=== PATIENT | female | born 1940 | race Caucasian/White ===

== ENCOUNTER 2023-02-07 12:18 | Outpatient (OUT) | payer MEDICARE, SELFPAY ==
[2023-02-07 12:49] LABS: Basophils Absolute Auto 0.1 10^3/uL (0.0-0.1); Basophils Percent Auto 0.9 % (0.2-2.0); Eosinophils Absolute Auto 0.2 10^3/uL (0.0-0.7); Eosinophils Percent Auto 2.3 % (0.9-7.0); Hematocrit 42.5 % (36.0-48.0); Hemoglobin 14.1 g/dL (12.0-16.0); Immature Granulocytes Abs Auto 0.06 10^3/uL (0.00-0.03); Immature Granulocytes Pct Auto 0.7 % (0.0-0.5); Lymphocytes Absolute Auto 3.1 10^3/uL (1.2-3.8); Lymphocytes Percent Auto 37.2 % (20.5-60.0); Mean Corpuscular HGB Conc 33.2 g/dL (29.9-35.2); Mean Corpuscular Hemoglobin 29.4 pg (26.7-34.0); Mean Corpuscular Volume 88.7 fL (81.0-99.0); Mean Platelet Volume 10.4 fL (9.5-13.5); Monocytes Absolute Auto 0.7 10^3/uL (0.3-0.8); Monocytes Percent Auto 8.6 % (1.7-12.0); Neutrophils Absolute Auto 4.1 10^3/uL (1.4-6.5); Neutrophils Percent Auto 50.3 % (43.0-75.0); Platelet Count 319 10^3/uL (150-450); Red Blood Count 4.79 10^6/uL (4.20-5.40); Red Cell Distribution Width 14.4 % (11.0-15.0); White Blood Count 8.2 10^3/uL (4.0-11.0)
[2023-02-07 13:52] LABS: Alanine Aminotransferase 33 U/L (14-59); Albumin Globulin Ratio 0.9; Albumin Level 3.6 g/dL (3.4-5.0); Alkaline Phosphatase 73 U/L (46-116); Anion Gap 12.6; Aspartate Amino Transferase 21 U/L (15-37); BUN Creatinine Ratio 16.3; Bilirubin Total 0.5 mg/dL (0.2-1.0); Calcium 9.5 mg/dL (8.5-10.1); Carbon Dioxide 28.5 mmol/L (21.0-32.0); Chloride 101 mmol/L (98-107); Estimated GFR (African America 48 (>=60); Estimated GFR (Non-African Ame 40 (>=60); Free Thyroxine Index 3.67 (1.30-4.50); Globulin 3.9 g/dL; Glucose 100 mg/dL (74-106); Potassium 4.1 mmol/L (3.5-5.1); Sodium 138 mmol/L (136-145); Total Protein 7.5 g/dL (6.4-8.2)
== END 2023-02-07 12:19 ==
LOC: LAB 12:23
PROVIDERS: Family Provider Family Medicine; PCP Family Medicine; Visit Provider Family Medicine
DX: R06.02 Shortness of breath (principal); I11.0 Hypertensive heart disease with heart failure; I50.30 Unspecified diastolic (congestive) heart failure
CPT/HCPCS: 36415; 80053; 83880; 84436; 84443; 84479; 85025

== ENCOUNTER 2023-04-24 12:32 | Outpatient (OUT) | payer MEDICARE, SELFPAY ==
--- NOTE | 2023-04-24 12:43 | XR_ITS ---
The [address] [address] Patient Name: ROBYN SRINIVASAN MRN: [id number] date: 1940 Sex: F Assigned Patient Location: [facility] Current Patient Location: CT Accession/Order Number: [id number] Exam Date: 04/24/2023 12:50 Report Date: 04/24/2023 13:30 At the request of: RAYMOND SILVERMAN Procedure: XR abdomen 1V EXAM: XR abdomen 1V HISTORY: Kidney stone N20.0, Ureteral stone w/hydronephrosis N13.2 COMPARISON: None. TECHNIQUE: AP view of the abdomen. FINDINGS: Nonobstructive bowel gas pattern is noted. There is a subtle calculi projecting over the right sacrum. The osseous structures are intact. XR/XR abdomen 1V IMPRESSION: Nonobstructive bowel gas pattern. Possible distal right urolithiasis. Electronically authenticated by: SACHI TORRES Date: 04/24/2023 13:30
== END 2023-04-24 12:33 | disposition home or self-care (01) ==
LOC: RAD 12:36
PROVIDERS: Family Provider Family Medicine; PCP Family Medicine; Visit Provider Urology
DX: N13.2 Hydronephrosis with renal and ureteral calculous obstruction (principal)
CPT/HCPCS: 74018

== ENCOUNTER 2023-04-28 09:48 | Outpatient (OUT) | payer MEDICARE, SELFPAY ==
--- NOTE | 2023-04-28 09:51 | CT_ITS ---
[address] [address] Patient Name: ROBYN SRINIVASAN MRN: [id number] date: 1940 Sex: F Assigned Patient Location: CT Current Patient Location: CT Accession/Order Number: [id number] Exam Date: 04/28/2023 10:15 Report Date: 04/28/2023 10:48 At the request of: MARKIE ACKERMAN Procedure: CT chest wo con EXAM: CT chest wo con HISTORY: Chest Mass E28.39, Lung Nodule COMPARISON: CT chest 01/21/2023. TECHNIQUE: Axial soft tissue and lung windows of the chest with coronal and sagittal reformats. CT dose reduction technique was used including Automated Exposure Control. Findings: Evaluation is limited given the absence of intravenous contrast. The heart is nonenlarged. Mild coronary artery and aortic annular calcifications. No pericardial effusion. The thoracic aorta is normal caliber with mild atherosclerotic disease. The pulmonary arteries are nondilated. The central airways are patent. No pneumothorax. No pleural effusion. No focal consolidation. Stable bilateral pulmonary nodules. No new pulmonary nodule. No enlarged mediastinal, hilar, axillary or supraclavicular lymph nodes. Large hiatal hernia. Fatty liver. No aggressive sclerotic or lytic osseous lesions. Mild multilevel degenerative spondylosis of the thoracic spine. CT/CT chest wo con IMPRESSION: 1. Stable pulmonary nodules. 2. Large hiatal hernia. 3. Fatty liver. Electronically authenticated by: RANDY YANEZ Date: 04/28/2023 10:48
== END 2023-04-28 09:49 | disposition home or self-care (01) ==
LOC: CT 09:48
PROVIDERS: Family Provider Family Medicine; PCP Family Medicine; Visit Provider Family Medicine
DX: R22.2 Localized swelling, mass and lump, trunk (principal); R91.8 Other nonspecific abnormal finding of lung field; K44.9 Diaphragmatic hernia without obstruction or gangrene; K76.0 Fatty (change of) liver, not elsewhere classified
CPT/HCPCS: 71250

== ENCOUNTER 2024-01-07 10:25 | Outpatient (OUT) | payer MEDICARE, SELFPAY ==
[2024-01-07 11:28] LABS: Basophils Absolute Auto 0.1 10^3/uL (0.0-0.1); Basophils Percent Auto 0.4 % (0.2-2.0); Eosinophils Absolute Auto 0.4 10^3/uL (0.0-0.7); Eosinophils Percent Auto 2.7 % (0.9-7.0); Hematocrit 40.5 % (36.0-48.0); Hemoglobin 13.1 g/dL (12.0-16.0); Immature Granulocytes Abs Auto 0.07 10^3/uL (0.00-0.03); Immature Granulocytes Pct Auto 0.5 % (0.0-0.5); Lymphocytes Percent Auto 13.5 % (20.5-60.0); Mean Corpuscular HGB Conc 32.3 g/dL (29.9-35.2); Mean Corpuscular Hemoglobin 29.2 pg (26.7-34.0); Mean Corpuscular Volume 90.4 fL (81.0-99.0); Monocytes Absolute Auto 0.9 10^3/uL (0.3-0.8); Neutrophils Absolute Auto 11.2 10^3/uL (1.4-6.5); Neutrophils Percent Auto 76.9 % (43.0-75.0); Platelet Count 244 10^3/uL (150-450); Red Blood Count 4.48 10^6/uL (4.20-5.40); Red Cell Distribution Width 13.2 % (11.0-15.0); White Blood Count 14.6 10^3/uL (4.0-11.0)
[2024-01-07 11:39] LABS: Estimated Average Glucose 114 mg/dL; Glycohemoglobin A1C 5.6 % (4.5-6.2)
[2024-01-07 11:40] LABS: Alanine Aminotransferase 25 U/L (14-59); Albumin Globulin Ratio 0.9; Albumin Level 3.7 g/dL (3.4-5.0); Alkaline Phosphatase 77 U/L (46-116); Anion Gap 13.2; Aspartate Amino Transferase 18 U/L (15-37); BUN Creatinine Ratio 23.8; Bilirubin Total 0.3 mg/dL (0.2-1.0); Calcium 9.6 mg/dL (8.5-10.1); Carbon Dioxide 26.7 mmol/L (21.0-32.0); Chloride 103 mmol/L (98-107); Chol HDL Ratio 2.9; Cholesterol 233 mg/dL (<=200); Estimated GFR (African America >60 (>=60); Estimated GFR (Non-African Ame >60 (>=60); Free T3 2.64 pg/mL (2.18-3.98); Globulin 3.9 g/dL; Glucose 105 mg/dL (74-106); HDL Cholesterol 79 mg/dL (40-60); Potassium 3.9 mmol/L (3.5-5.1); Sodium 139 mmol/L (136-145); Thyroid Stimulating Hormone 2.689 uIU/mL (0.358-3.740); Total Protein 7.6 g/dL (6.4-8.2); Triglycerides 104 mg/dL (<=150); Troponin I High Sensitivity 4.9 pg/mL (4.0-51.3); VLDL CHOLESTEROL 20.8 mg/dL
[2024-01-08 12:10] LABS: Insulin 16.4 uIU/mL (2.6-24.9)
== END 2024-01-07 10:26 | disposition home or self-care (01) ==
LOC: LAB 10:27
PROVIDERS: Family Provider Family Medicine; PCP Family Medicine; Visit Provider Family Medicine
DX: R06.02 Shortness of breath (principal); G47.00 Insomnia, unspecified; K21.9 Gastro-esophageal reflux disease without esophagitis; E78.5 Hyperlipidemia, unspecified; R73.09 Other abnormal glucose; Z12.12 Encounter for screening for malignant neoplasm of rectum; D64.9 Anemia, unspecified; E55.9 Vitamin D deficiency, unspecified; I50.30 Unspecified diastolic (congestive) heart failure; I11.0 Hypertensive heart disease with heart failure
CPT/HCPCS: 36415; 80053; 80061; 82306; 83036; 83525; 83540; 83880; 84436; 84443; 84481; 84484; 85025

== ENCOUNTER 2024-01-19 11:51 | Outpatient (REF) | payer MEDICARE, SELFPAY ==
[2024-01-20 15:28] LABS: Internal Control Within Normal Limits; Occult Blood Negative
== END 2024-01-19 11:52 | disposition home or self-care (01) ==
LOC: LAB 11:51
PROVIDERS: Family Provider Family Medicine; PCP Family Medicine; Visit Provider Family Medicine
DX: R06.02 Shortness of breath (principal); G47.00 Insomnia, unspecified; K21.9 Gastro-esophageal reflux disease without esophagitis; E78.5 Hyperlipidemia, unspecified; R73.09 Other abnormal glucose; Z12.12 Encounter for screening for malignant neoplasm of rectum; D64.9 Anemia, unspecified; E55.9 Vitamin D deficiency, unspecified; I50.30 Unspecified diastolic (congestive) heart failure; I11.0 Hypertensive heart disease with heart failure
CPT/HCPCS: G0328

== ENCOUNTER 2024-01-20 06:28 | Outpatient (OUT) | payer MEDICARE, SELFPAY ==
--- NOTE | 2024-01-20 06:15 | NM_ITS ---
Patient Name: ROBYN SRINIVASAN MR#: [id number] : 1940 Exam Date: 01/20/2024 Ordering Doctor: DR MARKIE ACKERMAN . RADIOLOGY REPORT PROCEDURE: NM NERI PERF SPECT REST STR COMPARISON: None. INDICATIONS: SHORTNESS OF BREATH TECHNIQUE: Exam Description: Stress/Rest one day protocol gated SPECT Rest Imagin.0 mCi Tc-99m Cardiolite IV on 01/20/2024 Stress Imaging 29.9 mCi Tc-99m Cardiolite IV on 01/20/2024 Exercise Protocol: 0.4 mg Lexiscan given IV Heart Rate (bpm): Rest: 67 Max: 96 PMHR: 69 Blood Pressure: Rest: 164/88 Max: 174/90 Symptoms: Rest and peak stress ECG findings were normal and the exercise portion of the study was normal per attending physician Dr. Yu . For more details please see separate cardiac stress test report. FINDINGS: QUALITY OF STUDY: Good. PERFUSION DEFECT: LOCATION: N/A SIZE: N/A. SEVERITY: N/A. TYPE: N/A. WALL MOTION: Normal. LV SIZE: Normal. 48 mL. TID / TCD: None; 0.6 LVEF: Normal. Calculated EF 75%. SUMMARY: Myocardial perfusion imaging study is NORMAL. CONCLUSION: Normal myocardial profusion scan Normal exercise test Dictated by: Alex Bell MD on 01/21/2024 at 11:29 Approved by: Alex Bell MD on 01/21/2024 at 11:31
--- OUTSIDE RECORDS SUMMARY | 2024-01-20 06:31 | XMS_ITS | CCD ---
Author Organization [facility] CliniSynv Care Team Providers Care Drupal Programmer Name Role Phone ANDRA, DR CARLOS Mae Admitting Unavailable COOK, DR CARLOS Mae Attending Unavailable LUIS, DR ADEN Primary Care Unavailable COOK, DR CARLOS Mae Consulting Unavailable COOK, DR CARLOS Mae Admitting Unavailable COOK, DR CARLOS Mae Attending Unavailable LUIS, DR ADEN Primary Care Unavailable COOK, DR CARLOS Mae Consulting Unavailable LUIS, DR ADEN Admitting Unavailable LUIS, DR ADEN Attending Unavailable LUIS, DR ADEN Primary Care Unavailable LUIS, DR ADEN Consulting Unavailable ZIEBER, DR JEREMIAH Norton Consulting Unavailable HOY, DR ADEN Primary Care Unavailable LUIS, DR ADEN Admitting Unavailable HOAce, DR ADEN Attending Unavailable HOAce, DR ADEN Consulting Unavailable COOK, DR CARLOS Mae Consulting Unavailable WEST, DR EDGAR Flores Consulting Unavailable PAY, DR RODRIGUEZ Consulting Unavailable GRECHNY, WOOD POOL Consulting Unavailable HAY, DR RAMIREZ Consulting Unavailable AGUBOSIM, RAMÍREZ Consulting Unavailable Otf, Aba Consulting Unavailable COOK, DR CARLOS Mae Admitting Unavailable COOK, DR CARLOS Mae Attending Unavailable LUIS, DR ADEN Primary Care Unavailable COOK, DR CARLOS Mae Consulting Unavailable ZIEBTIFFANI, DR JEREMIAH Norton Consulting Unavailable LUIS, DR ADEN Admitting Unavailable LUIS, DR ADEN Attending Unavailable HOAce, DR ADEN Primary Care Unavailable LUIS, DR ADEN Consulting Unavailable Markie Smith Primary Care Physician Markie Smith Primary Care Unavailable Carlos Silverman Attending Unavailable Carlos Silverman Admitting Unavailable Markie Smith Primary Care Unavailable Carlos Silverman Attending Unavailable Carlos Silverman Admitting Unavailable Carlos SILVERMAN Attending Unavailable Cralos SILVERMAN Attending Unavailable LOUISA SPARROW Attending Unavailable Allergies Allergy Classification Reported Allergen(s) Allergy Type Date of Onset Reaction(s) Facility (2 sources) Ciprofloxacin; Translations: [ciprofloxacin] Drug Allergy 7 [facility] Repository (2 sources) Codeine; Translations: [codeine] Drug Allergy 1 [facility] Repository (2 sources) Ibuprofen; Translations: [ibuprofen] Drug Allergy 7 [facility] Repository (4 sources) Penicillin; Translations: [penicillin] Drug Allergy 3 Eruption of skin (disorder) [facility] Repository (1 source) [place] nut Drug allergy (disorder) 2 [facility] Repository (2 sources) Ciprofloxacin; Translations: [ciprofloxacin] Drug Allergy 7 Unknown [facility] (2 sources) Codeine; Translations: [codeine] Drug Allergy 1 Unknown [facility] (2 sources) Ibuprofen; Translations: [ibuprofen] Drug Allergy 7 Unknown [facility] (3 sources) Sulfamethoxazole / Trimethoprim; Translations: [sulfamethoxazole-tr imethoprim] Drug Allergy Tremor (finding) [facility] Medications Current Medications Medication Drug Class(es) Dates Sig (Normalized) Sig (Original) ALPRAZolam 0.25 mg oral tablet (2 sources) Benzodiazepine Start: 10-09-2021 take 4 tablets by mouth three times daily Xanax 0.25 mg Tab mg tab(s), Oral, TID, Refills(s) 0 Start Date: 10/09/21 Status: Ordered calcium carbonate 500 mg chewable tablet (2 sources) Start: 05-28-2019 Tums 500 mg Tab-Chew 1,000 mg = 2 tab(s), Chewed, q4hr, PRN Dyspepsia, Refills(s) 0 Start Date: 05/28/19 Status: Ordered Celebrate Multivitamin (2 sources) Start: 03-18-2019 Celebrate Multivitamin Daily, Refill(s) 0 Start Date: 03/18/19 Status: Ordered Zyrtec (2 sources) Histamine-1 Receptor Antagonist Start: 10-09-2021 Zyrtec Daily, Refills(s) 0 Start Date: 10/09/21 Status: Ordered docusate sodium 100 mg oral capsule (2 sources) Start: 03-18-2019 take 1 capsule by mouth twice daily as needed for constipation Colace 100 mg Cap 100 mg = 1 cap(s), Oral, BID, PRN for constipation, crush and put in applesauce, # 20 cap(s), Refills(s) 0 Start Date: 03/18/19 Status: Ordered Excedrin Migraine (2 sources) Start: 10-09-2021 Excedrin Migraine Oral, q6hr, Refill(s) 0 Start Date: 10/09/21 Status: Ordered Iron Chews (2 sources) Start: 10-09-2021 take 1 mg by mouth once daily Iron Chews mg, Oral, Daily, Refills(s) 0 Start Date: 10/09/21 Status: Ordered lactobacillus acidophilus [id number] unt oral capsule (2 sources) Start: 03-18-2019 take 1 capsule by mouth once daily lactobacillus acidophilus oral capsule 1 cap(s), Oral, Daily, Refill(s) 0 Start Date: 03/18/19 Status: Ordered meclizine hydrochloride 25 mg chewable tablet (2 sources) Antiemetic Start: 10-09-2021 take 1 mg by mouth three times daily meclizine 25 mg oral tablet, chewable mg tab(s), Chewed, TID, Refills(s) 0 Start Date: 10/09/21 Status: Ordered pantoprazole 40 mg delayed release oral tablet (1 source) Proton Pump Inhibitor Start: 05-01-2023 take 1 mg by mouth once daily Pantoprazole [address] Tab mg tab(s), Oral, Daily Start Date: 05/01/23 Status: Ordered 24 hr divalproex sodium 500 mg extended release oral tablet (2 sources) Mood Stabilizer, Anti-epileptic Agent Start: 05-28-2019 take 2 tablets by mouth once daily divalproex sodium 500 mg ER Tab 1,000 mg = 2 tab(s), Oral, Daily, Refills(s) 0 Start Date: 05/28/19 Status: Ordered Problems Active Problems Problem Classification Problem Date Documented Da te Episodic/Chronic Calculus of urinary tract (10 sources) Calculus of kidney; Translations: [Personal history of urinary calculi] Onset: 09-27-2021 Episodic Chronic kidney disease (2 sources) Chronic kidney disease stage 3 06-06-2019 Chronic Congestive heart failure; nonhypertensive (1 source) Unspecified diastolic (congestive) heart failure; Translations: [UNSPECIFIED DIASTOLIC HEART FAILURE] Onset: 02-01-2022 Chronic Deficiency and other anemia (4 sources) Iron deficiency anemia, unspecified; Translations: [IRON DEFICIENCY ANEMIA UNSPECIFIED] Onset: 01-31-2022 Episodic Deficiency and other anemia (1 source) Anemia, unspecified; Translations: [ANEMIA UNSPECIFIED] Onset: 02-01-2022 Episodic Delirium, dementia, and amnestic and other cognitive disorders (2 sources) Dementia associated with another disease 06-06-2019 Chronic Diabetes mellitus without complication (2 sources) Type 2 diabetes mellitus 06-06-2019 Chronic Diabetes mellitus without complication (1 source) Other abnormal glucose; Translations: [OTHER ABNORMAL GLUCOSE] Onset: 02-01-2022 Episodic Disorders of lipid metabolism (2 sources) Pure hypercholesterolemia , unspecified; Translations: [Hyperlipidemia, unspecified] Onset: 02-01-2022 Chronic Esophageal disorders (3 sources) Gastro-esophageal reflux disease without esophagitis; Translations: [Gastroesophageal reflux disease] Onset: 02-01-2022 04-14-2019 Chronic Hypertension with complications and secondary hypertension (1 source) Hypertensive heart disease with heart failure; Translations: [HTN HEART DISEASE W/HEART FAIL] Onset: 02-01-2022 Chronic Mood disorders (2 sources) Mixed bipolar affective disorder, mild 06-06-2019 Chronic Other diseases of kidney and ureters (1 source) Urinary tract obstruction; Translations: [Hydronephrosis with renal and ureteral calculous obstruction] Onset: 06-04-2022 Episodic Other diseases of kidney and ureters (2 sources) Hydronephrosis 10-09-2021 Episodic Other hereditary and degenerative nervous system conditions (2 sources) Essential tremor 03-18-2019 Chronic Other screening for suspected conditions (not mental disorders or infectious disease) (4 sources) Encounter for screening mammogram for malignant neoplasm of breast; Translations: [ENC SCR MAMMO MALIG NEOPLASM BREAST] Onset: 02-21-2022 Episodic Prolapse of female genital organs (1 source) Rectocele; Translations: [RECTOCELE] Onset: 09-27-2021 Chronic Residual codes; unclassified (1 source) Family history of malignant neoplasm of breast; Translations: [FAMILY HX MALIG NEOPLASM OF BREAST] Onset: 02-26-2022 Episodic Residual codes; unclassified (1 source) Family history of malignant neoplasm of prostate; Translations: [FAMILY HX MALIG NEOPLASM PROSTATE] Onset: 02-26-2022 Episodic Residual codes; unclassified (1 source) Insomnia, unspecified; Translations: [INSOMNIA UNSPECIFIED] Onset: 02-01-2022 Episodic Residual codes; unclassified (2 sources) History of craniotomy 03-18-2019 Episodic Viral infection (1 source) COVID-19; Translations: [COVID-19] Onset: 09-27-2021 Past or Other Problems Problem Classification Problem Date Documented Date Episodic/Chronic Abdominal pain (4 sources) Unspecified abdominal pain; Translations: [UNSPECIFIED ABDOMINAL PAIN] Onset: 09-21-2021 Episodic Other aftercare (1 source) Other mcc (current) drug therapy; Translations: [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 CURRENT DRUG THERAPY] Onset: 09-27-2021 Episodic Other diseases of bladder and urethra (1 source) Unspecified urethral stricture, female; Translations: [UNSP URETHRAL STRICTURE FEMALE] Onset: 09-27-2021 Episodic Other diseases of kidney and ureters (1 source) Hydronephrosis with renal and ureteral calculous obstruction; Translations: [HYDRONPHROS RENL AND URETRL CALCUL OBST] Onset: 09-27-2021 Episodic Residual codes; unclassified (1 source) Acquired absence of both cervix and uterus; Translations: [ACQUIRED ABSENCE BOTH CERVIX AND UTERUS] Onset: 09-27-2021 Episodic Screening and history of mental health and substance abuse codes (1 source) Personal history of nicotine dependence; Translations: [PERSONAL HISTORY OF NICOTINE DEPEND] Onset: 09-27-2021 Episodic Results Test Name Value Interpretation Reference Range Facility Ambulatory Visit Summaryon 0 05-01-2023 Ambulatory Visit Summary CRAIG ROBYN Judi :1940 Visit Date:05/01/2023 Ambulatory Visit Instructions Your Diagnosis Kidney stone Tests Performed Urnls Dip Stick Auto w/o Microscopy POC [id number] XR Abdomen 1 View -- Results Pending -- Please visit your patient portal for your results or contact your primary care physician. Your Care Team Attending Physician - ANDREWS FLEMING, LOUISA Welch Primary Care Physician - Luis RIVERA, Markie This Is Your Medications List Contact prescribing physician if questions or concerns APAP/ASA/caffeine (Excedrin Migraine) alprazolam (Xanax 0.25 mg Tab) calcium carbonate (Tums 500 mg Tab-Chew) carbonyl iron (Iron Chews) cetirizine (Zyrtec) divalproex sodium (divalproex sodium 500 mg ER Tab) docusate (Colace 100 mg Cap) lactobacillus acidophilus (lactobacillus acidophilus oral capsule) meclizine (meclizine 25 mg oral tablet, chewable) multivitamin with minerals (Celebrate Multivitamin) pantoprazole (Pantoprazole [address] Tab) Procedures Performed Cystoscopy (09/22/2021), Appendectomy, CE - Cataract extraction, H/O: hysterectomy. Discharge Vitals Temperature (Temporal Artery) 36.3 ?C Heart Rate (Peripheral) 78 Blood Pressure 158/81 Height 163 cm Height 64 in Weight 80 kg Weight 176 lb BMI 30.11 What to do next Scheduled Follow-Up Appointments Friday 1:00 PM EDT With: Carlos SILVERMAN MD Where: [facility] Patient Educationon 05-01-20 23 Patient Education Nephrology Dietary Guidelines to Help Prevent Kidney Stones Kidney stones are deposits of minerals and salts that form inside your kidneys. Your risk of developing kidney stones may be greater depending on your diet, your lifestyle, the medicines you take, and whether you have certain medical conditions. Most people can lower their chances of developing kidney stones by following the instructions below. Your dietitian may give you more specific instructions depending on your overall health and the type of kidney stones you tend to develop. What are tips for following this plan? Reading food labels ? Choose foods with no salt added or low-salt labels. Limit your salt (sodium) intake to less than 1,500 mg a day. ? Choose foods with calcium for each meal and snack. Try to eat about 300 mg of calcium at each meal. Foods that contain 200?500 mg of calcium a serving include: ? 8 oz (237 mL) of milk, calcium-fortifiednon- dairy milk, and calcium-fortifiedfrui t juice. Calcium-fortified means that calcium has been added to these drinks. ? 8 oz (237 mL) of kefir, yogurt, and soy yogurt. ? 4 oz (114 g) of tofu. ? 1 oz (28 g) of cheese. ? 1 cup (150 g) of dried figs. ? 1 cup (91 g) of cooked broccoli. ? One 3 oz (85 g) can of sardines or mackerel. Most people need 1,000?1,500 mg of calcium a day. Talk to your dietitian about how much calcium is recommended for you. Shopping ? Buy plenty of fresh fruits and vegetables. Most people do not need to avoid fruits and vegetables, even if these foods contain nutrients that may contribute to kidney stones. ? When shopping for convenience foods, choose: ? Whole pieces of fruit. ? Pre-made salads with dressing on the side. ? Low-fat fruit and yogurt smoothies. ? Avoid buying frozen meals or prepared deli foods. These can be high in sodium. ? Look for foods with live cultures, such as yogurt and kefir. ? Choose high-fiber grains, such as whole-wheat breads, oat bran, and wheat cereals. Cooking ? Do not add salt to food when cooking. Place a salt shaker on the table and allow each person to add his or her own salt to taste. ? Use vegetable protein, such as beans, textured vegetable protein (TVP), or tofu, instead of meat in pasta, casseroles, and soups. Meal planning ? Eat less salt, if told by your dietitian. To do this: ? Avoid eating processed or pre-made food. ? Avoid eating fast food. ? Eat less animal protein, including cheese, meat, poultry, or fish, if told by your dietitian. To do this: ? Limit the number of times you have meat, poultry, fish, or cheese each week. Eat a diet free of meat at least 2 days a week. ? Eat only one serving each day of meat, poultry, fish, or seafood. ? When you prepare animal protein, cut pieces into small portion sizes. For most meat and fish, one serving is about the size of the palm of your hand. ? Eat at least five servings of fresh fruits and vegetables each day. To do this: ? Keep fruits and vegetables on hand for snacks. ? Eat one piece of fruit or a handful of berries with breakfast. ? Have a salad and fruit at lunch. ? Have two kinds of vegetables at dinner. ? Limit foods that are high in a substance called oxalate. These include: ? Spinach (cooked), rhubarb, beets, sweet potatoes, and Ukrainian chard. ? Peanuts. ? Potato chips, serbian fries, and baked potatoes with skin on. ? Nuts and nut products. ? Chocolate. ? If you regularly take a diuretic medicine, make sure to eat at least 1 or 2 servings of fruits or vegetables that are high in potassium each day. These include: ? Avocado. ? Banana. ? [place], prune, carrot, or tomato juice. ? Baked potato. ? Cabbage. ? Beans and split peas. Lifestyle ? Drink enough fluid to keep your urine pale yellow. This is the most important thing you can do. Spread your fluid intake throughout the day. ? If you drink alcohol: ? Limit how much you use to: ? 0?1 drink a day for women who are not . ? 0?2 drinks a day for men. ? Be aware of how much alcohol is in your drink. In the [place] one drink equals one 12 oz bottle of beer (355 mL), one 5 oz glass of wine (148 mL), or one 1? oz glass of hard liquor (44 mL). ? Lose weight if told by your health care provider. Work with your dietitian to find an eating plan and weight loss strategies that work best for you. General information ? Talk to your health care provider and dietitian about taking daily supplements. You may be told the following depending on your health and the cause of your kidney stones: ? Not to take supplements with vitamin C. ? To take a calcium supplement. ? To take a daily probiotic supplement. ? To take other supplements such as magnesium, fish oil, or vitamin B6. ? Take grsq-efn-huapxdf and prescription medicines only as told by your health care provider. These include supplements. What foods should I limit? Limit your in (more content not included)... Normal [facility] Urology Office/Clinic Noteon 05-01-2023 Urology Office/Clinic Note Chief Complaint 10 month follow up w/ KUB HPI Staff Pt is here today for 10 month follow up w/ KUB. Previous DX: chronic kidney disease stage 3, kidney stone, ureteral stone w/ hydronephrosis. S/P Cysto done 09/22/21. KUB done 04/24/23 at [facility]. Dysuria: denies pain and burning Incomplete bladder emptying: denies Hematuria: denies visible blood Frequency: 4-5x a day Urgency: denies Nocturia: denies Stream: denies hesitancy, medium stream Leaking: denies Post void dripping: denies Wearing pads/ Depends: wears pad daily, changes 2x a day Urge incontinence: sometimes Stress incontinence: denies Incontinence without Sensory Awareness: denies Abdominal pain: denies Flank pain: denies History of Present Illness staff HPI reviewed and agree. Tests Reviewed: Reviewed UA, KUB. Review of Systems PHQ Score Initial Depression Screen Score: 0 no fever, chills, malaise, myalgia. no rash/lesions. no chest pain, palpitations, or SOB. no abdominal pain, nausea, vomiting. no unilateral calf swelling, redness, pain Physical Exam Vitals & Measurements T: 36.3 ?C(Temporal Artery) HR: 78(Peripheral) BP: 158/81 HT: 64 in HT: 163 cm WT: 80 kg WT: 176 lb BMI: 30.11 General: nontoxic, NAD Mouth: moist mucosa Lungs: normal respiratory effort Cardio: regular rate, good distal perfusion Abdomen: nondistended, no suprapubic distention or tenderness, no CVA tenderness Neurologic: Grossly normal Skin: No rashes or suspicious lesions Assessment/Plan 1. Kidney stone (N20.0: Calculus of kidney) Stone analysis 10/25/21 - 70% Ca Ox mono and 30% Ca Ox di. Metabolic workup 02/02/22 - Low volume. High Na. Moderately low citrate. KUB 04/24/23 - Possible distal R urolithiasis. UA today shows small leuks. No UTI signs or sx. No gross hematuria. Reviewed KUB with pt, possible tiny stone. Since pt is completely asx and UA shows no microscopic hematuria we agrees with cont to monitor as opposed to additional imaging at this time. Had recent chest CT for shingles but kidneys were not visualized. Follow up 1 yr KUB or sooner if needed. Pt understands and agrees with plan. Pt knows to monitor for signs/sx of renal stones and notify the office if she were to experience any. Follow-up With When Contact Information ANDREWS FLEMING, LOUISA Welch, URL [address] [place] [address] Additional Instructions: 1 yr KUB Patient Education Dietary Guidelines to Help Prevent Kidney Stones Documentation recorded by the scribsulema Moreno accurately reflects the services(s) I performed and decisions made by me. Authenticated by Louisa Sparrow PA-C on 05/01/2023 13:49:48. IBria, personally scribed for WOOD Rodriguez on 05/01/2023 13:33:17. . 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 Medications Celebrate Multivitamin, Daily Colace 100 mg Cap, 100 mg= 1 cap(s), Oral, BID, PRN divalproex sodium 500 mg ER Tab, 1000 mg= 2 tab(s), Oral, Daily Excedrin Migraine, Oral, q6hr Iron Chews, Oral, Daily lactobacillus acidophilus oral capsule, 1 cap(s), Oral, Daily meclizine 25 mg oral tablet, chewable, Chewed, TID Pantoprazole [address] Tab, Oral, Daily Tums 500 mg Tab-Chew, 1000 mg= 2 tab(s), Chewed, q4hr, PRN Xanax 0.25 mg Tab, Oral, TID Zyrtec, Daily Allergies Bactrim (Shaking) ciprofloxacin (Unknown) codeine (Unknown) ibuprofen (Unknown) penicillin (Rash) Social History Tobacco Former smoker, quit more than 30 days ago Tobacco Use:. Never Smokeless Tobacco Use:. Cigarettes, 05/01/2023 Immunizations Vaccine Date Status SARS-CoV-2 (COVID-19) mRNA-1273 vaccine 01/19/2021 Recorded SARS-CoV-2 (COVID-19) mRNA-1273 vaccine 12/22/2020 Recorded Lab Results Ambulatory Point of Care Results Bilirubin Urine Dipstick: Negative (05/01/23 13:03:00) Blood Urine Dipstick: Negative (05/01/23 13:03:00) Glucose Urine Dipstick: Negative (05/01/23 13:03:00) Ketones Urine Dipstick: Negative (05/01/23 13:03:00) Leukocytes Urine Dipstick: 1+ Small (05/01/23 13:03:00) Nitrite Urine Dipstick: Negative (05/01/23 13:03:00) Protein Urine Dipstick: 1+ (30 mg/dl) (05/01/23 13:03:00) Specific [place] Urine Dipstick: >=1.030 (05/01/23 13:03:00) Urine Appearance Urine Dipstick: Clear (05/01/23 13:03:00) Urine Color Urine Dipstick: Yellow (05/01/23 13:03:00) Urobilinogen Urine Dipstick: Normal 0.2-1 EU/dl (05/01/23 13:03:00) pH Urine Dipstick: 5.5 (05/01/23 13:03:00) Normal [facility] Comment on above: Result Comment: Elec tronically Signed By: LOUISA SPARROW PA-C\.br\Date and Time Signed: 05/01/23 13:50 EDT\.br\Electronically Co-Signed By: Bria Moreno\.br\Date and Time Co-Signed: 05/01/23 13:33 EDT RAD - MISCon 04-28-2023 RAD - MISC [id number] Normal [facility] Ambulatory Visit Summaryon 1 Ambulatory Visit Summary ROBYN SRINIVASAN :1940 Visit Date:06/04/2022 Ambulatory Visit Instructions Your Diagnosis Kidney stone Ureteral stone with hydronephrosis Tests Performed Urnls Dip Stick Auto w/o Microscopy POC [id number] XR Abdomen 1 View -- Results Pending -- Please visit your patient portal for your results or contact your primary care physician. Your Care Team Attending Physician - Carlos SILVERMAN MD Primary Care Physician - Markie Smith MD This Is Your Medications List Contact prescribing physician if questions or concerns APAP/ASA/caffeine (Excedrin Migraine) alprazolam (Xanax 0.25 mg Tab) calcium carbonate (Tums 500 mg Tab-Chew) carbonyl iron (Iron Chews) cetirizine (Zyrtec) divalproex sodium (divalproex sodium 500 mg ER Tab) docusate (Colace 100 mg Cap) lactobacillus acidophilus (lactobacillus acidophilus oral capsule) meclizine (meclizine 25 mg oral tablet, chewable) multivitamin with minerals (Celebrate Multivitamin) Procedures Performed Cystoscopy (09/22/2021), Appendectomy, CE - Cataract extraction, H/O: hysterectomy. Discharge Vitals Heart Rate (Peripheral) 85 Blood Pressure 132/86 Height 163 cm Height 64 in Weight 80 kg Weight 176 lb BMI 30.11 What to do next Scheduled Follow-Up Appointments Friday 10:30 AM EDT With: Carlos SILVERMAN MD Where: [facility] Patient Educationon 06-04-20 Patient Education Urology Kidney Stones Kidney stones are rock-like masses that form inside of the kidneys. Kidneys are organs that make pee (urine). A kidney stone may move into other parts of the urinary tract, including: ? The tubes that connect the kidneys to the bladder (ureters). ? The bladder. ? The tube that carries urine out of the body (urethra). Kidney stones can cause very bad pain and can block the flow of pee. The stone usually leaves your body (passes) through your pee. You may need to have a doctor take out the stone. What are the causes? Kidney stones may be caused by: ? A condition in which certain glands make too much parathyroid hormone (primary hyperparathyroidism). ? A buildup of a type of crystals in the bladder made of a chemical called uric acid. The body makes uric acid when you eat certain foods. ? Narrowing (stricture) of one or both of the ureters. ? A kidney blockage that you were born with. ? Past surgery on the kidney or the ureters, such as gastric bypass surgery. What increases the risk? You are more likely to develop this condition if: ? You have had a kidney stone in the past. ? You have a family history of kidney stones. ? You do not drink enough water. ? You eat a diet that is high in protein, salt (sodium), or sugar. ? You are overweight or very overweight (obese). What are the signs or symptoms? Symptoms of a kidney stone may include: ? Pain in the side of the belly, right below the ribs (flank pain). Pain usually spreads (radiates) to the groin. ? Needing to pee often or right away (urgently). ? Pain when going pee (urinating). ? Blood in your pee (hematuria). ? Feeling like you may vomit (nauseous). ? Vomiting. ? Fever and chills. How is this treated? Treatment depends on the size, location, and makeup of the kidney stones. The stones will often pass out of the body through peeing. You may need to: ? Drink more fluid to help pass the stone. In some cases, you may be given fluids through an IV tube put into one of your veins at the hospital. ? Take medicine for pain. ? Make changes in your diet to help keep kidney stones from coming back. Sometimes, medical procedures are needed to remove a kidney stone. This may involve: ? A procedure to break up kidney stones using a beam of light (laser) or shock waves. ? Surgery to remove the kidney stones. Follow these instructions at home: Medicines ? Take tzmj-vbj-uvxoxmd and prescription medicines only as told by your doctor. ? Ask your doctor if the medicine prescribed to you requires you to avoid driving or using heavy machinery. Eating and drinking ? Drink enough fluid to keep your pee pale yellow. You may be told to drink at least 8?10 glasses of water each day. This will help you pass the stone. ? If told by your doctor, change your diet. This may include: ? Limiting how much salt you eat. ? Eating more fruits and vegetables. ? Limiting how much meat, poultry, fish, and eggs you eat. ? Follow instructions from your doctor about eating or drinking restrictions. General instructions ? Collect pee samples as told by your doctor. You may need to collect a pee sample: ? 24 hours after a stone comes out. ? 8?12 weeks after a stone comes out, and every 6?12 months after that. ? Strain your pee every time you pee (urinate), for as long as told. Use the strainer that your doctor recommends. ? Do not throw out the stone. Keep it so that it can be tested by your doctor. ? Keep all follow-up visits as told by your doctor. This is important. You may need follow-up tests. How is this prevented? To prevent another kidney stone: ? Drink enough fluid to keep your pee pale yellow. This is the best way to prevent kidney stones. ? Eat healthy foods. ? Avoid certain foods as told by your doctor. You may be told to eat less protein. ? Stay at a healthy weight. Where to find more information ? National Kidney Foundation (NKF): www.kidney.org ? [employer] (UCF): www.urologyhealth.org Contact a doctor if: ? You have pain that gets worse or does not get better with medicine. Get help right away if: ? You have a fever or chills. ? You get very bad pain. ? You get new pain in your belly (abdomen). ? You pass out (faint). ? You cannot pee. Summary ? Kidney stones are rock-like masses that form inside of the kidneys. ? Kidney stones can cause very bad pain and can block the flow of pee. ? The stones will often pass out of the body through peeing. ? Drink enough fluid to keep your pee pale yellow. This information is not intended to replace advice given to you by your health care provider. Make sure you discuss any questions you have with your health care provider. Document Released: 02/03/2009 Document Revised: 01/04/2020 Document Reviewed: 01/04/2020 [employer] Patient Education ? 2019 [email or web address] [facility] Urology Office/Clinic Noteon 06-04-2022 Urology Office/Clinic Note Chief Complaint Pt is here for 8 month w/ 24hr urine HPI Staff Robyn is a 81 y.o. female here for 8 month follow up. Previous Dx: CKD, kidney stone, ureteral stone w/ hydronephrosis. S/P cysto/holmium laser/ureteral stent/basket done on 10/25/21, cysto/stent removal done on 11/08/21. Stone analysis done on 10/25/21 showed 70 calcium oxalate monohydrate & 30 calcium oxalate dihydrate. 24hr urine done on 01/31/22. No stone episodes since last visit. Dysuria: denies Incomplete bladder emptying: denies Hematuria: denies Frequency: yes Urgency: yes Nocturia: 1x on occasion Stream: steady stream Leaking: yes Post void dripping: denies Wearing pads/ Depends: yes wears pads Urge incontinence: yes Stress incontinence: yes cough, sneeze Incontinence without Sensory Awareness: denies Abdominal pain: denies Flank pain: yes bilateral flank pain, bad disc Sexual complaints: _ History of Present Illness I have reviewed and verified the staff HPI to be accurate for this encounter. Review of Systems PHQ Score Initial Depression Screen Score: 0 ROS - Provider Constitutional: denies weight loss, denies hot flashes. Eyes: denies eye problems. Gastrointestinal: denies nausea, denies vomiting. Cardiovascular: denies chest pain or angina. Integumentary: no dryness Musculoskeletal: denies musculoskeletal symptoms. ENMT: denies otolaryngeal symptoms. Respiratory: no shortness of breath. Heme/Lymph: denies easy bleeding tendency, denies easy bruising tendency. Psychiatric: no confusion, no anxiety. Genitourinary: denies vaginal discharge, denies incontinence, denies dysuria, denies hematuria, denies urinary frequency, denies amenorrhea, denies menorrhagia, denies abnormal bleeding, denies pelvic pain, denies genital sores, and denies decreased libido. Physical Exam Vitals & Measurements HR: 85(Peripheral) BP: 132/86 HT: 64 in HT: 163 cm WT: 80 kg WT: 176 lb BMI: 30.11 General Appearance: alert , no acute distress, well nourished, well developed female. Genitourinary: bladder nonpalpable, no flank pain. Assessment/Plan 1. Kidney stone (N20.0: Calculus of kidney) No stone episodes since last visit. Pt did not have a recent KUB. 24hr urine done on 01/31/22. Metabolic work-up showed low volume and high sodium. Moderately Low citrate level. Educated pt on Metabolic work-up. Educated pt on proper fluid intake for stone prevention. Discussed with pt on lowering her sodium intake. If pt has any concerns she can contact our office. Pt understands and acknowledges. 2. Ureteral stone with hydronephrosis (N13.2: Hydronephrosis with renal and ureteral calculous obstruction) S/P cysto/holmium laser/ureteral stent/basket done on 10/25/21, cysto/stent removal done on 11/08/21. Stone analysis done on 10/25/21 showed 70 calcium oxalate monohydrate & 30 calcium oxalate dihydrate. Lemonade is good source of citrate. Would not use prescription meds at this time. (potassium citrate). Call for problems before next visit. Follow-up With When Contact Information ANDRA RIVERA, Carlos Mae, URL In 6 months 12/03/[address] [place] [id number] Additional Instructions: KUB Patient Education Kidney Stones, Kadl-sy-Oung I, Deidre Jones , personally scribed for Dr. Silverman on 06/04/2022 12:01:29. . Documentation recorded by the scribe, Deidre Jones MA, accurately reflects the services(s) I performed and decisions made by me. Authenticated by Dr. Silverman on 06/04/2022 12:03:12. 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 Medications Celebrate Multivitamin, Daily Colace 100 mg Cap, 100 mg= 1 cap(s), Oral, BID, PRN divalproex sodium 500 mg ER Tab, 1000 mg= 2 tab(s), Oral, Daily Excedrin Migraine, Oral, q6hr Iron Chews, Oral, Daily lactobacillus acidophilus oral capsule, 1 cap(s), Oral, Daily meclizine 25 mg oral tablet, chewable, Chewed, TID Tums 500 mg Tab-Chew, 1000 mg= 2 tab(s), Chewed, q4hr, PRN Xanax 0.25 mg Tab, Oral, TID Zyrtec, Daily Allergies Bactrim (Shaking) ciprofloxacin (Unknown) codeine (Unknown) ibuprofen (Unknown) penicillin (Rash) Social History Tobacco Former smoker, quit more than 30 days ago Tobacco Use:., 10/09/2021 Immunizations Vaccine Date Status SARS-CoV-2 (COVID-19) mRNA-1273 vaccine 01/19/2021 Recorded SARS-CoV-2 (COVID-19) mRNA-1273 vaccine 12/22/2020 Recorded Lab Results Ambulatory Point of Care Results Bilirubin Urine Dipstick: Negative (06/04/22 11:45:00) Blood Urine Dipstick: Trace-intact ( (more content not included)... Normal [facility] Comment on above: Result Comment: Elec tronically Signed By: Carlos SILVERMAN MD\.br\Date and Time Signed: 06/04/22 12:04 EDT\.br\Electronically Co-Signed By: Deidre Jones MA\.br\Date and Time Co-Signed: 06/04/22 12:01 EDT MG MAMM SCREEN 3D ZAN CADon 02-21-2022 MG MAMM SCREEN 3D ZAN CAD Patient: ROBYN SRINIVASAN Exam Date: 02/21/2022 : 1940 Gender:F Ordering : DR MARKIE SMITH . Admission #: [id number] Family : Order #: [id number] CLICK HERE TO VIEW EXAM RADIOLOGY REPORT PROCEDURE: MAMMOGRAM SCREENING 3D BILATERAL CAD COMPARISON: MG MAMM SCREEN ZAN W CAD, 05/19/2018. MG MAMM ZAN SCRN W CAD DIG, 03/14/2015. DIGITIZED_MAMMO, 07/13/2009. MG MAMM SCREEN ZAN W CAD, 11/08/2019. INDICATIONS: Screening mammography Calculator Name NCI Breast Cancer Risk Assessment Tool 5 Year Breast Cancer Risk 2.90% Lifetime Breast Cancer Risk 4.80% Personal Breast Cancer No Personal Ovarian Cancer No Treatments None Family Cancers Brother with prostate cancer at age 50; Brother with prostate cancer at age 50; Daughter with breast cancer at age 47. LOCATION: [facility] BREAST COMPOSITION: Scattered areas fibroglandular density. FINDINGS: DIAGNOSTIC CATEGORY 1--NEGATIVE. RIGHT BREAST: No significant suspicious finding. No significant change has occurred. LEFT BREAST: No significant suspicious finding. No significant change has occurred. RECOMMENDATIONS: ROUTINE MAMMOGRAM AND CLINICAL EVALUATION IN 12 MONTHS. PLEASE NOTE: A NORMAL MAMMOGRAM DOES NOT EXCLUDE THE POSSIBILITY OF BREAST CANCER. A CLINICALLY SUSPICIOUS PALPABLE LUMP SHOULD BE BIOPSIED. Dictated by: Jeremiah Hobbs M.D. on 02/22/2022 at 13:30 Approved by: Jeremiah Hobbs M.D. on 02/22/2022 at 13:35 Normal [facility] T4 LABCORPon 02-07-2022 T4 [Mass/Vol] 6.2 ug/dL Normal 4.5-12.0 [facility] Comment on above: Performed By: #### T 4LC #### [facility] [address] [place] [address] Dr. Reg Kerns CITRATE URINE 24HRon 022 Citric Acid, U, 24hr 191 mg/24 hr Critically low 320-1240 [facility] Comment on above: Result Comment: This test was developed and its performance characteristics determined by [facility]. It has not been cleared or approved by the Food and Drug Administration. Performed By: #### C ITRATU #### [facility] [address] [place] [address] Dr. Reg Kerns Citric Acid, Urine 283 mg/L Normal Undefined [facility] Comment on above: Performed By: #### C ITRATU #### [facility] [address] [place] [address] Dr. Reg Kerns OXALATE 24HR URINEon 022 Oxalates, Urine 24hr 5 mg/24 hr Normal 4-31 [facility] Comment on above: Performed By: #### O X24HR #### [facility] [address] [place] [address] Dr. Reg Kerns Oxalates, Urine 8 mg/L Normal Undefined [facility] Comment on above: Performed By: #### O X24HR #### [facility] [address] [place] [address] Dr. Reg Kerns MAGNESIUM 24HR URINEon 02-03 Magnesium 24hr Urine 43.2 mg/24 hr Normal 12.0-293.0 [facility] Comment on above: Performed By: #### P THINT #### [facility] [address] [address] [address] Reg Kerns Magnesium UR 6.4 mg/dL Normal Not Estab. [facility] Comment on above: Performed By: #### P THINT #### [facility] [address] [place] [address] Dr. Reg Kerns PHOSPHORUS 24HR URINEon Phosphorus, Urine 47.7 mg/dL Normal Not Estab. [facility] Comment on above: Performed By: #### P THINT #### [facility] [address] [place] [address] Dr. Reg Kerns Phosphorus, Urine 24hr 322 mg/24 hr Normal 261-1078 [facility] Comment on above: Performed By: #### P THINT #### [facility] [address] [place] [address] Dr. Reg Kerns URIC ACID 24 HR URINEon Uric Acid, Urine 28.4 mg/dL Normal Not Estab. The [facility] Comment on above: Performed By: #### U NICHELLE 24 #### [facility] [address] [place] [address] Dr. Reg Kerns Uric Acid, Urine 24hr 191.7 mg/24 hr Normal 88.9-568.5 [facility] Comment on above: Performed By: #### U NICHELLE 24 #### [facility] [address] [place] [address] Dr. Reg Kerns CALCIUM 24 HR URINEon 2021 CALC, 24 HR UR 58.7 mg/24 hr Critically low 100.0-300.0 Th [facility] Comment on above: Performed By: #### P THINT #### [facility] [address] [place] [address] Dr. Reg Kerns UR CALCIUM 8.7 mg/dL Normal 5.1-21.0 [facility] Comment on above: Performed By: #### P THINT #### [facility] [address] [place] [address] Dr. Reg Kerns CREA 24 HR URINEon 2 CREA, 24 HR UR 455.96 mg/24 hr Critically low 800.00-1 ,800. 00 [facility] Comment on above: Performed By: #### C ITRATU #### [facility] [address] [place] [address] Dr. Reg Kerns URINE CREAT 67.55 mg/dL Normal 20.00-300.00 [facility] Comment on above: Performed By: #### C ITRATU #### [facility] [address] [place] [address] Dr. Reg Kerns SODIUM 24 HR URINEon 022 NA, 24 HR UR 76 mmol/24 hr Normal 40-220 [facility] Comment on above: Performed By: #### C ITRATU #### [facility] [address] [place] [address] Dr. Reg Kerns Sodium (U) [Moles/Vol] 112 mmol/L Critically high 30-90 [facility] Comment on above: Performed By: #### C ITRATU #### [facility] [address] [place] [address] Dr. Reg Kerns UR TOT VOL 675 ml/24 HR Normal [facility] Comment on above: Performed By: #### C ITRATU #### [facility] [address] [place] [address] Dr. Reg Kerns Performed By: #### P THINT #### [facility] [address] [place] [address] Dr. Reg Kerns INSULINon 02-01-2022 Insulin 27.7 uIU/mL Critically high 2.6-24.9 The [facility] Comment on above: Performed By: #### U NICHELLE 24 #### [facility] [address] [place] [address] Dr. Reg Kerns PTH INTACTon 02-01-2022 PTH, Intact 46 pg/mL Normal 15-65 [facility] Comment on above: Performed By: #### P THINT #### [facility] [address] [place] [address] Dr. Reg Kerns BNPon 01-31-2022 Natriuretic peptide B (Bld) [Mass/Vol] 154.0 pg/mL Normal <=1,800.0 [facility] Comment on above: Performed By: #### P THINT #### [facility] [address] [place] [address] Dr. Reg Kerns CBC AUTO DIFFon 01-31-2022 BASO # 0.1 103/ul Normal 0.0-0.1 [facility] Comment on above: Performed By: #### U NICHELLE 24 #### [facility] [address] [place] [address] Dr. Reg Kerns Basophils/100 WBC (Bld) 0.8 % Normal 0.2-2.0 [facility] Comment on above: Performed By: #### U NICHELLE 24 #### [facility] [address] [place] [address] Dr. Reg Kerns EO # 0.3 103/ul Normal 0.0-0.7 [facility] Comment on above: Performed By: #### U NICHELLE 24 #### [facility] [address] [place] [address] Dr. Reg Kerns Eosinophils/100 WBC (Bld) 4.4 % Normal 0.9-7.0 [facility] Comment on above: Performed By: #### U NICHELLE 24 #### [facility] [address] [place] [address] Dr. Reg Kerns Erythrocyte distribution width (RBC) [Ratio] 15.7 % Critically high 11.0-15.0 [facility] Comment on above: Performed By: #### U NICHELLE 24 #### [facility] [address] [place] [address] Dr. Reg Kerns Hematocrit (Bld) [Volume fraction] 37.4 % Normal 36.0-48.0 [facility] Comment on above: Performed By: #### U NICHELLE 24 #### [facility] [address] [place] [address] Dr. Reg Kerns Hemoglobin (Bld) [Mass/Vol] 11.6 g/dL Critically low 12.0-16.0 [facility] Comment on above: Performed By: #### U NICHELLE 24 #### [facility] [address] [place] [address] Dr. Reg Kerns IG # 0.03 10e3/ul Normal 0.00-0.03 [facility] Comment on above: Performed By: #### U NICHELLE 24 #### [facility] [address] [place] [address] Dr. Reg Kerns IG % 0.5 % Normal 0.0-0.5 [facility] Comment on above: Performed By: #### U NICHELLE 24 #### [facility] [address] [place] [address] Dr. Reg Kerns LYMPH # 1.9 103/ul Normal 1.2-3.8 [facility] Comment on above: Performed By: #### U NICHELLE 24 #### [facility] [address] [place] [address] Dr. Reg Kerns Lymphocytes/100 WBC (Bld) 30.3 % Normal 20.5-60.0 [facility] Comment on above: Performed By: #### U NICHELLE 24 #### [facility] [address] [place] [address] Dr. Reg Kerns MANUAL DIFF REQ NO Normal [facility] Comment on above: Performed By: #### U NICHELLE 24 #### [facility] [address] [place] [address] Dr. Reg Kerns MCH (RBC) [Entitic mass] 26.9 pg Normal 26.7-34.0 [facility] Comment on above: Performed By: #### U NICHELLE 24 #### [facility] [address] [place] [address] Dr. Reg Kerns MCHC (RBC) [Mass/Vol] 31.0 g/dL Normal 29.9-35.2 [facility] Comment on above: Performed By: #### U NICHELLE 24 #### [facility] [address] [place] [address] Dr. Reg Kerns MCV (RBC) [Entitic vol] 86.6 fL Normal 81.0-99.0 [facility] Comment on above: Performed By: #### U NICHELLE 24 #### [facility] [address] [place] [address] Dr. Reg Kerns MONO # 0.6 103/ul Normal 0.3-0.8 [facility] Comment on above: Performed By: #### U NICHELLE 24 #### [facility] [address] [place] [address] Dr. Reg Kerns Monocytes/100 WBC (Bld) 8.9 % Normal 1.7-12.0 [facility] Comment on above: Performed By: #### U NICHELLE 24 #### [facility] [address] [place] [address] Dr. Reg Kerns NEUT # 3.5 103/ul Normal 1.4-6.5 [facility] Comment on above: Performed By: #### U NICHELLE 24 #### [facility] [address] [place] [address] Dr. Reg Kerns Neutrophils/100 WBC (Bld) 55.1 % Normal 43.0-75.0 [facility] Comment on above: Performed By: #### U NICHELLE 24 #### [facility] [address] [place] [address] Dr. Reg Kerns Platelet mean volume (Bld) [Entitic vol] 10.6 fL Normal 9.5-13.5 [facility] Comment on above: Performed By: #### U NICHELLE 24 #### [facility] [address] [place] [address] Dr. Reg Kerns PLT 250 103/ul Normal 150-450 [facility] Comment on above: Performed By: #### U NICHELLE 24 #### [facility] [address] [place] [address] Dr. Reg Kerns RBC 4.32 106/ul Normal 4.20-5.40 [facility] Comment on above: Performed By: #### U NICHELLE 24 #### [facility] [address] [place] [address] Dr. Reg Kerns WBC 6.4 103/ul Normal 4.0-11.0 [facility] Comment on above: Performed By: #### U NICHELLE 24 #### [facility] [address] [address] [address] Reg Kersn FREE THYROXINE INDEX T7on FTI 2.17 Normal 1.30-4.50 [facility] Comment on above: Performed By: #### P THINT #### [facility] [address] [address] [address] Reg Kerns T3U 35.0 % Normal 30.0-39.0 [facility] Comment on above: Performed By: #### P THINT #### [facility] [address] [address] [address] Reg Kerns T4 [Mass/Vol] 6.20 ug/dL Normal 4.80-13.90 [facility] Comment on above: Result Comment: T4 t esting performed by [facility] Performed By: #### P THINT #### [facility] [address] [place] [address] Dr. Reg Kerns GLYCOHEMOGLOBIN A1Con 2021 ADA RECOMMENDATION SEE BELOW Normal [facility] Comment on above: Result Comment: ADA RECOMMENDED LIMIT 4.0 - 6.0 ADA THERAPEUTIC TARGET < 7.0 ACTION SUGGESTED > 7.0 Performed By: #### P THINT #### [facility] [address] [place] [address] Dr. Reg Kerns Glucose [Mass/Vol] 117 mg/dL Normal [facility] Comment on above: Performed By: #### P THINT #### [facility] [address] [place] [address] Dr. Reg Kerns HbA1c (Bld) [Mass fraction] 5.7 % Normal 4.5-6.2 [facility] Comment on above: Performed By: #### P THINT #### [facility] [address] [place] [address] Dr. Reg Kerns IRONon 01-31-2022 Iron [Mass/Vol] 143.0 ug/dL Normal 50.0-170.0 [facility] Comment on above: Performed By: #### I JORGE #### [facility] [address] [address] [address] Reg Kerns LIPID PROFILEon 01-31-2022 CHOL-HDL RATIO NORM SEE BELOW Normal [facility] Comment on above: Result Comment: 3.3 - 4.4 LOW RISK 4.4 - 7.1 AVERAGE RISK 7.1 - 11.0 MODERATE RISK >11.0 HIGH RISK Performed By: #### P THINT #### [facility] [address] [address] [address] Reg Kerns Cholesterol [Mass/Vol] 210 mg/dL Critically high <=200 [facility] Comment on above: Performed By: #### P THINT #### [facility] [address] [address] [address] Reg Kerns Cholesterol in HDL [Mass/Vol] 56 mg/dL Normal 40-60 [facility] Comment on above: Performed By: #### P THINT #### [facility] [address] [address] [address] Reg Kerns Cholesterol in LDL [Mass/Vol] 110.6 mg/dL Normal [facility] Comment on above: Performed By: #### P THINT #### [facility] [address] [address] [address] Reg Kerns Cholesterol.total/Ch olesterol in HDL [Mass ratio] 3.8 {ratio} Normal [facility] Comment on above: Performed By: #### P THINT #### [facility] [address] [address] [address] Reg Kerns HDL NORMAL > or = 60 mg/dl - LO W CARDIOVASCULAR RISK <40 mg/dl - HIGH CARDIOVASCULAR RISK Normal [facility] Comment on above: Performed By: #### P THINT #### [facility] [address] [address] [address] Reg Kerns LDL CALC NORMAL SEE BELOW Normal [facility] Comment on above: Result Comment: <100 mg/dl OPTIMAL 100 - 129 mg/dl NEAR OR ABOVE OPTIMAL 130 - 159 mg/dl BORDERLINE HIGH 160 - 189 mg/dl HIGH >190 mg/dl VERY HIGH Performed By: #### P THINT #### [facility] [address] [place] [address] Dr. Reg Kerns Triglyceride [Mass/Vol] 217 mg/dL Critically high <=150 [facility] Comment on above: Performed By: #### P THINT #### [facility] [address] [place] [address] Dr. Reg Kerns VLDL CALC 43.4 mg/dL Normal [facility] Comment on above: Performed By: #### P THINT #### [facility] [address] [address] [address] Reg Kerns PROF 14(COMP METB)on 022 Albumin [Mass/Vol] 3.6 g/dL Normal 3.4-5.0 [facility] Comment on above: Performed By: #### P THINT #### [facility] [address] [place] [address] Dr. Reg Kerns Albumin/Globulin [Mass ratio] 1.0 {ratio} Normal [facility] Comment on above: Performed By: #### P THINT #### [facility] Laboratory [address] [place] [address] Dr. Reg Kerns ALP [Catalytic activity/Vol] 74 U/L Normal 46-116 [facility] Comment on above: Performed By: #### P THINT #### [facility] [address] [place] [address] Dr. Reg Kerns ALT [Catalytic activity/Vol] 26 U/L Normal 14-59 [facility] Comment on above: Performed By: #### P THINT #### [facility] [address] [place] [address] Dr. Reg Kerns Anion gap [Moles/Vol] 13.3 mmol/L Normal [facility] Comment on above: Performed By: #### P THINT #### [facility] [address] [place] [address] Dr. Reg Kerns AST [Catalytic activity/Vol] 18 U/L Normal 15-37 [facility] Comment on above: Performed By: #### P THINT #### [facility] [address] [address] [address] Reg Kerns Bilirubin [Mass/Vol] 0.3 mg/dL Normal 0.2-1.0 [facility] Comment on above: Performed By: #### P THINT #### [facility] [address] [address] [address] Reg Kerns Calcium [Mass/Vol] 9.1 mg/dL Normal 8.5-10.1 [facility] Comment on above: Performed By: #### P THINT #### [facility] [address] [address] [address] Reg Kerns Chloride [Moles/Vol] 103 mmol/L Normal 98-107 [facility] Comment on above: Performed By: #### P THINT #### [facility] [address] [place] [address] Dr. Reg Kerns CO2 [Moles/Vol] 26.4 mmol/L Normal 21.0-32.0 [facility] Comment on above: Performed By: #### P THINT #### [facility] [address] [place] [address] Dr. Reg Kerns Creatinine [Mass/Vol] 0.88 mg/dL Normal 0.55-1.02 [facility] Comment on above: Performed By: #### P THINT #### [facility] [address] [place] [address] Dr. Reg Kerns EGFR-AF OMANI >60 Normal >=60 The [facility] Comment on above: Performed By: #### P THINT #### [facility] [address] [place] [address] Dr. Reg Kerns EGFR-NON AF OMANI >60 Normal >=60 [facility] Comment on above: Performed By: #### P THINT #### [facility] [address] [place] [address] Dr. Reg Kerns Globulin (S) [Mass/Vol] 3.6 g/dL Normal [facility] Comment on above: Performed By: #### P THINT #### [facility] [address] [address] [address] Reg Kerns Glucose [Mass/Vol] 91 mg/dL Normal 74-106 [facility] Comment on above: Performed By: #### P THINT #### [facility] [address] [address] [address] Reg Kerns Potassium [Moles/Vol] 4.7 mmol/L Normal 3.5-5.1 [facility] Comment on above: Performed By: #### P THINT #### [facility] [address] [address] [address] Reg Kerns Protein [Mass/Vol] 7.2 g/dL Normal 6.4-8.2 [facility] Comment on above: Performed By: #### P THINT #### [facility] [address] [address] [address] Reg Kerns Sodium [Moles/Vol] 138 mmol/L Normal 136-145 [facility] Comment on above: Performed By: #### P THINT #### [facility] [address] [address] [address] Reg Kerns Urea nitrogen [Mass/Vol] 15.0 mg/dL Normal 7.0-18.0 [facility] Comment on above: Performed By: #### P THINT #### [facility] [address] [place] [address] Dr. Reg Kerns Urea nitrogen/Creatinine [Mass ratio] 17.0 mg/mg Normal [facility] Comment on above: Performed By: #### P THINT #### [facility] [address] [address] [address] Rge Kerns TSHon 01-31-2022 TSH 2.021 uIU/mL Normal 0.358-3.740 [facility] Comment on above: Performed By: #### P THINT #### [facility] [address] [place] [address] Dr. Reg Kerns TSH RANGE SEE BELOW Normal [facility] Comment on above: Result Comment: <0.3 4 UIU/ml HYPERTHYROID 0.34-5.60 UIU/ml EUTHYROID >5.60 UIU/ml HYPOTHYROID Performed By: #### P THINT #### [facility] [address] [place], [place] [address] Dr. Reg Kerns URIC ACID SERUMon 01-31-2022 Urate [Mass/Vol] 6.1 mg/dL Critically high 2.6-6.0 [facility] Comment on above: Performed By: #### U NICHELLE #### [facility] [address] [place], [place] [address] Dr. Reg Kerns Calculi, Urinaryon 2 Ca Oxalate Dihydrate 30 % Normal . [facility] Comment on above: Performed By: #### C ALCULI #### [facility] , Ca Oxalate Monohydrate 70 % Normal . [facility] Comment on above: Performed By: #### C ALCULI #### [facility] , Color (U) Brown Normal . [facility] Comment on above: Performed By: #### C ALCULI #### [facility] , Comment2 Normal . [facility] Comment on above: Result Comment: Calc ulus received in liquid. Wet calculi must be dried before analysis, which delays reporting of results. Leaving calculi in liquid (such as water, saline, blood, urine) may lead to changes in composition. Performed By: #### C ALCULI #### [facility] , Comment: Normal . [facility] Comment on above: Result Comment: Phys ician questions regarding Calculi Analysis contact [facility] at: [phone]. Performed By: #### C ALCULI #### [facility] , Composition Normal . [facility] Comment on above: Result Comment: Perc entage (Represents the % composition) Performed By: #### C ALCULI #### [facility] , Disclaimer: Normal . [facility] Comment on above: Result Comment: This test was developed and its performance characteristics determined by [facility]. It has not been cleared or approved by the Food and Drug Administration. Performed at: [facility] [address] [place], [place], [place] [id number] Child Care Sitter: Beck Wynne MD, Phone: [phone] Performed By: #### C ALCULI #### [facility] , Note Normal . [facility] Comment on above: Result Comment: Calc perlita report will follow via computer, mail or corporate planning manager delivery. PERFORMED BY: [facility] [place] [address] PATHOLOGIST [employer] KENAN BAIRD M.D. Performed By: #### C ALCULI #### [facility] , Photo Normal . [facility] Comment on above: Result Comment: Phot ogshannan will follow under a separate cover Performed By: #### C ALCULI #### [facility] , Size 3x3 Normal . [facility] Comment on above: Result Comment: Mult iple pieces received. Dimensions of the largest piece reported. Performed By: #### C ALCULI #### [facility] , Source Kidney Normal . [facility] Comment on above: Performed By: #### C ALCULI #### [facility] , Weight 126 Normal . [facility] Comment on above: Performed By: #### C ALCULI #### [facility] , [place] 10-25-2021 L - -------- Specimen: [id number] Received: 10/26/21 Status: CATHERINE Presley Num: [id number] Spec Type: Surgical Subm Dr: Carlos Silverman MD Tissues: A Urinary Calculus (BILATERAL RENAL CALCULI) Procedures: Level 1 Gross -------- Patient Age/Sex Location Account Attending Physician -------- Robyn Srinivasan 80/F [place] [id number] Carlos Silverman MD -------- SPEC NUM: [id number] RECD: 10/26/21 STATUS: CATHERINE PRESLEY NUM: [id number] SIL: 10/25/21- [facility] DR: Carlos Silverman MD ENTERED: 10/26/21 [facility] DR: OTTO TYPE: Surgical DEPT: S ORDERED: Level 1 Gross ORDERED: Level 1 Gross Pathological Diagnosis Bilateral renal calculi, extraction: - Consistent with calculi (see Gross Description) Clinical Information Bilateral kidney stones Gross Description Fresh labeled with the patient's name and bilateral renal calculi are multiple dark brown stone fragments ranging from 0.2 cm to 0.5 cm. The specimen will be submitted for chemical analysis. No sections are submitted for microscopic evaluation. Gross exam only. (GONZALES/NIKKI) Microscopic Description Gross examination only. [id number] -------- -------- Specimen: [id number] Received: 10/26/21 Status: CATHERINE Sakina Num: [id number] Spec Type: Surgical Subm Dr: Carlos Silverman MD Tissues: A Urinary Calculus (BILATERAL RENAL CALCULI) Procedures: Level 1 Gross -------- Patient: Robyn Srinivasan [id number] (Continued) -------- Signed (signature on file) Kenan Baird MD 10/26/21 1633 [facility] XR KUBon 10-25-2021 XR KUB [address] [address] XRay Report Signed Patient: Robyn Srinivasan MR#: [id number] : 1940 Acct:[id number] Age/Sex: 80 / F ADM Date: 10/25/21 Loc: [place] Room: Type: [facility] Attending Dr: Carlos Silverman MD Ordering Provider: Carlos Silverman MD Date of Service: 10/25/21 XR/XR KUB: Ureteral Stone, Kidney stone Copies to: Carlos Silverman MD KUB COMPARISON: None HISTORY: Presurgical testing. Bilateral stent placement. Possible replacement. Bilateral ureteral stents identified. Proximal LEFT ureter adjacent to the stent measures up to 7 mm. This may be fragmented. Nonobstructing RIGHT renal calculi measuring up to 6 mm. Bilateral ureteral stents appear in adequate position. No complication. Nondistended air-filled small bowel loops identified. No abdominal calcification identified. No soft tissue mass seen. Bony structures are intact. XR/XR KUB IMPRESSION: Unremarkable bilateral ureteral stents. Proximal LEFT ureteral calculus. Nonobstructing RIGHT renal calculi. Impression dictated by: Eriberto Jordan M.D.10/25/2021 1:48 PM Dictation Location: [place] [address] Transcribed By: [facility] 10/25/21 1348 Dictated By: Eriberto Jordan DO 10/25/21 1345 Signed By: 10/25/21 1348 [facility] XR abdomen 1Von 10-25-2021 XR abdomen 1V [facility] [place] [address] [place] [address] XRay Report Signed Patient: Robyn Srinivasan MR#: [id number] : 1940 Acct:[id number] Age/Sex: 80 / F ADM Date: 10/25/21 Loc: [place] Room: Type: [facility] Attending Dr: Carlos Silverman MD Ordering Provider: Carlos Silverman MD Date of Service: 10/25/21 XR/XR abdomen 1V: . Copies to: Carlos Silverman MD XR abdomen 1V 10/25/2021 3:58 PM SIGNS AND SYMPTOMS: Bilateral ureteroscopy with bilateral stone laser and retrieval/stent placement PROTOCOL: Intraoperative views of the abdomen and pelvis COMPARISON: 10/25/2021 FINDINGS: Intraoperative views of the abdomen and pelvis were obtained. Images demonstrate stone retrieval and stenting in the bilateral ureters. Number of images: 10 Fluoroscopic time: 1 minute 12 seconds. XR/XR abdomen 1V IMPRESSION: Intraoperative views of the abdomen and pelvis were obtained. Images demonstrate stone retrieval and stenting in the bilateral ureters. Impression dictated by: Pako King M.D.10/25/2021 4:52 PM Dictation Location: [place] [address] Transcribed By: [facility] 10/25/211651 Dictated By: Pako King II, MD 10/25/211649 Signed By: 10/25/211651 Normal [facility] Basic Metabolic Panelon 10-02 Calcium [Mass/Vol] 9.4 mg/dL Normal 8.2-10.2 [facility] Comment on above: Result Comment: PERF ORMED BY: [place] [address] PATHOLOGIST [employer] KENAN BAIRD M.D. Performed By: #### C BC, PT, PTT, BMP #### [facility] [address] [place] [address] [place] Chloride [Moles/Vol] 103 mmol/L Normal 95-114 [facility] Comment on above: Performed By: #### C BC, PT, PTT, BMP #### [facility] [address] [id number] [place] CO2 [Moles/Vol] 22.8 mmol/L Normal 22.0-30.0 [facility] Comment on above: Performed By: #### C BC, PT, PTT, BMP #### [facility] [address] [place] [address] [place] Creatinine [Mass/Vol] 0.85 mg/dL Normal 0.44-1.03 [facility] Comment on above: Performed By: #### C BC, PT, PTT, BMP #### [facility] [address] [place] [address] [place] Estimated GFR ( Faina > 60 Normal [facility] Comment on above: Result Comment: GFR estimated reference range: According to KDOQI guidelines, <60 ml/min/1.73m2 is sufficient to diagnose a patient with chronic kidney disease. Performed By: #### C BC, PT, PTT, BMP #### [address] Estimated GFR (Non- Am > 60 Normal [facility] Comment on above: Performed By: #### C BC, PT, PTT, BMP #### [address] Glucose [Mass/Vol] 95 mg/dL Normal 70-100 [facility] Comment on above: Result Comment: [place] Glucose Reference Range is dependent on time and content of last meal. Glucose of more than 200 mg/dL in a nonstressed, ambulatory subject supports the diagnosis of Diabetes Mellitus. ADA recommended reference range Performed By: #### C BC, PT, PTT, BMP #### [address] Potassium [Moles/Vol] 4.3 mmol/L Normal 3.5-5.1 [facility] Comment on above: Performed By: #### C BC, PT, PTT, BMP #### [address] Sodium [Moles/Vol] 137 mmol/L Normal 136-146 [facility] Comment on above: Performed By: #### C BC, PT, PTT, BMP #### [address] Urea nitrogen [Mass/Vol] 12 mg/dL Normal 9-23 [facility] Comment on above: Performed By: #### C BC, PT, PTT, BMP #### [address] Complete Blood Count Auto Di ffon 10-12-2021 Basophils (Bld) [#/Vol] 0.1 10*3/uL Normal 0.0-0.2 [facility] Comment on above: Result Comment: PERF ORMED BY: [place] [address] PATHOLOGIST [employer] KENAN BAIRD M.D. Performed By: #### C BC, PT, PTT, BMP #### [address] Basophils/100 WBC (Bld) 1.3 % Normal . [facility] Comment on above: Performed By: #### C BC, PT, PTT, BMP #### [address] Eosinophils (Bld) [#/Vol] 0.5 10*3/uL High 0.0-0.45 [facility] Comment on above: Performed By: #### C BC, PT, PTT, BMP #### [address] Eosinophils/100 WBC (Bld) 6.6 % Normal . [facility] Comment on above: Performed By: #### C BC, PT, PTT, BMP #### [address] Erythrocyte distribution width (RBC) [Ratio] 14.5 % Normal 11.9-15.3 [facility] Comment on above: Performed By: #### C BC, PT, PTT, BMP #### [address] Hematocrit (Bld) [Volume fraction] 38.5 % Normal 34.0-46.4 [facility] Comment on above: Performed By: #### C BC, PT, PTT, BMP #### [address] Hemoglobin (Bld) [Mass/Vol] 12.6 g/dL Normal 11.8-15.4 [facility] Comment on above: Performed By: #### C BC, PT, PTT, BMP #### [address] Lymphocytes (Bld) [#/Vol] 1.6 10*3/uL Normal 1.00-4.8 [facility] Comment on above: Performed By: #### C BC, PT, PTT, BMP #### [address] [address] [place] Lymphocytes/100 WBC (Bld) 22.1 % Normal . [facility] Comment on above: Performed By: #### C BC, PT, PTT, BMP #### [address] MCH (RBC) [Entitic mass] 28.0 pg Normal 24.7-34.3 [facility] Comment on above: Performed By: #### C BC, PT, PTT, BMP #### [address] MCV (RBC) [Entitic vol] 85.7 fL Normal 80-100 [facility] Comment on above: Performed By: #### C BC, PT, PTT, BMP #### [address] Mean Corpuscular HGB Conc 32.7 g/dL Normal 32.0-35.0 [facility] Comment on above: Performed By: #### C BC, PT, PTT, BMP #### [address] Monocytes (Bld) [#/Vol] 0.5 10*3/uL Normal 0.0-0.8 [facility] Comment on above: Performed By: #### C BC, PT, PTT, BMP #### [address] Monocytes/100 WBC (Bld) 6.2 % Normal . [facility] Comment on above: Performed By: #### C BC, PT, PTT, BMP #### [address] Neutrophils (Bld) [#/Vol] 4.8 10*3/uL Normal 1.8-7.7 [facility] Comment on above: Performed By: #### C BC, PT, PTT, BMP #### [address] Neutrophils/100 WBC (Bld) 63.8 % Normal . [facility] Comment on above: Performed By: #### C BC, PT, PTT, BMP #### [facility] [address] Nucleated RBC/100 WBC (Bld) [Ratio] 0.0 % Normal 0-0.5 [facility] Comment on above: Performed By: #### C BC, PT, PTT, BMP #### [facility] [address] Platelet mean volume (Bld) [Entitic vol] 8.5 fL Normal 6.3-10.7 [facility] Comment on above: Performed By: #### C BC, PT, PTT, BMP #### [facility] [address] Platelets (Bld) [#/Vol] 244 10*3/uL Normal 150-450 [facility] Comment on above: Performed By: #### C BC, PT, PTT, BMP #### [address] RBC (Bld) [#/Vol] 4.49 10*6/uL Normal 3.60-5.00 [facility] Comment on above: Performed By: #### C BC, PT, PTT, BMP #### [address] WBC (Bld) [#/Vol] 7.5 10*3/uL Normal 4.5-11.0 [facility] Comment on above: Performed By: #### C BC, PT, PTT, BMP #### [address] ECG 12 lead ECGon 10-12-2021 ECG 12 lead ECG [facility] [place] [address] [place] [address] Electrocardiograph Report Signed Patient: Robyn Srinivasan MR#: [id number] : 1940 Acct:[id number] Age/Sex: 80 / F ADM Date: 10/12/21 Loc: [place] Room: Type: [facility] Attending Dr: Carlos Silverman MD Ordering Provider: Carlos Silverman MD Date of Service: 10/12/2107/23/1028 ECG/ECG 12 lead ECG: PST Copies to: Test Reason : Blood Pressure : / mmHG Vent. Rate : 073 BPM Atrial Rate : 073 BPM P-R Int : 176 ms QRS Dur : 072 ms QT Int : 370 ms P-R-T Axes : 050 028 062 degrees QTc Int : 407 ms Normal sinus rhythm Normal ECG No previous ECGs available Confirmed by MALACHI RIVERA [facility], JESICA ([id number]) on 10/12/2021 7:05:53 PM Referred By: ANDRA Electronically Signed By:JESICA BRAXTON MD [facility] Transcribed By: ASIYA Signed By Jesica Braxton MD, [facility] 10/12/21 1905 Normal [facility] Partial Thromboplastin Timeo n 10-12-2021 aPTT Coag (Bld) [Time] 27.0 s Normal 25.1-36.5 [facility] Comment on above: Result Comment: PERF ORMED BY: [place] [address] PATHOLOGIST [employer] KENAN BAIRD M.D. Performed By: #### C BC, PT, PTT, BMP #### [address] Prothrombin Time INRon 10-12 INR Coag (PPP) [Relative time] 1.0 {INR} Normal [facility] Comment on above: Result Comment: INR Therapeutic Range A) Pre- and Peroperative OAT started two weeks before surgery. NOT HIP SURGERY: 1.5 - 2.5 HIP SURGERY: 2 - 3 B) Primary and secondary prevention of venous THROMBOSIS: 2 - 3 C) Active venous thrombosis, pulmonary embolism and prevention of recurrent venous thrombosis: 2 - 3 D) Prevention of arterial thromboembolism including patients with mechanical heart valves: 3 - 4.5 Performed By: #### C BC, PT, PTT, BMP #### [address] PT Coag (PPP) [Time] 11.0 s Normal 9.0-12.9 [facility] Comment on above: Performed By: #### C BC, PT, PTT, BMP #### [address] [place] [address] [facility] XR chest 2V*on 10-12-2021 XR chest 2V* [facility] [place] [address] [place] [address] XRay Report Signed Patient: Robyn Srinivasan MR#: [id number] : 1940 Acct:[id number] Age/Sex: 80 / F ADM Date: 10/12/21 Loc: [place] Room: Type: [facility] Attending Dr: Carlos Silverman MD Ordering Provider: Carlos Silverman MD Date of Service: 10/12/21 XR/XR chest 2V*: PST Copies to: Carlos Silverman MD PA AND LATERAL CHEST: CLINICAL HISTORY: Preop chest. COMPARISON: None FINDINGS: Heart is normal in size. Lungs are clear. No free air. XR/XR chest 2V* IMPRESSION: NO ACUTE CARDIOPULMONARY ABNORMALITY. Impression dictated by: Tj Li Jr., D.ODominik10/12/2021 11:55 AM Dictation Location: [place] [address] Transcribed By: [facility] 10/12/21 1155 Dictated By: Tj Li Jr, DO 10/12/21 1155 Signed By: 10/12/21 1155 [facility] XR KUB 1 VIEWon 10-08-2021 XR KUB 1 VIEW EXAMINATION: XR KUB 1 VIEW HISTORY: Kidney stone , urinary frequency, pressure over bladder COMPARISON: CT abdomen pelvis 09/21/2021, XR abdomen 07/07/2012 FINDINGS: KIDNEY/URETER - RIGHT: Several stones within kidney. Right ureteral stent. KIDNEY/URETER - LEFT: Left ureteral stent with a 6 x 5 mm stone projecting over proximal ureter. No appreciable stones within the kidney. PELVIS: Pelvic calcifications consistent with phleboliths. BOWEL: No abnormal dilation or deviation. BONES: No acute abnormality. OTHER: Negative. No abnormal gaseous collections. IMPRESSION: 1. Bilateral ureteral stents appearing to be in good position. 2. 6 x 5 mm stone within proximal left ureter; not appreciably progressed compared to recent CT study. 3. Right nephrolithiasis. No visible stones within left kidney. DIAGNOSIS CODE: 1001 Significant Abnormality, Attn Needed Electronically authenticated by: JEREMIAH HOBBS Date: 2021-10-08 09:18 Normal [facility] XR RETROGRADE PYELOGRAMon XR RETROGRADE PYELOGRAM EXAMINATION: XR RETROGRADE PYELOGRAM HISTORY: Kidney stone COMPARISON: CT exam 09/21/2021 FLUOROSCOPY TIME: Fluoro time measures 2.3 minutes and 4 images were obtained. TECHNIQUE: Standard level fluoroscopic mode of operation utilized. FINDINGS: 4 intraprocedural images demonstrate bilateral retrograde pyelograms. Situs is not labeled. Image #1 is presumed to be cannulation of the left. Filling defect in the proximal ureter possibly a stone. Moderate left hydronephrosis. Placement of a left ureteral stent. Image 3 and 4 demonstrate retrograde injection of the other side, presumed to be the right with no hydronephrosis or filling defect IMPRESSION: Proximal left ureterolith with associated left hydronephrosis. Placement of left ureteral stent Electronically authenticated by: EDGAR PADRON Date: 2021-09-23 09:36 Normal [facility] CBC AUTO DIFFon 09-22-2021 BASO # 0.0 103/ul Normal 0.0-0.1 [facility] Comment on above: Performed By: #### P THINT #### [facility] [address] [place] [address] Dr. Reg Kerns Basophils/100 WBC (Bld) 0.5 % Normal 0.2-2.0 [facility] Comment on above: Performed By: #### P THINT #### [facility] [address] [place] [address] Dr. Reg Kerns EO # 0.2 103/ul Normal 0.0-0.7 [facility] Comment on above: Performed By: #### P THINT #### [facility] [address] [place] [address] Dr. Reg Kerns Eosinophils/100 WBC (Bld) 3.9 % Normal 0.9-7.0 [facility] Comment on above: Performed By: #### P THINT #### [facility] [address] [place] [address] Dr. Reg Kerns Erythrocyte distribution width (RBC) [Ratio] 13.4 % Normal 11.0-15.0 [facility] Comment on above: Performed By: #### P THINT #### [facility] [address] [place] [address] Dr. Reg Kerns Hematocrit (Bld) [Volume fraction] 32.9 % Critically low 36.0-48.0 [facility] Comment on above: Performed By: #### P THINT #### [facility] [address] [place] [address] Dr. Reg Kerns Hemoglobin (Bld) [Mass/Vol] 10.3 g/dL Critically low 12.0-16.0 [facility] Comment on above: Performed By: #### P THINT #### [facility] [address] [place] [address] Dr. Reg Kerns IG # 0.02 10e3/ul Normal 0.00-0.03 [facility] Comment on above: Performed By: #### P THINT #### [facility] [address] [place] [address] Dr. Reg Kerns IG % 0.3 % Normal 0.0-0.5 [facility] Comment on above: Performed By: #### P THINT #### [facility] [address] [place] [address] Dr. Reg Kerns LYMPH # 2.2 103/ul Normal 1.2-3.8 [facility] Comment on above: Performed By: #### P THINT #### [facility] [address] [place] [address] Dr. Reg Kerns Lymphocytes/100 WBC (Bld) 37.3 % Normal 20.5-60.0 [facility] Comment on above: Performed By: #### P THINT #### [facility] [address] [place] [address] Dr. Reg Kerns MANUAL DIFF REQ NO Normal [facility] Comment on above: Performed By: #### P THINT #### [facility] [address] [place] [address] Dr. Reg Kerns MCH (RBC) [Entitic mass] 27.8 pg Normal 26.7-34.0 [facility] Comment on above: Performed By: #### P THINT #### [facility] [address] [address] [address] Reg Kerns MCHC (RBC) [Mass/Vol] 31.3 g/dL Normal 29.9-35.2 [facility] Comment on above: Performed By: #### P THINT #### [facility] [address] [address] [address] Reg Kerns MCV (RBC) [Entitic vol] 88.7 fL Normal 81.0-99.0 [facility] Comment on above: Performed By: #### P THINT #### [facility] [address] [place] [address] Dr. Reg Kerns MONO # 0.6 103/ul Normal 0.3-0.8 [facility] Comment on above: Performed By: #### P THINT #### [facility] [address] [place] [address] Dr. Reg Kerns Monocytes/100 WBC (Bld) 10.6 % Normal 1.7-12.0 [facility] Comment on above: Performed By: #### P THINT #### [facility] [address] [place] [address] Dr. Reg Kerns NEUT # 2.8 103/ul Normal 1.4-6.5 [facility] Comment on above: Performed By: #### P THINT #### [facility] [address] [place] [address] Dr. Reg Kerns Neutrophils/100 WBC (Bld) 47.4 % Normal 43.0-75.0 [facility] Comment on above: Performed By: #### P THINT #### [facility] [address] [place] [address] Dr. Reg Kerns Platelet mean volume (Bld) [Entitic vol] 10.2 fL Normal 9.5-13.5 [facility] Comment on above: Performed By: #### P THINT #### [facility] [address] [place] [address] Dr. Reg Kerns PLT 210 103/ul Normal 150-450 [facility] Comment on above: Performed By: #### P THINT #### [facility] [address] [address] [address] Reg Kerns RBC 3.71 106/ul Critically low 4.20-5.40 [facility] Comment on above: Performed By: #### P THINT #### [facility] [address] [address] [address] Reg Kerns WBC 5.9 103/ul Normal 4.0-11.0 [facility] Comment on above: Performed By: #### P THINT #### [facility] [address] [address] [address] Reg Kerns CULTURE URINEon 09-22-2021 CULTURE URINE Culture Observations : No growth Normal [facility] Comment on above: Performed By: #### C ITRATU #### [facility] [address] [place] [address] Dr. Reg Kerns PROF 14(COMP METB)on 022 Albumin [Mass/Vol] 3.0 g/dL Critically low 3.5-5.0 [facility] Comment on above: Performed By: #### C MP #### [facility] [address] [address] [address] Reg Kerns Albumin/Globulin [Mass ratio] 1.0 {ratio} Normal [facility] Comment on above: Performed By: #### C MP #### [facility] [address] [place] [address] Dr. Reg Kerns ALP [Catalytic activity/Vol] 55 U/L Normal 38-126 [facility] Comment on above: Performed By: #### C MP #### [facility] [address] [place] [address] Dr. Reg Kerns ALT [Catalytic activity/Vol] 16 U/L Normal 9-52 [facility] Comment on above: Performed By: #### C MP #### [facility] [address] [place] [address] Dr. Reg Kerns Anion gap [Moles/Vol] 12.6 mmol/L Normal [facility] Comment on above: Performed By: #### C MP #### [facility] [address] [place] [address] Dr. Reg Kerns AST [Catalytic activity/Vol] 17 U/L Normal 14-36 [facility] Comment on above: Performed By: #### C MP #### [facility] [address] [place] [address] Dr. Reg Kerns Bilirubin [Mass/Vol] 0.1 mg/dL Critically low 0.2-1.3 [facility] Comment on above: Performed By: #### C MP #### [facility] [address] [place] [address] Dr. Reg Kerns Calcium [Mass/Vol] 8.7 mg/dL Normal 8.4-10.2 [facility] Comment on above: Performed By: #### C MP #### [facility] [address] [place] [address] Dr. Reg Kerns Chloride [Moles/Vol] 106 mmol/L Normal 98-107 [facility] Comment on above: Performed By: #### C MP #### [facility] [address] [place] [address] Dr. Reg Kerns CO2 [Moles/Vol] 25.8 mmol/L Normal 22.0-30.0 The [facility] Comment on above: Performed By: #### C MP #### [facility] [address] [place] [address] Dr. Reg Kerns Creatinine [Mass/Vol] 0.83 mg/dL Normal 0.52-1.04 [facility] Comment on above: Performed By: #### C MP #### [facility] [address] [place] [address] Dr. Reg Kerns EGFR-AF OMANI >60 Normal >=60 The [facility] Comment on above: Performed By: #### C MP #### [facility] [address] [place] [address] Dr. Reg Kerns EGFR-NON AF OMANI >60 Normal >=60 [facility] Comment on above: Performed By: #### C MP #### [facility] [address] [place] [address] Dr. Reg Kerns Globulin (S) [Mass/Vol] 2.9 g/dL Normal [facility] Comment on above: Performed By: #### C MP #### [facility] [address] [place] [address] Dr. Reg Kerns Glucose [Mass/Vol] 99 mg/dL Normal 74-106 [facility] Comment on above: Performed By: #### C MP #### [facility] [address] [address] [address] Reg Kerns Potassium [Moles/Vol] 4.4 mmol/L Normal 3.4-5.0 [facility] Comment on above: Performed By: #### C MP #### [facility] [address] [place] [address] Dr. Reg Kerns Protein [Mass/Vol] 5.9 g/dL Critically low 6.1-8.2 [facility] Comment on above: Performed By: #### C MP #### [facility] [address] [place] [address] Dr. Reg Kerns Sodium [Moles/Vol] 140 mmol/L Normal 137-145 [facility] Comment on above: Performed By: #### C MP #### [facility] [address] [place] [address] Dr. Reg Kerns Urea nitrogen [Mass/Vol] 11.0 mg/dL Normal 7.0-17.0 [facility] Comment on above: Performed By: #### C MP #### [facility] [address] [place] [address] Dr. Reg Kerns Urea nitrogen/Creatinine [Mass ratio] 13.3 mg/mg Normal [facility] Comment on above: Performed By: #### C MP #### [facility] [address] [place] [address] Dr. Reg Kerns CBC AUTO DIFFon 09-21-2021 BASO # 0.0 103/ul Normal 0.0-0.1 [facility] Comment on above: Performed By: #### C ITRATU #### [facility] [address] [place] [address] Dr. Reg Kerns Basophils/100 WBC (Bld) 0.6 % Normal 0.2-2.0 [facility] Comment on above: Performed By: #### C ITRATU #### [facility] [address] [place] [address] Dr. Reg Kerns EO # 0.3 103/ul Normal 0.0-0.7 [facility] Comment on above: Performed By: #### C ITRATU #### [facility] [address] [place] [address] Dr. Reg Kerns Eosinophils/100 WBC (Bld) 3.5 % Normal 0.9-7.0 [facility] Comment on above: Performed By: #### C ITRATU #### [facility] [address] [place] [address] Dr. Reg Kerns Erythrocyte distribution width (RBC) [Ratio] 13.4 % Normal 11.0-15.0 [facility] Comment on above: Performed By: #### C ITRATU #### [facility] [address] [place] [address] Dr. Reg Kerns Hematocrit (Bld) [Volume fraction] 37.8 % Normal 36.0-48.0 [facility] Comment on above: Performed By: #### C ITRATU #### [facility] [address] [place] [address] Dr. Reg Kerns Hemoglobin (Bld) [Mass/Vol] 12.3 g/dL Normal 12.0-16.0 [facility] Comment on above: Performed By: #### C ITRATU #### [facility] [address] [place] [address] Dr. Reg Kerns IG # 0.03 10e3/ul Normal 0.00-0.03 [facility] Comment on above: Performed By: #### C ITRATU #### [facility] [address] [place] [address] Dr. Reg Kerns IG % 0.4 % Normal 0.0-0.5 [facility] Comment on above: Performed By: #### C ITRATU #### [facility] [address] [place] [address] Dr. Reg Kerns LYMPH # 1.6 103/ul Normal 1.2-3.8 [facility] Comment on above: Performed By: #### C ITRATU #### [facility] [address] [place] [address] Dr. Reg Kerns Lymphocytes/100 WBC (Bld) 22.9 % Normal 20.5-60.0 [facility] Comment on above: Performed By: #### C ITRATU #### [facility] [address] [place] [address] Dr. Reg Kerns MANUAL DIFF REQ NO Normal [facility] Comment on above: Performed By: #### C ITRATU #### [facility] [address] [place] [address] Dr. Reg Kerns MCH (RBC) [Entitic mass] 28.5 pg Normal 26.7-34.0 [facility] Comment on above: Performed By: #### C ITRATU #### [facility] [address] [place] [address] Dr. Reg Kerns MCHC (RBC) [Mass/Vol] 32.5 g/dL Normal 29.9-35.2 [facility] Comment on above: Performed By: #### C ITRATU #### [facility] [address] [place] [address] Dr. Reg Kerns MCV (RBC) [Entitic vol] 87.7 fL Normal 81.0-99.0 [facility] Comment on above: Performed By: #### C ITRATU #### [facility] [address] [place] [address] Dr. Reg Kerns MONO # 0.6 103/ul Normal 0.3-0.8 [facility] Comment on above: Performed By: #### C ITRATU #### [facility] [address] [place] [address] Dr. Reg Kerns Monocytes/100 WBC (Bld) 8.2 % Normal 1.7-12.0 [facility] Comment on above: Performed By: #### C ITRATU #### [facility] [address] [address] [address] Reg Kerns NEUT # 4.6 103/ul Normal 1.4-6.5 [facility] Comment on above: Performed By: #### C ITRATU #### [facility] [address] [place] [address] Dr. Reg Kerns Neutrophils/100 WBC (Bld) 64.4 % Normal 43.0-75.0 [facility] Comment on above: Performed By: #### C ITRATU #### [facility] [address] [place] [address] Dr. Reg Kerns Platelet mean volume (Bld) [Entitic vol] 10.8 fL Normal 9.5-13.5 [facility] Comment on above: Performed By: #### C ITRATU #### [facility] [address] [place] [address] Dr. Reg Kerns PLT 256 103/ul Normal 150-450 [facility] Comment on above: Performed By: #### C ITRATU #### [facility] [address] [place] [address] Dr. Reg Kerns RBC 4.31 106/ul Normal 4.20-5.40 [facility] Comment on above: Performed By: #### C ITRATU #### [facility] [address] [place] [address] Dr. Reg Kerns WBC 7.1 103/ul Normal 4.0-11.0 [facility] Comment on above: Performed By: #### C ITRATU #### [facility] [address] [place] [address] ABD/PELVIS WO CONon 09-21 CT ABD/PELVIS WO CON EXAMINATION: CT ABD/PELVIS WO CON, 09/21/2021 5:15 PM EST HISTORY: CALCULUS OF KIDNEY [Left flank pain with nausea and vomiting. COMPARISON: None. TECHNIQUE: CT scan of the abdomen and pelvis was performed without IV contrast. CT dose reduction technique was used, including Automated Exposure Control. CT abdomen: There is mild compressive atelectasis associated with the medial aspect of both lower lobes related to moderate-sized hiatal hernia. Heart size is normal. The patient appears obese. Coronary artery calcifications are evident. Hepatomegaly with background diffuse hepatic steatosis is noted. The right hepatic lobe measures 20 cm superior to inferior. Gallbladder, spleen, severely atrophic appearing pancreas and adrenals demonstrate no acute abnormality. There is mild perinephric stranding with small amount of fluid about the left kidney which is mildly enlarged. There is evidence of left-sided hydronephrosis secondary to ovoid-shaped calculus at the left ureteropelvic junction. On coronal image 57 this measures 8 mm superior to inferior. On axial image 67 this measures 4 x 6 mm. There are multiple stones within the mid and inferior pole calyces ranging in size between 2 and 6 mm. A stone within the right renal pelvis measures 8 x 8 mm. A stone at the right ureteropelvic junction measures 3 mm without evidence of hydronephrosis. Subcentimeter calyceal stones within the left kidney are identified ranging in size between [address] PELVIS: Urinary bladder is partially collapsed. Mild pelvic floor relaxation may be present. Uterus and ovaries are not seen. Diverticular disease of the colon is noted. Bowel pattern does not appear to be obstructive. The appendix is difficult to visualize and may be surgically absent. Small umbilical hernia contains fat without bowel. Multilevel thoracic and lumbar spondylitic/facet arthritic changes with multilevel Schmorl's node formation noted. Overall the bony mineralization is diminished throughout. L3 vertebral body hemangioma is identified as well as multilevel canal stenosis. Arthritic changes are more apparent at the hips as compared to SI joints. 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 Chronic eccentric thrombus in the distribution of the left external and common femoral veins noted. There is significant compression of the proximal left common iliac vein by overlapping right common iliac artery. Atherosclerotic change of aorta and its branches without aneurysm noted. Heavily calcified plaque formation predominantly about the proximal renal arteries bilaterally noted. IMPRESSION: 1. There is an 8 mm calculus at the left ureteropelvic junction resulting in mild/moderate hydronephrosis. 2. Subcentimeter additional bilateral calyceal stones ranging size between 2 and 6 mm. 3. There is a stone within the right renal pelvis, 8 mm. There is also a proximal right ureteral stone near the ureteropelvic junction, 3 mm without hydronephrosis. 4. Morbid obesity with background diffuse hepatic steatosis. 5. Moderate size hiatal hernia. Moderate to severe background global atrophic changes of the pancreas. 6. Small umbilical hernia contains fat without bowel. Colonic diverticulosis without diverticulitis or appendicitis. 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 Electronically authenticated by: ABA BONLILA Date: 2021-09-21 19:43 Normal [facility] Covid-19 PCR (CVDTB)on 09-02 SARS-CoV-2 (COVID-19) RNA BYRON+probe Ql (Unsp spec) Detected Critically abnormal NOT DETECTED [facility] Comment on above: Result Comment: This test is not yet approved or cleared by the [place] FDA. When there are no FDA-approved or cleared tests available, and other criteria are met, FDA can make tests available under an emergency access mechanism called an Emergency Use Authorization (EUA). The EUA for this test is supported by the [place] of Health and Human Service's declaration that circumstances exist to justify the emergency use of in vitro diagnostics for the detection and/or diagnosis of the virus that causes COVID-19. This EUA will remain in effect for the duration of the COVID-19 declaration justifying emergency of IVDs, unless it is terminated or revoked by the FDA (after which the test may no longer be used). Performed By: #### C VDTBH #### [facility] [address] [place] [address] Dr. Reg Kerns ER URINE PROFILEon 2 Bilirubin Ql (U) Negative Normal NEGATIVE The [facility] Comment on above: Performed By: #### U NICHELLE 24 #### [facility] [address] [place] [address] Dr. Reg Kerns Clarity (U) SL CLOUDY Abnormal CLEAR [facility] Comment on above: Performed By: #### U NICHELLE 24 #### [facility] [address] [place] [address] Dr. Reg Kerns Color (U) YELLOW Normal YELLOW [facility] Comment on above: Performed By: #### U NICHELLE 24 #### [facility] [address] [place] [address] Dr. Reg WEAVER A micrscopic examination will be performed if indicated. Normal [facility] Comment on above: Performed By: #### U NICHELLE 24 #### [facility] [address] [place] [address] Dr. Reg Kerns Glucose Ql (U) Negative Normal NEGATIVE [facility] Comment on above: Performed By: #### U NICHELLE 24 #### [facility] [address] [place] [address] Dr. Reg Kerns Hemoglobin Ql (U) LARGE Abnormal NEGATIVE The [facility] Comment on above: Performed By: #### U NICHELLE 24 #### [facility] [address] [place] [address] Dr. Reg Kerns Ketones Ql (U) Negative Normal NEGATIVE [facility] Comment on above: Performed By: #### U NICHELLE 24 #### [facility] [address] [place] [address] Dr. Reg Kerns LEUKOCYTES Negative Normal NEGATIVE [facility] Comment on above: Performed By: #### U NICHELLE 24 #### [facility] [address] [place] [address] Dr. Reg Kerns Nitrite Ql (U) Negative Normal NEGATIVE [facility] Comment on above: Performed By: #### U NICHELLE 24 #### [facility] [address] [place] [address] Dr. Reg Kerns pH (U) 5.0 [pH] Normal 5-9 [facility] Comment on above: Performed By: #### U NICHELLE 24 #### [facility] [address] [place] [address] Dr. Reg Kerns SPEC GRAVITY >=1.030 Abnormal 1.005-<=1.025 [facility] Comment on above: Performed By: #### U NICHELLE 24 #### [facility] [address] [place] [address] Dr. Reg Kerns UA PROTEIN TRACE Normal NEGATIVE/ TRACE [facility] Comment on above: Performed By: #### U NICHELLE 24 #### [facility] [address] [place] [address] Dr. Reg Kerns UR MICRO IND INDICATED Normal [facility] Comment on above: Performed By: #### U NICHELLE 24 #### [facility] [address] [place] [address] Dr. Reg Kerns Urobilinogen Qn (U) 0.2 {Tiffani'U}/dL Normal 0.2 - 1. 0 [facility] Comment on above: Performed By: #### U NICHELLE 24 #### [facility] [address] [place] [address] Dr. Reg Kerns PROF CHEM 8 (BAS METB)on Anion gap [Moles/Vol] 14.0 mmol/L Normal [facility] Comment on above: Performed By: #### B MP #### [facility] [address] [place] [address] Dr. Reg Kerns Calcium [Mass/Vol] 9.2 mg/dL Normal 8.4-10.2 [facility] Comment on above: Performed By: #### B MP #### [facility] [address] [place] [address] Dr. Reg Kerns Chloride [Moles/Vol] 101 mmol/L Normal 98-107 [facility] Comment on above: Performed By: #### B MP #### [facility] [address] [place] [address] Dr. Reg Kerns CO2 [Moles/Vol] 25.9 mmol/L Normal 22.0-30.0 The [facility] Comment on above: Performed By: #### B MP #### [facility] [address] [place] [address] Dr. Reg Kerns Creatinine [Mass/Vol] 1.13 mg/dL Critically high 0.52-1.04 [facility] Comment on above: Performed By: #### B MP #### [facility] [address] [place] [address] Dr. Reg Kerns EGFR-AF OMANI 56 mL/min/1.73m2 Critically low >=60 [facility] Comment on above: Performed By: #### B MP #### [facility] [address] [place] [address] Dr. Reg Kerns EGFR-NON AF OMANI 47 mL/min/1.73m2 Critically low >=60 [facility] Comment on above: Performed By: #### B MP #### [facility] [address] [address] [address] Reg Kerns Glucose [Mass/Vol] 145 mg/dL Critically high 74-106 [facility] Comment on above: Performed By: #### B MP #### [facility] [address] [place] [address] Dr. Reg Kerns Potassium [Moles/Vol] 3.9 mmol/L Normal 3.4-5.0 [facility] Comment on above: Performed By: #### B MP #### [facility] [address] [place] [address] Dr. Reg Kerns Sodium [Moles/Vol] 137 mmol/L Normal 137-145 [facility] Comment on above: Performed By: #### B MP #### [facility] [address] [place] [address] Dr. Reg Kerns Urea nitrogen [Mass/Vol] 13.0 mg/dL Normal 7.0-17.0 [facility] Comment on above: Performed By: #### B MP #### [facility] [address] [place] [address] Dr. Reg Kerns Urea nitrogen/Creatinine [Mass ratio] 11.5 mg/mg Normal [facility] Comment on above: Performed By: #### B MP #### [facility] [address] [place] [address] Dr. Reg Kerns URINE MICROSCOPIC ONLYon BACTERIA TRACE Abnormal NONE SEEN [facility] Comment on above: Performed By: #### U NICHELLE 24 #### [facility] [address] [place] [address] Dr. Reg Kerns Bacteria identified Cx Nom (U) NOT INDICATED Normal [facility] Comment on above: Performed By: #### U NICHELLE 24 #### [facility] [address] [place] [address] Dr. Reg Kerns CAST NONE SEEN Normal NONE SEEN [facility] Comment on above: Performed By: #### U NICHELLE 24 #### [facility] [address] [place] [address] Dr. Reg Kerns Crystals LM Nom (Urine sed) NONE SEEN Normal NONE SEEN [facility] Comment on above: Performed By: #### U NICHELLE 24 #### [facility] [address] [place] [address] Dr. Reg Kerns Epithelial cells LM Ql (Urine sed) FEW Abnormal NONE SEEN /RARE [facility] Comment on above: Performed By: #### U NICHELLE 24 #### [facility] [address] [place] [address] Dr. Reg Kerns MUCOUS TRACE Abnormal NONE SEEN [facility] Comment on above: Performed By: #### U NICHELLE 24 #### [facility] [address] [place] [address] Dr. Reg Kerns RBC 5-10 Abnormal 0-2 [facility] Comment on above: Performed By: #### U NICHELLE 24 #### [facility] [address] [place] [address] Dr. Reg Kerns WBC 0-2 Abnormal NONE SEEN [facility] Comment on above: Performed By: #### U NICHELLE 24 #### [facility] [address] [place] [address] Dr. Reg Kerns Vital Signs Date Time Vital Sign Value Performing Clinician Facility 05-01-2023 12:51-0400 Blood Pressure Location [facility] ANDRE[facility] 05-01-2023 12:51-0400 Body temperature 97.34 [degF] [facility] [facility] 05-01-2023 12:51-0400 Diastolic blood pressure 81 mm[Hg] LOUISA SPARROW [facility] 05-01-2023 12:51-0400 Heart rate 78 /min LOUISA SPARROW [facility] 05-01-2023 12:51-0400 Systolic blood pressure 158 mm[Hg] LOUISA SPARROW [facility] 06-04-2022 11:49-0400 Blood Pressure Location Carlos ANDRA [facility] 06-04-2022 11:49-0400 Diastolic blood pressure 86 mm[Hg] Carlos SILVERMAN [facility] 06-04-2022 11:49-0400 Heart rate 85 /min Carlos ANDRA [facility] 06-04-2022 11:49-0400 Systolic blood pressure 132 mm[Hg] Carlos ANDRA [facility] Encounters Encounter Date Encounter Type Care Provider Facility Start: 05-04-2024 ambulatory Carlos SILVERMAN Facility :[facility] Start: 05-01-2023 End: 05-02-2023 ambulatory LOUISA SPARROW Facility:[facility] Start: 05-01-2023 End: 05-01-2023 Patient encounter procedure LOUISA SPARROW [facility] Start: 06-04-2022 End: 06-05-2022 ambulatory Carlos SILVERMAN Facility:[facility] Start: 06-04-2022 End: 06-04-2022 Patient encounter procedure Carlos SILVERMAN [facility] Start: 02-21-2022 End: 02-22-[address] MARKIE SMITH Facility:[facility] Start: 02-02-2022 End: 02-02-[address] CARLOS SILVERMAN Facility:[facility] Start: 01-31-2022 End: 02-01-[address] CARLOS SILVERMAN Facility:[facility] Start: 10-25-2021 End: 10-25-2021 ambulatory Markie Noe Luis Facility:[facility] Start: 10-12-2021 End: 10-12-2021 ambulatory Markie Noe Luis Facility:[facility] Start: 10-08-2021 End: 10-09-[address] CARLOS SILVERMAN Facility:[facility] Start: 09-21-2021 End: 09-22-[address] MARKIE SMITH Facility:[facility] Procedures Date Procedure Procedure Detail Performing Clinician Start: 09-22-2021 Cystoscopy Carlos VETO CORTEZ Appendectomy Carlos SILVERMAN Extraction of cataract Leonardo SILVERMAN H/O: hysterectomy Carlos VETO CORTEZ Immunizations Immunization Date Immunization Notes Care Provider [facility] 01-19-2021 SARS-CoV-2 (COVID-19 ) mRNA-1273 vaccine Carlos SILVERMAN [facility] 12-22-2020 SARS-CoV-2 (COVID-19 ) mRNA-1273 vaccine Carlos SILVERMAN [facility] Payers Date Payer Category Payer Self-pay 1959 Unknown [id number] 1940 Unknown [id number] 2.16.84 [id number] 1942 Unknown [id number] 2.16.84 [id number] 1942 Unknown [id number] 2.16.84 [id number] 1942 Unknown [id number] 2.16.84 [id number] 1942 Unknown [id number] 2.16.84 [id number] 1942 Unknown [id number] 2.16.84 [id number] 1942 Unknown [id number] 2.16.8 [id number] 1942 Unknown [id number] 2.16.8 [id number] 1942 Unknown [id number] 2.16.8 [id number] Unknown [id number] 2.16.8 [id number] Social History Date Type Detail Facility Start: 10-09-2021 End: 05-01-2023 Tobacco smoking status Ex-smoker (finding) [facility] Sex Assigned At Female [facility] Tobacco smoking status Never [facility] Functional Status Date Assessment Result Facility 05-01-2023 Functional Status N/A [facility] 06-04-2022 Functional Status N/A [facility] Hospital Discharge instructions 05-01-2023 Note Date & Type Note Facility 05-01-2023 Hospital Discharg e instructions Patient Education 05/01/2023 13:24:03 Dietary Guidelines to Help Prevent Kidney Stones Dietary Guidelines to Help Prevent Kidney Stones Kidney stones are deposits of minerals and salts that form inside your kidneys. Your risk of developing kidney stones may be greater depending on your diet, your lifestyle, the medicines you take, and whether you have certain medical conditions. Most people can lower their chances of developing kidney stones by following the instructions below. Your dietitian may give you more specific instructions depending on your overall health and the type of kidney stones you tend to develop. What are tips for following this plan? Reading food labels Choose foods with no salt added or low-salt labels. Limit your salt (sodium) intake to less than 1,500 mg a day. Choose foods with calcium for each meal and snack. Try to eat about 300 mg of calcium at each meal. Foods that contain 200 500 mg of calcium a serving include: ?8 oz (237 mL) of milk, nbcbslx-umgaknbivcvx-icfkj milk, and calcium-fortifiedfruit juice. Calcium-fortified means that calcium has been added to these drinks. ?8 oz (237 mL) of kefir, yogurt, and soy yogurt. ?4 oz (114 g) of tofu. ?1 oz (28 g) of cheese. ?1 cup (150 g) of dried figs. ?1 cup (91 g) of cooked broccoli. ?One 3 oz (85 g) can of sardines or mackerel. Most people need 1,000 1,500 mg of calcium a day. Talk to your dietitian about how much calcium is recommended for you. Shopping Buy plenty of fresh fruits and vegetables. Most people do not need to avoid fruits and vegetables, even if these foods contain nutrients that may contribute to kidney stones. When shopping for convenience foods, choose: ?Whole pieces of fruit. ?Pre-made salads with dressing on the side. ?Low-fat fruit and yogurt smoothies. Avoid buying frozen meals or prepared deli foods. These can be high in sodium. Look for foods with live cultures, such as yogurt and kefir. Choose high-fiber grains, such as whole-wheat breads, oat bran, and wheat cereals. Cooking Do not add salt to food when cooking. Place a salt shaker on the table and allow each person to add his or her own salt to taste. Use vegetable protein, such as beans, textured vegetable protein (TVP), or tofu, instead of meat in pasta, casseroles, and soups. Meal planning Eat less salt, if told by your dietitian. To do this: ?Avoid eating processed or pre-made food. ?Avoid eating fast food. Eat less animal protein, including cheese, meat, poultry, or fish, if told by your dietitian. To do this: ?Limit the number of times you have meat, poultry, fish, or cheese each week. Eat a diet free of meat at least 2 days a week. ?Eat only one serving each day of meat, poultry, fish, or seafood. ?When you prepare animal protein, cut pieces into small portion sizes. For most meat and fish, one serving is about the size of the palm of your hand. Eat at least five servings of fresh fruits and vegetables each day. To do this: ?Keep fruits and vegetables on hand for snacks. ?Eat one piece of fruit or a handful of berries with breakfast. ?Have a salad and fruit at lunch. ?Have two kinds of vegetables at dinner. Limit foods that are high in a substance called oxalate. These include: ?Spinach (cooked), rhubarb, beets, sweet potatoes, and Ukrainian chard. ?Peanuts. ?Potato chips, serbian fries, and baked potatoes with skin on. ?Nuts and nut products. ?Chocolate. If you regularly take a diuretic medicine, make sure to eat at least 1 or 2 servings of fruits or vegetables that are high in potassium each day. These include: ?Avocado. ?Banana. ?[place], prune, carrot, or tomato juice. ?Baked potato. ?Cabbage. ?Beans and split peas. Lifestyle Drink enough fluid to keep your urine pale yellow. This is the most important thing you can do. Spread your fluid intake throughout the day. If you drink alcohol: ?Limit how much you use to: ?0 1 drink a day for women who are not . ?0 2 drinks a day for men. ?Be aware of how much alcohol is in your drink. In the [place] one drink equals one 12 oz bottle of beer (355 mL), one 5 oz glass of wine (148 mL), or one 1 oz glass of hard liquor (44 mL). Lose weight if told by your health care provider. Work with your dietitian to find an eating plan and weight loss strategies that work best for you. General information Talk to your health care provider and dietitian about taking daily supplements. You may be told the following depending on your health and the cause of your kidney stones: ?Not to take supplements with vitamin C. ?To take a calcium supplement. ?To take a daily probiotic supplement. ?To take other supplements such as magnesium, fish oil, or vitamin B6. Take yjxt-msc-vpppjqu and prescription medicines only as told by your health care provider. These include supplements. What foods should I limit? Limit your intake of the following foods, or eat them as told by your dietitian. Vegetables Spinach. Rhubarb. Beets. Canned vegetables. Pickles. Olives. Baked potatoes with skin. Grains Wheat bran. Baked goods. Salted crackers. Cereals high in sugar. Meats and other proteins Nuts. Nut butters. Large portions of meat, poultry, or fish. Salted, precooked, or cured meats, such as sausages, meat loaves, and hot dogs. Dairy Cheese. Beverages Regular soft drinks. Regular vegetable juice. Seasonings and condiments Seasoning blends with salt. Salad dressings. Soy sauce. Ketchup. Barbecue sauce. Other foods Canned soups. Canned pasta sauce. Casseroles. Pizza. Lasagna. Frozen meals. Potato chips. Martiniquais fries. The items listed above may not be a complete list of foods and beverages you should limit. Contact a dietitian for more information. What foods should I avoid? Talk to your dietitian about specific foods you should avoid based on the type of kidney stones you have and your overall health. Fruits Grapefruit. The item listed above may not be a complete list of foods and beverages you should avoid. Contact a dietitian for more information. Summary Kidney stones are deposits of minerals and salts that form inside your kidneys. You can lower your risk of kidney stones by making changes to your diet. The most important thing you can do is drink enough fluid. Drink enough fluid to keep your urine pale yellow. Talk to your dietitian about how much calcium you should have each day, and eat less salt and animal protein as told by your dietitian. This information is not intended to replace advice given to you by your health care provider. Make sure you discuss any questions you have with your health care provider. Document Revised: 04/29/2022 Document Reviewed: 04/29/2022 [email or web address] Patient Education 2022 [email or web address] Follow Up Care 06/04/2022 12:04:12 With:LOUISA SPARROW PA-C, URL Address: [address] [place] [address] When: Unknown [facility] Discharge instructions 06-04-2022 Note Date & Type Note Facility 06-04-2022 Hospital Discharg e instructions Patient Education 06/04/2022 11:49:33 Kidney Stones, Cvpg-xg-Kidt Kidney Stones Kidney stones are rock-like masses that form inside of the kidneys. Kidneys are organs that make pee (urine). A kidney stone may move into other parts of the urinary tract, including: The tubes that connect the kidneys to the bladder (ureters). The bladder. The tube that carries urine out of the body (urethra). Kidney stones can cause very bad pain and can block the flow of pee. The stone usually leaves your body (passes) through your pee. You may need to have a doctor take out the stone. What are the causes? Kidney stones may be caused by: A condition in which certain glands make too much parathyroid hormone (primary hyperparathyroidism). A buildup of a type of crystals in the bladder made of a chemical called uric acid. The body makes uric acid when you eat certain foods. Narrowing (stricture) of one or both of the ureters. A kidney blockage that you were born with. Past surgery on the kidney or the ureters, such as gastric bypass surgery. What increases the risk? You are more likely to develop this condition if: You have had a kidney stone in the past. You have a family history of kidney stones. You do not drink enough water. You eat a diet that is high in protein, salt (sodium), or sugar. You are overweight or very overweight (obese). What are the signs or symptoms? Symptoms of a kidney stone may include: Pain in the side of the belly, right below the ribs (flank pain). Pain usually spreads (radiates) to the groin. Needing to pee often or right away (urgently). Pain when going pee (urinating). Blood in your pee (hematuria). Feeling like you may vomit (nauseous). Vomiting. Fever and chills. How is this treated? Treatment depends on the size, location, and makeup of the kidney stones. The stones will often pass out of the body through peeing. You may need to: Drink more fluid to help pass the stone. In some cases, you may be given fluids through an IV tube put into one of your veins at the hospital. Take medicine for pain. Make changes in your diet to help keep kidney stones from coming back. Sometimes, medical procedures are needed to remove a kidney stone. This may involve: A procedure to break up kidney stones using a beam of light (laser) or shock waves. Surgery to remove the kidney stones. Follow these instructions at home: Medicines Take uxfq-ucc-qaeblsl and prescription medicines only as told by your doctor. Ask your doctor if the medicine prescribed to you requires you to avoid driving or using heavy machinery. Eating and drinking Drink enough fluid to keep your pee pale yellow. You may be told to drink at least 8 10 glasses of water each day. This will help you pass the stone. If told by your doctor, change your diet. This may include: ?Limiting how much salt you eat. ?Eating more fruits and vegetables. ?Limiting how much meat, poultry, fish, and eggs you eat. Follow instructions from your doctor about eating or drinking restrictions. General instructions Collect pee samples as told by your doctor. You may need to collect a pee sample: ?24 hours after a stone comes out. ?8 12 weeks after a stone comes out, and every 6 12 months after that. Strain your pee every time you pee (urinate), for as long as told. Use the strainer that your doctor recommends. Do not throw out the stone. Keep it so that it can be tested by your doctor. Keep all follow-up visits as told by your doctor. This is important. You may need follow-up tests. How is this prevented? To prevent another kidney stone: Drink enough fluid to keep your pee pale yellow. This is the best way to prevent kidney stones. Eat healthy foods. Avoid certain foods as told by your doctor. You may be told to eat less protein. Stay at a healthy weight. Where to find more information National Kidney Foundation (NKF): www.kidney.org [facility] [employer] [facility] (UCF): www.urologyhealth.org Contact a doctor if: You have pain that gets worse or does not get better with medicine. Get help right away if: You have a fever or chills. You get very bad pain. You get new pain in your belly (abdomen). You pass out (faint). You cannot pee. Summary Kidney stones are rock-like masses that form inside of the kidneys. Kidney stones can cause very bad pain and can block the flow of pee. The stones will often pass out of the body through peeing. Drink enough fluid to keep your pee pale yellow. This information is not intended to replace advice given to you by your health care provider. Make sure you discuss any questions you have with your health care provider. Document Released: 02/03/2009 Document Revised: 01/04/2020 Document Reviewed: 01/04/2020 [email or web address] Patient Education 2019 [email or web address] Follow Up Care 2021 09:56:33 With:ANDRA RIVERA, Carlos Mae, URL Address: [facility] [place] [address]- When:12/03/2022 Comments:KUB [facility] Clinical Note 09-21-2021 Note Date & Type Note Facility 09-21-2021 Note OPERATIVE NOTE PREOPERATIVE DIAGNOSIS: 1. N 13.2. Bilateral ureteral calculi with left hydronephrosis. 2. N20.1. Right ureteral calculus. 3. N10. Flank pain. 4. Covid positive. 5. Urethral stenosis. POSTOPERATIVE DIAGNOSIS: Same. PROCEDURE: Cystoscopy, bilateral retrograde pyelogram, bilateral double J ureteral stent placement under fluoroscopic guidance, urethral dilatation. SURGEON: Regan Silverman M.D. COMPLICATIONS: None. ANESTHESIA: General LMA, Jeffrey INDICATIONS: Ms. Srinivasan is a 80-year-old female who presented with left-sided flank pain. CT scan demonstrated 8 mm left proximal ureteral calculus with signs of necrosis as well as a non-obstructing 3 mm stone in the right upper ureter. I have given her the options and she wishes to proceed with operative intervention with the inherent risk of bleeding, infection, need for additional procedures, stent pain and irritation, among others. She has already been on intravenous antibiotics. Discussed the options and she wished to proceed with operative intervention as noted. PROCEDURE: The patient was brought back to the operating room and a time out was performed. All were in agreement with the operative plan. After the successful induction of general anesthesia, she was placed in the modified dorsal lithotomy position and prepped in the usual fashion with Betadine solution. She was draped appropriately. I attempted to pass the #22 Martiniquais scope without success. She required urethral dilatation to 28 Martiniquais. She has a significant rectocele and a rolled-up gauze pad was placed per vagina to aid in visualization of the urethra. Once the urethra was dilated the scope was passed easily into the bladder. The bladder was emptied and subsequently refilled with saline. Panendoscopy revealed no tumors, stones or diverticula. was normal x2. Grade 2-3 trabeculation present. Left retrograde was performed. This reveals a normal ureter up to the level of the filling defect at the left ureteropelvic junction. It is possible this stone may represent uric acid as it was not well seen prior to placement of the contrast. Proximal hydronephrosis was noted but no other filling defect within the kidney itself. I decided to place the stent. A 0.3035 guidewire was then passed through the open-ended catheter and the catheter was removed. Over the wire then a 4.8 Martiniquais 22 to 30 cm microvasive double J stent was then passed into the kidney. Wire removed and there was good curl within the kidney and the bladder. Attention was turned towards the right side. Retrograde pyelogram was similarly performed. There was a small air bubble distally. It was difficult to tell as she does have what may be a subclinical right UPJ obstruction as there was minimal dilatation of the renal pelvis compared to the ureter. Unclear if a small calculus could be located at the ureteropelvic junction. Contrast was seen to exit down the right ureter nicely so there was nothing distal to the UPJ. Secondary to the possibility of the stone in the findings noted above, I decided to place a right-sided stent and this was placed in similar fashion compared to the left side. Upon completion she has stents nicely placed, the bladder is emptied, scope removed and the procedure terminated. She tolerates it well. She will be recovered in the OR secondary to Covid positivity. Recommendation will be for Levsin sublingually for bladder spasms and then I will need to see her back in the office with a KUB to discuss the next step which may be bilateral retrograde ureteroscopic approaches versus ESWL on the left side. Will discuss all this with her in the outpatient setting. [facility] Clinical Note 09-21-2021 Note Date & Type Note Facility 09-21-2021 Note OPERATIVE NOTE PREOPERATIVE DIAGNOSIS: 1. N 13.2. Bilateral ureteral calculi with left hydronephrosis. 2. N20.1. Right ureteral calculus. 3. N10. Flank pain. 4. Covid positive. 5. Urethral stenosis. POSTOPERATIVE DIAGNOSIS: Same. PROCEDURE: Cystoscopy, bilateral retrograde pyelogram, bilateral double J ureteral stent placement under fluoroscopic guidance, urethral dilatation. SURGEON: Regan Silverman M.D. COMPLICATIONS: None. ANESTHESIA: General LMA, Dr. Murphy INDICATIONS: Ms. Srinivasan is a 80-year-old female who presented with left-sided flank pain. CT scan demonstrated 8 mm left proximal ureteral calculus with signs of necrosis as well as a non-obstructing 3 mm stone in the right upper ureter. I have given her the options and she wishes to proceed with operative intervention with the inherent risk of bleeding, infection, need for additional procedures, stent pain and irritation, among others. She has already been on intravenous antibiotics. Discussed the options and she wished to proceed with operative intervention as noted. PROCEDURE: The patient was brought back to the operating room and a time out was performed. All were in agreement with the operative plan. After the successful induction of general anesthesia, she was placed in the modified dorsal lithotomy position and prepped in the usual fashion with Betadine solution. She was draped appropriately. I attempted to pass the #22 Martiniquais scope without success. She required urethral dilatation to 28 Martiniquais. She has a significant rectocele and a rolled-up gauze pad was placed per vagina to aid in visualization of the urethra. Once the urethra was dilated the scope was passed easily into the bladder. The bladder was emptied and subsequently refilled with saline. Panendoscopy revealed no tumors, stones or diverticula. was normal x2. Grade 2-3 trabeculation present. Left retrograde was performed. This reveals a normal ureter up to the level of the filling defect at the left ureteropelvic junction. It is possible this stone may represent uric acid as it was not well seen prior to placement of the contrast. Proximal hydronephrosis was noted but no other filling defect within the kidney itself. I decided to place the stent. A 0.3035 guidewire was then passed through the open-ended catheter and the catheter was removed. Over the wire then a 4.8 Martiniquais 22 to 30 cm microvasive double J stent was then passed into the kidney. Wire removed and there was good curl within the kidney and the bladder. Attention was turned towards the right side. Retrograde pyelogram was similarly performed. There was a small air bubble distally. It was difficult to tell as she does have what may be a subclinical right UPJ obstruction as there was minimal dilatation of the renal pelvis compared to the ureter. Unclear if a small calculus could be located at the ureteropelvic junction. Contrast was seen to exit down the right ureter nicely so there was nothing distal to the UPJ. Secondary to the possibility of the stone in the findings noted above, I decided to place a right-sided stent and this was placed in similar fashion compared to the left side. Upon completion she has stents nicely placed, the bladder is emptied, scope removed and the procedure terminated. She tolerates it well. She will be recovered in the OR secondary to Covid positivity. Recommendation will be for Levsin sublingually for bladder spasms and then I will need to see her back in the office with a KUB to discuss the next step which may be bilateral retrograde ureteroscopic approaches versus ESWL on the left side. Will discuss all this with her in the outpatient setting. [facility] Evaluation + Plan note Laboratory Note Date & Type Note Facility Evaluation + Plan note Future Appointments Appointment Date:12/06/2022 10:30:00 AM Scheduled Provider:Carlos SILVERMAN MD Location:[facility] Appointment Type:URO Office Visit Future Scheduled TestsBasic Metabolic Panel 11/15/21 [facility] Evaluation + Plan note Note Date & Type Note Facility Evaluation + Plan note Future Appointments Appointment Date:05/04/2024 01:00:00 PM Scheduled Provider:Carlos SILVERMAN MD Location:[facility] Appointment Type:URO Office Visit [facility] course Narrative Note Date & Type Note Facility Hospital course Narrative No data available for this section [facility] Progress note Note Date & Type Note Facility Progress note No data available for this section [facility] Apptimize Summary Purpose Family History No Family History Records FoundNo Family History Records FoundNo Family History Records Found Advance Directives No Advanced Directives Records FoundNo Advanced Directives Records FoundNo Advanced Directives Records Found Additional Source Comments INFORMATION SOURCE (unrecogn ized section and content) DATE CREATED AUTHOR 02/27/2022 [facility] DATE CREATED AUTHOR AUTHOR'S ORGANIZ ATION 10/05/2022 [facility] DATE CREATED AUTHOR AUTHOR'S ORGANIZ ATION 05/02/2023 [facility] Patient Care team informatio n (unrecognized section and content) Personnel Name: Markie Smith MD Address: Address: [address] [place] [address] Personnel Name: Markie Smith MD Address: Address: [address] [place] [address] FOR RECORDS PERTAINING TO PATIENTS WHO ARE OR HAVE BEEN ENROLLED IN A CHEMICAL DEPENDENCY/SUBSTANCEABUSE PROGRAM, SOME INFORMATION MAY BE OMITTED. This clinical summary was aggregated from multiple sources. Caution should be exercised in using it in the provision of clinical care. This summary normalizes information from multiple sources, and as a consequence, information in this document may materially change the coding, format and clinical context of patient data. In addition, data may be omitted in some cases. CLINICAL DECISIONS SHOULD BE BASED ON THE PRIMARY CLINICAL RECORDS. [facility]. provides no warranty or guarantee of the accuracy or completeness of information in this document.
[2024-01-20] MEDS: REGADENOSON 0.4 MG/5 ML SYRINGE 0.400000000000000022 MG IV (08:14)
--- NOTE | 2024-01-20 08:28 | PC.NURSE ---
Lexiscan stress test done for patient. Pt tolerated well. Pt had no symptoms other then nausea that lasted roughly 3-4 minutes after injection of Lexiscan but resolved within 5 minutes. Pt was taken to the cafeteria by with no symptoms. Stated she felt back to normal by the end of the test.
--- NOTE | 2024-01-20 08:58 | PM.STRESS ---
Stress Test Stress Test Requesting physician: Haroon Smith Procedure: Lexiscan Cardiolite stress test General Information: Reason for Stress Test: Dyspnea Cardiac History and Risk Factors: No personal history listed. [place] in mother, father, and brothers. Resting 12 - Lead Electrocardiogram: Rate & rhythm: Normal sinus at a rate of 60. [place]: Normal T-waves: Normal ST-segments: Normal Stress Test: Protocol: Emiliano protocol was initiated, but due to inability to ambulate on the treadmill, the exercise component was therefore canceled.? Testing was changed to Lexiscan protocol, with injection of 0.4mg Lexiscan IV push followed by Cardiolite. Blood pressure: Initial: 164/88, Maximum: 174/90 Rate & rhythm: Patient remained in sinus rhythm during the exercise and recovery portions of the study.? The maximum heart rate was 96, which was 69% of the maximum predicted heart rate. ST-segments & T-waves: There were no T-wave changes and no ST-segment changes when compared to the baseline EKG. Patient response/symptoms: There were no symptoms similar to the chief complaint. Interpretation: Normal Lexiscan stress test without electrocardiographical evidence of ischemia. Patient was asymptomatic regarding chief complaint. Cardiolite imaging interpretation will be reported separately. Clinical correlation required.
== END 2024-01-20 06:29 | disposition home or self-care (01) ==
LOC: NM 06:28
PROVIDERS: Family Provider Family Medicine; PCP Family Medicine; Visit Provider Family Medicine
DX: R06.02 Shortness of breath (principal)
CPT/HCPCS: 78452; 93017; A9500; J2785

== ENCOUNTER 2024-01-29 07:40 | Outpatient (OUT) | payer MEDICARE, SELFPAY ==
--- OUTSIDE RECORDS SUMMARY | 2024-01-29 07:43 | XMS_ITS | CCD ---
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 Name Role Phone ANDRA, DR CARLOS Mae [...] Silverman Admitting Unavailable Carlos SILVERMAN Attending Unavailable Carlos SILVERMAN Attending Unavailable LOUISA SPARROW Attending Unavailable Allergies Allergy Classification Reported Allergen(s) Allergy Type Date of Onset Reaction(s) Facility (2 sources) Ciprofloxacin; Translations: [ciprofloxacin] Drug Allergy 7 [facility] Repository (2 sources) Codeine; Translations: [codeine] Drug Allergy 1 [facility] Repository (2 sources) Ibuprofen; Translations: [ibuprofen] Drug Allergy 7 [facility] Repository (4 sources) Penicillin; Translations: [penicillin] Drug Allergy 3 Eruption of skin (disorder) [facility] Repository (1 source) Johnson nut Drug allergy (disorder) 2 [facility] Repository (2 sources) Ciprofloxacin; Translations: [ciprofloxacin] Drug Allergy 7 Unknown [facility] (2 sources) Codeine; Translations: [codeine] Drug Allergy 1 Unknown [facility] (2 sources) Ibuprofen; Translations: [ibuprofen] Drug Allergy 7 Unknown [facility] (3 sources) Sulfamethoxazole / Trimethoprim; Translations: [sulfamethoxazole-tr imethoprim] Drug Allergy Tremor (finding) [facility] Medications Current Medications Medication Drug Class(es) Dates [...] Start Date: 10/09/21 Status: Ordered lactobacillus acidophilus [id number] unt oral capsule (2 sources) Start: 03-18-2019 [...] 09-21-2021 Episodic Other aftercare (1 source) Other snf (current) drug therapy; Translations: [OTH TIE BUYER CURRENT DRUG THERAPY] Onset: 09-27-2021 Episodic Other [...] Urnls Dip Stick Auto w/o Microscopy POC 24981 XR Abdomen 1 View -- Results Pending [...] Spinach (cooked), rhubarb, beets, sweet potatoes, and Tu[place]uan chard. ? Peanuts. ? Potato chips, lao fries, and baked potatoes with skin on. ? Nuts and nut products. ? Chocolate. ? If you regularly take a diuretic medicine, make sure to eat at least 1 or 2 servings of fruits or vegetables that are high in potassium each day. These include: ? Avocado. ? Banana. ? [place], prune, carrot, or tomato juice. ? Baked [...] fish oil, or vitamin B6. ? Take ohkd-jyc-upbwyrp and prescription medicines only as told by your health care provider. These include supplements. What foods should I limit? Limit your in (more content not included)... Normal [facility] Urology Office/Clinic Noteon 05-01-2023 Urology Office/Clinic Note Chief Complaint 10 month follow up w/ KUB HPI Staff Pt is here today for 10 month follow up w/ KUB. Previous DX: chronic kidney disease stage 3, kidney stone, ureteral stone w/ hydronephrosis. S/P Cysto done 09/22/21. KUB done 04/24/23 at [facility]. Dysuria: denies pain and burning Incomplete bladder [...] Contact Information ANDREWS FLEMING, LOUISA Welch, URL [address] [place] [address] Additional Instructions: 1 yr KUB Patient Education [...] Dipstick: 1+ (30 mg/dl) (05/01/23 13:03:00) Specific [place] Urine Dipstick: >=1.030 (05/01/23 13:03:00) Urine Appearance Urine Dipstick: Clear (05/01/23 13:03:00) Urine Color Urine Dipstick: Yellow (05/01/23 13:03:00) Urobilinogen Urine Dipstick: Normal 0.2-1 EU/dl (05/01/23 13:03:00) pH Urine Dipstick: 5.5 (05/01/23 13:03:00) Normal [facility] Comment on above: Result Comment: Elec tronically Signed By: LOUISA SPARROW PA-C\.br\Date and Time Signed: 05/01/23 13:50 EDT\.br\Electronically Co-Signed By: Bria Moreno\.br\Date and Time Co-Signed: 05/01/23 13:33 EDT RAD - MISCon 04-28-2023 RAD - MISC [id number] Normal [facility] Ambulatory Visit Summaryon 1 Ambulatory Visit Summary ROBYN SRINIVASAN :1940 Visit Date:06/04/2022 Ambulatory Visit Instructions Your Diagnosis Kidney stone Ureteral stone with hydronephrosis Tests Performed Urnls Dip Stick Auto w/o Microscopy POC 07980 XR Abdomen 1 View -- Results Pending [...] these instructions at home: Medicines ? Take tfkl-asb-kkukquh and prescription medicines only as told by [...] 02/03/2009 Document Revised: 01/04/2020 Document Reviewed: 01/04/2020 [employer] Patient Education ? 2019 [employer] [facility] Urology Office/Clinic Noteon 06-04-2022 Urology Office/Clinic Note [...] URL In 6 months 12/03/[address] [place] [id number] Additional Instructions: KUB Patient Education Kidney Stones, Eglx-dk-Bedx I, Deidre Jones , personally scribed for [...] Trace-intact ( (more content not included)... Normal [facility] Comment on above: Result Comment: Elec tronically Signed By: Carlos SILVERMAN MD\.br\Date and Time Signed: 06/04/22 12:04 EDT\.br\Electronically Co-Signed By: Deidre Jones MA\.br\Date and Time Co-Signed: 06/04/22 12:01 EDT MG MAMM SCREEN 3D ZAN CADon 02-21-2022 MG MAMM SCREEN 3D ZAN CAD Patient: ROBYN SRINIVASAN Exam Date: 02/21/2022 : 1940 Gender:F Ordering : DR MARKIE SMITH . Admission #: [id number] Family : Order #: [id number] CLICK HERE TO VIEW EXAM RADIOLOGY REPORT [...] breast cancer at age 49. LOCATION: [facility] BREAST COMPOSITION: Scattered areas fibroglandular density. FINDINGS: [...] Hobbs M.D. on 02/22/2022 at 13:35 Normal [facility] T4 LABCORPon 02-07-2022 T4 [Mass/Vol] 6.2 ug/dL Normal 4.5-12.0 [facility] Comment on above: Performed By: #### T 4LC #### [facility] [address] [place] [address] Dr. Reg Kerns CITRATE URINE 24HRon 022 Citric Acid, U, 24hr 191 mg/24 hr Critically low 320-1240 [facility] Comment on above: Result Comment: This test was developed and its performance characteristics determined by [facility]. It has not been cleared or approved by the Food and Drug Administration. Performed By: #### C ITRATU #### [facility] [address] [place] [address] Dr. Reg Kerns Citric Acid, Urine 283 mg/L Normal Undefined [facility] Comment on above: Performed By: #### C ITRATU #### [facility] [address] [place] [address] Dr. Reg Kerns OXALATE 24HR URINEon 022 Oxalates, Urine 24hr 5 mg/24 hr Normal 4-31 [facility] Comment on above: Performed By: #### O X24HR #### [facility] [address] [place] [address] Dr. Reg Kerns Oxalates, Urine 8 mg/L Normal Undefined [facility] Comment on above: Performed By: #### O X24HR #### [facility] [address] [place] [address] Dr. Reg Kerns MAGNESIUM 24HR URINEon 02-03 Magnesium 24hr Urine 43.2 mg/24 hr Normal 12.0-293.0 [facility] Comment on above: Performed By: #### P THINT #### [facility] [address] [address] [address] Reg Kerns Magnesium UR 6.4 mg/dL Normal Not Estab. [facility] Comment on above: Performed By: #### P THINT #### [facility] [address] [place] [address] Dr. Reg Kerns PHOSPHORUS 24HR URINEon Phosphorus, Urine 47.7 mg/dL Normal Not Estab. [facility] Comment on above: Performed By: #### P THINT #### [facility] [address] [place] [address] Dr. Reg Kerns Phosphorus, Urine 24hr 322 mg/24 hr Normal 261-1078 [facility] Comment on above: Performed By: #### P THINT #### [facility] [address] [place] [address] Dr. Reg Kerns URIC ACID 24 HR URINEon Uric Acid, Urine 28.4 mg/dL Normal Not Estab. [facility] Comment on above: Performed By: #### U NICHELLE 24 #### [facility] [address] [place] [address] Dr. Reg Kerns Uric Acid, Urine 24hr 191.7 mg/24 hr Normal 88.9-568.5 [facility] Comment on above: Performed By: #### U NICHELLE 24 #### [facility] [address] [place] [address] Dr. Reg Kerns CALCIUM 24 HR URINEon 2021 CALC, 24 HR UR 58.7 mg/24 hr Critically low 100.0-300.0 Th [facility] Comment on above: Performed By: #### P THINT #### [facility] [address] [place] [address] Dr. Reg Kerns UR CALCIUM 8.7 mg/dL Normal 5.1-21.0 [facility] Comment on above: Performed By: #### P THINT #### [facility] [address] [place] [address] Dr. Reg Kerns CREA 24 HR URINEon 2 CREA, 24 HR UR 455.96 mg/24 hr Critically low 800.00-1 ,800. 00 [facility] Comment on above: Performed By: #### C ITRATU #### [facility] [address] [place] [address] Dr. Reg Kerns URINE CREAT 67.55 mg/dL Normal 20.00-300.00 [facility] Comment on above: Performed By: #### C ITRATU #### [facility] [address] [place] [address] Dr. Reg Kerns SODIUM 24 HR URINEon 022 NA, 24 HR UR 76 mmol/24 hr Normal 40-220 [facility] Comment on above: Performed By: #### C ITRATU #### [facility] [address] [place] [address] Dr. Reg Kerns Sodium (U) [Moles/Vol] 112 mmol/L Critically high 30-90 [facility] Comment on above: Performed By: #### C ITRATU #### [facility] [address] [place] [address] Dr. Reg Kerns UR TOT VOL 675 ml/24 HR Normal [facility] Comment on above: Performed By: #### C ITRATU #### [facility] [address] [place] [address] Dr. Reg Kerns Performed By: #### P THINT #### [facility] [address] [place] [address] Dr. Reg Kerns INSULINon 02-01-2022 Insulin 27.7 uIU/mL Critically high 2.6-24.9 [facility] Comment on above: Performed By: #### U NICHELLE 24 #### [facility] [address] [place] [address] Dr. Reg Kerns PTH INTACTon 02-01-2022 PTH, Intact 46 pg/mL Normal 15-65 [facility] Comment on above: Performed By: #### P THINT #### [facility] [address] [place] [address] Dr. Reg Kerns BNPon 01-31-2022 Natriuretic peptide B (Bld) [Mass/Vol] 154.0 pg/mL Normal <=1,800.0 [facility] Comment on above: Performed By: #### P THINT #### [facility] [address] [place] [address] Dr. Reg Kerns CBC AUTO DIFFon 01-31-2022 BASO # 0.1 103/ul Normal 0.0-0.1 [facility] Comment on above: Performed By: #### U NICHELLE 24 #### [facility] [address] [place] [address] Dr. Reg Kerns Basophils/100 WBC (Bld) 0.8 % Normal 0.2-2.0 [facility] Comment on above: Performed By: #### U NICHELLE 24 #### [facility] [address] [place] [address] Dr. Reg Kerns EO # 0.3 103/ul Normal 0.0-0.7 [facility] Comment on above: Performed By: #### U NICHELLE 24 #### [facility] [address] [place] [address] Dr. Reg Kerns Eosinophils/100 WBC (Bld) 4.4 % Normal 0.9-7.0 [facility] Comment on above: Performed By: #### U NICHELLE 24 #### [facility] [address] [place] [address] Dr. Reg Kerns Erythrocyte distribution width (RBC) [Ratio] 15.7 % Critically high 11.0-15.0 [facility] Comment on above: Performed By: #### U NICHELLE 24 #### [facility] [address] [place] [address] Dr. Reg Kerns Hematocrit (Bld) [Volume fraction] 37.4 % Normal 36.0-48.0 [facility] Comment on above: Performed By: #### U NICHELLE 24 #### [facility] [address] [place] [address] Dr. Reg Kerns Hemoglobin (Bld) [Mass/Vol] 11.6 g/dL Critically low 12.0-16.0 [facility] Comment on above: Performed By: #### U NICHELLE 24 #### [facility] [address] [place] [address] Dr. Reg Kerns IG # 0.03 10e3/ul Normal 0.00-0.03 [facility] Comment on above: Performed By: #### U NICHELLE 24 #### [facility] [address] [place] [address] Dr. Reg Kerns IG % 0.5 % Normal 0.0-0.5 [facility] Comment on above: Performed By: #### U NICHELLE 24 #### [facility] [address] [place] [address] Dr. Reg Kerns LYMPH # 1.9 103/ul Normal 1.2-3.8 [facility] Comment on above: Performed By: #### U NICHELLE 24 #### [facility] [address] [place] [address] Dr. Reg Kerns Lymphocytes/100 WBC (Bld) 30.3 % Normal 20.5-60.0 [facility] Comment on above: Performed By: #### U NICHELLE 24 #### [facility] [address] [place] [address] Dr. Reg Kerns MANUAL DIFF REQ NO Normal [facility] Comment on above: Performed By: #### U NICHELLE 24 #### [facility] [address] [place] [address] Dr. Reg Kerns MCH (RBC) [Entitic mass] 26.9 pg Normal 26.7-34.0 [facility] Comment on above: Performed By: #### U NICHELLE 24 #### [facility] [address] [place] [address] Dr. Reg Kerns MCHC (RBC) [Mass/Vol] 31.0 g/dL Normal 29.9-35.2 [facility] Comment on above: Performed By: #### U NICHELLE 24 #### [facility] [address] [place] [address] Dr. Reg Kerns MCV (RBC) [Entitic vol] 86.6 fL Normal 81.0-99.0 [facility] Comment on above: Performed By: #### U NICHELLE 24 #### [facility] [address] [place] [address] Dr. Reg Kerns MONO # 0.6 103/ul Normal 0.3-0.8 [facility] Comment on above: Performed By: #### U NICHELLE 24 #### [facility] [address] [place] [address] Dr. Reg Kerns Monocytes/100 WBC (Bld) 8.9 % Normal 1.7-12.0 [facility] Comment on above: Performed By: #### U NICHELLE 24 #### [facility] [address] [place] [address] Dr. Reg Kerns NEUT # 3.5 103/ul Normal 1.4-6.5 [facility] Comment on above: Performed By: #### U NICHELLE 24 #### [facility] [address] [place] [address] Dr. Reg Kerns Neutrophils/100 WBC (Bld) 55.1 % Normal 43.0-75.0 [facility] Comment on above: Performed By: #### U NICHELLE 24 #### [facility] [address] [place] [address] Dr. Reg Kerns Platelet mean volume (Bld) [Entitic vol] 10.6 fL Normal 9.5-13.5 [facility] Comment on above: Performed By: #### U NICHELLE 24 #### [facility] [address] [place] [address] Dr. Reg Kerns PLT 250 103/ul Normal 150-450 [facility] Comment on above: Performed By: #### U NICHELLE 24 #### [facility] [address] [place] [address] Dr. Reg Kerns RBC 4.32 106/ul Normal 4.20-5.40 [facility] Comment on above: Performed By: #### U NICHELLE 24 #### [facility] [address] [place] [address] Dr. Reg Kerns WBC 6.4 103/ul Normal 4.0-11.0 [facility] Comment on above: Performed By: #### U NICHELLE 24 #### [facility] [address] [address] [address] Reg Kerns FREE THYROXINE INDEX T7on FTI 2.17 Normal 1.30-4.50 [facility] Comment on above: Performed By: #### P THINT #### [facility] [address] [address] [address] Reg Kerns T3U 35.0 % Normal 30.0-39.0 [facility] Comment on above: Performed By: #### P THINT #### [facility] [address] [address] [address] Reg Kerns T4 [Mass/Vol] 6.20 ug/dL Normal 4.80-13.90 [facility] Comment on above: Result Comment: T4 t esting performed by [facility] Performed By: #### P THINT #### [facility] [address] [place] [address] Dr. Reg Kerns GLYCOHEMOGLOBIN A1Con 2021 ADA RECOMMENDATION SEE BELOW Normal [facility] Comment on above: Result Comment: ADA RECOMMENDED LIMIT 4.0 - 6.0 ADA THERAPEUTIC TARGET < 7.0 ACTION SUGGESTED > 7.0 Performed By: #### P THINT #### [facility] [address] [place] [address] Dr. Reg Kerns Glucose [Mass/Vol] 117 mg/dL Normal [facility] Comment on above: Performed By: #### P THINT #### [facility] [address] [place] [address] Dr. Reg Kerns HbA1c (Bld) [Mass fraction] 5.7 % Normal 4.5-6.2 [facility] Comment on above: Performed By: #### P THINT #### [facility] [address] [place] [address] Dr. Reg Kerns IRONon 01-31-2022 Iron [Mass/Vol] 143.0 ug/dL Normal 50.0-170.0 [facility] Comment on above: Performed By: #### I JORGE #### [facility] [address] [address] [address] Reg Kerns LIPID PROFILEon 01-31-2022 CHOL-HDL RATIO NORM SEE BELOW Normal [facility] Comment on above: Result Comment: 3.3 - 4.4 LOW RISK 4.4 - 7.1 AVERAGE RISK 7.1 - 11.0 MODERATE RISK >11.0 HIGH RISK Performed By: #### P THINT #### [facility] [address] [address] [address] Reg Kerns Cholesterol [Mass/Vol] 210 mg/dL Critically high <=200 [facility] Comment on above: Performed By: #### P THINT #### [facility] [address] [address] [address] Reg Kerns Cholesterol in HDL [Mass/Vol] 56 mg/dL Normal 40-60 [facility] Comment on above: Performed By: #### P THINT #### [facility] [address] [address] [address] Reg Kerns Cholesterol in LDL [Mass/Vol] 110.6 mg/dL Normal [facility] Comment on above: Performed By: #### P THINT #### [facility] [address] [address] [address] Reg Kerns Cholesterol.total/Ch olesterol in HDL [Mass ratio] 3.8 {ratio} Normal [facility] Comment on above: Performed By: #### P THINT #### [facility] [address] [address] [address] Reg Kerns HDL NORMAL > or = 60 mg/dl - LO W CARDIOVASCULAR RISK <40 mg/dl - HIGH CARDIOVASCULAR RISK Normal [facility] Comment on above: Performed By: #### P THINT #### [facility] [address] [address] [address] Reg Kerns LDL CALC NORMAL SEE BELOW Normal [facility] Comment on above: Result Comment: <100 mg/dl OPTIMAL 100 - 129 mg/dl NEAR OR ABOVE OPTIMAL 130 - 159 mg/dl BORDERLINE HIGH 160 - 189 mg/dl HIGH >190 mg/dl VERY HIGH Performed By: #### P THINT #### [facility] [address] [place] [address] Dr. Reg Kerns Triglyceride [Mass/Vol] 217 mg/dL Critically high <=150 [facility] Comment on above: Performed By: #### P THINT #### [facility] [address] [place] [address] Dr. Reg Kerns VLDL CALC 43.4 mg/dL Normal [facility] Comment on above: Performed By: #### P THINT #### [facility] [address] [address] [address] Reg Kerns PROF 14(COMP METB)on 022 Albumin [Mass/Vol] 3.6 g/dL Normal 3.4-5.0 [facility] Comment on above: Performed By: #### P THINT #### [facility] [address] [place] [address] Dr. Reg Kerns Albumin/Globulin [Mass ratio] 1.0 {ratio} Normal [facility] Comment on above: Performed By: #### P THINT #### [facility] [address] [place] [address] Dr. Reg Kerns ALP [Catalytic activity/Vol] 74 U/L Normal 46-116 [facility] Comment on above: Performed By: #### P THINT #### [facility] [address] [place] [address] Dr. Reg Kerns ALT [Catalytic activity/Vol] 26 U/L Normal 14-59 [facility] Comment on above: Performed By: #### P THINT #### [facility] [address] [place] [address] Dr. Reg Kerns Anion gap [Moles/Vol] 13.3 mmol/L Normal [facility] Comment on above: Performed By: #### P THINT #### [facility] [address] [place] [address] Dr. Reg Kerns AST [Catalytic activity/Vol] 18 U/L Normal 15-37 [facility] Comment on above: Performed By: #### P THINT #### [facility] [address] [address] [address] Reg Kerns Bilirubin [Mass/Vol] 0.3 mg/dL Normal 0.2-1.0 [facility] Comment on above: Performed By: #### P THINT #### [facility] [address] [address] [address] Reg Kerns Calcium [Mass/Vol] 9.1 mg/dL Normal 8.5-10.1 [facility] Comment on above: Performed By: #### P THINT #### [facility] [address] [address] [address] Reg Kerns Chloride [Moles/Vol] 103 mmol/L Normal 98-107 [facility] Comment on above: Performed By: #### P THINT #### [facility] [address] [place] [address] Dr. Reg Kerns CO2 [Moles/Vol] 26.4 mmol/L Normal 21.0-32.0 [facility] Comment on above: Performed By: #### P THINT #### [facility] [address] [place] [address] Dr. Reg Kerns Creatinine [Mass/Vol] 0.88 mg/dL Normal 0.55-1.02 [facility] Comment on above: Performed By: #### P THINT #### [facility] [address] [place] [address] Dr. Reg Kerns EGFR-AF CONGOLESE >60 Normal >=60 [facility] Comment on above: Performed By: #### P THINT #### [facility] [address] [place] [address] Dr. Reg Kerns EGFR-NON AF CONGOLESE >60 Normal >=60 [facility] Comment on above: Performed By: #### P THINT #### [facility] [address] [place] [address] Dr. Reg Kerns Globulin (S) [Mass/Vol] 3.6 g/dL Normal [facility] Comment on above: Performed By: #### P THINT #### [facility] [address] [address] [address] Reg Kerns Glucose [Mass/Vol] 91 mg/dL Normal 74-106 [facility] Comment on above: Performed By: #### P THINT #### [facility] [address] [address] [address] Reg Kerns Potassium [Moles/Vol] 4.7 mmol/L Normal 3.5-5.1 [facility] Comment on above: Performed By: #### P THINT #### [facility] [address] [address] [address] Reg Kerns Protein [Mass/Vol] 7.2 g/dL Normal 6.4-8.2 [facility] Comment on above: Performed By: #### P THINT #### [facility] [address] [address] [address] Reg Kerns Sodium [Moles/Vol] 138 mmol/L Normal 136-145 [facility] Comment on above: Performed By: #### P THINT #### [facility] [address] [address] [address] Reg Kerns Urea nitrogen [Mass/Vol] 15.0 mg/dL Normal 7.0-18.0 [facility] Comment on above: Performed By: #### P THINT #### [facility] [address] [place] [address] Dr. Reg Kerns Urea nitrogen/Creatinine [Mass ratio] 17.0 mg/mg Normal [facility] Comment on above: Performed By: #### P THINT #### [facility] [address] [address] [address] Reg Kerns TSHon 01-31-2022 TSH 2.021 uIU/mL Normal 0.358-3.740 [facility] Comment on above: Performed By: #### P THINT #### [facility] [address] [place] [address] Dr. Reg Kerns TSH RANGE SEE BELOW Normal [facility] Comment on above: Result Comment: <0.3 4 UIU/ml HYPERTHYROID 0.34-5.60 UIU/ml EUTHYROID >5.60 UIU/ml HYPOTHYROID Performed By: #### P THINT #### [facility] [address] [place], [place] [address] Dr. Reg Kerns URIC ACID SERUMon 01-31-2022 Urate [Mass/Vol] 6.1 mg/dL Critically high 2.6-6.0 [facility] Comment on above: Performed By: #### U NICHELLE #### [facility] [address] [place], [place] [address] Dr. Reg Kerns Calculi, Urinaryon 2 Ca Oxalate Dihydrate 30 % Normal . [facility] Comment on above: Performed By: #### C ALCULI #### [facility] , Ca Oxalate Monohydrate 70 % Normal . [facility] Comment on above: Performed By: #### C ALCULI #### [facility] , Color (U) Brown Normal . [facility] Comment on above: Performed By: #### C ALCULI #### [facility] , Comment2 Normal . [facility] Comment on above: Result Comment: Calc ulus received in liquid. Wet calculi must be dried before analysis, which delays reporting of results. Leaving calculi in liquid (such as water, saline, blood, urine) may lead to changes in composition. Performed By: #### C ALCULI #### [facility] , Comment: Normal . [facility] Comment on above: Result Comment: Phys ician questions regarding Calculi Analysis contact [facility] at: [phone]. Performed By: #### C ALCULI #### [facility] , Composition Normal . [facility] Comment on above: Result Comment: Perc entage (Represents the % composition) Performed By: #### C ALCULI #### [facility] , Disclaimer: Normal . [facility] Comment on above: Result Comment: This test was developed and its performance characteristics determined by [facility]. It has not been cleared or approved by the Food and Drug Administration. Performed at: [facility] [address] [place], [place], [place] [id number] Clean Up Helper Banquet: Beck Wynne MD, Phone: [phone] Performed By: #### C ALCULI #### [facility] , Note Normal . [facility] Comment on above: Result Comment: Calc perlita report will follow via computer, mail or director of teaching and learning delivery. PERFORMED BY: [facility] [place] [address] PATHOLOGIST SONOSCOPE OPERATOR KEANN BAIRD M.D. Performed By: #### C ALCULI #### [facility] , Photo Normal . [facility] Comment on above: Result Comment: Phot ogshannan will follow under a separate cover Performed By: #### C ALCULI #### [facility] , Size 3x3 Normal . [facility] Comment on above: Result Comment: Mult iple pieces received. Dimensions of the largest piece reported. Performed By: #### C ALCULI #### [facility] , Source Kidney Normal . [facility] Comment on above: Performed By: #### C ALCULI #### [facility] , Weight 126 Normal . [facility] Comment on above: Performed By: #### C ALCULI #### [facility] , [place] 10-25-2021 L - -------- Specimen: [id number] Received: 10/26/21 Status: CATHERINE Presley Num: [id number] Spec Type: Surgical Subm Dr: Carlos Silverman MD Tissues: A Urinary Calculus (BILATERAL RENAL CALCULI) Procedures: Level 1 Gross -------- Patient Age/Sex Location Account Attending Physician -------- Robyn Srinivasan 80/F [place] [id number] Carlos Silverman MD -------- SPEC NUM: [id number] RECD: 10/26/21 STATUS: CATHERINE PRESLEY NUM: [id number] SIL: 10/25/21- [facility] DR: Carlos Silverman MD ENTERED: 10/26/21 [facility] DR: OTTO TYPE: Surgical DEPT: S ORDERED: [...] only. (GONZALES/NIKKI) Microscopic Description Gross examination only. [id number] -------- -------- Specimen: [id number] Received: 10/26/21 Status: CATHERINE Sakina Num: [id number] Spec Type: Surgical Subm Dr: Carlos Silverman MD Tissues: A Urinary Calculus (BILATERAL RENAL CALCULI) Procedures: Level 1 Gross -------- Patient: Robyn Srinivasan [id number] (Continued) -------- Signed (signature on file) Kenan Baird MD 10/26/21 1633 [facility] XR KUBon 10-25-2021 XR KUB [address] [address] XRay Report Signed Patient: Robyn Srinivasan MR#: [id number] : 1940 Acct:[id number] Age/Sex: 80 / F ADM Date: 10/25/21 Loc: [place] Room: Type: [facility] Attending Dr: Carlos Silverman MD Ordering Provider: [...] Eriberto Jordan M.D.10/25/2021 1:48 PM Dictation Location: [address] [place] [address] Transcribed By: [facility] 10/25/21 1348 Dictated By: Eriberto Jordan DO 10/25/21 1345 Signed By: 10/25/21 1348 [facility] XR abdomen 1Von 10-25-2021 XR abdomen 1V [facility] [place] [address] [place] [address] XRay Report Signed Patient: Robyn Srinivasan MR#: [id number] : 1940 Acct:[id number] Age/Sex: 80 / F ADM Date: 10/25/21 Loc: [place] Room: Type: [facility] Attending Dr: Carlos Silverman MD Ordering Provider: [...] Pako King M.D.10/25/2021 4:52 PM Dictation Location: [place] [address] Transcribed By: [facility] 10/25/211651 Dictated By: Pako King II, MD 10/25/211649 Signed By: 10/25/211651 Normal [facility] Basic Metabolic Panelon 10-02 Calcium [Mass/Vol] 9.4 mg/dL Normal 8.2-10.2 [facility] Comment on above: Result Comment: PERF ORMED BY: [place] [address] PATHOLOGIST SONOSCOPE OPERATOR KENAN BAIRD M.D. Performed By: #### C BC, PT, PTT, BMP #### [facility] [address] [place] [address] [place] Chloride [Moles/Vol] 103 mmol/L Normal 95-114 [facility] Comment on above: Performed By: #### C BC, PT, PTT, BMP #### [facility] [address] [id number] [place] CO2 [Moles/Vol] 22.8 mmol/L Normal 22.0-30.0 [facility] Comment on above: Performed By: #### C BC, PT, PTT, BMP #### [facility] [address] [place] [address] [place] Creatinine [Mass/Vol] 0.85 mg/dL Normal 0.44-1.03 [facility] Comment on above: Performed By: #### C BC, PT, PTT, BMP #### [facility] [address] [place] [address] [place] Estimated GFR ( Faina > 60 Normal [facility] Comment on above: Result Comment: GFR estimated reference range: According to KDOQI guidelines, <60 ml/min/1.73m2 is sufficient to diagnose a patient with chronic kidney disease. Performed By: #### C BC, PT, PTT, BMP #### [address] Estimated GFR (Non- Am > 60 Normal [facility] Comment on above: Performed By: #### C BC, PT, PTT, BMP #### [address] Glucose [Mass/Vol] 95 mg/dL Normal 70-100 [facility] Comment on above: Result Comment: [place] Glucose Reference Range is dependent on time and content of last meal. Glucose of more than 200 mg/dL in a nonstressed, ambulatory subject supports the diagnosis of Diabetes Mellitus. ADA recommended reference range Performed By: #### C BC, PT, PTT, BMP #### [address] Potassium [Moles/Vol] 4.3 mmol/L Normal 3.5-5.1 [facility] Comment on above: Performed By: #### C BC, PT, PTT, BMP #### [address] Sodium [Moles/Vol] 137 mmol/L Normal 136-146 [facility] Comment on above: Performed By: #### C BC, PT, PTT, BMP #### [address] Urea nitrogen [Mass/Vol] 12 mg/dL Normal 9-23 [facility] Comment on above: Performed By: #### C BC, PT, PTT, BMP #### [address] Complete Blood Count Auto Di ffon 10-12-2021 Basophils (Bld) [#/Vol] 0.1 10*3/uL Normal 0.0-0.2 [facility] Comment on above: Result Comment: PERF ORMED BY: [place] [address] PATHOLOGIST SONOSCOPE OPERATOR KENAN BAIRD M.D. Performed By: #### C BC, PT, PTT, BMP #### [address] Basophils/100 WBC (Bld) 1.3 % Normal . [facility] Comment on above: Performed By: #### C BC, PT, PTT, BMP #### [address] Eosinophils (Bld) [#/Vol] 0.5 10*3/uL High 0.0-0.45 [facility] Comment on above: Performed By: #### C BC, PT, PTT, BMP #### [address] Eosinophils/100 WBC (Bld) 6.6 % Normal . [facility] Comment on above: Performed By: #### C BC, PT, PTT, BMP #### [address] Erythrocyte distribution width (RBC) [Ratio] 14.5 % Normal 11.9-15.3 [facility] Comment on above: Performed By: #### C BC, PT, PTT, BMP #### [address] Hematocrit (Bld) [Volume fraction] 38.5 % Normal 34.0-46.4 [facility] Comment on above: Performed By: #### C BC, PT, PTT, BMP #### [address] Hemoglobin (Bld) [Mass/Vol] 12.6 g/dL Normal 11.8-15.4 [facility] Comment on above: Performed By: #### C BC, PT, PTT, BMP #### [address] Lymphocytes (Bld) [#/Vol] 1.6 10*3/uL Normal 1.00-4.8 [facility] Comment on above: Performed By: #### C BC, PT, PTT, BMP #### [address] [address] [place] Lymphocytes/100 WBC (Bld) 22.1 % Normal . [facility] Comment on above: Performed By: #### C BC, PT, PTT, BMP #### [address] MCH (RBC) [Entitic mass] 28.0 pg Normal 24.7-34.3 [facility] Comment on above: Performed By: #### C BC, PT, PTT, BMP #### [address] MCV (RBC) [Entitic vol] 85.7 fL Normal 80-100 [facility] Comment on above: Performed By: #### C BC, PT, PTT, BMP #### [address] Mean Corpuscular HGB Conc 32.7 g/dL Normal 32.0-35.0 [facility] Comment on above: Performed By: #### C BC, PT, PTT, BMP #### [address] Monocytes (Bld) [#/Vol] 0.5 10*3/uL Normal 0.0-0.8 [facility] Comment on above: Performed By: #### C BC, PT, PTT, BMP #### [address] Monocytes/100 WBC (Bld) 6.2 % Normal . [facility] Comment on above: Performed By: #### C BC, PT, PTT, BMP #### [address] Neutrophils (Bld) [#/Vol] 4.8 10*3/uL Normal 1.8-7.7 [facility] Comment on above: Performed By: #### C BC, PT, PTT, BMP #### [address] Neutrophils/100 WBC (Bld) 63.8 % Normal . [facility] Comment on above: Performed By: #### C BC, PT, PTT, BMP #### [facility] [address] Nucleated RBC/100 WBC (Bld) [Ratio] 0.0 % Normal 0-0.5 [facility] Comment on above: Performed By: #### C BC, PT, PTT, BMP #### [facility] [address] Platelet mean volume (Bld) [Entitic vol] 8.5 fL Normal 6.3-10.7 [facility] Comment on above: Performed By: #### C BC, PT, PTT, BMP #### [facility] [address] Platelets (Bld) [#/Vol] 244 10*3/uL Normal 150-450 [facility] Comment on above: Performed By: #### C BC, PT, PTT, BMP #### [address] RBC (Bld) [#/Vol] 4.49 10*6/uL Normal 3.60-5.00 [facility] Comment on above: Performed By: #### C BC, PT, PTT, BMP #### [address] WBC (Bld) [#/Vol] 7.5 10*3/uL Normal 4.5-11.0 [facility] Comment on above: Performed By: #### C BC, PT, PTT, BMP #### [address] ECG 12 lead ECGon 10-12-2021 ECG 12 lead ECG [facility] [place] [address] [place] [address] Electrocardiograph Report Signed Patient: Robyn Srinivasan MR#: [id number] : 1940 Acct:[id number] Age/Sex: 80 / F ADM Date: 10/12/21 Loc: [place] Room: Type: [facility] Attending Dr: Carlos Silverman MD Ordering [...] previous ECGs available Confirmed by MALACHI RIVERA [facility], JESICA ([id number]) on 10/12/2021 7:05:53 PM Referred By: ANDRA Electronically Signed By:JESICA BRAXTON MD [facility] Transcribed By: ASIYA Signed By Jesica Braxton MD, [facility] 10/12/21 1905 Normal [facility] Partial Thromboplastin Timeo n 10-12-2021 aPTT Coag (Bld) [Time] 27.0 s Normal 25.1-36.5 [facility] Comment on above: Result Comment: PERF ORMED BY: [place] [address] PATHOLOGIST SONOSCOPE OPERATOR KENAN BAIRD M.D. Performed By: #### C BC, PT, PTT, BMP #### [address] Prothrombin Time INRon 10-12 INR Coag (PPP) [Relative time] 1.0 {INR} Normal [facility] Comment on above: Result Comment: INR Therapeutic [...] #### C BC, PT, PTT, BMP #### [address] PT Coag (PPP) [Time] 11.0 s Normal 9.0-12.9 [facility] Comment on above: Performed By: #### C BC, PT, PTT, BMP #### [address] [place] [address] [facility] XR chest 2V*on 10-12-2021 XR chest 2V* [facility] [address] [place] [address] [place] [address] XRay Report Signed Patient: Robyn Srinivasan MR#: [id number] : 1940 Acct:[id number] Age/Sex: 80 / F ADM Date: 10/12/21 Loc: [place] Room: Type: [facility] Attending Dr: Carlos Silverman MD Ordering [...] Li Jr., D.ODominik10/12/2021 11:55 AM Dictation Location: [place] [address] Transcribed By: [facility] 10/12/21 1155 Dictated By: Tj Li Jr, DO 10/12/21 1155 Signed By: 10/12/21 1155 [facility] XR KUB 1 VIEWon 10-08-2021 XR KUB [...] JEREMIAH HOBBS Date: 2021-10-08 09:18 Normal [facility] XR RETROGRADE PYELOGRAMon XR RETROGRADE PYELOGRAM EXAMINATION: [...] EDGAR PADRON Date: 2021-09-23 09:36 Normal [facility] CBC AUTO DIFFon 09-22-2021 BASO # 0.0 103/ul Normal 0.0-0.1 [facility] Comment on above: Performed By: #### P THINT #### [facility] [address] [place] [address] Dr. Reg Kerns Basophils/100 WBC (Bld) 0.5 % Normal 0.2-2.0 [facility] Comment on above: Performed By: #### P THINT #### [facility] [address] [place] [address] Dr. Reg Kerns EO # 0.2 103/ul Normal 0.0-0.7 [facility] Comment on above: Performed By: #### P THINT #### [facility] [address] [place] [address] Dr. Reg Kerns Eosinophils/100 WBC (Bld) 3.9 % Normal 0.9-7.0 [facility] Comment on above: Performed By: #### P THINT #### [facility] [address] [place] [address] Dr. Reg Kerns Erythrocyte distribution width (RBC) [Ratio] 13.4 % Normal 11.0-15.0 [facility] Comment on above: Performed By: #### P THINT #### [facility] [address] [place] [address] Dr. Reg Kerns Hematocrit (Bld) [Volume fraction] 32.9 % Critically low 36.0-48.0 [facility] Comment on above: Performed By: #### P THINT #### [facility] [address] [place] [address] Dr. Reg Kerns Hemoglobin (Bld) [Mass/Vol] 10.3 g/dL Critically low 12.0-16.0 [facility] Comment on above: Performed By: #### P THINT #### [facility] [address] [place] [address] Dr. Reg Kerns IG # 0.02 10e3/ul Normal 0.00-0.03 [facility] Comment on above: Performed By: #### P THINT #### [facility] [address] [place] [address] Dr. Reg Kerns IG % 0.3 % Normal 0.0-0.5 [facility] Comment on above: Performed By: #### P THINT #### [facility] [address] [place] [address] Dr. Reg Kerns LYMPH # 2.2 103/ul Normal 1.2-3.8 [facility] Comment on above: Performed By: #### P THINT #### [facility] [address] [place] [address] Dr. Reg Kerns Lymphocytes/100 WBC (Bld) 37.3 % Normal 20.5-60.0 [facility] Comment on above: Performed By: #### P THINT #### [facility] [address] [place] [address] Dr. Reg Kerns MANUAL DIFF REQ NO Normal [facility] Comment on above: Performed By: #### P THINT #### [facility] [address] [place] [address] Dr. Reg Kerns MCH (RBC) [Entitic mass] 27.8 pg Normal 26.7-34.0 [facility] Comment on above: Performed By: #### P THINT #### [facility] [address] [address] [address] Reg Kerns MCHC (RBC) [Mass/Vol] 31.3 g/dL Normal 29.9-35.2 [facility] Comment on above: Performed By: #### P THINT #### [facility] [address] [address] [address] Reg Kerns MCV (RBC) [Entitic vol] 88.7 fL Normal 81.0-99.0 [facility] Comment on above: Performed By: #### P THINT #### [facility] [address] [place] [address] Dr. Reg Kerns MONO # 0.6 103/ul Normal 0.3-0.8 [facility] Comment on above: Performed By: #### P THINT #### [facility] [address] [place] [address] Dr. Reg Kerns Monocytes/100 WBC (Bld) 10.6 % Normal 1.7-12.0 [facility] Comment on above: Performed By: #### P THINT #### [facility] [address] [place] [address] Dr. Reg Kerns NEUT # 2.8 103/ul Normal 1.4-6.5 [facility] Comment on above: Performed By: #### P THINT #### [facility] [address] [place] [address] Dr. Reg Kerns Neutrophils/100 WBC (Bld) 47.4 % Normal 43.0-75.0 [facility] Comment on above: Performed By: #### P THINT #### [facility] [address] [place] [address] Dr. Reg Kerns Platelet mean volume (Bld) [Entitic vol] 10.2 fL Normal 9.5-13.5 [facility] Comment on above: Performed By: #### P THINT #### [facility] [address] [place] [address] Dr. Reg Kerns PLT 210 103/ul Normal 150-450 [facility] Comment on above: Performed By: #### P THINT #### [facility] [address] [address] [address] Reg Kerns RBC 3.71 106/ul Critically low 4.20-5.40 [facility] Comment on above: Performed By: #### P THINT #### [facility] [address] [address] [address] Reg Kerns WBC 5.9 103/ul Normal 4.0-11.0 [facility] Comment on above: Performed By: #### P THINT #### [facility] [address] [address] [address] Reg Kerns CULTURE URINEon 09-22-2021 CULTURE URINE Culture Observations : No growth Normal [facility] Comment on above: Performed By: #### C ITRATU #### [facility] [address] [place] [address] Dr. Reg Kerns PROF 14(COMP METB)on 022 Albumin [Mass/Vol] 3.0 g/dL Critically low 3.5-5.0 [facility] Comment on above: Performed By: #### C MP #### [facility] [address] [address] [address] Reg Kerns Albumin/Globulin [Mass ratio] 1.0 {ratio} Normal [facility] Comment on above: Performed By: #### C MP #### [facility] [address] [place] [address] Dr. Reg Kerns ALP [Catalytic activity/Vol] 55 U/L Normal 38-126 [facility] Comment on above: Performed By: #### C MP #### [facility] [address] [place] [address] Dr. Reg Kerns ALT [Catalytic activity/Vol] 16 U/L Normal 9-52 [facility] Comment on above: Performed By: #### C MP #### [facility] [address] [place] [address] Dr. Reg Kerns Anion gap [Moles/Vol] 12.6 mmol/L Normal [facility] Comment on above: Performed By: #### C MP #### [facility] [address] [place] [address] Dr. Reg Kerns AST [Catalytic activity/Vol] 17 U/L Normal 14-36 [facility] Comment on above: Performed By: #### C MP #### [facility] [address] [place] [address] Dr. Reg Kerns Bilirubin [Mass/Vol] 0.1 mg/dL Critically low 0.2-1.3 [facility] Comment on above: Performed By: #### C MP #### [facility] [address] [place] [address] Dr. Reg Kerns Calcium [Mass/Vol] 8.7 mg/dL Normal 8.4-10.2 [facility] Comment on above: Performed By: #### C MP #### [facility] [address] [place] [address] Dr. Reg Kerns Chloride [Moles/Vol] 106 mmol/L Normal 98-107 [facility] Comment on above: Performed By: #### C MP #### [facility] [address] [place] [address] Dr. Reg Kerns CO2 [Moles/Vol] 25.8 mmol/L Normal 22.0-30.0 [facility] Comment on above: Performed By: #### C MP #### [facility] [address] [place] [address] Dr. Reg Kerns Creatinine [Mass/Vol] 0.83 mg/dL Normal 0.52-1.04 [facility] Comment on above: Performed By: #### C MP #### [facility] [address] [place] [address] Dr. Reg Kerns EGFR-AF CONGOLESE >60 Normal >=60 [facility] Comment on above: Performed By: #### C MP #### [facility] [address] [place] [address] Dr. Reg Kerns EGFR-NON AF CONGOLESE >60 Normal >=60 [facility] Comment on above: Performed By: #### C MP #### [facility] [address] [place] [address] Dr. Reg Kerns Globulin (S) [Mass/Vol] 2.9 g/dL Normal [facility] Comment on above: Performed By: #### C MP #### [facility] [address] [place] [address] Dr. Reg Kerns Glucose [Mass/Vol] 99 mg/dL Normal 74-106 [facility] Comment on above: Performed By: #### C MP #### [facility] [address] [address] [address] Reg Kerns Potassium [Moles/Vol] 4.4 mmol/L Normal 3.4-5.0 [facility] Comment on above: Performed By: #### C MP #### [facility] [address] [place] [address] Dr. Reg Kerns Protein [Mass/Vol] 5.9 g/dL Critically low 6.1-8.2 [facility] Comment on above: Performed By: #### C MP #### [facility] [address] [place] [address] Dr. Reg Kerns Sodium [Moles/Vol] 140 mmol/L Normal 137-145 [facility] Comment on above: Performed By: #### C MP #### [facility] [address] [place] [address] Dr. Reg Kerns Urea nitrogen [Mass/Vol] 11.0 mg/dL Normal 7.0-17.0 [facility] Comment on above: Performed By: #### C MP #### [facility] [address] [place] [address] Dr. Reg Kerns Urea nitrogen/Creatinine [Mass ratio] 13.3 mg/mg Normal [facility] Comment on above: Performed By: #### C MP #### [facility] [address] [place] [address] Dr. Reg Kerns CBC AUTO DIFFon 09-21-2021 BASO # 0.0 103/ul Normal 0.0-0.1 [facility] Comment on above: Performed By: #### C ITRATU #### [facility] [address] [place] [address] Dr. Reg Kerns Basophils/100 WBC (Bld) 0.6 % Normal 0.2-2.0 [facility] Comment on above: Performed By: #### C ITRATU #### [facility] [address] [place] [address] Dr. Reg Kerns EO # 0.3 103/ul Normal 0.0-0.7 [facility] Comment on above: Performed By: #### C ITRATU #### [facility] [address] [place] [address] Dr. Reg Kerns Eosinophils/100 WBC (Bld) 3.5 % Normal 0.9-7.0 [facility] Comment on above: Performed By: #### C ITRATU #### [facility] [address] [place] [address] Dr. Reg Kerns Erythrocyte distribution width (RBC) [Ratio] 13.4 % Normal 11.0-15.0 [facility] Comment on above: Performed By: #### C ITRATU #### [facility] [address] [place] [address] Dr. Reg Kerns Hematocrit (Bld) [Volume fraction] 37.8 % Normal 36.0-48.0 [facility] Comment on above: Performed By: #### C ITRATU #### [facility] [address] [place] [address] Dr. Reg Kerns Hemoglobin (Bld) [Mass/Vol] 12.3 g/dL Normal 12.0-16.0 [facility] Comment on above: Performed By: #### C ITRATU #### [facility] [address] [place] [address] Dr. Reg Kerns IG # 0.03 10e3/ul Normal 0.00-0.03 [facility] Comment on above: Performed By: #### C ITRATU #### [facility] [address] [place] [address] Dr. Reg Kerns IG % 0.4 % Normal 0.0-0.5 [facility] Comment on above: Performed By: #### C ITRATU #### [facility] [address] [place] [address] Dr. Reg Kerns LYMPH # 1.6 103/ul Normal 1.2-3.8 [facility] Comment on above: Performed By: #### C ITRATU #### [facility] [address] [place] [address] Dr. Reg Kerns Lymphocytes/100 WBC (Bld) 22.9 % Normal 20.5-60.0 [facility] Comment on above: Performed By: #### C ITRATU #### [facility] [address] [place] [address] Dr. Reg Kerns MANUAL DIFF REQ NO Normal [facility] Comment on above: Performed By: #### C ITRATU #### [facility] [address] [place] [address] Dr. Reg Kerns MCH (RBC) [Entitic mass] 28.5 pg Normal 26.7-34.0 [facility] Comment on above: Performed By: #### C ITRATU #### [facility] [address] [place] [address] Dr. Reg Kerns MCHC (RBC) [Mass/Vol] 32.5 g/dL Normal 29.9-35.2 [facility] Comment on above: Performed By: #### C ITRATU #### [facility] [address] [place] [address] Dr. Reg Kerns MCV (RBC) [Entitic vol] 87.7 fL Normal 81.0-99.0 [facility] Comment on above: Performed By: #### C ITRATU #### [facility] [address] [place] [address] Dr. Reg Kerns MONO # 0.6 103/ul Normal 0.3-0.8 [facility] Comment on above: Performed By: #### C ITRATU #### [facility] [address] [place] [address] Dr. Reg Kerns Monocytes/100 WBC (Bld) 8.2 % Normal 1.7-12.0 [facility] Comment on above: Performed By: #### C ITRATU #### [facility] [address] [address] [address] Reg Kerns NEUT # 4.6 103/ul Normal 1.4-6.5 [facility] Comment on above: Performed By: #### C ITRATU #### [facility] [address] [place] [address] Dr. Reg Kerns Neutrophils/100 WBC (Bld) 64.4 % Normal 43.0-75.0 [facility] Comment on above: Performed By: #### C ITRATU #### [facility] [address] [place] [address] Dr. Reg Kerns Platelet mean volume (Bld) [Entitic vol] 10.8 fL Normal 9.5-13.5 [facility] Comment on above: Performed By: #### C ITRATU #### [facility] [address] [place] [address] Dr. Reg Kerns PLT 256 103/ul Normal 150-450 [facility] Comment on above: Performed By: #### C ITRATU #### [facility] [address] [place] [address] Dr. Reg Kerns RBC 4.31 106/ul Normal 4.20-5.40 [facility] Comment on above: Performed By: #### C ITRATU #### [facility] [address] [place] [address] Dr. Reg Kerns WBC 7.1 103/ul Normal 4.0-11.0 [facility] Comment on above: Performed By: #### C ITRATU #### [facility] [address] [place] [address] ABD/PELVIS WO CONon [...] deep venous thrombosis. Electronically authenticated by: ABA BONILLA Date: 2021-09-21 19:43 Normal [facility] Covid-19 PCR (CVDTB)on 09-02 SARS-CoV-2 (COVID-19) RNA BYRON+probe Ql (Unsp spec) Detected Critically abnormal NOT DETECTED [facility] Comment on above: Result Comment: This test is not yet approved or cleared by the [place] FDA. When there are no FDA-approved or cleared tests available, and other criteria are met, FDA can make tests available under an emergency access mechanism called an Emergency Use Authorization (EUA). The EUA for this test is supported by the [employer] Advisor of Health and Human Service's declaration that [...] used). Performed By: #### C VDTBH #### [facility] [address] [place] [address] Dr. Reg Kerns ER URINE PROFILEon 2 Bilirubin Ql (U) Negative Normal NEGATIVE [facility] Comment on above: Performed By: #### U NICHELLE 24 #### [facility] [address] [place] [address] Dr. Reg Kerns Clarity (U) SL CLOUDY Abnormal CLEAR [facility] Comment on above: Performed By: #### U NICHELLE 24 #### [facility] [address] [place] [address] Dr. Reg Kerns Color (U) YELLOW Normal YELLOW [facility] Comment on above: Performed By: #### U NICHELLE 24 #### [facility] [address] [place] [address] Dr. Reg WEAVER A micrscopic examination will be performed if indicated. Normal [facility] Comment on above: Performed By: #### U NICHELLE 24 #### [facility] [address] [place] [address] Dr. Reg Kerns Glucose Ql (U) Negative Normal NEGATIVE [facility] Comment on above: Performed By: #### U NICHELLE 24 #### [facility] [address] [place] [address] Dr. Reg Kerns Hemoglobin Ql (U) LARGE Abnormal NEGATIVE [facility] Comment on above: Performed By: #### U NICHELLE 24 #### [facility] [address] [place] [address] Dr. Reg Kerns Ketones Ql (U) Negative Normal NEGATIVE [facility] Comment on above: Performed By: #### U NICHELLE 24 #### [facility] [address] [place] [address] Dr. Reg Kerns LEUKOCYTES Negative Normal NEGATIVE [facility] Comment on above: Performed By: #### U NICHELLE 24 #### [facility] [address] [place] [address] Dr. Reg Kerns Nitrite Ql (U) Negative Normal NEGATIVE [facility] Comment on above: Performed By: #### U NICHELLE 24 #### [facility] [address] [place] [address] Dr. Reg Kerns pH (U) 5.0 [pH] Normal 5-9 [facility] Comment on above: Performed By: #### U NICHELLE 24 #### [facility] [address] [place] [address] Dr. Reg Kerns SPEC GRAVITY >=1.030 Abnormal 1.005-<=1.025 [facility] Comment on above: Performed By: #### U NICHELLE 24 #### [facility] [address] [place] [address] Dr. Reg Kerns UA PROTEIN TRACE Normal NEGATIVE/ TRACE [facility] Comment on above: Performed By: #### U NICHELLE 24 #### [facility] [address] [place] [address] Dr. Reg Kerns UR MICRO IND INDICATED Normal [facility] Comment on above: Performed By: #### U NICHELLE 24 #### [facility] [address] [place] [address] Dr. Reg Kerns Urobilinogen Qn (U) 0.2 {Tiffani'U}/dL Normal 0.2 - 1. 0 [facility] Comment on above: Performed By: #### U NICHELLE 24 #### [facility] [address] [place] [address] Dr. Reg Kerns PROF CHEM 8 (BAS METB)on Anion gap [Moles/Vol] 14.0 mmol/L Normal [facility] Comment on above: Performed By: #### B MP #### [facility] [address] [place] [address] Dr. Reg Kerns Calcium [Mass/Vol] 9.2 mg/dL Normal 8.4-10.2 [facility] Comment on above: Performed By: #### B MP #### [facility] [address] [place] [address] Dr. Reg Kerns Chloride [Moles/Vol] 101 mmol/L Normal 98-107 [facility] Comment on above: Performed By: #### B MP #### [facility] [address] [place] [address] Dr. Reg Kerns CO2 [Moles/Vol] 25.9 mmol/L Normal 22.0-30.0 [facility] Comment on above: Performed By: #### B MP #### [facility] [address] [place] [address] Dr. Reg Kerns Creatinine [Mass/Vol] 1.13 mg/dL Critically high 0.52-1.04 [facility] Comment on above: Performed By: #### B MP #### [facility] [address] [place] [address] Dr. Reg Kerns EGFR-AF CONGOLESE 56 mL/min/1.73m2 Critically low >=60 [facility] Comment on above: Performed By: #### B MP #### [facility] [address] [place] [address] Dr. Reg Kerns EGFR-NON AF CONGOLESE 47 mL/min/1.73m2 Critically low >=60 [facility] Comment on above: Performed By: #### B MP #### [facility] [address] [address] [address] Reg Kerns Glucose [Mass/Vol] 145 mg/dL Critically high 74-106 [facility] Comment on above: Performed By: #### B MP #### [facility] [address] [place] [address] Dr. Reg Kerns Potassium [Moles/Vol] 3.9 mmol/L Normal 3.4-5.0 [facility] Comment on above: Performed By: #### B MP #### [facility] [address] [place] [address] Dr. Reg Kerns Sodium [Moles/Vol] 137 mmol/L Normal 137-145 [facility] Comment on above: Performed By: #### B MP #### [facility] [address] [place] [address] Dr. Reg Kerns Urea nitrogen [Mass/Vol] 13.0 mg/dL Normal 7.0-17.0 [facility] Comment on above: Performed By: #### B MP #### [facility] [address] [place] [address] Dr. Reg Kerns Urea nitrogen/Creatinine [Mass ratio] 11.5 mg/mg Normal [facility] Comment on above: Performed By: #### B MP #### [facility] [address] [place] [address] Dr. Reg Kerns URINE MICROSCOPIC ONLYon BACTERIA TRACE Abnormal NONE SEEN [facility] Comment on above: Performed By: #### U NICHELLE 24 #### [facility] [address] [place] [address] Dr. Reg Kerns Bacteria identified Cx Nom (U) NOT INDICATED Normal [facility] Comment on above: Performed By: #### U NICHELLE 24 #### [facility] [address] [place] [address] Dr. Reg Kerns CAST NONE SEEN Normal NONE SEEN [facility] Comment on above: Performed By: #### U NICHELLE 24 #### [facility] [address] [place] [address] Dr. Reg Kerns Crystals LM Nom (Urine sed) NONE SEEN Normal NONE SEEN [facility] Comment on above: Performed By: #### U NICHELLE 24 #### [facility] [address] [place] [address] Dr. Reg Kerns Epithelial cells LM Ql (Urine sed) FEW Abnormal NONE SEEN /RARE [facility] Comment on above: Performed By: #### U NICHELLE 24 #### [facility] [address] [place] [address] Dr. Reg Kerns MUCOUS TRACE Abnormal NONE SEEN [facility] Comment on above: Performed By: #### U NICHELLE 24 #### [facility] [address] [place] [address] Dr. Reg Kerns RBC 5-10 Abnormal 0-2 [facility] Comment on above: Performed By: #### U NICHELLE 24 #### [facility] [address] [place] [address] Dr. Reg Kerns WBC 0-2 Abnormal NONE SEEN [facility] Comment on above: Performed By: #### U NICHELLE 24 #### [facility] [address] [place] [address] Dr. Reg Kerns Vital Signs Date Time Vital Sign Value Performing Clinician Facility 05-01-2023 12:51-0400 Blood Pressure Location LOUISA ANDREWS [facility] 05-01-2023 12:51-0400 Body temperature 97.34 [degF] LOUISA SPARROW [facility] 05-01-2023 12:51-0400 Diastolic blood pressure 81 mm[Hg] LOUISA SPARROW [facility] 05-01-2023 12:51-0400 Heart rate 78 /min LOUISA SPARROW [facility] 05-01-2023 12:51-0400 Systolic blood pressure 158 mm[Hg] LOUISA SPARROW [facility] 06-04-2022 11:49-0400 Blood Pressure Location Carlos ANDRA [facility] 06-04-2022 11:49-0400 Diastolic blood pressure 86 mm[Hg] Carlos SILVERMAN [facility] 06-04-2022 11:49-0400 Heart rate 85 /min Carlos ANDRA [facility] 06-04-2022 11:49-0400 Systolic blood pressure 132 mm[Hg] Carlos ANDRA [facility] Encounters Encounter Date Encounter Type Care Provider Facility Start: 05-04-2024 ambulatory Carlos SILVERMAN Facility :[facility] Start: 05-01-2023 End: 05-02-2023 ambulatory LOUISA SPARROW Facility:[facility] Start: 05-01-2023 End: 05-01-2023 Patient encounter procedure LOUISA SPARROW [facility] Start: 06-04-2022 End: 06-05-2022 ambulatory Carlos SILVERMAN Facility:[facility] Start: 06-04-2022 End: 06-04-2022 Patient encounter procedure Carlos SILVERMAN [facility] Start: 02-21-2022 End: 02-22-[address] MARKIE SMITH Facility:[facility] Start: 02-02-2022 End: 02-02-[address] CARLOS SILVERMAN Facility:[facility] Start: 01-31-2022 End: 02-01-[address] CARLOS SILVERMAN Facility:[facility] Start: 10-25-2021 End: 10-25-2021 ambulatory Markie Noe Luis Facility:[facility] Start: 10-12-2021 End: 10-12-2021 ambulatory Markie Noe Luis Facility:[facility] Start: 10-08-2021 End: 10-09-[address] CARLOS SILVERMAN Facility:[facility] Start: 09-21-2021 End: 09-22-[address] MARKIE SMITH Facility:[facility] Procedures Date Procedure Procedure Detail Performing Clinician Start: 09-22-2021 Cystoscopy Carlos VETO CORTEZ Appendectomy Carlos SILVERMAN Extraction of cataract Leonardo SILVERMAN H/O: hysterectomy Carlos VETO CORTEZ Immunizations Immunization Date Immunization Notes Care Provider [facility] 01-19-2021 SARS-CoV-2 (COVID-19 ) mRNA-1273 vaccine Carlos SILVERMAN [facility] 12-22-2020 SARS-CoV-2 (COVID-19 ) mRNA-1273 vaccine Carlos SILVERMAN [facility] Payers Date Payer Category Payer Self-pay 1957 Unknown [id number] 1940 Unknown [id number] 2.16.84 [id number] 1942 Unknown [id number] 2.16.84 [id number] 1942 Unknown [id number] 2.16.84 [id number] 1942 Unknown [id number] 2.16.84 [id number] 1942 Unknown [id number] 2.16.84 [id number] 1942 Unknown [id number] 2.16.84 [id number] 1942 Unknown [id number] 2.16.8 [id number] 1942 Unknown [id number] 2.16.8 [id number] 1942 Unknown [id number] 2.16.8 [id number] Unknown [id number] 2.16.8 [id number] Social History Date Type Detail Facility Start: 10-09-2021 End: 05-01-2023 Tobacco smoking status Ex-smoker (finding) [facility] Sex Assigned At Female [facility] Tobacco smoking status Never [facility] Functional Status Date Assessment Result Facility 05-01-2023 Functional Status N/A [facility] 06-04-2022 Functional Status N/A [facility] Discharge instructions 05-01-2023 Note Date & [...] include: ?8 oz (237 mL) of milk, fdpcjuw-dkwhmrwxmjjt-wacup milk, and calcium-fortifiedfruit juice. Calcium-fortified means that [...] ?Spinach (cooked), rhubarb, beets, sweet potatoes, and Tuvaluan chard. ?Peanuts. ?Potato chips, lao fries, and baked potatoes with skin on. ?Nuts and nut products. ?Chocolate. If you regularly take a diuretic medicine, make sure to eat at least 1 or 2 servings of fruits or vegetables that are high in potassium each day. These include: ?Avocado. ?Banana. ?[place], prune, carrot, or tomato juice. ?Baked potato. [...] magnesium, fish oil, or vitamin B6. Take jhha-oag-ovpfevc and prescription medicines only as told by [...] Casseroles. Pizza. Lasagna. Frozen meals. Potato chips. Barbadian fries. The items listed above may not [...] provider. Document Revised: 04/29/2022 Document Reviewed: 04/29/2022 [employer] Patient Education 2022 [employer] Follow Up Care 06/04/2022 12:04:12 With:LOUISA SPARROW PA-C, URL Address: [address] [place] [address] When: Unknown [facility] Discharge instructions 06-04-2022 Note Date & Type Note Facility 06-04-2022 Hospital Discharg e instructions Patient Education 06/04/2022 11:49:33 Kidney Stones, Lram-lu-Sonl Kidney Stones Kidney stones are rock-like masses [...] Follow these instructions at home: Medicines Take rkrs-uys-zceaswi and prescription medicines only as told by [...] 02/03/2009 Document Revised: 01/04/2020 Document Reviewed: 01/04/2020 [employer] Patient Education 2019 [employer]. Follow Up Care 2021 09:56:33 With:ANDRA RIVERA, Carlos Mae, URL Address: [facility] [address] [place] [address]- When:12/03/2022 Comments:KUB [facility] Clinical Note 09-21-2021 Note Date & Type [...] appropriately. I attempted to pass the #22 Barbadian scope without success. She required urethral dilatation to 28 Barbadian. She has a significant rectocele and a [...] removed. 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 [facility] Clinical Note 09-21-2021 Note Date & Type [...] appropriately. I attempted to pass the #22 Barbadian scope without success. She required urethral dilatation to 28 Barbadian. She has a significant rectocele and a [...] removed. 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 [facility] Evaluation + Plan note Laboratory Note Date & Type Note Facility Evaluation + Plan note Future Appointments Appointment Date:12/06/2022 10:30:00 AM Scheduled Provider:Carlos SILVERMAN MD Location:[facility] Appointment Type:URO Office Visit Future Scheduled TestsBasic Metabolic Panel 11/15/21 [facility] Evaluation + Plan note Note Date & Type Note Facility Evaluation + Plan note Future Appointments Appointment Date:05/04/2024 01:00:00 PM Scheduled Provider:Carlos SILVERMAN MD Location:[facility] Appointment Type:URO Office Visit [facility] course Narrative Note Date & Type Note Facility Hospital course Narrative No data available for this section [facility] Progress note Note Date & Type Note Facility Progress note No data available for this section [facility] [employer] Summary Purpose Family History No Family History Records FoundNo Family History Records FoundNo Family History Records Found Advance Directives No Advanced Directives Records FoundNo Advanced Directives Records FoundNo Advanced Directives Records Found Additional Source Comments INFORMATION SOURCE (unrecogn ized section and content) DATE CREATED AUTHOR 02/27/2022 [facility] DATE CREATED AUTHOR AUTHOR'S ORGANIZ ATION 10/05/2022 [facility] DATE CREATED AUTHOR AUTHOR'S ORGANIZ ATION 05/02/2023 [facility] Patient Care team informatio n (unrecognized section and content) Personnel Name: Markie Smith MD Address: Address: [address] [place] [address] Personnel Name: Markie Smith MD Address: Address: [address] [place] [address] FOR RECORDS PERTAINING TO PATIENTS WHO ARE [...] BE BASED ON THE PRIMARY CLINICAL RECORDS. [employer] [facility]. provides no warranty or guarantee of the accuracy or completeness of information in this document.
--- NOTE | 2024-01-29 08:42 | CA_ITS ---
Patient Name: ROBYN SRINIVASAN MR#: [id number] : 1940 Exam Date: 01/29/2024 Ordering Doctor: DR Haroon Smith . ECHOCARDIOGRAM REPORT PROCEDURE: CA ECHO DOPPLER COMPLETE INDICATIONS: Shortness of breath COMPARISON: None. DESCRIPTION: COMPLETE ECHOCARDIOGRAM Real-time transthoracic echocardiography with 2D, M-mode, spectral and color flow Doppler performed. QUALITY: Technical quality was good. LEFT VENTRICLE: Normal chamber size. Mild concentric left ventricular hypertrophy. LV EF: Global left ventricular systolic function is normal. Calculated left ventricular ejection fraction is 63%. No significant wall motion abnormalities. DIASTOLIC: Diastolic function is indeterminate. ATRIAL SEPTUM: Inadequately seen. LEFT ATRIUM: Normal chamber size. RIGHT ATRIUM: Normal chamber size. RIGHT VENTRICLE: Normal chamber size. Normal right ventricular systolic function. TRICUSPID VALVE: Normal mobility and thickness. No stenosis with mild regurgitation. No evidence of pulmonary hypertension. RVSP 25mmHg MITRAL VALVE: Mildly thickened with normal mobility. No evidence of mitral valve stenosis. There is no mitral annular calcification. Mild mitral regurgitation. AORTIC VALVE: Normal trileaflet appearance. No visible sclerosis. Normal leaflet mobility. No evidence of aortic valve stenosis. Trivial aortic regurgitation. AORTIC ROOT: Normal diameter and appearance. PULMONIC VALVE: Normal thickness and mobility. No stenosis. Mild regurgitation. PERICARDIUM: Anterior free space; trivial effusion versus fat pad. IVC: Collapses with inspirations. Normal size. CONCLUSION: 1. Global left ventricular systolic function is normal; visually estimated ejection fraction is 60 to 65% 2. Normal right ventricular size and systolic function 3. Mildly increased left ventricular wall thickness 4. Diastolic function is indeterminate 5. Mild tricuspid regurgitation 6. Mild mitral regurgitation 7. Mild pulmonic regurgitation 8. Anterior free space; trivial effusion versus fat pad Adult Echocardiography Procedure Report Left Ventricle LVEDD (3.7 - 5.6 cm): 3.71 cm LVESD (2.2 - 4.0 cm): 2.68 cm LVIVS thickness (0.6 - 1.2 cm): 1.12 cm LVPW thickness (0.5 - 1.0 cm): 1.05 cm e': 0.06 m/s E - e': 12.82 LVOT Max Gradient: 1.93 mm[Hg] LVOT Area (cm2): 0.69 m/s Peak Velocity (LVOT): 0.69 m/s Mean Velocity (LVOT): 0.46 m/s LVOT Diameter 1.97 cm Left Ventricular Ejection Fraction: 63.23 % Left Atrium LA Volume Index (2D A2C): 32.49 ml/m2 Left Atrium Systolic Dimension: 2.96 cm Mitral Valve MV E to A Ratio: 0.81 Mitral Valve A-Wave Peak Velocity: 0.97 m/s Mitral Valve E-Wave Peak Velocity: 0.79 m/s Right Ventricle RV Internal Diastolic Dimension: 2.50 cm Aorta AO Root Diam: 3.28 cm Ascending Ao Diam: 3.10 cm Aortic Valve AoV Area ([place]): 1.96 cm2, 1.96 cm2 AoV Area (VTI): 1.98 cm2, 1.98 cm2 Peak Velocity(Antegrade Flow): 1.07 m/s Peak Gradient(Antegrade Flow): 4.61 mm[Hg] Mean Velocity(Antegrade Flow): 0.77 m/s Mean Gradient(Antegrade Flow): 2.63 mm[Hg] Velocity Time Integral: 28.86 cm Tricuspid Valve Peak Velocity (Regurgitant Flow): 2.25 m/s, 2.35 m/s, 2.14 m/s Pulmonic Valve Mean Gradient: 2.30 mm[Hg], 1.55 mm[Hg] Mean Velocity: 0.71 m/s, 0.59 m/s Peak Velocity: 0.95 m/s Peak Gradient: 4.76 mm[Hg], 2.66 mm[Hg] Right Atrium Right Atrium Systolic Pressure: 27.40 ml, 27.40 ml Dictated by: Nita Schneider M.D. on 01/29/2024 at 13:31 Approved by: Nita Schneider M.D. on 01/29/2024 at 13:36
== END 2024-01-29 07:41 | disposition home or self-care (01) ==
PROVIDERS: Family Provider Family Medicine; PCP Family Medicine; Visit Provider Family Medicine
DX: R06.02 Shortness of breath (principal)
CPT/HCPCS: 93306

== ENCOUNTER 2024-04-28 16:02 | Emergency (ER) | payer MEDICARE, SELFPAY ==
[2024-04-28] VITALS (8 sets, daily range): BP systolic 162–175; BP diastolic 84–105; PULSE 64–81; TEMP 36.6; O2SAT 94–98; BMI 27.2
--- NOTE | 2024-04-28 16:05 | ECG_ITS ---
The [facility] Test Date: 2024-04-28 Pat Name: ROBYN SRINIVASAN Department: Room: - Gender: Female [employer]: : 1940 Requested By: MARKIE ACKERMAN Order Number: [id number] Reading MD: MARKIE ACKERMAN Measurements Intervals [place] Rate: 64 P: 69 [place]: 178 QRS: 65 QRSD: 76 T: 77 QT: 426 QTc: 435 Interpretive Statements 1100 Sinus rhythm 9110 normal ECG Compared to ECG 01/21/2023 03:34:47 No significant changes Electronically Signed On 04-29-2024 7:51:11 EDT by MARKIE ACKERMAN
--- NOTE | 2024-04-28 16:08 | ED.GENADUL1 ---
HPI HPI - General Adult General Chief complaint: Nausea/Vomiting/Diarrhea Stated complaint: Nausea/Vomiting Time Seen by Provider: 04/28/24 16:05 Source: patient Mode of arrival: ambulance History of Present Illness HPI narrative: Patient is an 83-year-old female who presents to the emergency department by ambulance for a 45-minute history of vomiting and diarrhea. 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 She states her dizziness is consistent with exacerbations of M?ni?re's in the past. She denies any syncope, falls. She has no complaints of chest pain, shortness of breath. No fevers or upper respiratory symptoms. She states she developed vomiting and diarrhea and had a history of this in the past where she was diagnosed with dehydration. She denies urinary symptoms. EMS started an IV and gave 4 mg of Zofran prior to arrival, patient states this medication helped. She has no abdominal pain. She denies any recent travel or antibiotics. She denies blood in her stool. Related Data Home Medications ?Medication ?Instructions ?Recorded ?Confirmed alprazolam 0.25 mg tablet 0.25 mg PO BID PRN anxiety 04/28/24 04/28/24 cetirizine 10 mg tablet (24Hour 10 mg PO DAILY 04/28/24 04/28/24 Allergy) ferrous sulfate 325 mg (65 mg 325 mg PO .3 times a wk 04/28/24 04/28/24 iron) tablet (FeroSul) gabapentin 100 mg capsule 100 mg PO DAILY 04/28/24 04/28/24 meclizine 25 mg tablet 50 mg PO BID PRN dizziness 04/28/24 04/28/24 pantoprazole 40 mg tablet,delayed 40 mg PO DAILY 04/28/24 04/28/24 release Previous Rx's ?Medication ?Instructions ?Recorded ondansetron 4 mg disintegrating 4 mg PO Q6H PRN nausea and 04/28/24 tablet vomiting #12 tabs Allergies Allergy/AdvReac Type Severity Reaction Status Date / Time ciprofloxacin Allergy Severe Rash Verified 04/28/24 16:10 codeine Allergy Severe itching Verified 04/28/24 16:10 ibuprofen Allergy Severe itching Verified 04/28/24 16:10 Penicillins Allergy Severe Rash Verified 04/28/24 16:10 sulfamethoxazole Allergy Severe Rash Verified 04/28/24 16:10 [From Bactrim] trimethoprim [From Bactrim] Allergy Severe Rash Verified 04/28/24 16:10 Opioid HPI Opioid Management Most Recent Opioid Data: No Data to Display Review of Systems ROS Constitutional Denies: fever or chills Ears, nose, mouth, and throat Denies: throat pain or nasal congestion Cardiovascular Denies: chest pain Respiratory Denies: shortness of breath or cough Gastrointestinal Reports: nausea, vomiting and diarrhea; Denies: abdominal pain Genitourinary Denies: painful urination Musculoskeletal Denies: back pain Neurological Reports: dizziness; Denies: headache Hematologic/Lymphatic Denies: easy bruising or easy bleeding PFSH PFSH Medical History (Updated 04/28/24 @ 17:49 by WOOD Cohen) Vertigo ?R42 - Dizziness and giddiness (ICD-10) Osteoarthritis ?M19.90 - Unspecified osteoarthritis, unspecified site (ICD-10) Cataract (lens) fragments in eye following cataract surgery, bilateral ?H59.023 - Cataract (lens) fragments in eye following cataract surgery, bilateral (ICD-10) Meniere disease ?H81.09 - Meniere's disease, unspecified ear (ICD-10) Surgical History (Updated 04/28/24 @ 16:16 by Damaris Hector) H/O left knee surgery ?Z98.890 - Other specified postprocedural states (ICD-10) H/O: hysterectomy ?Z90.710 - Acquired absence of both cervix and uterus (ICD-10) Exam Narrative Exam Narrative: Gen.: Awake, alert, in no distress Head: Normocephalic, atraumatic ENT: Moist mucous membranes Respiratory: No respiratory distress, lungs clear bilaterally Cardio: Regular rate and rhythm Gastrointestinal: Abdomen is soft, nondistended and nontender to palpation Extremities: Moves extremities equally Psych: Normal mood and affect Neuro: No focal neuro deficit Skin: Warm, dry, intact Constitutional Vital Signs, click to edit/add: Last Vital Signs Temp 97.9 F 04/28/24 16:03 Pulse 79 04/28/24 17:20 Resp 19 04/28/24 17:20 BP 162/84 H 04/28/24 17:18 Pulse Ox 97 04/28/24 17:20 O2 Del Method Room Air 04/28/24 16:03 Course Vital Signs Vital signs: Vital Signs Temperature 97.9 F 04/28/24 16:03 Pulse Rate 78 04/28/24 16:03 Respiratory Rate 16 04/28/24 16:03 Blood Pressure 175/105 H 04/28/24 16:03 Pulse Oximetry 98 04/28/24 16:03 Oxygen Delivery Method Room Air 04/28/24 16:03 Temperature 97.9 F 04/28/24 16:03 Pulse Rate 79 04/28/24 17:20 Respiratory Rate 19 04/28/24 17:20 Blood Pressure 162/84 H 04/28/24 17:18 Pulse Oximetry 97 04/28/24 17:20 Oxygen Delivery Method Room Air 04/28/24 16:03 Medical Decision Making MDM Narrative Medical decision making narrative: Patient treated with IV fluids in the ER, she had no complaints of abdominal pain. Abdomen is soft and benign, lab studies with no leukocytosis, normal lactic acid and unremarkable CT scan with no evidence of acute process. Patient tolerated crackers in the ER, she is feeling better on reevaluation. As her symptoms began 45 minutes prior to arrival, she does not have any need for admission at this time. She is discharged home with Zofran to follow-up with PCP and return to the ER if symptoms change or worsen. SUPERVISED APC VISIT, PHYSICIAN ATTESTATION: Based on the medical record the care appears appropriate. ? Medical Records Medical records reviewed: Yes I reviewed the patient's medical records Lab Data Lab results reviewed: Yes I reviewed the patient's lab results Labs: Lab Results 04/28/24 04/28/24 Range/Units 16:14 16:17 WBC 10.3 (4.0-11.0) 10^3/uL RBC 4.21 (4.20-5.40) 10^6/uL Hgb 12.1 (12.0-16.0) g/dL Hct 37.3 (36.0-48.0) % MCV 88.6 (81.0-99.0) fL MCH 28.7 (26.7-34.0) pg MCHC 32.4 (29.9-35.2) g/dL RDW 14.1 (11.0-15.0) % Plt Count 210 (150-450) 10^3/uL MPV 10.6 (9.5-13.5) fL Neut % (Auto) 72.0 (43.0-75.0) % Lymph % (Auto) 15.6 L (20.5-60.0) % [place] % (Auto) 6.5 (1.7-12.0) % Eos % (Auto) 4.4 (0.9-7.0) % Baso % (Auto) 0.5 (0.2-2.0) % Neut # (Auto) 7.4 H (1.4-6.5) 10^3/uL Lymph # (Auto) 1.6 (1.2-3.8) 10^3/uL [place] # (Auto) 0.7 (0.3-0.8) 10^3/uL Eos # (Auto) 0.5 (0.0-0.7) 10^3/uL Baso # (Auto) 0.1 (0.0-0.1) 10^3/uL Abs Immat Gran (auto) 0.10 H (0.00-0.03) 10^3/uL Imm/Tot Granulo (auto) 1.0 H (0.0-0.5) % PT 10.2 (9.0-11.6) sec INR 0.96 Sodium 138 (136-145) mmol/L Potassium 3.9 (3.5-5.1) mmol/L Chloride 102 (98-107) mmol/L Carbon Dioxide 24.7 (21.0-32.0) mmol/L Anion Gap 15.2 BUN 17.0 (7.0-18.0) mg/dL Creatinine 0.92 (0.55-1.02) mg/dL Est GFR ( Amer) >60 (>=60) Est GFR (Non-Af Amer) 59 L (>=60) BUN/Creatinine Ratio 18.5 Glucose 113 H (74-106) mg/dL Lactate 1.1 (0.4-2.0) mmol/L Calcium 9.0 (8.5-10.1) mg/dL Total Bilirubin 0.5 (0.2-1.0) mg/dL AST 18 (15-37) U/L ALT 19 (14-59) U/L Alkaline Phosphatase 63 (46-116) U/L Troponin I High Sens <4.0 L (4.0-51.3) pg/mL Total Protein 6.6 (6.4-8.2) g/dL Albumin 3.4 (3.4-5.0) g/dL Globulin 3.2 g/dL Albumin/Globulin Ratio 1.1 Lipase 23.0 (16.0-77.0) U/L Urine Color Yellow (YELLOW) Urine Clarity Clear (CLEAR) Urine pH 6.0 (5.0-9.0) Ur Specific [place] 1.025 (1.005-1.025) Urine Protein Negative (NEG/TRACE) mg/dL Urine Glucose (UA) Negative (NEGATIVE) mg/dL Urine Ketones Trace A (NEGATIVE) mg/dL Urine Occult Blood Negative (NEGATIVE) Urine Nitrite Negative (NEGATIVE) Urine Bilirubin Negative (NEGATIVE) Urine Urobilinogen 0.2 (0.2-1.0) EU/dL Ur Leukocyte Esterase Negative (NEGATIVE) Imaging Data CT scan - abdomen: Attestation: I have reviewed the pertinent imaging results. Radiologist's impression: ITS Impressions Abdomen/Pelvis CT 04/28/24 17:01 IMPRESSION: 1. No acute process in the abdomen or pelvis. 2. Stable large hiatal hernia. 3. Fatty liver and hepatomegaly. 4. Colonic diverticulosis. 5. Stable calcification in the left external iliac and common femoral vein likely due to previous diffuse thrombosis. 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 Electronically authenticated by: PAULINO KATZ Date: 04/28/2024 17:27 ECG Data Attestation: I personally reviewed and interpreted this ECG as follows: (Normal sinus rhythm at a rate of 64, no acute ST elevation or ectopy. EKG reviewed by attending physician) Discharge Plan Discharge Stand Alone Forms: Work/School Release, Portal Instructions Chief Complaint: Nausea/Vomiting/Diarrhea Clinical Impression: Nausea vomiting and diarrhea Patient Disposition: Home, Self-Care Time of Disposition Decision: 17:48 Condition: Good Prescriptions / Home Meds: New ondansetron 4 mg tablet,disintegrating 4 mg PO Q6H PRN (Reason: nausea and vomiting) Qty: 12 0RF No Action alprazolam 0.25 mg tablet 0.25 mg PO BID PRN (Reason: anxiety) ferrous sulfate [FeroSul] 325 mg (65 mg iron) tablet 325 mg PO .3 times a wk gabapentin 100 mg capsule 100 mg PO DAILY meclizine 25 mg tablet 50 mg PO BID PRN (Reason: dizziness) pantoprazole 40 mg tablet,delayed release (DR/EC) 40 mg PO DAILY cetirizine [24Hour Allergy] 10 mg tablet 10 mg PO DAILY Print Language: Occitan Instructions: Acute Nausea and Vomiting (ED), Acute Diarrhea (ED) Referrals: Haroon Smith MD [Primary Care Provider] - 1 week
[2024-04-28 16:25] LABS: Basophils Absolute Auto 0.1 10^3/uL (0.0-0.1); Basophils Percent Auto 0.5 % (0.2-2.0); Eosinophils Absolute Auto 0.5 10^3/uL (0.0-0.7); Eosinophils Percent Auto 4.4 % (0.9-7.0); Hematocrit 37.3 % (36.0-48.0); Hemoglobin 12.1 g/dL (12.0-16.0); Lymphocytes Absolute Auto 1.6 10^3/uL (1.2-3.8); Lymphocytes Percent Auto 15.6 % (20.5-60.0); Mean Corpuscular HGB Conc 32.4 g/dL (29.9-35.2); Mean Corpuscular Hemoglobin 28.7 pg (26.7-34.0); Mean Corpuscular Volume 88.6 fL (81.0-99.0); Mean Platelet Volume 10.6 fL (9.5-13.5); Monocytes Absolute Auto 0.7 10^3/uL (0.3-0.8); Monocytes Percent Auto 6.5 % (1.7-12.0); Neutrophils Absolute Auto 7.4 10^3/uL (1.4-6.5); Platelet Count 210 10^3/uL (150-450); Red Blood Count 4.21 10^6/uL (4.20-5.40); Red Cell Distribution Width 14.1 % (11.0-15.0); White Blood Count 10.3 10^3/uL (4.0-11.0)
[2024-04-28 16:26] LABS: Bilirubin Urine NEGATIVE (NEGATIVE); Blood Urine NEGATIVE (NEGATIVE); Clarity Urine CLEAR (CLEAR); Color Urine YELLOW (YELLOW); Glucose Urine UA NEGATIVE (NEGATIVE); Ketones Urine TRACE mg/dL (NEGATIVE); Leukocyte Esterase Urine NEGATIVE (NEGATIVE); Nitrite Urine NEGATIVE (NEGATIVE); Protein Urine NEGATIVE (NEG/TRACE); Specific Gravity Urine 1.025 (1.005-1.025); Urobilinogen Urine 0.2 EU/dL (0.2-1.0)
[2024-04-28 16:29] LABS: Urine Microscopic Indicated NO
[2024-04-28 16:36] LABS: INR 0.96; Prothrombin Time 10.2 sec (9.0-11.6)
[2024-04-28 16:41] LABS: Lactate/Lactic Acid 1.1 mmol/L (0.4-2.0)
[2024-04-28 16:42] LABS: Alanine Aminotransferase 19 U/L (14-59); Albumin Globulin Ratio 1.1; Albumin Level 3.4 g/dL (3.4-5.0); Alkaline Phosphatase 63 U/L (46-116); Anion Gap 15.2; Aspartate Amino Transferase 18 U/L (15-37); BUN Creatinine Ratio 18.5; Bilirubin Total 0.5 mg/dL (0.2-1.0); Carbon Dioxide 24.7 mmol/L (21.0-32.0); Chloride 102 mmol/L (98-107); Estimated GFR (African America >60 (>=60); Estimated GFR (Non-African Ame 59 (>=60); Globulin 3.2 g/dL; Glucose 113 mg/dL (74-106); Potassium 3.9 mmol/L (3.5-5.1); Sodium 138 mmol/L (136-145); Total Protein 6.6 g/dL (6.4-8.2); Troponin I High Sensitivity <4.0 pg/mL (4.0-51.3)
--- NOTE | 2024-04-28 17:01 | CT_ITS ---
[address] [address] Patient Name: ROBYN SRINIVASAN MRN: [id number] date: 1940 Sex: F Assigned Patient Location: ER Current Patient Location: .MAIN Accession/Order Number: [id number] Exam Date: 04/28/2024 16:50 Report Date: 04/28/2024 17:51 At the request of: YRN ALONZO Procedure: CT abdomen pelvis w con CT ABDOMEN AND PELVIS WITH CONTRAST: INDICATION: vomiting and diarrhea. COMPARISON: CT abdomen and pelvis 09/21/2021. TECHNIQUE: Helical CT images of the abdomen and pelvis were obtained after the administration of intravenous contrast. Dose reduction techniques were achieved by using automated exposure control and/or adjustment of mA and/or kV according to patient size and/or use of iterative reconstruction technique. FINDINGS: LOWER CHEST: There is mild atelectasis in the lung bases bilaterally adjacent to the hiatal hernia. LIVER: Enlarged measuring 18 cm in length with moderate diffuse fatty infiltration. GALLBLADDER AND BILIARY SYSTEM: Normal. SPLEEN: Normal. PANCREAS: Mildly to moderately atrophic. ADRENAL GLANDS: Normal. KIDNEYS AND URETERS: Small parapelvic left renal cyst. Mild bilateral renal cortical scarring. VASCULATURE: Severe atherosclerotic calcification of the renal artery origins, aorta, iliac and femoral arteries. There is stable calcification in the left external iliac and common femoral veins likely due to previous DVT. 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 RETROPERITONEUM AND LYMPH NODES: Normal, with no lymphadenopathy. GASTROINTESTINAL TRACT/MESENTERY: Large hiatal hernia is stable. There are multiple diverticula in the sigmoid colon with no acute diverticulitis. Normal mesentery/peritoneum. The appendix is not visualized. BLADDER: Normal. REPRODUCTIVE SYSTEM: Status-post hysterectomy. BODY WALL: Small fat-containing umbilical hernia. BONES: No acute abnormality. CT/CT abdomen pelvis w con IMPRESSION: 1. No acute process in the abdomen or pelvis. 2. Stable large hiatal hernia. 3. Fatty liver and hepatomegaly. 4. Colonic diverticulosis. 5. Stable calcification in the left external iliac and common femoral vein likely due to previous deep venous thrombosis. 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 Electronically authenticated by: PAULINO KATZ Date: 04/28/2024 17:51
== END 2024-04-28 18:01 | disposition home or self-care (01) ==
PROVIDERS: Physician Assistant; Emergency Provider Emergency Medicine; Family Provider Family Medicine; PCP Family Medicine
DX: R11.2 Nausea with vomiting, unspecified (principal); R19.7 Diarrhea, unspecified; Z79.899 Other long term (current) drug therapy; H81.09 Meniere's disease, unspecified ear
CPT/HCPCS: 36415; 74177; 80053; 81003; 83605; 83690; 84484; 85025; 85610; 93005; 99285; Q9967

== ENCOUNTER 2024-05-14 10:06 | Outpatient (OUT) | payer MEDICARE, SELFPAY ==
--- NOTE | 2024-05-14 | XR_ITS ---
The [address] [address] Patient Name: ROBYN SRINIVASAN MRN: [id number] date: 1940 Sex: F Assigned Patient Location: [facility] Current Patient Location: Accession/Order Number: [id number] Exam Date: 05/14/2024 10:20 Report Date: 05/16/2024 05:18 At the request of: VCIKIE SPARROW Procedure: XR abdomen 1V EXAMINATION: XR abdomen 1V HISTORY: Kidney stones N20.0 COMPARISON: XR abdomen 04/24/2023, 10/08/2021 FINDINGS: KIDNEY/URETER - RIGHT: No visible renal or ureteral calcifications. KIDNEY/URETER - LEFT: No visible renal or ureteral calcifications. PELVIS: Stable pelvic calcifications compatible with phleboliths. BOWEL: No abnormal dilation or deviation. BONES: No acute abnormality. OTHER: Negative. No abnormal gaseous collections. XR/XR abdomen 1V IMPRESSION: 1. No appreciable urinary tract calculi. Electronically authenticated by: PAULINO OBRIEN Date: 05/16/2024 05:18
--- OUTSIDE RECORDS SUMMARY | 2024-05-14 10:16 | XMS_ITS | CCD ---
Author Organization [facility] Care Team Providers Care Test Center Manager Name Role Phone ANDRA, DR CARLOS Mae [...] Unavailable ZIEBER, DR JEREMIAH Norton Consulting Unavailable HOAce, DR ADEN Primary Care Unavailable LUIS, DR ADEN Admitting Unavailable HOAce, DR ADEN Attending Unavailable HOAce, DR ADEN Consulting Unavailable COOK, DR CARLOS [employer] Consult[employer] Unavailable WEST, DR EDGAR Flores Consulting [...] Ciprofloxacin; Translations: [ciprofloxacin] Drug Allergy 7 [facility] (2 sources) Codeine; Translations: [codeine] Drug Allergy 1 [facility] (2 sources) Ibuprofen; Translations: [ibuprofen] Drug Allergy 7 [facility] (4 sources) Penicillin; Translations: [penicillin] Drug Allergy 3 Eruption of skin (disorder) [facility] (1 source) [place] nut Drug allergy (disorder) 2 [facility] (2 sources) Ciprofloxacin; Translations: [ciprofloxacin] Drug Allergy 7 Unknown [facility] (2 sources) Codeine; Translations: [codeine] Drug Allergy 1 Unknown [facility] (2 sources) Ibuprofen; Translations: [ibuprofen] Drug Allergy 7 Unknown [facility] (3 sources) Sulfamethoxazole / Trimethoprim; Translations: [sulfamethoxazole-tr imethoprim] Drug Allergy Tremor (finding) [facility] Medications Current Medications Medication Drug Class(es) Dates [...] Start Date: 10/09/21 Status: Ordered lactobacillus acidophilus [id number] unt oral capsule (2 sources) Start: 03-18-2019 [...] 09-21-2021 Episodic Other aftercare (1 source) Other long term acute care registered nurse (current) drug therapy; Translations: [OTH HALF-WAY CURRENT DRUG THERAPY] Onset: 09-27-2021 Episodic Other [...] Urnls Dip Stick Auto w/o Microscopy POC 76152 XR Abdomen 1 View -- Results Pending [...] Carlos SILVERMAN MD Where: [facility] Patient Educationon 05-01-20 23 Patient Education Nephrology [...] Spinach (cooked), rhubarb, beets, sweet potatoes, and [place] Citizen chard. ? Peanuts. ? Potato chips, uzbek fries, and baked potatoes with skin on. ? Nuts and nut products. ? Chocolate. ? If you regularly take a diuretic medicine, make sure to eat at least 1 or 2 servings of fruits or vegetables that are high in potassium each day. These include: ? Avocado. ? Banana. ? Travis, prune, carrot, or tomato juice. ? Baked [...] fish oil, or vitamin B6. ? Take jllk-vul-puajcyy and prescription medicines only as told by your health care provider. These include supplements. What foods should I limit? Limit your in (more content not included)... Normal [facility] Urology Office/Clinic Noteon 05-01-2023 Urology Office/Clinic Note Chief Complaint 10 month follow up w/ KUB HPI Staff Pt is here today for 10 month follow up w/ KUB. Previous DX: chronic kidney disease stage 3, kidney stone, ureteral stone w/ hydronephrosis. S/P Cysto done 09/22/21. KUB done 04/24/23 at [facility]. Dysuria: denies pain and burning Incomplete bladder [...] Contact Information ANDREWS FLEMING, LOUISA Welch, URL [address] [place] [address] Additional Instructions: 1 yr KUB Patient Education [...] Dipstick: 1+ (30 mg/dl) (05/01/23 13:03:00) Specific [place] Urine Dipstick: >=1.030 (05/01/23 13:03:00) Urine Appearance Urine Dipstick: Clear (05/01/23 13:03:00) Urine Color Urine Dipstick: Yellow (05/01/23 13:03:00) Urobilinogen Urine Dipstick: Normal 0.2-1 EU/dl (05/01/23 13:03:00) pH Urine Dipstick: 5.5 (05/01/23 13:03:00) Normal [facility] Comment on above: Result Comment: Elec tronically Signed By: LOUISA SPARROW PA-C\.br\Date and Time Signed: 05/01/23 13:50 EDT\.br\Electronically Co-Signed By: Bria Moreno\.br\Date and Time Co-Signed: 05/01/23 13:33 EDT RAD - MISCon 04-28-2023 RAD - MISC [id number] Normal [facility] Ambulatory Visit Summaryon 1 Ambulatory Visit Summary ROBYN SRINIVASAN :1940 Visit Date:06/04/2022 Ambulatory Visit Instructions Your Diagnosis Kidney stone Ureteral stone with hydronephrosis Tests Performed Urnls Dip Stick Auto w/o Microscopy POC 45383 XR Abdomen 1 View -- Results Pending [...] Carlos SILVERMAN MD Where: [facility] Patient Educationon 06-04-20 Patient Education Urology Kidney [...] these instructions at home: Medicines ? Take hyre-sah-ddeirjt and prescription medicines only as told by [...] 02/03/2009 Document Revised: 01/04/2020 Document Reviewed: 01/04/2020 [employer] Patient Education ? 2019 [employer] [facility] Urology Office/Clinic Noteon 06-04-2022 Urology Office/Clinic [...] URL In 6 months 12/03/[address] [place] [id number]- Additional Instructions: KUB Patient Education Kidney Stones, Ilai-ek-Fntl I, Deidre Jones , personally scribed for [...] Trace-intact ( (more content not included)... Normal [facility] Comment on above: Result Comment: Elec tronically Signed By: Carlos SILVERMAN MD\.br\Date and Time Signed: 06/04/22 12:04 EDT\.br\Electronically Co-Signed By: Deidre Jones MA\.br\Date and Time Co-Signed: 06/04/22 12:01 EDT MG MAMM SCREEN 3D ZAN CADon 02-21-2022 MG MAMM SCREEN 3D ZAN CAD Patient: ROBYN SRINIVASAN Exam Date: 02/21/2022 : 1940 Gender:F Ordering : DR MARKIE SMITH . Admission #: [id number] Family : Order #: [id number] CLICK HERE TO VIEW EXAM RADIOLOGY REPORT [...] breast cancer at age 49. LOCATION: [facility] BREAST COMPOSITION: Scattered areas fibroglandular density. FINDINGS: [...] Hobbs M.D. on 02/22/2022 at 13:35 Normal [facility] T4 LABCORPon 02-07-2022 T4 [Mass/Vol] 6.2 ug/dL Normal 4.5-12.0 [facility] Comment on above: Performed By: #### T 4LC #### [facility] [address] [place] [address] Dr. Reg Kerns CITRATE URINE 24HRon 022 Citric Acid, U, 24hr 191 mg/24 hr Critically low 320-1240 [facility] Comment on above: Result Comment: This test was developed and its performance characteristics determined by [facility]. It has not been cleared or approved by the Food and Drug Administration. Performed By: #### C ITRATU #### [facility] [address] [place] [address] Dr. Reg Kerns Citric Acid, Urine 283 mg/L Normal Undefined [facility] Comment on above: Performed By: #### C ITRATU #### [facility] [address] [place] [address] Dr. Reg Kerns OXALATE 24HR URINEon 022 Oxalates, Urine 24hr 5 mg/24 hr Normal 4-31 [facility] Comment on above: Performed By: #### O X24HR #### [facility] [address] [place] [address] Dr. Reg Kerns Oxalates, Urine 8 mg/L Normal Undefined [facility] Comment on above: Performed By: #### O X24HR #### [facility] [address] [place] [address] Dr. Reg Kerns MAGNESIUM 24HR URINEon 02-03 Magnesium 24hr Urine 43.2 mg/24 hr Normal 12.0-293.0 T [facility] Comment on above: Performed By: #### P THINT #### [facility] [address] [place] [address] [address] Reg Kerns Magnesium UR 6.4 mg/dL Normal Not Estab. [facility] Comment on above: Performed By: #### P THINT #### [facility] [address] [place] [address] Dr. Reg Kerns PHOSPHORUS 24HR URINEon Phosphorus, Urine 47.7 mg/dL Normal Not Estab. [facility] Comment on above: Performed By: #### P THINT #### [facility] [address] [place] [address] Dr. Reg Kerns Phosphorus, Urine 24hr 322 mg/24 hr Normal 261-1078 [facility] Comment on above: Performed By: #### P THINT #### [facility] [address] [place] [address] Dr. Reg Kerns URIC ACID 24 HR URINEon Uric Acid, Urine 28.4 mg/dL Normal Not Estab. [facility] Comment on above: Performed By: #### U NICHELLE 24 #### [facility] [address] [place] [address] Dr. Reg Kerns Uric Acid, Urine 24hr 191.7 mg/24 hr Normal 88.9-568.5 [facility] Comment on above: Performed By: #### U NICHELLE 24 #### [facility] [address] [place] [address] Dr. Reg Kerns CALCIUM 24 HR URINEon 2021 CALC, 24 HR UR 58.7 mg/24 hr Critically low 100.0-300.0 [facility] Comment on above: Performed By: #### P THINT #### [facility] [address] [place] [address] Dr. Reg Kerns UR CALCIUM 8.7 mg/dL Normal 5.1-21.0 [facility] Comment on above: Performed By: #### P THINT #### [facility] [address] [place] [address] Dr. Reg Kerns CREA 24 HR URINEon 2 CREA, 24 HR UR 455.96 mg/24 hr Critically low 800.00-1 ,800. 00 [facility] Comment on above: Performed By: #### C ITRATU #### [facility] [address] [place] [address] Dr. Reg Kerns URINE CREAT 67.55 mg/dL Normal 20.00-300.00 [facility] Comment on above: Performed By: #### C ITRATU #### [facility] [address] [place] [address] Dr. Reg Kerns SODIUM 24 HR URINEon 022 NA, 24 HR UR 76 mmol/24 hr Normal 40-220 [facility] Comment on above: Performed By: #### C ITRATU #### [facility] [address] [place] [address] Dr. Reg Kerns Sodium (U) [Moles/Vol] 112 mmol/L Critically high 30-90 [facility] Comment on above: Performed By: #### C ITRATU #### [facility] [address] [place] [address] Dr. Reg Kerns UR TOT VOL 675 ml/24 HR Normal [facility] Comment on above: Performed By: #### C ITRATU #### [facility] [address] [place] [address] Dr. Reg Kerns Performed By: #### P THINT #### [facility] [address] [place] [address] Dr. Reg Kerns INSULINon 02-01-2022 Insulin 27.7 uIU/mL Critically high 2.6-24.9 [facility] Comment on above: Performed By: #### U NICHELLE 24 #### [facility] [address] [place] [address] Dr. Reg Kerns PTH INTACTon 02-01-2022 PTH, Intact 46 pg/mL Normal 15-65 [facility] Comment on above: Performed By: #### P THINT #### [facility] [address] [place] [address] Dr. Reg Kerns BNPon 01-31-2022 Natriuretic peptide B (Bld) [Mass/Vol] 154.0 pg/mL Normal <=1,800.0 [facility] Comment on above: Performed By: #### P THINT #### [facility] [address] [place] [address] Dr. Reg Kerns CBC AUTO DIFFon 01-31-2022 BASO # 0.1 103/ul Normal 0.0-0.1 [facility] Comment on above: Performed By: #### U NICHELLE 24 #### [facility] [address] [place] [address] Dr. Reg Kerns Basophils/100 WBC (Bld) 0.8 % Normal 0.2-2.0 [facility] Comment on above: Performed By: #### U NICHELLE 24 #### [facility] [address] [place] [address] Dr. Reg Kerns EO # 0.3 103/ul Normal 0.0-0.7 [facility] Comment on above: Performed By: #### U NICHELLE 24 #### [facility] [address] [place] [address] Dr. Reg Kerns Eosinophils/100 WBC (Bld) 4.4 % Normal 0.9-7.0 [facility] Comment on above: Performed By: #### U NICHELLE 24 #### [facility] [address] [place] [address] Dr. Reg Kerns Erythrocyte distribution width (RBC) [Ratio] 15.7 % Critically high 11.0-15.0 [facility] Comment on above: Performed By: #### U NICHELLE 24 #### [facility] [address] [place] [address] Dr. Reg Kerns Hematocrit (Bld) [Volume fraction] 37.4 % Normal 36.0-48.0 [facility] Comment on above: Performed By: #### U NICHELLE 24 #### [facility] [address] [place] [address] Dr. Reg Kerns Hemoglobin (Bld) [Mass/Vol] 11.6 g/dL Critically low 12.0-16.0 [facility] Comment on above: Performed By: #### U NICHELLE 24 #### [facility] [address] [place] [address] Dr. Reg Kerns IG # 0.03 10e3/ul Normal 0.00-0.03 [facility] Comment on above: Performed By: #### U NICHELLE 24 #### [facility] [address] [place] [address] Dr. Reg Kerns IG % 0.5 % Normal 0.0-0.5 [facility] Comment on above: Performed By: #### U NICHELLE 24 #### [facility] [address] [place] [address] Dr. Reg Kerns LYMPH # 1.9 103/ul Normal 1.2-3.8 [facility] Comment on above: Performed By: #### U NICHELLE 24 #### [facility] [address] [place] [address] Dr. Reg Kerns Lymphocytes/100 WBC (Bld) 30.3 % Normal 20.5-60.0 [facility] Comment on above: Performed By: #### U NICHELLE 24 #### [facility] [address] [place] [address] Dr. Reg Kerns MANUAL DIFF REQ NO Normal [facility] Comment on above: Performed By: #### U NICHELLE 24 #### [facility] [address] [place] [address] Dr. Reg Kerns MCH (RBC) [Entitic mass] 26.9 pg Normal 26.7-34.0 [facility] Comment on above: Performed By: #### U NICHELLE 24 #### [facility] [address] [place] [address] Dr. Reg Kerns MCHC (RBC) [Mass/Vol] 31.0 g/dL Normal 29.9-35.2 [facility] Comment on above: Performed By: #### U NICHELLE 24 #### [facility] [address] [place] [address] Dr. Reg Kerns MCV (RBC) [Entitic vol] 86.6 fL Normal 81.0-99.0 [facility] Comment on above: Performed By: #### U NICHELLE 24 #### [facility] [address] [place] [address] Dr. Reg Kerns MONO # 0.6 103/ul Normal 0.3-0.8 [facility] Comment on above: Performed By: #### U NICHELLE 24 #### [facility] [address] [place] [address] Dr. Reg Kerns Monocytes/100 WBC (Bld) 8.9 % Normal 1.7-12.0 [facility] Comment on above: Performed By: #### U NICHELLE 24 #### [facility] [address] [place] [address] Dr. Reg Kerns NEUT # 3.5 103/ul Normal 1.4-6.5 [facility] Comment on above: Performed By: #### U NICHELLE 24 #### [facility] [address] [place] [address] Dr. Reg Kerns Neutrophils/100 WBC (Bld) 55.1 % Normal 43.0-75.0 [facility] Comment on above: Performed By: #### U NICHELLE 24 #### [facility] [address] [place] [address] Dr. Reg Kerns Platelet mean volume (Bld) [Entitic vol] 10.6 fL Normal 9.5-13.5 [facility] Comment on above: Performed By: #### U NICHELLE 24 #### [facility] [address] [place] [address] Dr. Reg Kerns PLT 250 103/ul Normal 150-450 [facility] Comment on above: Performed By: #### U NICHELLE 24 #### [facility] [address] [place] [address] Dr. Reg Kerns RBC 4.32 106/ul Normal 4.20-5.40 [facility] Comment on above: Performed By: #### U NICHELLE 24 #### [facility] [address] [place] [address] Dr. Reg Kerns WBC 6.4 103/ul Normal 4.0-11.0 [facility] Comment on above: Performed By: #### U NICHELLE 24 #### [facility] [address] [address] [address] Reg Kerns FREE THYROXINE INDEX T7on FTI 2.17 Normal 1.30-4.50 [facility] Comment on above: Performed By: #### P THINT #### [facility] [address] [address] [address] Reg Kerns T3U 35.0 % Normal 30.0-39.0 [facility] Comment on above: Performed By: #### P THINT #### [facility] [address] [address] [address] Reg Kerns T4 [Mass/Vol] 6.20 ug/dL Normal 4.80-13.90 [facility] Comment on above: Result Comment: T4 t esting performed by [facility] Performed By: #### P THINT #### [facility] [address] [place] [address] Dr. Reg Kerns GLYCOHEMOGLOBIN A1Con 2021 ADA RECOMMENDATION SEE BELOW Normal [facility] Comment on above: Result Comment: ADA RECOMMENDED LIMIT 4.0 - 6.0 ADA THERAPEUTIC TARGET < 7.0 ACTION SUGGESTED > 7.0 Performed By: #### P THINT #### [facility] [address] [place] [address] Dr. Reg Kerns Glucose [Mass/Vol] 117 mg/dL Normal [facility] Comment on above: Performed By: #### P THINT #### [facility] [address] [place] [address] Dr. Reg Kerns HbA1c (Bld) [Mass fraction] 5.7 % Normal 4.5-6.2 [facility] Comment on above: Performed By: #### P THINT #### [facility] [address] [place] [address] Dr. Reg eKrns IRONon 01-31-2022 Iron [Mass/Vol] 143.0 ug/dL Normal 50.0-170.0 [facility] Comment on above: Performed By: #### I JORGE #### [facility] [address] [address] [address] Reg Kerns LIPID PROFILEon 01-31-2022 CHOL-HDL RATIO NORM SEE BELOW Normal [facility] Comment on above: Result Comment: 3.3 - 4.4 LOW RISK 4.4 - 7.1 AVERAGE RISK 7.1 - 11.0 MODERATE RISK >11.0 HIGH RISK Performed By: #### P THINT #### [facility] [address] [address] [address] Reg Kerns Cholesterol [Mass/Vol] 210 mg/dL Critically high <=200 [facility] Comment on above: Performed By: #### P THINT #### [facility] [address] [address] [address] Reg Kerns Cholesterol in HDL [Mass/Vol] 56 mg/dL Normal 40-60 [facility] Comment on above: Performed By: #### P THINT #### [facility] [address] [address] [address] Reg Kerns Cholesterol in LDL [Mass/Vol] 110.6 mg/dL Normal [facility] Comment on above: Performed By: #### P THINT #### [facility] [address] [address] [address] Reg Kerns Cholesterol.total/Ch olesterol in HDL [Mass ratio] 3.8 {ratio} Normal [facility] Comment on above: Performed By: #### P THINT #### [facility] [address] [address] [address] Reg Kerns HDL NORMAL > or = 60 mg/dl - LO W CARDIOVASCULAR RISK <40 mg/dl - HIGH CARDIOVASCULAR RISK Normal [facility] Comment on above: Performed By: #### P THINT #### [facility] [address] [address] [address] Reg Kerns LDL CALC NORMAL SEE BELOW Normal [facility] Comment on above: Result Comment: <100 mg/dl OPTIMAL 100 - 129 mg/dl NEAR OR ABOVE OPTIMAL 130 - 159 mg/dl BORDERLINE HIGH 160 - 189 mg/dl HIGH >190 mg/dl VERY HIGH Performed By: #### P THINT #### [facility] [address] [place] [address] Dr. Reg Kerns Triglyceride [Mass/Vol] 217 mg/dL Critically high <=150 [facility] Comment on above: Performed By: #### P THINT #### [facility] [address] [place] [address] Dr. Reg Kerns VLDL CALC 43.4 mg/dL Normal [facility] Comment on above: Performed By: #### P THINT #### [facility] [address] [address] [address] Reg Kerns PROF 14(COMP METB)on 022 Albumin [Mass/Vol] 3.6 g/dL Normal 3.4-5.0 [facility] Comment on above: Performed By: #### P THINT #### [facility] [address] [place] [address] Dr. Reg Kerns Albumin/Globulin [Mass ratio] 1.0 {ratio} Normal [facility] Comment on above: Performed By: #### P THINT #### [facility] [address] [place] [address] Dr. Reg Kerns ALP [Catalytic activity/Vol] 74 U/L Normal 46-116 [facility] Comment on above: Performed By: #### P THINT #### [facility] [address] [place] [address] Dr. Reg Kerns ALT [Catalytic activity/Vol] 26 U/L Normal 14-59 [facility] Comment on above: Performed By: #### P THINT #### [facility] [address] [place] [address] Dr. Reg Kerns Anion gap [Moles/Vol] 13.3 mmol/L Normal [facility] Comment on above: Performed By: #### P THINT #### [facility] [address] [place] [address] Dr. Reg Kerns AST [Catalytic activity/Vol] 18 U/L Normal 15-37 [facility] Comment on above: Performed By: #### P THINT #### [facility] [address] [address] [address] Reg Kerns Bilirubin [Mass/Vol] 0.3 mg/dL Normal 0.2-1.0 [facility] Comment on above: Performed By: #### P THINT #### [facility] [address] [address] [address] Reg Kerns Calcium [Mass/Vol] 9.1 mg/dL Normal 8.5-10.1 [facility] Comment on above: Performed By: #### P THINT #### [facility] [address] [address] [address] Reg Kerns Chloride [Moles/Vol] 103 mmol/L Normal 98-107 [facility] Comment on above: Performed By: #### P THINT #### [facility] [address] [place] [address] Dr. Reg Kerns CO2 [Moles/Vol] 26.4 mmol/L Normal 21.0-32.0 [facility] Comment on above: Performed By: #### P THINT #### [facility] [address] [place] [address] Dr. Reg Kerns Creatinine [Mass/Vol] 0.88 mg/dL Normal 0.55-1.02 [facility] Comment on above: Performed By: #### P THINT #### [facility] [address] [place] [address] Dr. Reg Kerns EGFR-AF HUNGARIAN >60 Normal >=60 [facility] Comment on above: Performed By: #### P THINT #### [facility] [address] [place] [address] Dr. Reg Kerns EGFR-NON AF HUNGARIAN >60 Normal >=60 [facility] Comment on above: Performed By: #### P THINT #### [facility] [address] [place] [address] Dr. Reg Kerns Globulin (S) [Mass/Vol] 3.6 g/dL Normal [facility] Comment on above: Performed By: #### P THINT #### [facility] [address] [address] [address] Reg Kerns Glucose [Mass/Vol] 91 mg/dL Normal 74-106 [facility] Comment on above: Performed By: #### P THINT #### [facility] [address] [address] [address] Reg Kerns Potassium [Moles/Vol] 4.7 mmol/L Normal 3.5-5.1 [facility] Comment on above: Performed By: #### P THINT #### [facility] [address] [address] [address] Reg Kerns Protein [Mass/Vol] 7.2 g/dL Normal 6.4-8.2 [facility] Comment on above: Performed By: #### P THINT #### [facility] [address] [address] [address] Reg Kerns Sodium [Moles/Vol] 138 mmol/L Normal 136-145 [facility] Comment on above: Performed By: #### P THINT #### [facility] [address] [address] [address] Reg Kerns Urea nitrogen [Mass/Vol] 15.0 mg/dL Normal 7.0-18.0 [facility] Comment on above: Performed By: #### P THINT #### [facility] [address] [place] [address] Dr. Reg Kerns Urea nitrogen/Creatinine [Mass ratio] 17.0 mg/mg Normal [facility] Comment on above: Performed By: #### P THINT #### [facility] [address] [address] [address] Reg Kerns TSHon 01-31-2022 TSH 2.021 uIU/mL Normal 0.358-3.740 [facility] Comment on above: Performed By: #### P THINT #### [facility] [address] [place] [address] Dr. Reg Kerns TSH RANGE SEE BELOW Normal [facility] Comment on above: Result Comment: <0.3 4 UIU/ml HYPERTHYROID 0.34-5.60 UIU/ml EUTHYROID >5.60 UIU/ml HYPOTHYROID Performed By: #### P THINT #### [facility] [address], [place] [address] Dr. Reg Kerns URIC ACID SERUMon 01-31-2022 Urate [Mass/Vol] 6.1 mg/dL Critically high 2.6-6.0 [facility] Comment on above: Performed By: #### U NICHELLE #### [facility] [address], [place] [address] Dr. Reg Kerns Calculi, Urinaryon 2 Ca Oxalate Dihydrate 30 % Normal . [facility] Comment on above: Performed By: #### C ALCULI #### [facility] , Ca Oxalate Monohydrate 70 % Normal . [facility] Comment on above: Performed By: #### C ALCULI #### [facility] , Color (U) Brown Normal . [facility] Comment on above: Performed By: #### C ALCULI #### [facility] , Comment2 Normal . [facility] Comment on above: Result Comment: Calc ulus received in liquid. Wet calculi must be dried before analysis, which delays reporting of results. Leaving calculi in liquid (such as water, saline, blood, urine) may lead to changes in composition. Performed By: #### C ALCULI #### [facility] , Comment: Normal . [facility] Comment on above: Result Comment: Phys ician questions regarding Calculi Analysis contact [facility] at: [phone]. Performed By: #### C ALCULI #### [facility] , Composition Normal . [facility] Comment on above: Result Comment: Perc entage (Represents the % composition) Performed By: #### C ALCULI #### [facility] , Disclaimer: Normal . [facility] Comment on above: Result Comment: This test was developed and its performance characteristics determined by [facility]. It has not been cleared or approved by the Food and Drug Administration. Performed at: [facility] [address] [place], [place], [place] [id number] Commercial Collector: Beck Wynne MD, Phone: [phone] Performed By: #### C ALCULI #### [facility] , Note Normal . [facility] Comment on above: Result Comment: Calc perlita report will follow via computer, mail or ordnance artificer delivery. PERFORMED BY: [facility] [place] [address] PATHOLOGIST BILLING SUPERVISOR KENAN BAIRD M.D. Performed By: #### C ALCULI #### [facility] , Photo Normal . [facility] Comment on above: Result Comment: Phot ogshannan will follow under a separate cover Performed By: #### C ALCULI #### [facility] , Size 3x3 Normal . [facility] Comment on above: Result Comment: Mult iple pieces received. Dimensions of the largest piece reported. Performed By: #### C ALCULI #### [facility] , Source Kidney Normal . [facility] Comment on above: Performed By: #### C ALCULI #### [facility] , Weight 126 Normal . [facility] Comment on above: Performed By: #### C ALCULI #### [facility] , [place] 10-25-2021 L - -------- Specimen: [id number] Received: 10/26/21 Status: CATHERINE Presley Num: [id number] Spec Type: Surgical Subm Dr: Carlos Silverman MD Tissues: A Urinary Calculus (BILATERAL RENAL CALCULI) Procedures: Level 1 Gross -------- Patient Age/Sex Location Account Attending Physician -------- Robyn Srinivasan 80/F [place] [id number] Carlos Silverman MD -------- SPEC NUM: [id number] RECD: 10/26/21 STATUS: CATHERINE PRESLEY NUM: [id number] SIL: 10/25/21- [facility] DR: Carlos Silverman MD ENTERED: 10/26/21 [facility] DR: OTTO TYPE: Surgical DEPT: S ORDERED: [...] only. (GONZALES/NIKKI) Microscopic Description Gross examination only. [id number] -------- -------- Specimen: [id number] Received: 10/26/21 Status: CATHERINE Sakina Num: [id number] Spec Type: Surgical Subm Dr: Carlos Silverman MD Tissues: A Urinary Calculus (BILATERAL RENAL CALCULI) Procedures: Level 1 Gross -------- Patient: Robyn Srinivasan [id number] (Continued) -------- Signed (signature on file) Kenan Baird MD 10/26/21 1633 [facility] XR KUBon 10-25-2021 XR [address] [address] XRay Report Signed Patient: Robyn Srinivasan MR#: [id number] : 1940 Acct:[id number] Age/Sex: 80 / F ADM Date: 10/25/21 Loc: [place] Room: Type: [facility] Attending Dr: Carlos Silverman MD Ordering [...] Eriberto Jordan M.D.10/25/2021 1:48 PM Dictation Location: [place] [address] Transcribed By: [facility] 10/25/21 1348 Dictated By: Eriberto Jordan DO 10/25/21 1345 Signed By: 10/25/21 1348 [facility] XR abdomen 1Von 10-25-2021 XR abdomen 1V [facility] [place] [address] [place] [address] XRay Report Signed Patient: Robyn Srinivasan MR#: [id number] : 1940 Acct:[id number] Age/Sex: 80 / F ADM Date: 10/25/21 Loc: [place] Room: Type: [facility] Attending Dr: Carlos Silverman MD Ordering [...] Pako King M.D.10/25/2021 4:52 PM Dictation Location: [place] [address] Transcribed By: [facility] 10/25/211651 Dictated By: Pako King II, MD 10/25/211649 Signed By: 10/25/211651 Normal [facility] Basic Metabolic Panelon 10-02 Calcium [Mass/Vol] 9.4 mg/dL Normal 8.2-10.2 [facility] Comment on above: Result Comment: PERF ORMED BY: [place] [address] PATHOLOGIST BILLING SUPERVISOR KENAN BAIRD M.D. Performed By: #### C BC, PT, PTT, BMP #### [facility] [address] [place] [address] [place] Chloride [Moles/Vol] 103 mmol/L Normal 95-[address] [facility] Comment on above: Performed By: #### C BC, PT, PTT, BMP #### [facility] [address] [place] [id number] [place] CO2 [Moles/Vol] 22.8 mmol/L Normal 22.0-30.0 [facility] Comment on above: Performed By: #### C BC, PT, PTT, BMP #### [facility] [address] [place] [address] [place] Creatinine [Mass/Vol] 0.85 mg/dL Normal 0.44-1.03 [facility] Comment on above: Performed By: #### C BC, PT, PTT, BMP #### [facility] [address] [place] [address] [place] Estimated GFR ( Faina > 60 Normal [facility] Comment on above: Result Comment: GFR estimated reference range: According to KDOQI guidelines, <60 ml/min/1.73m2 is sufficient to diagnose a patient with chronic kidney disease. Performed By: #### C BC, PT, PTT, BMP #### [address] Estimated GFR (Non- Am > 60 Normal [facility] Comment on above: Performed By: #### C BC, PT, PTT, BMP #### [address] Glucose [Mass/Vol] 95 mg/dL Normal 70-100 [facility] Comment on above: Result Comment: [place] Glucose Reference Range is dependent on time and content of last meal. Glucose of more than 200 mg/dL in a nonstressed, ambulatory subject supports the diagnosis of Diabetes Mellitus. ADA recommended reference range Performed By: #### C BC, PT, PTT, BMP #### [address] Potassium [Moles/Vol] 4.3 mmol/L Normal 3.5-5.1 [facility] Comment on above: Performed By: #### C BC, PT, PTT, BMP #### [address] Sodium [Moles/Vol] 137 mmol/L Normal 136-146 [facility] Comment on above: Performed By: #### C BC, PT, PTT, BMP #### [address] Urea nitrogen [Mass/Vol] 12 mg/dL Normal 9-23 [facility] Comment on above: Performed By: #### C BC, PT, PTT, BMP #### [address] Complete Blood Count Auto Di ffon 10-12-2021 Basophils (Bld) [#/Vol] 0.1 10*3/uL Normal 0.0-0.2 [facility] Comment on above: Result Comment: PERF ORMED BY: [place] [address] PATHOLOGIST BILLING SUPERVISOR KENAN BAIRD M.D. Performed By: #### C BC, PT, PTT, BMP #### [address] Basophils/100 WBC (Bld) 1.3 % Normal . [facility] Comment on above: Performed By: #### C BC, PT, PTT, BMP #### [address] Eosinophils (Bld) [#/Vol] 0.5 10*3/uL High 0.0-0.45 [facility] Comment on above: Performed By: #### C BC, PT, PTT, BMP #### [address] Eosinophils/100 WBC (Bld) 6.6 % Normal . [facility] Comment on above: Performed By: #### C BC, PT, PTT, BMP #### [address] Erythrocyte distribution width (RBC) [Ratio] 14.5 % Normal 11.9-15.3 [facility] Comment on above: Performed By: #### C BC, PT, PTT, BMP #### [address] Hematocrit (Bld) [Volume fraction] 38.5 % Normal 34.0-46.4 [facility] Comment on above: Performed By: #### C BC, PT, PTT, BMP #### [address] Hemoglobin (Bld) [Mass/Vol] 12.6 g/dL Normal 11.8-15.4 [facility] Comment on above: Performed By: #### C BC, PT, PTT, BMP #### [address] Lymphocytes (Bld) [#/Vol] 1.6 10*3/uL Normal 1.00-4.8 [facility] Comment on above: Performed By: #### C BC, PT, PTT, BMP #### [address] [address] [place] Lymphocytes/100 WBC (Bld) 22.1 % Normal . [facility] Comment on above: Performed By: #### C BC, PT, PTT, BMP #### [address] MCH (RBC) [Entitic mass] 28.0 pg Normal 24.7-34.3 [facility] Comment on above: Performed By: #### C BC, PT, PTT, BMP #### [address] MCV (RBC) [Entitic vol] 85.7 fL Normal 80-100 [facility] Comment on above: Performed By: #### C BC, PT, PTT, BMP #### [address] Mean Corpuscular HGB Conc 32.7 g/dL Normal 32.0-35.0 [facility] Comment on above: Performed By: #### C BC, PT, PTT, BMP #### [address] Monocytes (Bld) [#/Vol] 0.5 10*3/uL Normal 0.0-0.8 [facility] Comment on above: Performed By: #### C BC, PT, PTT, BMP #### [address] Monocytes/100 WBC (Bld) 6.2 % Normal . [facility] Comment on above: Performed By: #### C BC, PT, PTT, BMP #### [address] Neutrophils (Bld) [#/Vol] 4.8 10*3/uL Normal 1.8-7.7 [facility] Comment on above: Performed By: #### C BC, PT, PTT, BMP #### [address] Neutrophils/100 WBC (Bld) 63.8 % Normal . [facility] Comment on above: Performed By: #### C BC, PT, PTT, BMP #### [facility] [address] Nucleated RBC/100 WBC (Bld) [Ratio] 0.0 % Normal 0-0.5 [facility] Comment on above: Performed By: #### C BC, PT, PTT, BMP #### [facility] [address] Platelet mean volume (Bld) [Entitic vol] 8.5 fL Normal 6.3-10.7 [facility] Comment on above: Performed By: #### C BC, PT, PTT, BMP #### [facility] [address] Platelets (Bld) [#/Vol] 244 10*3/uL Normal 150-450 [facility] Comment on above: Performed By: #### C BC, PT, PTT, BMP #### [address] RBC (Bld) [#/Vol] 4.49 10*6/uL Normal 3.60-5.00 [facility] Comment on above: Performed By: #### C BC, PT, PTT, BMP #### [address] WBC (Bld) [#/Vol] 7.5 10*3/uL Normal 4.5-11.0 [facility] Comment on above: Performed By: #### C BC, PT, PTT, BMP #### [address] ECG 12 lead ECGon 10-12-2021 ECG 12 lead ECG [facility] [place] [address] [place] [address] Electrocardiograph Report Signed Patient: Robyn Srinivasan MR#: [id number] : 1940 Acct:[id number] Age/Sex: 80 / F ADM Date: 10/12/21 Loc: [place] Room: Type: [facility] Attending Dr: Carlos Silverman MD [...] previous ECGs available Confirmed by MALACHI RIVERA [facility], JESICA ([id number]) on 10/12/2021 7:05:53 PM Referred By: ANDRA Electronically Signed By:JESICA BRAXTON MD [facility] Transcribed By: ASIYA Signed By Jesica Braxton MD, [facility] 10/12/21 1905 Normal [facility] Partial Thromboplastin Timeo n 10-12-2021 aPTT Coag (Bld) [Time] 27.0 s Normal 25.1-36.5 [facility] Comment on above: Result Comment: PERF ORMED BY: [place] [address] PATHOLOGIST BILLING SUPERVISOR KENAN BAIRD M.D. Performed By: #### C BC, PT, PTT, BMP #### [address] Prothrombin Time INRon 10-12 INR Coag (PPP) [Relative time] 1.0 {INR} Normal [facility] Comment on above: Result Comment: INR Therapeutic [...] #### C BC, PT, PTT, BMP #### [address] PT Coag (PPP) [Time] 11.0 s Normal 9.0-12.[address] [facility] Comment on above: Performed By: #### C BC, PT, PTT, BMP #### [address] [place] [address] [facility] XR chest 2V*on 10-12-2021 XR chest 2V* [facility] [place] [address] [place] [address] XRay Report Signed Patient: Robyn Srinivasan MR#: [id number] : 1940 Acct:[id number] Age/Sex: 80 / F ADM Date: 10/12/21 Loc: [place] Room: Type: [facility] Attending Dr: Carlos Silverman MD Ordering [...] Li Jr., D.ODominik10/12/2021 11:55 AM Dictation Location: [place] [address] Transcribed By: [facility] 10/12/21 1155 Dictated By: Tj Li Jr, DO 10/12/21 1155 Signed By: 10/12/21 1155 [facility] XR KUB 1 VIEWon 10-08-2021 [...] JEREMIAH HOBBS Date: 2021-10-08 09:18 Normal [facility] XR RETROGRADE PYELOGRAMon XR RETROGRADE PYELOGRAM EXAMINATION: [...] EDGAR PADRON Date: 2021-09-23 09:36 Normal [facility] CBC AUTO DIFFon 09-22-2021 BASO # 0.0 103/ul Normal 0.0-0.1 [facility] Comment on above: Performed By: #### P THINT #### [facility] [address] [place] [address] Dr. Reg Kerns Basophils/100 WBC (Bld) 0.5 % Normal 0.2-2.0 [facility] Comment on above: Performed By: #### P THINT #### [facility] [address] [place] [address] Dr. Reg Kerns EO # 0.2 103/ul Normal 0.0-0.7 [facility] Comment on above: Performed By: #### P THINT #### [facility] [address] [place] [address] Dr. Reg Kerns Eosinophils/100 WBC (Bld) 3.9 % Normal 0.9-7.0 [facility] Comment on above: Performed By: #### P THINT #### [facility] [address] [place] [address] Dr. Reg Kerns Erythrocyte distribution width (RBC) [Ratio] 13.4 % Normal 11.0-15.0 [facility] Comment on above: Performed By: #### P THINT #### [facility] [address] [place] [address] Dr. Reg Kerns Hematocrit (Bld) [Volume fraction] 32.9 % Critically low 36.0-48.0 [facility] Comment on above: Performed By: #### P THINT #### [facility] [address] [place] [address] Dr. Reg Kerns Hemoglobin (Bld) [Mass/Vol] 10.3 g/dL Critically low 12.0-16.0 [facility] Comment on above: Performed By: #### P THINT #### [facility] [address] [place] [address] Dr. Reg Kerns IG # 0.02 10e3/ul Normal 0.00-0.03 [facility] Comment on above: Performed By: #### P THINT #### [facility] [address] [place] [address] Dr. Reg Kerns IG % 0.3 % Normal 0.0-0.5 [facility] Comment on above: Performed By: #### P THINT #### [facility] [address] [place] [address] Dr. Reg Kerns LYMPH # 2.2 103/ul Normal 1.2-3.8 [facility] Comment on above: Performed By: #### P THINT #### [facility] [address] [place] [address] Dr. Reg Kerns Lymphocytes/100 WBC (Bld) 37.3 % Normal 20.5-60.0 [facility] Comment on above: Performed By: #### P THINT #### [facility] [address] [place] [address] Dr. Reg Kerns MANUAL DIFF REQ NO Normal [facility] Comment on above: Performed By: #### P THINT #### [facility] [address] [place] [address] Dr. Reg Kerns MCH (RBC) [Entitic mass] 27.8 pg Normal 26.7-34.0 [facility] Comment on above: Performed By: #### P THINT #### [facility] [address] [place] [address] [address] Reg Kerns MCHC (RBC) [Mass/Vol] 31.3 g/dL Normal 29.9-35.2 [facility] Comment on above: Performed By: #### P THINT #### [facility] [address] [place] [address] [address] Reg Kerns MCV (RBC) [Entitic vol] 88.7 fL Normal 81.0-99.0 [facility] Comment on above: Performed By: #### P THINT #### [facility] [address] [place] [address] Dr. Reg Kerns MONO # 0.6 103/ul Normal 0.3-0.8 [facility] Comment on above: Performed By: #### P THINT #### [facility] [address] [place] [address] Dr. Reg Kerns Monocytes/100 WBC (Bld) 10.6 % Normal 1.7-12.0 [facility] Comment on above: Performed By: #### P THINT #### [facility] [address] [place] [address] Dr. Reg Kerns NEUT # 2.8 103/ul Normal 1.4-6.5 [facility] Comment on above: Performed By: #### P THINT #### [facility] [address] [place] [address] Dr. Reg Krens Neutrophils/100 WBC (Bld) 47.4 % Normal 43.0-75.0 [facility] Comment on above: Performed By: #### P THINT #### [facility] [address] [place] [address] Dr. Reg Kerns Platelet mean volume (Bld) [Entitic vol] 10.2 fL Normal 9.5-13.5 [facility] Comment on above: Performed By: #### P THINT #### [facility] [address] [place] [address] Dr. Reg Kerns PLT 210 103/ul Normal 150-450 [facility] Comment on above: Performed By: #### P THINT #### [facility] [address] [place] [address] [address] Reg Kerns RBC 3.71 106/ul Critically low 4.20-5.40 [facility] Comment on above: Performed By: #### P THINT #### [facility] [address] [place] [address] [address] Reg Kerns WBC 5.9 103/ul Normal 4.0-11.0 [facility] Comment on above: Performed By: #### P THINT #### [facility] [address] [place] [address] [address] Reg Kerns CULTURE URINEon 09-22-2021 CULTURE URINE Culture Observations : No growth Normal [facility] Comment on above: Performed By: #### C ITRATU #### [facility] [address] [place] [address] Dr. Reg Kerns PROF 14(COMP METB)on 022 Albumin [Mass/Vol] 3.0 g/dL Critically low 3.5-5.0 [facility] Comment on above: Performed By: #### C MP #### [facility] [address] [place] [address] [address] Reg Kerns Albumin/Globulin [Mass ratio] 1.0 {ratio} Normal [facility] Comment on above: Performed By: #### C MP #### [facility] [address] [place] [address] Dr. Reg Kerns ALP [Catalytic activity/Vol] 55 U/L Normal 38-126 [facility] Comment on above: Performed By: #### C MP #### [facility] [address] [place] [address] Dr. Reg Kerns ALT [Catalytic activity/Vol] 16 U/L Normal 9-52 [facility] Comment on above: Performed By: #### C MP #### [facility] [address] [place] [address] Dr. Reg Kerns Anion gap [Moles/Vol] 12.6 mmol/L Normal [facility] Comment on above: Performed By: #### C MP #### [facility] [address] [place] [address] Dr. Reg Kerns AST [Catalytic activity/Vol] 17 U/L Normal 14-36 [facility] Comment on above: Performed By: #### C MP #### [facility] [address] [place] [address] Dr. Reg Kerns Bilirubin [Mass/Vol] 0.1 mg/dL Critically low 0.2-1.3 [facility] Comment on above: Performed By: #### C MP #### [facility] [address] [place] [address] Dr. Reg Kerns Calcium [Mass/Vol] 8.7 mg/dL Normal 8.4-10.2 [facility] Comment on above: Performed By: #### C MP #### [facility] [address] [place] [address] Dr. Reg Kerns Chloride [Moles/Vol] 106 mmol/L Normal 98-107 [facility] Comment on above: Performed By: #### C MP #### [facility] [address] [place] [address] Dr. Reg Kerns CO2 [Moles/Vol] 25.8 mmol/L Normal 22.0-30.0 [facility] Comment on above: Performed By: #### C MP #### [facility] [address] [place] [address] Dr. Reg Kerns Creatinine [Mass/Vol] 0.83 mg/dL Normal 0.52-1.04 [facility] Comment on above: Performed By: #### C MP #### [facility] [address] [place] [address] Dr. Reg Kerns EGFR-AF HUNGARIAN >60 Normal >=60 [facility] Comment on above: Performed By: #### C MP #### [facility] [address] [place] [address] Dr. Reg Kerns EGFR-NON AF HUNGARIAN >60 Normal >=60 [facility] Comment on above: Performed By: #### C MP #### [facility] [address] [place] [address] Dr. Reg Kerns Globulin (S) [Mass/Vol] 2.9 g/dL Normal [facility] Comment on above: Performed By: #### C MP #### [facility] [address] [place] [address] Dr. Reg Kerns Glucose [Mass/Vol] 99 mg/dL Normal 74-106 [facility] Comment on above: Performed By: #### C MP #### [facility] [address] [place] [address] [address] Reg Kerns Potassium [Moles/Vol] 4.4 mmol/L Normal 3.4-5.0 [facility] Comment on above: Performed By: #### C MP #### [facility] [address] [place] [address] Dr. Reg Kerns Protein [Mass/Vol] 5.9 g/dL Critically low 6.1-8.2 [facility] Comment on above: Performed By: #### C MP #### [facility] [address] [place] [address] Dr. Reg Kerns Sodium [Moles/Vol] 140 mmol/L Normal 137-145 [facility] Comment on above: Performed By: #### C MP #### [facility] [address] [place] [address] Dr. Reg Kerns Urea nitrogen [Mass/Vol] 11.0 mg/dL Normal 7.0-17.0 [facility] Comment on above: Performed By: #### C MP #### [facility] [address] [place] [address] Dr. Reg Kerns Urea nitrogen/Creatinine [Mass ratio] 13.3 mg/mg Normal [facility] Comment on above: Performed By: #### C MP #### [facility] [address] [place] [address] Dr. Reg Kerns CBC AUTO DIFFon 09-21-2021 BASO # 0.0 103/ul Normal 0.0-0.1 [facility] Comment on above: Performed By: #### C ITRATU #### [facility] [address] [place] [address] Dr. Reg Kerns Basophils/100 WBC (Bld) 0.6 % Normal 0.2-2.0 [facility] Comment on above: Performed By: #### C ITRATU #### [facility] [address] [place] [address] Dr. Reg Kerns EO # 0.3 103/ul Normal 0.0-0.7 [facility] Comment on above: Performed By: #### C ITRATU #### [facility] [address] [place] [address] Dr. Reg Kerns Eosinophils/100 WBC (Bld) 3.5 % Normal 0.9-7.0 [facility] Comment on above: Performed By: #### C ITRATU #### [facility] [address] [place] [address] Dr. Reg Kerns Erythrocyte distribution width (RBC) [Ratio] 13.4 % Normal 11.0-15.0 [facility] Comment on above: Performed By: #### C ITRATU #### [facility] [address] [place] [address] Dr. Reg Kerns Hematocrit (Bld) [Volume fraction] 37.8 % Normal 36.0-48.0 [facility] Comment on above: Performed By: #### C ITRATU #### [facility] [address] [place] [address] Dr. Reg Kerns Hemoglobin (Bld) [Mass/Vol] 12.3 g/dL Normal 12.0-16.0 [facility] Comment on above: Performed By: #### C ITRATU #### [facility] [address] [place] [address] Dr. Reg Kerns IG # 0.03 10e3/ul Normal 0.00-0.03 [facility] [facility] Comment on above: Performed By: #### C ITRATU #### [facility] [address] [place] [address] Dr. Reg Kerns IG % 0.4 % Normal 0.0-0.5 [facility] Comment on above: Performed By: #### C ITRATU #### [facility] [address] [place] [address] Dr. Reg Kerns LYMPH # 1.6 103/ul Normal 1.2-3.8 [facility] Comment on above: Performed By: #### C ITRATU #### [facility] [address] [place] [address] Dr. Reg Kerns Lymphocytes/100 WBC (Bld) 22.9 % Normal 20.5-60.0 [facility] Comment on above: Performed By: #### C ITRATU #### [facility] [address] [place] [address] Dr. Reg Kerns MANUAL DIFF REQ NO Normal [facility] Comment on above: Performed By: #### C ITRATU #### [facility] [address] [place] [address] Dr. Reg Kerns MCH (RBC) [Entitic mass] 28.5 pg Normal 26.7-34.0 [facility] Comment on above: Performed By: #### C ITRATU #### [facility] [address] [place] [address] Dr. Reg Kerns MCHC (RBC) [Mass/Vol] 32.5 g/dL Normal 29.9-35.2 [facility] Comment on above: Performed By: #### C ITRATU #### [facility] [address] [place] [address] Dr. Reg Kerns MCV (RBC) [Entitic vol] 87.7 fL Normal 81.0-99.0 [facility] Comment on above: Performed By: #### C ITRATU #### [facility] [address] [place] [address] Dr. Reg Kerns MONO # 0.6 103/ul Normal 0.3-0.8 [facility] Comment on above: Performed By: #### C ITRATU #### [facility] [address] [place] [address] Dr. Reg Kerns Monocytes/100 WBC (Bld) 8.2 % Normal 1.7-12.0 [facility] Comment on above: Performed By: #### C ITRATU #### [facility] [address] [address] [address] Reg Kerns NEUT # 4.6 103/ul Normal 1.4-6.5 [facility] Comment on above: Performed By: #### C ITRATU #### [facility] [address] [place] [address] Dr. Reg Kerns Neutrophils/100 WBC (Bld) 64.4 % Normal 43.0-75.0 [facility] Comment on above: Performed By: #### C ITRATU #### [facility] [address] [place] [address] Dr. Reg Kerns Platelet mean volume (Bld) [Entitic vol] 10.8 fL Normal 9.5-13.5 [facility] Comment on above: Performed By: #### C ITRATU #### [facility] [address] [place] [address] Dr. Reg Kerns PLT 256 103/ul Normal 150-450 [facility] Comment on above: Performed By: #### C ITRATU #### [facility] [address] [place] [address] Dr. Reg Kerns RBC 4.31 106/ul Normal 4.20-5.40 [facility] Comment on above: Performed By: #### C ITRATU #### [facility] [address] [place] [address] Dr. Reg Kerns WBC 7.1 103/ul Normal 4.0-11.0 [facility] Comment on above: Performed By: #### C ITRATU #### [facility] [address] [place] [address] ABD/PELVIS WO CONon [...] ABA BONILLA Date: 2021-09-21 19:43 Normal [facility] Covid-19 PCR (CVDTB)on 09-02 SARS-CoV-2 (COVID-19) RNA BYRON+probe Ql (Unsp spec) Detected Critically abnormal NOT DETECTED [facility] Comment on above: Result Comment: This test is not yet approved or cleared by the [place] FDA. When there are no FDA-approved or cleared tests available, and other criteria are met, FDA can make tests available under an emergency access mechanism called an Emergency Use Authorization (EUA). The EUA for this test is supported by the [place] of Health and Human Service's declaration that [...] used). Performed By: #### C VDTBH #### [facility] [address] [place] [address] Dr. Reg Kerns ER URINE PROFILEon 2 Bilirubin Ql (U) Negative Normal NEGATIVE [facility] Comment on above: Performed By: #### U NICHELLE 24 #### [facility] [address] [place] [address] Dr. Reg Kerns Clarity (U) SL CLOUDY Abnormal CLEAR [facility] Comment on above: Performed By: #### U NICHELLE 24 #### [facility] [address] [place] [address] Dr. Reg Kerns Color (U) YELLOW Normal YELLOW [facility] Comment on above: Performed By: #### U NICHELLE 24 #### [facility] [address] [place] [address] Dr. Reg WEAVER A micrscopic examination will be performed if indicated. Normal [facility] Comment on above: Performed By: #### U NICHELLE 24 #### [facility] [address] [place] [address] Dr. Reg Kerns Glucose Ql (U) Negative Normal NEGATIVE The [facility] Comment on above: Performed By: #### U NICHELLE 24 #### [facility] [address] [place] [address] Dr. Reg Kerns Hemoglobin Ql (U) LARGE Abnormal NEGATIVE [facility] Comment on above: Performed By: #### U NICHELLE 24 #### [facility] [address] [place] [address] Dr. Reg Kerns Ketones Ql (U) Negative Normal NEGATIVE [facility] Comment on above: Performed By: #### U NICHELLE 24 #### [facility] [address] [place] [address] Dr. Reg Kerns LEUKOCYTES Negative Normal NEGATIVE [facility] Comment on above: Performed By: #### U NICHELLE 24 #### [facility] [address] [place] [address] Dr. Reg Kerns Nitrite Ql (U) Negative Normal NEGATIVE [facility] Comment on above: Performed By: #### U NICHELLE 24 #### [facility] [address] [place] [address] Dr. Reg Kerns pH (U) 5.0 [pH] Normal 5-9 [facility] Comment on above: Performed By: #### U NICHELLE 24 #### [facility] [address] [place] [address] Dr. Reg Kerns SPEC GRAVITY >=1.030 Abnormal 1.005-<=1.025 [facility] Comment on above: Performed By: #### U NICHELLE 24 #### [facility] [address] [place] [address] Dr. Reg Kerns UA PROTEIN TRACE Normal NEGATIVE/ TRACE [facility] Comment on above: Performed By: #### U NICHELLE 24 #### [facility] [address] [place] [address] Dr. Reg Kerns UR MICRO IND INDICATED Normal [facility] Comment on above: Performed By: #### U NICHELLE 24 #### [facility] [address] [place] [address] Dr. Reg Kerns Urobilinogen Qn (U) 0.2 {Tiffani'U}/dL Normal 0.2 - 1. 0 [facility] Comment on above: Performed By: #### U NICHELLE 24 #### [facility] [address] [place] [address] Dr. Reg Kerns PROF CHEM 8 (BAS METB)on Anion gap [Moles/Vol] 14.0 mmol/L Normal [facility] Comment on above: Performed By: #### B MP #### [facility] [address] [place] [address] Dr. Reg Kerns Calcium [Mass/Vol] 9.2 mg/dL Normal 8.4-10.2 [facility] Comment on above: Performed By: #### B MP #### [facility] [address] [place] [address] Dr. Reg Kerns Chloride [Moles/Vol] 101 mmol/L Normal 98-107 [facility] Comment on above: Performed By: #### B MP #### [facility] [address] [place] [address] Dr. Reg Kerns CO2 [Moles/Vol] 25.9 mmol/L Normal 22.0-30.0 [facility] Comment on above: Performed By: #### B MP #### [facility] [address] [place] [address] Dr. Reg Kerns Creatinine [Mass/Vol] 1.13 mg/dL Critically high 0.52-1.04 [facility] Comment on above: Performed By: #### B MP #### [facility] [address] [place] [address] Dr. Reg Kerns EGFR-AF HUNGARIAN 56 mL/min/1.73m2 Critically low >=60 [facility] Comment on above: Performed By: #### B MP #### [facility] [address] [place] [address] Dr. Reg Kerns EGFR-NON AF HUNGARIAN 47 mL/min/1.73m2 Critically low >=60 [facility] Comment on above: Performed By: #### B MP #### [facility] [address] [address] [address] Reg Kerns Glucose [Mass/Vol] 145 mg/dL Critically high 74-106 T [facility] Comment on above: Performed By: #### B MP #### [facility] [address] [place] [address] Dr. Reg Kerns Potassium [Moles/Vol] 3.9 mmol/L Normal 3.4-5.0 [facility] Comment on above: Performed By: #### B MP #### [facility] [address] [place] [address] Dr. Reg Kerns Sodium [Moles/Vol] 137 mmol/L Normal 137-145 [facility] Comment on above: Performed By: #### B MP #### [facility] [address] [place] [address] Dr. Reg Kerns Urea nitrogen [Mass/Vol] 13.0 mg/dL Normal 7.0-17.0 [facility] Comment on above: Performed By: #### B MP #### [facility] [address] [place] [address] Dr. Reg Kerns Urea nitrogen/Creatinine [Mass ratio] 11.5 mg/mg Normal [facility] Comment on above: Performed By: #### B MP #### [facility] [address] [place] [address] Dr. Reg Kerns URINE MICROSCOPIC ONLYon BACTERIA TRACE Abnormal NONE SEEN [facility] Comment on above: Performed By: #### U NICHELLE 24 #### [facility] [address] [place] [address] Dr. Reg Kerns Bacteria identified Cx Nom (U) NOT INDICATED Normal [facility] Comment on above: Performed By: #### U NICHELLE 24 #### [facility] [address] [place] [address] Dr. Reg Kerns CAST NONE SEEN Normal NONE SEEN [facility] Comment on above: Performed By: #### U NICHELLE 24 #### [facility] [address] [place] [address] Dr. Reg Kerns Crystals LM Nom (Urine sed) NONE SEEN Normal NONE SEEN [facility] Comment on above: Performed By: #### U NICHELLE 24 #### [facility] [address] [place] [address] Dr. Reg Kerns Epithelial cells LM Ql (Urine sed) FEW Abnormal NONE SEEN /RARE [facility] Comment on above: Performed By: #### U NICHELLE 24 #### [facility] [address] [place] [address] Dr. Reg Kerns MUCOUS TRACE Abnormal NONE SEEN [facility] Comment on above: Performed By: #### U NICHELLE 24 #### [facility] [address] [place] [address] Dr. Reg Kerns RBC 5-10 Abnormal 0-2 [facility] Comment on above: Performed By: #### U NICHELLE 24 #### [facility] [address] [place] [address] Dr. Reg Kerns WBC 0-2 Abnormal NONE SEEN [facility] Comment on above: Performed By: #### U NICHELLE 24 #### [facility] [address] [place] [address] Dr. Reg Kerns Vital Signs Date Time Vital Sign Value Performing Clinician Facility 05-01-2023 12:51-0400 Blood Pressure Location LOUISA ANDREWS [facility] 05-01-2023 12:51-0400 Body temperature 97.34 [degF] LOUISA SPARROW [facility] 05-01-2023 12:51-0400 Diastolic blood pressure 81 mm[Hg] LOUISA SPARROW [facility] 05-01-2023 12:51-0400 Heart rate 78 /min LOUISA SPARROW [facility] 05-01-2023 12:51-0400 Systolic blood pressure 158 mm[Hg] LOUISA SPARROW [facility] 06-04-2022 11:49-0400 Blood Pressure Location Carlos ANDRA [facility] 06-04-2022 11:49-0400 Diastolic blood pressure 86 mm[Hg] Carlos SILVERMAN [facility] 06-04-2022 11:49-0400 Heart rate 85 /min Carlos ANDRA [facility] 06-04-2022 11:49-0400 Systolic blood pressure 132 mm[Hg] Carlos ANDRA [facility] Encounters Encounter Date Encounter Type Care Provider Facility Start: 05-04-2024 ambulatory Carlos SILVERMAN Facility :[facility] Start: 05-01-2023 End: 05-02-2023 ambulatory LOUISA SPARROW Facility:[facility] Start: 05-01-2023 End: 05-01-2023 Patient encounter procedure LOUISA SPARROW [facility] Start: 06-04-2022 End: 06-05-2022 ambulatory Carlos SILVERMAN Facility:[facility] Start: 06-04-2022 End: 06-04-2022 Patient encounter procedure Carlos SILVERMAN [facility] Start: 02-21-2022 End: 02-22-[address] MARKIE SMITH Facility:[facility] Start: 02-02-2022 End: 02-02-[address] CARLOS SILVERMAN Facility:[facility] Start: 01-31-2022 End: 02-01-[address] CARLOS SILVERMAN Facility:[facility] Start: 10-25-2021 End: 10-25-2021 ambulatory Markie Noe Luis Facility:[facility] Start: 10-12-2021 End: 10-12-2021 ambulatory Markie Noe Luis Facility:[facility] Start: 10-08-2021 End: 10-09-[address] CARLOS SILVERMAN Facility:[facility] Start: 09-21-2021 End: 09-22-[address] MARKIE SMITH Facility:[facility] Procedures Date Procedure Procedure Detail Performing Clinician Start: 09-22-2021 Cystoscopy Carlos VETO CORTEZ Appendectomy Carlos SILVERMAN Extraction of cataract Leonardo SILVERMAN H/O: hysterectomy Carlos VETO CORTEZ Immunizations Immunization Date Immunization Notes Care Provider [facility] 01-19-2021 SARS-CoV-2 (COVID-19 ) mRNA-1273 vaccine Carlos SILVERMAN [facility] 12-22-2020 SARS-CoV-2 (COVID-19 ) mRNA-1273 vaccine Carlos SILVERMAN [facility] Payers Date Payer Category Payer Self-pay 1957 Unknown [id number] 1940 Unknown [id number] 2.16.84 [id number] 1942 Unknown [id number] 2.16.84 [id number] 1942 Unknown [id number] 2.16.84 [id number] 1942 Unknown [id number] 2.16.84 [id number] 1942 Unknown [id number] 2.16.84 [id number] 1942 Unknown [id number] 2.16.84 [id number] 1942 Unknown [id number] 2.16.8 [id number] 1942 Unknown [id number] 2.16.8 [id number] 1942 Unknown [id number] 2.16.8 [id number] Unknown [id number] 2.16.8 [id number] Social History Date Type Detail Facility Start: 10-09-2021 End: 05-01-2023 Tobacco smoking status Ex-smoker (finding) [facility] Sex Assigned At Female [facility] Tobacco smoking status Never [facility] Functional Status Date Assessment Result Facility 05-01-2023 Functional Status N/A [facility] 06-04-2022 Functional Status N/A [facility] Hospital Discharge instructions 05-01-2023 Note Date [...] include: ?8 oz (237 mL) of milk, dqsiwlk-jvsnvudvxxfk-hombh milk, and calcium-fortifiedfruit juice. Calcium-fortified means that [...] ?Spinach (cooked), rhubarb, beets, sweet potatoes, and [place] Citizen chard. ?Peanuts. ?Potato chips, uzbek fries, and baked potatoes with skin on. ?Nuts and nut products. ?Chocolate. If you regularly take a diuretic medicine, make sure to eat at least 1 or 2 servings of fruits or vegetables that are high in potassium each day. These include: ?Avocado. ?Banana. ?Travis, prune, carrot, or tomato juice. ?Baked potato. [...] magnesium, fish oil, or vitamin B6. Take xkry-vln-uhijenr and prescription medicines only as told by [...] Casseroles. Pizza. Lasagna. Frozen meals. Potato chips. Malawian fries. The items listed above may not [...] provider. Document Revised: 04/29/2022 Document Reviewed: 04/29/2022 [employer] Patient Education 2022 [employer] Follow Up Care 06/04/2022 12:04:12 With:LOUISA SPARROW PA-C, URL Address: [address] [place] [address] When: Unknown [facility] Discharge instructions 06-04-2022 Note Date & Type Note Facility 06-04-2022 Hospital Discharg e instructions Patient Education 06/04/2022 11:49:33 Kidney Stones, Djop-oz-Nyop Kidney Stones Kidney stones are rock-like masses [...] Follow these instructions at home: Medicines Take otva-rji-nismgtu and prescription medicines only as told by [...] 02/03/2009 Document Revised: 01/04/2020 Document Reviewed: 01/04/2020 [employer] Patient Education 2019 [employer]. Follow Up Care 2021 09:56:33 With:ANDRA RIVERA, Carlos Mae, URL Address: [facility] [employer] [facility] [facility] [address] [place] [phone]- When:12/03/2022 Comments:KUB [facility] Clinical Note 09-21-2021 Note Date & Type [...] appropriately. I attempted to pass the #22 Malawian scope without success. She required urethral dilatation to 28 Malawian. She has a significant rectocele and a [...] removed. 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 [facility] Clinical Note 09-21-2021 Note Date & [...] appropriately. I attempted to pass the #22 Malawian scope without success. She required urethral dilatation to 28 Malawian. She has a significant rectocele and a [...] removed. 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 [facility] Evaluation + Plan note Laboratory Note Date & Type Note Facility Evaluation + Plan note Future Appointments Appointment Date:12/06/2022 10:30:00 AM Scheduled Provider:Carlos SILVERMAN MD Location:[facility] Appointment Type:URO Office Visit Future Scheduled TestsBasic Metabolic Panel 11/15/21 [facility] Evaluation + Plan note Note Date & Type Note Facility Evaluation + Plan note Future Appointments Appointment Date:05/04/2024 01:00:00 PM Scheduled Provider:Carlos SILVERMAN MD Location:[facility] Appointment Type:URO Office Visit [facility] course Narrative Note Date & Type Note Facility Hospital course Narrative No data available for this section [facility] Progress note Note Date & Type Note Facility Progress note No data available for this section [facility] ProPlan Summary Purpose Family History No Family History Records FoundNo Family History Records FoundNo Family History Records Found Advance Directives No Advanced Directives Records FoundNo Advanced Directives Records FoundNo Advanced Directives Records Found Additional Source Comments INFORMATION SOURCE (unrecogn ized section and content) DATE CREATED AUTHOR 02/27/2022 [facility] DATE CREATED AUTHOR AUTHOR'S ORGANIZ ATION 10/05/2022 [facility] DATE CREATED AUTHOR AUTHOR'S ORGANIZ ATION 05/02/2023 [facility] Patient Care team informatio n (unrecognized section and content) Personnel Name: Markie Smith MD Address: Address: [address] [place] [address] Personnel Name: Markie Smith MD Address: Address: [address] [place] [address] FOR RECORDS PERTAINING TO PATIENTS WHO ARE [...] BE BASED ON THE PRIMARY CLINICAL RECORDS. [employer] [facility]. provides no warranty or guarantee of the accuracy or completeness of information in this document.
== END 2024-05-14 10:07 | disposition home or self-care (01) ==
LOC: RAD 10:08
PROVIDERS: Family Provider Family Medicine; PCP Family Medicine; Visit Provider Physician Assistant
DX: N20.0 Calculus of kidney (principal)
CPT/HCPCS: 74018

== ENCOUNTER 2024-11-25 09:09 | Outpatient (OUT) | payer MEDICARE, SELFPAY ==
--- OUTSIDE RECORDS SUMMARY | 2024-11-25 09:32 | XMS_ITS | CCD ---
Author Organization [facility] CliniSymt Care Team Providers Care Merchandise Executive Name Role Phone ANDRA, DR CARLOS Mae Admitting Unavailable COOK, DR CARLOS Mae Attending Unavailable MEKA, DR ADEN Primary Care Unavailable COOK, DR CARLOS Mae Consulting Unavailable COOK, DR CARLOS Mae Admitting Unavailable COOK, DR CARLOS Mae Attending Unavailable MEKA, DR DAEN Primary Care Unavailable COOK, DR CARLOS Mae Consulting Unavailable MEKA, DR ADEN Admitting Unavailable MEKA, DR ADEN Attending Unavailable MEKA, DR ADEN Primary Care Unavailable MEKA, DR ADEN Consulting Unavailable ZIEBTIFFANI, DR JEREMIAH Norton Consulting Unavailable MEKA, DR ADEN Primary Care Unavailable MEKA, DR ADEN Admitting Unavailable HOAce, DR ADEN Attending Unavailable HOY, DR ADEN Consulting Unavailable COOK, DR CARLOS Mae Consulting Unavailable WEST, DR EDGAR Flores Consulting Unavailable PAY, DR RODRIGUEZ Consulting Unavailable GRECHNY, WOOD POOL Consulting Unavailable HAY, DR RAMIREZ Consulting Unavailable AGUBOSIM, RAMÍREZ Consulting Unavailable Otf, Aba Consulting Unavailable COOK, DR CARLOS Mae Admitting Unavailable COOK, DR CARLOS Mae Attending Unavailable MEKA, DR ADEN Primary Care Unavailable ANDRA, DR CARLOS Mae Consulting Unavailable ZIEBTIFFANI, DR JEREMIAH Norton Consulting Unavailable MEKA, DR ADEN Admitting Unavailable MEKA, DR ADEN Attending Unavailable MEKA, DR ADEN Primary Care Unavailable MEKA, DR ADEN Consulting Unavailable Markie Smith Primary Care Physician [phone] Markie Smith Primary Care Unavailable Carlos Silverman Attending Unavailable Carlos Silverman Admitting Unavailable Markie Smith Primary Care Unavailable Carlos Silverman Attending Unavailable Carlos Silverman Admitting Unavailable Carlos SILVERMAN Attending Unavailable Allergies Allergy Classification Reported Allergen(s) Allergy Type Date of Onset Reaction(s) Facility (2 sources) Ciprofloxacin; Translations: [ciprofloxacin] Drug Allergy 7 [facility] Repository (2 sources) Codeine; Translations: [codeine] Drug Allergy 1 [facility] (2 sources) Ibuprofen; Translations: [ibuprofen] Drug Allergy 7 [facility] (5 sources) Penicillin; Translations: [penicillin] Drug Allergy 3 Eruption of skin (disorder) [facility] (1 source) Bastian nut Drug allergy (disorder) 2 [facility] (3 sources) Ciprofloxacin; Translations: [ciprofloxacin] Drug Allergy 7 Unknown [facility] (3 sources) Codeine; Translations: [codeine] Drug Allergy 1 Unknown [facility] (3 sources) Ibuprofen; Translations: [ibuprofen] Drug Allergy [address] [facility] (4 sources) Sulfamethoxazole / Trimethoprim; Translations: [sulfamethoxazole-tr imethoprim] Drug Allergy Tremor (finding) [facility] Medications Current Medications Medication Drug Class(es) Dates Sig (Normalized) Sig (Original) ALPRAZolam 0.25 mg oral tablet (3 sources) Benzodiazepine Start: 10-09-2021 take 4 tablets by mouth three times daily Xanax 0.25 mg Tab mg tab(s), Oral, TID, Refills(s) 0 Start Date: 10/09/21 Status: Ordered calcium carbonate 500 mg chewable tablet (3 sources) Start: 05-28-2019 Tums 500 mg Tab-Chew 1,000 mg = 2 tab(s), Chewed, q4hr, PRN Dyspepsia, Refills(s) 0 Start Date: 05/28/19 Status: Ordered Celebrate Multivitamin (3 sources) Start: 03-18-2019 Celebrate Multivitamin Daily, Refill(s) 0 Start Date: 03/18/19 Status: Ordered Zyrtec (3 sources) Histamine-1 Receptor Antagonist Start: 10-09-2021 Zyrtec Daily, Refills(s) 0 Start Date: 10/09/21 Status: Ordered docusate sodium 100 mg oral capsule (3 sources) Start: 03-18-2019 take 1 capsule by mouth twice daily as needed for constipation Colace 100 mg Cap 100 mg = 1 cap(s), Oral, BID, PRN for constipation, crush and put in applesauce, # 20 cap(s), Refills(s) 0 Start Date: 03/18/19 Status: Ordered Excedrin Migraine (3 sources) Start: 10-09-2021 Excedrin Migraine Oral, q6hr, Refill(s) 0 Start Date: 10/09/21 Status: Ordered gabapentin 100 mg oral capsule (1 source) Anti-epileptic Agent Start: 05-18-2024 gabapentin 100 mg Cap 100 mg = 1 cap(s), Oral Start Date: 05/18/24 Status: Ordered Iron Chews (3 sources) Start: 10-09-2021 take 1 mg by mouth once daily Iron Chews mg, Oral, Daily, Refills(s) 0 Start Date: 10/09/21 Status: Ordered lactobacillus acidophilus [id number] unt oral capsule (3 sources) Start: 03-18-2019 take 1 capsule by mouth once daily lactobacillus acidophilus oral capsule 1 cap(s), Oral, Daily, Refill(s) 0 Start Date: 03/18/19 Status: Ordered meclizine hydrochloride 25 mg chewable tablet (3 sources) Antiemetic Start: 10-09-2021 take 1 mg by mouth three times daily meclizine 25 mg oral tablet, chewable mg tab(s), Chewed, TID, Refills(s) 0 Start Date: 10/09/21 Status: Ordered pantoprazole 40 mg delayed release oral tablet (2 sources) Proton Pump Inhibitor Start: 05-01-2023 take 1 mg by mouth once daily Pantoprazole [address] Tab mg tab(s), Oral, Daily Start Date: 05/01/23 Status: Ordered 24 hr divalproex sodium 500 mg extended release oral tablet (3 sources) Mood Stabilizer, Anti-epileptic Agent Start: 05-28-2019 take 2 tablets by mouth once daily divalproex sodium 500 mg ER Tab 1,000 mg = 2 tab(s), Oral, Daily, Refills(s) 0 Start Date: 05/28/19 Status: Ordered Problems Active Problems Problem Classification Problem Date Documented Da te Episodic/Chronic Calculus of urinary tract (13 sources) Calculus of kidney; Translations: [Personal history of urinary calculi] Onset: 09-27-2021 Episodic Chronic kidney disease (3 sources) Chronic kidney disease stage 3 06-06-2019 [...] dementia, and amnestic and other cognitive disorders (3 sources) Dementia associated with another disease 06-06-2019 Chronic Diabetes mellitus without complication (3 sources) Type 2 diabetes mellitus 06-06-2019 Chronic Diabetes mellitus without complication (1 source) Other abnormal glucose; Translations: [OTHER ABNORMAL GLUCOSE] Onset: 02-01-2022 Episodic Disorders of lipid metabolism (2 sources) Pure hypercholesterolemia , unspecified; Translations: [Hyperlipidemia, unspecified] Onset: 02-01-2022 Chronic Esophageal disorders (4 sources) Gastro-esophageal reflux disease without esophagitis; Translations: [Gastroesophageal reflux disease] Onset: 02-01-2022 04-14-2019 Chronic Hypertension with complications and secondary hypertension (1 source) Hypertensive heart disease with heart failure; Translations: [HTN HEART DISEASE W/HEART FAIL] Onset: 02-01-2022 Chronic Mood disorders (3 sources) Mixed bipolar affective disorder, mild 06-06-2019 Chronic Other diseases of kidney and ureters (1 source) Urinary tract obstruction; Translations: [Hydronephrosis with renal and ureteral calculous obstruction] Onset: 06-04-2022 Episodic Other diseases of kidney and ureters (3 sources) Hydronephrosis 10-09-2021 Episodic Other hereditary and degenerative nervous system conditions (3 sources) Essential tremor 03-18-2019 Chronic Other screening [...] UNSPECIFIED] Onset: 02-01-2022 Episodic Residual codes; unclassified (3 sources) History of craniotomy 03-18-2019 Episodic Viral infection (1 source) COVID-19; Translations: [COVID-19] Onset: 09-27-2021 Past or Other Problems Problem Classification Problem Date Documented Date Episodic/Chronic Abdominal pain (4 sources) Unspecified abdominal pain; Translations: [UNSPECIFIED ABDOMINAL PAIN] Onset: 09-21-2021 Episodic Other aftercare (1 source) Other usp (current) drug therapy; Translations: [OTH SNF CURRENT DRUG THERAPY] Onset: 09-27-2021 Episodic Other [...] Reference Range Facility Ambulatory Visit Summaryon 0 05-18-2024 Ambulatory Visit Summary Ambulatory Visit Summary ROBYN SRINIVASAN :1940 Visit Date:09/24/2021 Ambulatory Visit Instructions Your Diagnosis Kidney stone Ureteral stone with hydronephrosis Chronic kidney disease, stage 3 Your Care Team Primary Care Physician - Hoy MD, Markie This Is Your Medications List APAP/ASA/caffeine (Excedrin Migraine) alprazolam (Xanax 0.25 mg Tab) calcium carbonate (Tums 500 mg Tab-Chew) carbonyl iron (Iron Chews) cetirizine (Zyrtec) divalproex sodium (divalproex sodium 500 mg ER Tab) docusate (Colace 100 mg Cap) gabapentin (gabapentin 100 mg Cap) lactobacillus acidophilus (lactobacillus acidophilus oral capsule) meclizine (meclizine 25 mg oral tablet, chewable) multivitamin with minerals (Celebrate Multivitamin) pantoprazole (Pantoprazole [address] Tab) Procedures Performed Cystoscopy (09/22/2021), Appendectomy, CE - Cataract extraction, H/O: hysterectomy. Medications What How Much When Instructions Unchanged alprazolam (Xanax 0.25 mg Tab) By Mouth 3 times a day Unchanged APAP/ ASA/ caffeine (Excedrin Migraine) By Mouth Every 6 hours Unchanged calcium carbonate (Tums 500 mg Tab-Chew) 2 Tablets Chewed Every 4 hours as needed for Dyspepsia Unchanged carbonyl iron (Iron Chews) By Mouth Every day Unchanged cetirizine (Zyrtec) Every day Unchanged divalproex sodium (divalproex sodium 500 mg ER Tab) 2 Tablets By Mouth Every day Unchanged docusate (Colace 100 mg Cap) 1 Capsules By Mouth 2 times a day as needed for for constipation crush and put in applesauce Unchanged gabapentin (gabapentin 100 mg Cap) 1 Capsules By Mouth Unchanged lactobacillus acidophilus (lactobacillus acidophilus oral capsule) 1 Capsules By Mouth Every day Unchanged meclizine (meclizine 25 mg oral tablet, chewable) Chewed 3 times a day Unchanged multivitamin with minerals (Celebrate Multivitamin) Every day Unchanged pantoprazole (Pantoprazole [address] Tab) By Mouth Every day Allergies Bactrim (Shaking) ciprofloxacin (Unknown) codeine (Unknown) ibuprofen (Unknown) penicillin (Rash) Problems Ongoing - Any problem that you are currently receiving treatment for. Bipolar disorder Chronic GERD Chronic kidney disease, stage 3 Essential tremor History of kidney stones Kidney stone Mild dementia Status post craniectomy Type 2 diabetes mellitus with stage 3 chronic kidney disease Ureteral stone with hydronephrosis Patient Survey You may receive a survey via text or e-mail asking about your office visit. Please share your experience with us by completing your survey. We appreciate your feedback and thank you for choosing us for your care. Normal [facility] Reminderson 05-18-2024 Reminders Reminders From: Kinza Walker To: EU - Administrative; Sent: 05/18/2024 13:18:11 EDT Show up: 09/05/2025 13:17:00 EST Subject: Ambulatory Reminder Due Date/Time: 11/07/2025 13:17:00 EDT Reminder/Recall SCHEDULE ROBYN SRINIVASAN IN [address] MO [address] SILVERMAN [facility] Reminders Reminders From: Griselda Church To: EU - Recalls Andra; Sent: 05/18/2024 13:12:21 EDT Show up: 10/18/2025 12:12:00 EST Subject: KUB prior to appt Reminder Message Pt needs KUB done prior to f/u in 18 mos. Will need order (dx: history of kidney stones). Typically goes to [facility]. Normal [facility] Urology Office/Clinic Noteon 05-18-2024 Urology Office/Clinic Note Urology Office/Clinic Note Chief Complaint 1 year follow up HPI Staff 1 yr w/ KUB 05/14/24 Previous Dx: kidney stone, ureteral stone w/hydronephrosis CT AP w con 04/28/24 [facility] (ordered due to abdominal pain while in ER). Dysuria: denies pain or burning Incomplete bladder emptying: denies Hematuria: denies visible blood Frequency: 5x or more Urgency: sometimes Nocturia: 2-3x Stream: denies hesitancy, denies weak stream Leaking: yes Post void dripping: denies Wearing pads/ Depends: yes wears pads daily, changes twice a day Urge incontinence: denies Stress incontinence: yes Incontinence without Sensory Awareness: denies Abdominal pain: denies Flank pain: denies Sexual complaints: denies History of Present Illness Tests reviewed: reviewed UA, KUB, CT scan I have reviewed the previous health record information and history for this patient from [facility] Rodriguez. I have reviewed and verified the staff HPI to be accurate for this encounter. Review of Systems PHQ Score Initial Depression Screen Score: 0 SCORE ROS - Provider Constitutional: denies weight loss, denies hot flashes. Eyes: denies eye problems. Gastrointestinal: denies nausea, denies vomiting. Cardiovascular: denies chest pain or angina. Integumentary: no dryness Musculoskeletal: denies musculoskeletal symptoms. ENMT: denies otolaryngeal symptoms. Respiratory: no shortness of breath. Heme/Lymph: denies easy bleeding tendency, denies easy bruising tendency. Psychiatric: no confusion, no anxiety. Genitourinary: See HPI. Physical Exam Vitals & Measurements HR: 58(Peripheral) RR: 16 BP: 132/50 HT: 64 in HT: 163 cm WT: 78.1 kg WT: 171.82 lb BMI: 29.4 General Appearance: alert , no acute distress, well nourished, well developed female. Assessment/Plan 1. History of kidney stones (Z87.442: Personal history of urinary calculi) Stone analysis 10/25/21 - 70% Ca Ox mono and 30% Ca Ox di. Metabolic workup 02/02/22 - Low volume. High Na. Moderately low citrate. KUB 04/24/23 - Possible distal R urolithiasis. CT AP w con 04/28/24 [facility] (ordered due to abdominal pain while in ER) - No stones noted. KUB 05/14/24 [facility] - No visible stones. Reviewed imaging results which were neg. No indication for further workup or intervention. Will continue to monitor. UA today small leuks and positive nitrites. Asx. Advised pt to call if she starts to experience UTI sxs. -Increase water intake -KUB in 18 mos (recall placed) Overall the patient is doing well. No kidney stone passage since last visit. She had a CT scan for some abdominal pain and vomiting back in April which demonstrated only a small cyst in the left kidney. No evidence of hydronephrosis. No evidence of calculi. Subsequent KUB is also negative, as expected. We then discussed the follow-up which is recommended in 18 months, trying to increase the interval between visits. She knows to continue pushing fluids to keep the urine clear. Follow-up With When Contact Information ANDRA RIVERA, Carlos P, URL [address] [place] [id number] Additional Instructions: 1.5 yrs w/ KUB Patient Education Dietary Guidelines to Help Prevent Kidney Stones I, Griselda Church, personally scribed for Dr. Silverman on 05/18/2024 13:14:03. . Documentation recorded by the scribeGriselda acurately reflects the services(s) I performed and decisions made by me. Authenticated by Dr. Silverman on 05/18/2024 13:14:55. Portions of this record may have been created with voice recognition artificial intelligence software, specifically Egomotion, DeepFlex and or VitalMedix. Substitutions may have occurred due to the inherent limitations of voice recognition and artificial intelligence software. Problem List/Past Medical History Ongoing Bipolar disorder Chronic GERD Chronic kidney disease, stage 3 Essential tremor History of kidney stones Kidney stone Mild dementia Status post craniectomy [...] tab(s), Oral, Daily Excedrin Migraine, Oral, q6hr gabapentin 100 mg Cap, 100 mg= 1 cap(s), Oral Iron Chews, Oral, Daily lactobacillus acidophilus oral capsule, 1 cap(s), Oral, Daily meclizine 25 mg oral tablet, chewable, Chewed, TID Pantoprazole [address] Tab, Oral, Daily Tums 500 mg Tab-Chew, 1000 mg= 2 tab(s), Chewed, q4hr, PRN Xanax 0.25 mg Tab, Oral, TID Zyrtec, Daily Allergies Bactrim (Shaking) ciprofloxacin (Unknown) codeine (Unknown) ibuprofen (Unknown) penicillin (Rash) Social History (more content not included)... Normal [facility] Comment on above: Result Comment: Elec tronically Signed By: ANDRA RIVERA, Carlos Mae\.br\Date and Time Signed: 05/18/24 13:16 EDT\.br\Electronically Co-Signed By: Griselda Church\.amy\Date and Time Co-Signed: 05/18/24 13:14 EDT MG MAMM SCREEN 3D ZAN CADon 02-21-2022 MG MAMM SCREEN 3D ZAN CAD Patient: ROBYN SRINIVASAN Exam Date: 02/21/2022 : 1940 Gender:F Ordering : DR MARKIE SMITH . Admission #: [id number] Family : Order #: [id number] CLICK HERE TO VIEW EXAM RADIOLOGY REPORT [...] breast cancer at age 49. LOCATION: [facility] BREAST COMPOSITION: Scattered areas fibroglandular density. [...] Hobbs M.D. on 02/22/2022 at 13:35 Normal [facility] T4 LABCORPon 02-07-2022 T4 [Mass/Vol] 6.2 ug/dL Normal 4.5-12.0 [facility] Comment on above: Performed By: #### T 4LC #### [facility] [address] [place] [address] Dr. Reg Kerns CITRATE URINE 24HRon 022 Citric Acid, U, 24hr 191 mg/24 hr Critically low 320-1240 [facility] Comment on above: Result Comment: This test was developed and its performance characteristics determined by [facility]. It has not been cleared or approved by the Food and Drug Administration. Performed By: #### C ITRATU #### [facility] [address] [address] [address] Reg Kerns Citric Acid, Urine 283 mg/L Normal Undefined [facility] Comment on above: Performed By: #### C ITRATU #### [facility] [address] [address] [address] Reg Kerns OXALATE 24HR URINEon 02-05-2 022 Oxalates, Urine 24hr 5 mg/24 hr Normal 4-31 [facility] Comment on above: Performed By: #### O X24HR #### [facility] [address] [place] [address] Dr. Reg Kerns Oxalates, Urine 8 mg/L Normal Undefined [facility] Comment on above: Performed By: #### O X24HR #### [facility] [address] [address] [address] Reg Kerns MAGNESIUM 24HR URINEon 02-03 Magnesium 24hr Urine 43.2 mg/24 hr Normal 12.0-293.0 [facility] Comment on above: Performed By: #### P THINT #### [facility] [address] [place] [address] Dr. Reg Kerns Magnesium UR 6.4 mg/dL Normal Not Estab. [facility] Comment on above: Performed By: #### P THINT #### [facility] [address] [address] [address] Reg Kerns PHOSPHORUS 24HR URINEon Phosphorus, Urine 47.7 mg/dL Normal Not Estab. [facility] Comment on above: Performed By: #### P THINT #### [facility] [address] [place] [address] Dr. Reg Kerns Phosphorus, Urine 24hr 322 mg/24 hr Normal 261-1078 [facility] Comment on above: Performed By: #### P THINT #### [facility] [address] [place] [address] Dr. Reg Kerns URIC ACID 24 HR URINEon Uric Acid, Urine 28.4 mg/dL Normal Not Estab. [facility] Comment on above: Performed By: #### U NICHELLE 24 #### [facility] [address] [place] [address] Dr. Reg Kerns Uric Acid, Urine 24hr 191.7 mg/24 hr Normal 88.9-568.5 [facility] Comment on above: Performed By: #### U NICHELLE 24 #### [facility] [address] [place] [address] Dr. Reg Kerns CALCIUM 24 HR URINEon 2021 CALC, 24 HR UR 58.7 mg/24 hr Critically low 100.0-300.0 [facility] Comment on above: Performed By: #### P THINT #### [facility] [address] [place] [address] Dr. Reg Kerns UR CALCIUM 8.7 mg/dL Normal 5.1-21.0 [facility] Comment on above: Performed By: #### P THINT #### [facility] [address] [place] [address] Dr. Reg Kerns CREA 24 HR URINEon 2 CREA, 24 HR UR 455.96 mg/24 hr Critically low 800.00-1 ,800. 00 [facility] Comment on above: Performed By: #### C ITRATU #### [facility] [address] [place] [address] Dr. Reg Kerns URINE CREAT 67.55 mg/dL Normal 20.00-300.00 [facility] Comment on above: Performed By: #### C ITRATU #### [facility] [address] [place] [address] Dr. Reg Kerns SODIUM 24 HR URINEon 022 NA, 24 HR UR 76 mmol/24 hr Normal 40-220 [facility] Comment on above: Performed By: #### C ITRATU #### [facility] [address] [place] [address] Dr. Reg Kerns Sodium (U) [Moles/Vol] 112 mmol/L Critically high 30-90 [facility] Comment on above: Performed By: #### C ITRATU #### [facility] [address] [place] [address] Dr. Reg Kerns UR TOT VOL 675 ml/24 HR Normal [facility] Comment on above: Performed By: #### C ITRATU #### [facility] [address] [place] [address] Dr. Reg Kerns Performed By: #### P THINT #### [facility] [address] [place] [address] Dr. Reg Kerns INSULINon 02-01-2022 Insulin 27.7 uIU/mL Critically high 2.6-24.9 [facility] Comment on above: Performed By: #### U NICHELLE 24 #### [facility] [address] [place] [address] Dr. Reg Kerns PTH INTACTon 02-01-2022 PTH, Intact 46 pg/mL Normal 15-65 [facility] Comment on above: Performed By: #### P THINT #### [facility] [address] [place] [address] Dr. Reg Kerns BNPon 01-31-2022 Natriuretic peptide B (Bld) [Mass/Vol] 154.0 pg/mL Normal <=1,800.0 [facility] Comment on above: Performed By: #### P THINT #### [facility] [address] [place] [address] Dr. Reg Kerns CBC AUTO DIFFon 01-31-2022 BASO # 0.1 103/ul Normal 0.0-0.1 [facility] Comment on above: Performed By: #### U NICHELLE 24 #### [facility] [address] [place] [address] Dr. Reg Kerns Basophils/100 WBC (Bld) 0.8 % Normal 0.2-2.0 [facility] Comment on above: Performed By: #### U NICHELLE 24 #### [facility] [address] [place] [address] Dr. Reg Kerns EO # 0.3 103/ul Normal 0.0-0.7 [facility] Comment on above: Performed By: #### U NICHELLE 24 #### [facility] [address] [place] [address] Dr. Reg Kerns Eosinophils/100 WBC (Bld) 4.4 % Normal 0.9-7.0 [facility] Comment on above: Performed By: #### U NICHELLE 24 #### [facility] [address] [place] [address] Dr. Reg Kerns Erythrocyte distribution width (RBC) [Ratio] 15.7 % Critically high 11.0-15.0 [facility] Comment on above: Performed By: #### U NICHELLE 24 #### [facility] [address] [place] [address] Dr. Reg Kerns Hematocrit (Bld) [Volume fraction] 37.4 % Normal 36.0-48.0 [facility] Comment on above: Performed By: #### U NICHELLE 24 #### [facility] [address] [place] [address] Dr. Reg Kerns Hemoglobin (Bld) [Mass/Vol] 11.6 g/dL Critically low 12.0-16.0 [facility] Comment on above: Performed By: #### U NICHELLE 24 #### [facility] [address] [place] [address] Dr. Reg Kerns IG # 0.03 10e3/ul Normal 0.00-0.03 [facility] Comment on above: Performed By: #### U NICHELLE 24 #### [facility] [address] [place] [address] Dr. Reg Kerns IG % 0.5 % Normal 0.0-0.5 [facility] Comment on above: Performed By: #### U NICHELLE 24 #### [facility] [address] [place] [address] Dr. Reg Kerns LYMPH # 1.9 103/ul Normal 1.2-3.8 [facility] Comment on above: Performed By: #### U NICHELLE 24 #### [facility] [address] [place] [address] Dr. Reg Kerns Lymphocytes/100 WBC (Bld) 30.3 % Normal 20.5-60.0 [facility] Comment on above: Performed By: #### U NICHELLE 24 #### [facility] [address] [place] [address] Dr. Reg Kerns MANUAL DIFF REQ NO Normal [facility] Comment on above: Performed By: #### U NICHELLE 24 #### [facility] [address] [place] [address] Dr. Reg Kerns MCH (RBC) [Entitic mass] 26.9 pg Normal 26.7-34.0 [facility] Comment on above: Performed By: #### U NICHELLE 24 #### [facility] [address] [place] [address] Dr. Reg Kerns MCHC (RBC) [Mass/Vol] 31.0 g/dL Normal 29.9-35.2 [facility] Comment on above: Performed By: #### U NICHELLE 24 #### [facility] [address] [place] [address] Dr. Reg Kerns MCV (RBC) [Entitic vol] 86.6 fL Normal 81.0-99.0 [facility] Comment on above: Performed By: #### U NICHELLE 24 #### [facility] [address] [place] [address] Dr. Reg Kerns MONO # 0.6 103/ul Normal 0.3-0.8 [facility] Comment on above: Performed By: #### U NICHELLE 24 #### [facility] [address] [place] [address] Dr. Reg Kerns Monocytes/100 WBC (Bld) 8.9 % Normal 1.7-12.0 [facility] Comment on above: Performed By: #### U NICHELLE 24 #### [facility] [address] [place] [address] Dr. Reg Kerns NEUT # 3.5 103/ul Normal 1.4-6.5 [facility] Comment on above: Performed By: #### U NICHELLE 24 #### [facility] [address] [address] [address] Reg Kerns Neutrophils/100 WBC (Bld) 55.1 % Normal 43.0-75.0 [facility] Comment on above: Performed By: #### U NICHELLE 24 #### [facility] [address] [address] [address] Reg Kerns Platelet mean volume (Bld) [Entitic vol] 10.6 fL Normal 9.5-13.5 [facility] Comment on above: Performed By: #### U NICHELLE 24 #### [facility] [address] [address] [address] Reg Kerns PLT 250 103/ul Normal 150-450 [facility] Comment on above: Performed By: #### U NICHELLE 24 #### [facility] [address] [place] [address] Dr. Reg Kerns RBC 4.32 106/ul Normal 4.20-5.40 [facility] Comment on above: Performed By: #### U NICHELLE 24 #### [facility] [address] [place] [address] Dr. Reg Kerns WBC 6.4 103/ul Normal 4.0-11.0 [facility] Comment on above: Performed By: #### U NICHELLE 24 #### [facility] [address] [place] [address] Dr. Reg Kerns FREE THYROXINE INDEX T7on FTI 2.17 Normal 1.30-4.50 [facility] Comment on above: Performed By: #### P THINT #### [facility] [address] [place] [address] Dr. Reg Kerns T3U 35.0 % Normal 30.0-39.0 [facility] Comment on above: Performed By: #### P THINT #### [facility] [address] [place] [address] Dr. Reg Kerns T4 [Mass/Vol] 6.20 ug/dL Normal 4.80-13.90 [facility] Comment on above: Result Comment: T4 t esting performed by [facility] Performed By: #### P THINT #### [facility] [address] [address] [address] Reg Kerns GLYCOHEMOGLOBIN A1Con 2021 ADA RECOMMENDATION SEE BELOW Normal [facility] Comment on above: Result Comment: ADA RECOMMENDED LIMIT 4.0 - 6.0 ADA THERAPEUTIC TARGET < 7.0 ACTION SUGGESTED > 7.0 Performed By: #### P THINT #### [facility] [address] [address] [address] Reg Kerns Glucose [Mass/Vol] 117 mg/dL Normal [facility] Comment on above: Performed By: #### P THINT #### [facility] [address] [address] [address] Reg Kerns HbA1c (Bld) [Mass fraction] 5.7 % Normal 4.5-6.2 [facility] Comment on above: Performed By: #### P THINT #### [facility] [address] [place] [address] Dr. Reg Kerns IRONon 01-31-2022 Iron [Mass/Vol] 143.0 ug/dL Normal 50.0-170.0 [facility] Comment on above: Performed By: #### I JORGE #### [facility] [address] [place] [address] Dr. Reg Kerns LIPID PROFILEon 01-31-2022 CHOL-HDL RATIO NORM SEE BELOW Normal [facility] Comment on above: Result Comment: 3.3 - 4.4 LOW RISK 4.4 - 7.1 AVERAGE RISK 7.1 - 11.0 MODERATE RISK >11.0 HIGH RISK Performed By: #### P THINT #### [facility] [address] [place] [address] Dr. Reg Kerns Cholesterol [Mass/Vol] 210 mg/dL Critically high <=200 [facility] Comment on above: Performed By: #### P THINT #### [facility] [address] [place] [address] Dr. Reg Kerns Cholesterol in HDL [Mass/Vol] 56 mg/dL Normal 40-60 [facility] Comment on above: Performed By: #### P THINT #### [facility] [address] [address] [address] Reg Kerns Cholesterol in LDL [Mass/Vol] 110.6 mg/dL Normal [facility] Comment on above: Performed By: #### P THINT #### [facility] [address] [address] [address] Reg Kerns Cholesterol.total/Ch olesterol in HDL [Mass ratio] 3.8 {ratio} Normal [facility] Comment on above: Performed By: #### P THINT #### [facility] [address] [address] [address] Reg Kerns HDL NORMAL > or = 60 mg/dl - LO W CARDIOVASCULAR RISK <40 mg/dl - HIGH CARDIOVASCULAR RISK Normal [facility] Comment on above: Performed By: #### P THINT #### [facility] [address] [place] [address] Dr. Reg Kerns LDL CALC NORMAL SEE BELOW Normal [facility] Comment on above: Result Comment: <100 mg/dl OPTIMAL 100 - 129 mg/dl NEAR OR ABOVE OPTIMAL 130 - 159 mg/dl BORDERLINE HIGH 160 - 189 mg/dl HIGH >190 mg/dl VERY HIGH Performed By: #### P THINT #### [facility] [address] [place] [address] Dr. Reg Kerns Triglyceride [Mass/Vol] 217 mg/dL Critically high <=150 [facility] Comment on above: Performed By: #### P THINT #### [facility] [address] [place] [address] Dr. Reg Kerns VLDL CALC 43.4 mg/dL Normal [facility] Comment on above: Performed By: #### P THINT #### [facility] [address] [address] [address] eRg Kerns PROF 14(COMP METB)on 022 Albumin [Mass/Vol] 3.6 g/dL Normal 3.4-5.0 [facility] Comment on above: Performed By: #### P THINT #### [facility] [address] [place] [address] Dr. Reg Kerns Albumin/Globulin [Mass ratio] 1.0 {ratio} Normal [facility] Comment on above: Performed By: #### P THINT #### [facility] [address] [address] [address] Reg Kerns ALP [Catalytic activity/Vol] 74 U/L Normal 46-116 [facility] Comment on above: Performed By: #### P THINT #### [facility] [address] [address] [address] Reg Kerns ALT [Catalytic activity/Vol] 26 U/L Normal 14-59 [facility] Comment on above: Performed By: #### P THINT #### [facility] [address] [address] [address] Reg Kerns Anion gap [Moles/Vol] 13.3 mmol/L Normal [facility] Comment on above: Performed By: #### P THINT #### [facility] [address] [place] [address] Dr. Reg Kerns AST [Catalytic activity/Vol] 18 U/L Normal 15-37 [facility] Comment on above: Performed By: #### P THINT #### [facility] [address] [address] [address] Reg Kerns Bilirubin [Mass/Vol] 0.3 mg/dL Normal 0.2-1.0 [facility] Comment on above: Performed By: #### P THINT #### [facility] [address] [address] [address] Reg Kerns Calcium [Mass/Vol] 9.1 mg/dL Normal 8.5-10.1 [facility] Comment on above: Performed By: #### P THINT #### [facility] [address] [address] [address] Reg Kerns Chloride [Moles/Vol] 103 mmol/L Normal 98-107 [facility] Comment on above: Performed By: #### P THINT #### [facility] [address] [address] [address] Reg Kerns CO2 [Moles/Vol] 26.4 mmol/L Normal 21.0-32.0 [facility] Comment on above: Performed By: #### P THINT #### [facility] [address] [address] [address] Reg Kerns Creatinine [Mass/Vol] 0.88 mg/dL Normal 0.55-1.02 [facility] Comment on above: Performed By: #### P THINT #### [facility] [address] [address] [address] Reg Kerns EGFR-AF DJIBOUTIAN >60 Normal >=60 [facility] Comment on above: Performed By: #### P THINT #### [facility] [address] [address] [address] Reg Kerns EGFR-NON AF DJIBOUTIAN >60 Normal >=60 [facility] Comment on above: Performed By: #### P THINT #### [facility] [address] [place] [address] Dr. Reg Kerns Globulin (S) [Mass/Vol] 3.6 g/dL Normal [facility] Comment on above: Performed By: #### P THINT #### [facility] [address] [place] [address] Dr. Reg Kerns Glucose [Mass/Vol] 91 mg/dL Normal 74-106 [facility] Comment on above: Performed By: #### P THINT #### [facility] [address] [place] [address] Dr. Reg Kerns Potassium [Moles/Vol] 4.7 mmol/L Normal 3.5-5.1 [facility] Comment on above: Performed By: #### P THINT #### [facility] [address] [address] [address] Reg Kerns Protein [Mass/Vol] 7.2 g/dL Normal 6.4-8.2 [facility] Comment on above: Performed By: #### P THINT #### [facility] [address] [address] [address] Reg Kerns Sodium [Moles/Vol] 138 mmol/L Normal 136-145 [facility] Comment on above: Performed By: #### P THINT #### [facility] [address] [place] [address] Dr. Reg Kerns Urea nitrogen [Mass/Vol] 15.0 mg/dL Normal 7.0-18.0 [facility] Comment on above: Performed By: #### P THINT #### [facility] [address] [place] [address] Dr. Reg Kerns Urea nitrogen/Creatinine [Mass ratio] 17.0 mg/mg Normal [facility] Comment on above: Performed By: #### P THINT #### [facility] [address] [place] [address] Dr. Reg Kerns TSHon 01-31-2022 TSH 2.021 uIU/mL Normal 0.358-3.740 [facility] Comment on above: Performed By: #### P THINT #### [facility] [address] [place] [address] Dr. Reg Kerns TSH RANGE SEE BELOW Normal [facility] Comment on above: Result Comment: <0.3 4 UIU/ml HYPERTHYROID 0.34-5.60 UIU/ml EUTHYROID >5.60 UIU/ml HYPOTHYROID Performed By: #### P THINT #### [facility] [address] [place] [address] Dr. Reg Kerns URIC ACID SERUMon 01-31-2022 Urate [Mass/Vol] 6.1 mg/dL Critically high 2.6-6.0 [facility] Comment on above: Performed By: #### U NICHELLE #### [facility] [address] [place] [address] Dr. Reg Kerns Calculi, Urinaryon 2 Ca Oxalate Dihydrate 30 % Normal . [facility] Comment on above: Performed By: #### C ALCULI #### [facility] , Ca Oxalate Monohydrate 70 % Normal . [facility] Comment on above: Performed By: #### C ALCULI #### [facility] , Color (U) Brown Normal . [facility] Comment on above: Performed By: #### C ALCULI #### [facility] , Comment2 Normal . [facility] Comment on above: Result Comment: Calc ulus received in liquid. Wet calculi must be dried before analysis, which delays reporting of results. Leaving calculi in liquid (such as water, saline, blood, urine) may lead to changes in composition. Performed By: #### C ALCULI #### [facility] , Comment: Normal . [facility] Comment on above: Result Comment: Gaston jacobsen questions regarding Calculi Analysis [facility] at: [phone]. Performed By: #### C ALCULI #### [facility] , Composition Normal . [facility] Comment on above: Result Comment: Perc entage (Represents the % composition) Performed By: #### C ALCULI #### [facility] , Disclaimer: Normal . [facility] Comment on above: Result Comment: This test was developed and its performance characteristics determined by [facility]. It has not been cleared or approved by the Food and Drug Administration. Performed at: [facility] [address] [place] [address] Dr De La Garza, [place], [place] [id number] Durable Medical Equipment Technician: Beck Wynne MD, Phone: [phone] Performed By: #### C ALCULI #### [facility] , Note Normal . [facility] Comment on above: Result Comment: Calc perlita report will follow via computer, mail or beer cooler delivery. PERFORMED BY: [facility] [address] [place] [address] PATHOLOGIST RESEARCH PROGRAM COORDINATOR KENAN BAIRD M.D. Performed By: #### C ALCULI #### [facility] , Photo Normal . [facility] Comment on above: Result Comment: Phot ograph will follow under a separate cover Performed By: #### C ALCULI #### [facility] , Size 3x3 Normal . [facility] Comment on above: Result Comment: Mult iple pieces received. Dimensions of the largest piece reported. Performed By: #### C ALCULI #### [facility] , Source Kidney Normal . [facility] Comment on above: Performed By: #### C ALCULI #### [facility] , Weight 126 Normal . [facility] Comment on above: Performed By: #### C ALCULI #### [facility] , [place] 10-25-2021 L - -------- Specimen: [id number] Received: 10/26/21 Status: CATHERINE Presley Num: [id number] Spec Type: Surgical Subm Dr: Carlos Silverman MD Tissues: A Urinary Calculus (BILATERAL RENAL CALCULI) Procedures: Level 1 Gross -------- Patient Age/Sex Location Account Attending Physician -------- Robyn Srinivasan 80/F [place] [id number] Carlos Silverman MD -------- SPEC NUM: [id number] RECD: 10/26/21 STATUS: CATHERINE DELUCASorin NUM: [id number] SIL: 10/25/21- SUBM DR: Carlos Silverman MD ENTERED: 10/26/21 [facility] DR: SPEC TYPE: Surgical DEPT: S ORDERED: Level 1 [...] only. (GONZALES/NIKKI) Microscopic Description Gross examination only. [id number] -------- -------- Specimen: [id number] Received: 10/26/21 Status: CATHERINE Presley Num: [id number] Spec Type: Surgical Subm Dr: Carlos Silverman MD Tissues: A Urinary Calculus (BILATERAL RENAL CALCULI) Procedures: Level 1 Gross -------- Patient: Robyn Srinivasan [id number] (Continued) -------- Signed (signature on file) Kenan Baird MD 10/26/21 1633 Normal [facility] XR KUBon 10-25-2021 XR KUB [facility] [place] [address] XRay Report Signed Patient: Robyn Srinivasan MR#: [id number] : 1940 Acct:[id number] Age/Sex: 80 / F ADM Date: 10/25/21 Loc: [place] Room: Type: [facility] Attending Dr: Carlos Silverman MD Ordering [...] Eriberto Jordan M.D.10/25/2021 1:48 PM Dictation Location: RADIO-PC-03 Transcribed By: [facility] 10/25/21 1348 Dictated By: Eriberto Jordan DO 10/25/21 1345 Signed By: 10/25/21 1348 [facility] XR abdomen 1Von 10-25-2021 XR abdomen 1V [facility] Main [address] [address] XRay Report Signed Patient: Robyn Srinivasan MR#: [id number] : 1940 Acct:[id number] Age/Sex: 80 / F ADM Date: 10/25/21 Loc: [place] Room: Type: [facility] Attending Dr: Carlos Silverman MD Ordering [...] Pako King M.D.10/25/2021 4:52 PM Dictation Location: RADIO-PC-11 Transcribed By: [facility] 10/25/211651 Dictated By: Pako King II, MD 10/25/211649 Signed By: 10/25/211651 [facility] Basic Metabolic Panelon 10-02 Calcium [Mass/Vol] 9.4 mg/dL Normal 8.2-10.2 [facility] Comment on above: Result Comment: PERF ORMED BY: [address] [address] PATHOLOGIST RESEARCH PROGRAM COORDINATOR KENAN BAIRD M.D. Performed By: #### C BC, PT, PTT, BMP #### [place] [address] [place] Chloride [Moles/Vol] 103 mmol/L Normal 95-114 [facility] Comment on above: Performed By: #### C BC, PT, PTT, BMP #### [address] CO2 [Moles/Vol] 22.8 mmol/L Normal 22.0-30.0 [facility] Comment on above: Performed By: #### C BC, PT, PTT, BMP #### [address] Creatinine [Mass/Vol] 0.85 mg/dL Normal 0.44-1.03 [facility] Comment on above: Performed By: #### C BC, PT, PTT, BMP #### [address] Estimated GFR ( Faina > 60 [facility] Comment on above: Result Comment: GFR estimated reference range: According to KDOQI guidelines, <60 ml/min/1.73m2 is sufficient to diagnose a patient with chronic kidney disease. Performed By: #### C BC, PT, PTT, BMP #### [address] Estimated GFR (Non- Am > 60 [facility] Comment on above: Performed By: #### C BC, PT, PTT, BMP #### [place] [address] [place] Glucose [Mass/Vol] 95 mg/dL Normal 70-100 [facility] Comment on above: Result Comment: [place] Glucose Reference Range is dependent on time and content of last meal. Glucose of more than 200 mg/dL in a nonstressed, ambulatory subject supports the diagnosis of Diabetes Mellitus. ADA recommended reference range Performed By: #### C BC, PT, PTT, BMP #### [place] [address] [place] Potassium [Moles/Vol] 4.3 mmol/L Normal 3.5-5.1 [facility] Comment on above: Performed By: #### C BC, PT, PTT, BMP #### [address] Sodium [Moles/Vol] 137 mmol/L Normal 136-146 [facility] Comment on above: Performed By: #### C BC, PT, PTT, BMP #### [address] Urea nitrogen [Mass/Vol] 12 mg/dL Normal 9-23 [facility] Comment on above: Performed By: #### C BC, PT, PTT, BMP #### [address] Complete Blood Count Auto Di ffon 10-12-2021 Basophils (Bld) [#/Vol] 0.1 10*3/uL Normal 0.0-0.2 [facility] Comment on above: Result Comment: PERF ORMED BY: [place] [address] PATHOLOGIST RESEARCH PROGRAM COORDINATOR KENAN BAIRD M.D. Performed By: #### C BC, PT, PTT, BMP #### [address] Basophils/100 WBC (Bld) 1.3 % Normal . [facility] Comment on above: Performed By: #### C BC, PT, PTT, BMP #### [facility] [address] [place] [address] Eosinophils (Bld) [#/Vol] 0.5 10*3/uL High 0.0-0.45 [facility] Comment on above: Performed By: #### C BC, PT, PTT, BMP #### [address] Eosinophils/100 WBC (Bld) 6.6 % Normal . [facility] Comment on above: Performed By: #### C BC, PT, PTT, BMP #### [address] Erythrocyte distribution width (RBC) [Ratio] 14.5 % Normal 11.9-15.3 [facility] Comment on above: Performed By: #### C BC, PT, PTT, BMP #### [address] Hematocrit (Bld) [Volume fraction] 38.5 % Normal 34.0-46.4 [facility] Comment on above: Performed By: #### C BC, PT, PTT, BMP #### [address] Hemoglobin (Bld) [Mass/Vol] 12.6 g/dL Normal 11.8-15.4 [facility] Comment on above: Performed By: #### C BC, PT, PTT, BMP #### [address] Lymphocytes (Bld) [#/Vol] 1.6 10*3/uL Normal 1.00-4.8 [facility] Comment on above: Performed By: #### C BC, PT, PTT, BMP #### [address] Lymphocytes/100 WBC (Bld) 22.1 % Normal . [facility] Comment on above: Performed By: #### C BC, PT, PTT, BMP #### [address] MCH (RBC) [Entitic mass] 28.0 pg Normal 24.7-34.3 [facility] Comment on above: Performed By: #### C BC, PT, PTT, BMP #### [address] MCV (RBC) [Entitic vol] 85.7 fL Normal 80-100 [facility] Comment on above: Performed By: #### C BC, PT, PTT, BMP #### [address] Mean Corpuscular HGB Conc 32.7 g/dL Normal 32.0-35.0 [facility] Comment on above: Performed By: #### C BC, PT, PTT, BMP #### [facility] [address] [place] [address] [place] Monocytes (Bld) [#/Vol] 0.5 10*3/uL Normal 0.0-0.8 [facility] Comment on above: Performed By: #### C BC, PT, PTT, BMP #### [facility] [address] Monocytes/100 WBC (Bld) 6.2 % Normal . [facility] Comment on above: Performed By: #### C BC, PT, PTT, BMP #### [facility] [address] Neutrophils (Bld) [#/Vol] 4.8 10*3/uL Normal 1.8-7.7 [facility] Comment on above: Performed By: #### C BC, PT, PTT, BMP #### [facility] [address] [place] [address] Neutrophils/100 WBC (Bld) 63.8 % Normal . [facility] Comment on above: Performed By: #### C BC, PT, PTT, BMP #### [facility] [address] [place] [address] [place] Nucleated RBC/100 WBC (Bld) [Ratio] 0.0 % Normal 0-0.5 [facility] Comment on above: Performed By: #### C BC, PT, PTT, BMP #### [facility] [address] [place] [address] [place] Platelet mean volume (Bld) [Entitic vol] 8.5 fL Normal 6.3-10.7 [facility] Comment on above: Performed By: #### C BC, PT, PTT, BMP #### [facility] [address] [place] [address] [place] Platelets (Bld) [#/Vol] 244 10*3/uL Normal 150-450 [facility] Comment on above: Performed By: #### C BC, PT, PTT, BMP #### [facility] [address] [place] [address] [place] RBC (Bld) [#/Vol] 4.49 10*6/uL Normal 3.60-5.00 [facility] Comment on above: Performed By: #### C BC, PT, PTT, BMP #### [facility] [address] [place] [address] WBC (Bld) [#/Vol] 7.5 10*3/uL Normal 4.5-11.0 [facility] Comment on above: Performed By: #### C BC, PT, PTT, BMP #### [facility] [address] [place] [address] ECG 12 lead ECGon 10-12-2021 ECG 12 lead ECG [facility] [place] [address] [place] [address] Electrocardiograph Report Signed Patient: Robyn Srinivasan MR#: [id number] : 1940 Acct:[id number] Age/Sex: 80 / F ADM Date: 10/12/21 Loc: Room: Type: [facility] Attending Dr: Carlos Silverman MD [...] previous ECGs available Confirmed by MALACHI RIVERA [facility], JESICA ([id number]) on 10/12/2021 7:05:53 PM Referred By: ANDRA Electronically Signed By:JESICA BRAXTON MD [facility] Transcribed By: MUS Signed By Jesica Braxton MD, FACC 10/12/211904 Normal [facility] Partial Thromboplastin Timeo n 10-12-2021 aPTT Coag (Bld) [Time] 27.0 s Normal 25.1-36.5 [facility] Comment on above: Result Comment: PERF ORMED BY: [place] [address] PATHOLOGIST RESEARCH PROGRAM COORDINATOR KENAN BAIRD M.D. Performed By: #### C BC, PT, PTT, BMP #### [facility] [address] Prothrombin Time INRon 10-12 INR Coag (PPP) [Relative time] 1.0 {INR} Normal [facility] Comment on above: Result Comment: INR [...] #### C BC, PT, PTT, BMP #### [facility] [address] [place] [address] PT Coag (PPP) [Time] 11.0 s Normal 9.0-12.9 [facility] Comment on above: Performed By: #### C BC, PT, PTT, BMP #### [facility] [address] [place] [address] XR chest 2V*on 10-12-2021 XR chest 2V* [facility] [place] [address] [place] [address] XRay Report Signed Patient: Robyn Srinivasan MR#: [id number] : 1940 Acct:[id number] Age/Sex: 80 / F ADM Date: 10/12/21 Loc: PS Room: Type: [facility] Attending Dr: Carlos Silverman [...] Li Jr., D.ODominik10/12/2021 11:55 AM Dictation Location: [place] [address] Transcribed By: [facility] 10/12/21 1155 Dictated By: Tj Li Jr, DO 10/12/21 1155 Signed By: 10/12/21 1155 Normal [facility] XR KUB 1 VIEWon 10-08-2021 [...] by: JEREMIAH HOBBS Date: 2021-10-08 09:18 Normal [facility] XR RETROGRADE PYELOGRAMon XR RETROGRADE [...] by: EDGAR PADRON Date: 2021-09-23 09:36 Normal [facility] CBC AUTO DIFFon 09-22-2021 BASO # 0.0 103/ul Normal 0.0-0.1 [facility] Comment on above: Performed By: #### P THINT #### [facility] [address] [address] [address] Reg Kerns Basophils/100 WBC (Bld) 0.5 % Normal 0.2-2.0 [facility] Comment on above: Performed By: #### P THINT #### [facility] [address] [place] [address] Dr. Reg Kerns EO # 0.2 103/ul Normal 0.0-0.7 [facility] Comment on above: Performed By: #### P THINT #### [facility] [address] [place] [address] Dr. Reg Kerns Eosinophils/100 WBC (Bld) 3.9 % Normal 0.9-7.0 [facility] Comment on above: Performed By: #### P THINT #### [facility] [address] [place] [address] Dr. Reg Kerns Erythrocyte distribution width (RBC) [Ratio] 13.4 % Normal 11.0-15.0 [facility] Comment on above: Performed By: #### P THINT #### [facility] [address] [place] [address] Dr. Reg Kerns Hematocrit (Bld) [Volume fraction] 32.9 % Critically low 36.0-48.0 [facility] Comment on above: Performed By: #### P THINT #### [facility] [address] [place] [address] Dr. Reg Kerns Hemoglobin (Bld) [Mass/Vol] 10.3 g/dL Critically low 12.0-16.0 [facility] Comment on above: Performed By: #### P THINT #### [facility] [address] [place] [address] Dr. Reg Kerns IG # 0.02 10e3/ul Normal 0.00-0.03 [facility] Comment on above: Performed By: #### P THINT #### [facility] [address] [place] [address] Dr. Reg Kerns IG % 0.3 % Normal 0.0-0.5 [facility] Comment on above: Performed By: #### P THINT #### [facility] [address] [address] [address] Reg Kerns LYMPH # 2.2 103/ul Normal 1.2-3.8 [facility] Comment on above: Performed By: #### P THINT #### [facility] [address] [address] [address] Reg Kerns Lymphocytes/100 WBC (Bld) 37.3 % Normal 20.5-60.0 [facility] Comment on above: Performed By: #### P THINT #### [facility] [address] [place] [address] Dr. Reg Kerns MANUAL DIFF REQ NO Normal [facility] Comment on above: Performed By: #### P THINT #### [facility] [address] [place] [address] Dr. Reg Kerns MCH (RBC) [Entitic mass] 27.8 pg Normal 26.7-34.0 [facility] Comment on above: Performed By: #### P THINT #### [facility] [address] [place] [address] Dr. Reg Kerns MCHC (RBC) [Mass/Vol] 31.3 g/dL Normal 29.9-35.2 [facility] Comment on above: Performed By: #### P THINT #### [facility] [address] [place] [address] Dr. Reg Kerns MCV (RBC) [Entitic vol] 88.7 fL Normal 81.0-99.0 [facility] Comment on above: Performed By: #### P THINT #### [facility] [address] [place] [address] Dr. Reg Kerns MONO # 0.6 103/ul Normal 0.3-0.8 [facility] Comment on above: Performed By: #### P THINT #### [facility] [address] [place] [address] Dr. Reg Kerns Monocytes/100 WBC (Bld) 10.6 % Normal 1.7-12.0 [facility] Comment on above: Performed By: #### P THINT #### [facility] [address] [address] [address] Reg Kerns NEUT # 2.8 103/ul Normal 1.4-6.5 [facility] Comment on above: Performed By: #### P THINT #### [facility] [address] [address] [address] Reg Kerns Neutrophils/100 WBC (Bld) 47.4 % Normal 43.0-75.0 [facility] Comment on above: Performed By: #### P THINT #### [facility] [address] [place] [address] Dr. Reg Kerns Platelet mean volume (Bld) [Entitic vol] 10.2 fL Normal 9.5-13.5 [facility] Comment on above: Performed By: #### P THINT #### [facility] [address] [place] [address] Dr. Reg Kerns PLT 210 103/ul Normal 150-450 [facility] Comment on above: Performed By: #### P THINT #### [facility] [address] [place] [address] Dr. Reg Kerns RBC 3.71 106/ul Critically low 4.20-5.40 [facility] Comment on above: Performed By: #### P THINT #### [facility] [address] [place] [address] Dr. Reg Kerns WBC 5.9 103/ul Normal 4.0-11.0 [facility] Comment on above: Performed By: #### P THINT #### [facility] [address] [place] [address] Dr. Reg Kerns CULTURE URINEon 09-22-2021 CULTURE URINE Culture Observations : No growth Normal [facility] Comment on above: Performed By: #### C ITRATU #### [facility] [address] [place] [address] Dr. Reg Kerns PROF 14(COMP METB)on 022 Albumin [Mass/Vol] 3.0 g/dL Critically low 3.5-5.0 [facility] Comment on above: Performed By: #### C MP #### [facility] [address] [place] [address] Dr. Reg Kerns Albumin/Globulin [Mass ratio] 1.0 {ratio} Normal [facility] Comment on above: Performed By: #### C MP #### [facility] [address] [address] [address] Reg Kerns ALP [Catalytic activity/Vol] 55 U/L Normal 38-126 [facility] Comment on above: Performed By: #### C MP #### [facility] [address] [address] [address] Reg Kerns ALT [Catalytic activity/Vol] 16 U/L Normal 9-52 [facility] Comment on above: Performed By: #### C MP #### [facility] [address] [place] [address] Dr. Reg Kerns Anion gap [Moles/Vol] 12.6 mmol/L Normal [facility] Comment on above: Performed By: #### C MP #### [facility] [address] [place] [address] Dr. Reg Kerns AST [Catalytic activity/Vol] 17 U/L Normal 14-36 [facility] Comment on above: Performed By: #### C MP #### [facility] [address] [place] [address] Dr. Reg Kerns Bilirubin [Mass/Vol] 0.1 mg/dL Critically low 0.2-1.3 [facility] Comment on above: Performed By: #### C MP #### [facility] [address] [place] [address] Dr. Reg Kerns Calcium [Mass/Vol] 8.7 mg/dL Normal 8.4-10.2 [facility] Comment on above: Performed By: #### C MP #### [facility] [address] [address] [address] Reg Kerns Chloride [Moles/Vol] 106 mmol/L Normal 98-107 [facility] Comment on above: Performed By: #### C MP #### [facility] [address] [address] [address] Reg Kerns CO2 [Moles/Vol] 25.8 mmol/L Normal 22.0-30.0 [facility] Comment on above: Performed By: #### C MP #### [facility] [address] [address] [address] Reg Kerns Creatinine [Mass/Vol] 0.83 mg/dL Normal 0.52-1.04 [facility] Comment on above: Performed By: #### C MP #### [facility] [address] [place] [address] Dr. Reg Kerns EGFR-AF DJIBOUTIAN >60 Normal >=60 [facility] Comment on above: Performed By: #### C MP #### [facility] [address] [place] [address] Dr. Reg Kerns EGFR-NON AF DJIBOUTIAN >60 Normal >=60 [facility] Comment on above: Performed By: #### C MP #### [facility] [address] [place] [address] Dr. Reg Kerns Globulin (S) [Mass/Vol] 2.9 g/dL Normal [facility] Comment on above: Performed By: #### C MP #### [facility] [address] [place] [address] Dr. Reg Kerns Glucose [Mass/Vol] 99 mg/dL Normal 74-106 [facility] Comment on above: Performed By: #### C MP #### [facility] [address] [address] [address] Reg Kerns Potassium [Moles/Vol] 4.4 mmol/L Normal 3.4-5.0 [facility] Comment on above: Performed By: #### C MP #### [facility] [address] [place] [address] Dr. Reg Kerns Protein [Mass/Vol] 5.9 g/dL Critically low 6.1-8.2 [facility] Comment on above: Performed By: #### C MP #### [facility] [address] [place] [address] Dr. Reg Kerns Sodium [Moles/Vol] 140 mmol/L Normal 137-145 [facility] Comment on above: Performed By: #### C MP #### [facility] [address] [place] [address] Dr. Reg Kerns Urea nitrogen [Mass/Vol] 11.0 mg/dL Normal 7.0-17.0 [facility] Comment on above: Performed By: #### C MP #### [facility] [address] [place] [address] Dr. Reg Kerns Urea nitrogen/Creatinine [Mass ratio] 13.3 mg/mg Normal [facility] Comment on above: Performed By: #### C MP #### [facility] [address] [place] [address] Dr. Reg Kerns CBC AUTO DIFFon 09-21-2021 BASO # 0.0 103/ul Normal 0.0-0.1 [facility] Comment on above: Performed By: #### C ITRATU #### [facility] [address] [place] [address] Dr. Reg Kerns Basophils/100 WBC (Bld) 0.6 % Normal 0.2-2.0 [facility] Comment on above: Performed By: #### C ITRATU #### [facility] [address] [place] [address] Dr. Reg Kerns EO # 0.3 103/ul Normal 0.0-0.7 [facility] Comment on above: Performed By: #### C ITRATU #### [facility] [address] [place] [address] Dr. Reg Kerns Eosinophils/100 WBC (Bld) 3.5 % Normal 0.9-7.0 [facility] Comment on above: Performed By: #### C ITRATU #### [facility] [address] [place] [address] Dr. Reg Kerns Erythrocyte distribution width (RBC) [Ratio] 13.4 % Normal 11.0-15.0 [facility] Comment on above: Performed By: #### C ITRATU #### [facility] [address] [place] [address] Dr. Reg Kerns Hematocrit (Bld) [Volume fraction] 37.8 % Normal 36.0-48.0 [facility] Comment on above: Performed By: #### C ITRATU #### [facility] [address] [place] [address] Dr. Reg Kerns Hemoglobin (Bld) [Mass/Vol] 12.3 g/dL Normal 12.0-16.0 [facility] Comment on above: Performed By: #### C ITRATU #### [facility] [address] [place] [address] Dr. Reg Kerns IG # 0.03 10e3/ul Normal 0.00-0.03 [facility] Comment on above: Performed By: #### C ITRATU #### [facility] [address] [place] [address] Dr. Reg Kerns IG % 0.4 % Normal 0.0-0.5 [facility] Comment on above: Performed By: #### C ITRATU #### [facility] [address] [place] [address] Dr. Reg Kerns LYMPH # 1.6 103/ul Normal 1.2-3.8 [facility] Comment on above: Performed By: #### C ITRATU #### [facility] [address] [place] [address] Dr. Reg Kerns Lymphocytes/100 WBC (Bld) 22.9 % Normal 20.5-60.0 [facility] Comment on above: Performed By: #### C ITRATU #### [facility] [address] [place] [address] Dr. Reg Kerns MANUAL DIFF REQ NO Normal [facility] Comment on above: Performed By: #### C ITRATU #### [facility] [address] [place] [address] Dr. Reg Kerns MCH (RBC) [Entitic mass] 28.5 pg Normal 26.7-34.0 [facility] Comment on above: Performed By: #### C ITRATU #### [facility] [address] [place] [address] Dr. Reg Kerns MCHC (RBC) [Mass/Vol] 32.5 g/dL Normal 29.9-35.2 [facility] Comment on above: Performed By: #### C ITRATU #### [facility] [address] [place] [address] Dr. Reg Kerns MCV (RBC) [Entitic vol] 87.7 fL Normal 81.0-99.0 [facility] Comment on above: Performed By: #### C ITRATU #### [facility] [address] [place] [address] Dr. Reg Kerns MONO # 0.6 103/ul Normal 0.3-0.8 [facility] Comment on above: Performed By: #### C ITRATU #### [facility] [address] [place] [address] Dr. Reg Kerns Monocytes/100 WBC (Bld) 8.2 % Normal 1.7-12.0 [facility] Comment on above: Performed By: #### C ITRATU #### [facility] [address] [place] [address] Dr. Reg Kerns NEUT # 4.6 103/ul Normal 1.4-6.5 [facility] Comment on above: Performed By: #### C ITRATU #### [facility] [address] [place] [address] Dr. Reg Kerns Neutrophils/100 WBC (Bld) 64.4 % Normal 43.0-75.0 [facility] Comment on above: Performed By: #### C ITRATU #### [facility] [address] [place] [address] Dr. Reg Kerns Platelet mean volume (Bld) [Entitic vol] 10.8 fL Normal 9.5-13.5 [facility] Comment on above: Performed By: #### C ITRATU #### [facility] [address] [place] [address] Dr. Reg Kerns PLT 256 103/ul Normal 150-450 [facility] Comment on above: Performed By: #### C ITRATU #### [facility] [address] [place], [place] [address] Dr. Reg Kerns RBC 4.31 106/ul Normal 4.20-5.40 [facility] Comment on above: Performed By: #### C ITRATU #### [facility] [address] [place], [place] [address] Dr. Reg Kerns WBC 7.1 103/ul Normal 4.0-11.0 [facility] Comment on above: Performed By: #### C ITRATU #### [facility] [address] [place], [place] [address] ABD/PELVIS WO CONon [...] deep venous thrombosis. Electronically authenticated by: ABA OTF Date: 2021-09-21 19:43 Normal [facility] Covid-19 PCR (CVDTBH)on 09-02 SARS-CoV-2 (COVID-19) RNA BYRON+probe Ql (Unsp spec) Detected Critically abnormal NOT DETECTED [facility] Comment on above: Result Comment: This test is not yet approved or cleared by the [place] FDA. When there are no FDA-approved or cleared tests available, and other criteria are met, FDA can make tests available under an emergency access mechanism called an Emergency Use Authorization (EUA). The EUA for this test is supported by the [place] of Health and Human Service's declaration that [...] used). Performed By: #### C VDTBH #### [facility] [address] [place] [address] Dr. Reg Kerns ER URINE PROFILEon 2 Bilirubin Ql (U) Negative Normal NEGATIVE [facility] Comment on above: Performed By: #### U NICHELLE 24 #### [facility] [address] [place] [address] Dr. Reg Kerns Clarity (U) SL CLOUDY Abnormal CLEAR [facility] Comment on above: Performed By: #### U NICHELLE 24 #### [facility] [address] [place] [address] Dr. Reg Kerns Color (U) YELLOW Normal YELLOW [facility] Comment on above: Performed By: #### U NICHELLE 24 #### [facility] [address] [place] [address] Dr. Reg WEAVER A micrscopic examination will be performed if indicated. Normal [facility] Comment on above: Performed By: #### U NICHELLE 24 #### [facility] [address] [place] [address] Dr. Reg Kerns Glucose Ql (U) Negative Normal NEGATIVE [facility] Comment on above: Performed By: #### U NICHELLE 24 #### [facility] [address] [place] [address] Dr. Reg Kerns Hemoglobin Ql (U) LARGE Abnormal NEGATIVE [facility] Comment on above: Performed By: #### U NICHELLE 24 #### [facility] [address] [place] [address] Dr. Reg Kerns Ketones Ql (U) Negative Normal NEGATIVE [facility] Comment on above: Performed By: #### U NICHELLE 24 #### [facility] [address] [place] [address] Dr. Reg Kerns LEUKOCYTES Negative Normal NEGATIVE [facility] Comment on above: Performed By: #### U NICHELLE 24 #### [facility] [address] [place] [address] Dr. Reg Kerns Nitrite Ql (U) Negative Normal NEGATIVE [facility] Comment on above: Performed By: #### U NICHELLE 24 #### [facility] [address] [place] [address] Dr. Reg Kerns pH (U) 5.0 [pH] Normal 5-9 [facility] Comment on above: Performed By: #### U NICHELLE 24 #### [facility] [address] [place] [address] Dr. Reg Kerns SPEC GRAVITY >=1.030 Abnormal 1.005-<=1.025 [facility] Comment on above: Performed By: #### U NICHELLE 24 #### [facility] [address] [place] [address] Dr. Reg Kerns UA PROTEIN TRACE Normal NEGATIVE/ TRACE [facility] Comment on above: Performed By: #### U NICHELLE 24 #### [facility] [address] [place] [address] Dr. Reg Kerns UR MICRO IND INDICATED Normal [facility] Comment on above: Performed By: #### U NICHELLE 24 #### [facility] [address] [place] [address] Dr. Reg Kerns Urobilinogen Qn (U) 0.2 {Tiffani'U}/dL Normal 0.2 - 1. 0 [facility] Comment on above: Performed By: #### U NICHELLE 24 #### [facility] [address] [place] [address] Dr. Reg Kerns PROF CHEM 8 (BAS METB)on Anion gap [Moles/Vol] 14.0 mmol/L Normal [facility] Comment on above: Performed By: #### B MP #### [facility] [address] [place] [address] Dr. Reg Kerns Calcium [Mass/Vol] 9.2 mg/dL Normal 8.4-10.2 [facility] Comment on above: Performed By: #### B MP #### [facility] [address] [address] [address] Reg Kerns Chloride [Moles/Vol] 101 mmol/L Normal 98-107 [facility] Comment on above: Performed By: #### B MP #### [facility] [address] [address] [address] Reg Kerns CO2 [Moles/Vol] 25.9 mmol/L Normal 22.0-30.0 [facility] Comment on above: Performed By: #### B MP #### [facility] [address] [address] [address] Reg Kerns Creatinine [Mass/Vol] 1.13 mg/dL Critically high 0.52-1.04 [facility] Comment on above: Performed By: #### B MP #### [facility] [address] [address] [address] Reg Kerns EGFR-AF DJIBOUTIAN 56 mL/min/1.73m2 Critically low >=60 [facility] Comment on above: Performed By: #### B MP #### [facility] [address] [address] [address] Reg Kerns EGFR-NON AF DJIBOUTIAN 47 mL/min/1.73m2 Critically low >=60 [facility] Comment on above: Performed By: #### B MP #### [facility] [address] [address] [address] Reg Kerns Glucose [Mass/Vol] 145 mg/dL Critically high 74-106 [facility] Comment on above: Performed By: #### B MP #### [facility] [address] [address] [address] Reg Kerns Potassium [Moles/Vol] 3.9 mmol/L Normal 3.4-5.0 [facility] Comment on above: Performed By: #### B MP #### [facility] [address] [address] [address] Reg Kerns Sodium [Moles/Vol] 137 mmol/L Normal 137-145 [facility] Comment on above: Performed By: #### B MP #### [facility] [address] [place] [address] Dr. Reg Kerns Urea nitrogen [Mass/Vol] 13.0 mg/dL Normal 7.0-17.0 [facility] Comment on above: Performed By: #### B MP #### [facility] [address] [place] [address] Dr. Reg Kerns Urea nitrogen/Creatinine [Mass ratio] 11.5 mg/mg Normal [facility] Comment on above: Performed By: #### B MP #### [facility] [address] [place] [address] Dr. Reg Kerns URINE MICROSCOPIC ONLYon BACTERIA TRACE Abnormal NONE SEEN [facility] Comment on above: Performed By: #### U NICHELLE 24 #### [facility] [address] [place] [address] Dr. Reg Kerns Bacteria identified Cx Nom (U) NOT INDICATED Normal [facility] Comment on above: Performed By: #### U NICHELLE 24 #### [facility] [address] [place] [address] Dr. Reg Kerns CAST NONE SEEN Normal NONE SEEN [facility] Comment on above: Performed By: #### U NICHELLE 24 #### [facility] [address] [place] [address] Dr. Reg Kerns Crystals LM Nom (Urine sed) NONE SEEN Normal NONE SEEN [facility] Comment on above: Performed By: #### U NICHELLE 24 #### [facility] [address] [place] [address] Dr. Reg Kerns Epithelial cells LM Ql (Urine sed) FEW Abnormal NONE SEEN /RARE [facility] Comment on above: Performed By: #### U NICHELLE 24 #### [facility] [address] [place] [address] Dr. Reg Kerns MUCOUS TRACE Abnormal NONE SEEN [facility] Comment on above: Performed By: #### U NICHELLE 24 #### [facility] [address] [place] [address] Dr. Reg Kerns RBC 5-10 Abnormal 0-2 [facility] Comment on above: Performed By: #### U NICHELLE 24 #### [facility] [address] [address] [address] Reg Kerns WBC 0-2 Abnormal NONE SEEN [facility] Comment on above: Performed By: #### U NICHELLE 24 #### [facility] [address] [id number] Reg Kerns Vital Signs Date Time Vital Sign Value Performing Clinician Facility 05-18-2024 12:54-0400 Blood Pressure Location [facility] 05-18-2024 12:54-0400 Diastolic blood pressure 50 mm[Hg] [facility] 05-18-2024 12:54-0400 Heart rate 58 /min [facility] 05-18-2024 12:54-0400 Respiratory rate 16 /min [facility] 05-18-2024 12:54-0400 Systolic blood pressure 132 mm[Hg] [facility] 05-01-2023 12:51-0400 Blood Pressure Location VICKIE SPARROW [facility] 05-01-2023 12:51-0400 Body temperature 97.34 [degF] [facility]ICK[facility] SPARR[facility] 05-01-2023 12:51-0400 Diastolic blood pressure 81 mm[Hg] [facility]ICKIE SPARROW [facility] 05-01-2023 12:51-0400 Heart rate 78 /min [facility] 05-01-2023 12:51-0400 Systolic blood pressure 158 mm[Hg] [facility]ICK[facility] SPARROW [facility] 06-04-2022 11:49-0400 Blood Pressure Location Carlos ANDRA [facility] 06-04-2022 11:49-0400 Diastolic blood pressure 86 mm[Hg] Carlos SILVERMAN [facility] 06-04-2022 11:49-0400 Heart rate 85 /min Carlos SILVERMAN [facility] 06-04-2022 11:49-0400 Systolic blood pressure 132 mm[Hg] Carlos ANDRA [facility] Encounters Encounter Date Encounter Type Care Provider Facility Start: 05-18-2024 End: 05-18-2024 ambulatory Carlos SILVERMAN Facility:[facility] Start: 05-18-2024 End: 05-18-2024 Patient encounter procedure Carlos SILVERMAN [facility] Start: 05-01-2023 End: 05-01-2023 Patient encounter procedure VICKIE SPARROW [facility] Start: 06-04-2022 End: 06-04-2022 Patient encounter procedure Carlos SILVERMAN [facility] Start: 02-21-2022 End: 02-22-[address] MARKIE SMITH Facility:[facility] Start: 02-02-2022 End: 02-02-[address] CARLOS SILVERMAN Facility:[facility] Start: 01-31-2022 End: 02-01-[address] CARLOS SILVERMAN Facility:[facility] Start: 10-25-2021 End: 10-25-2021 ambulatory Markie Smith Facility:[facility] Start: 10-12-2021 End: 10-12-2021 ambulatory Markie Smith Facility:[facility] Start: 10-08-2021 End: 10-09-[address] CARLOS SILVERMAN Facility:[facility] Start: 09-21-2021 End: 09-22-[address] MARKIE SMITH Facility:[facility] Procedures Date Procedure Procedure Detail Performing Clinician Start: 09-22-2021 Cystoscopy Carlos TORO Appendectomy Carlos SILVERMAN Extraction of cataract Leonardo ilsa ANDRA H/O: hysterectomy Carlos TORO Immunizations Immunization Date Immunization Notes Care Provider [facility] 08-07-2023 zoster vaccine recombinant Carlos SILVERMAN [facility] 05-14-2023 zoster vaccine recombinant Carlos SILVERMAN [facility] 01-19-2021 SARS-CoV-2 (COVID-19 ) mRNA-1273 vaccine Carlos SILVERMAN [facility] 12-22-2020 SARS-CoV-2 (COVID-19 ) mRNA-1273 vaccine Carlos SILVERMAN [facility] Payers Date Payer Category Payer Self-pay 1957 Unknown [id number] 1940 Unknown [id number] 2.16.84 [id number] 1940 Unknown [id number] 2.16.84 [id number] 1942 Unknown [id number] 2.16.84 [id number] 1942 Unknown [id number] 2.16.84 [id number] 1942 Unknown [id number] 2.16.84 [id number] 1942 Unknown [id number] 2.16.84 [id number] 1942 Unknown [id number] 2.16.8 [id number] Unknown [id number] 2.16.8 [id number] Social History Date Type Detail Facility Start: 10-09-2021 End: 05-18-2024 Tobacco smoking status Ex-smoker (finding) [facility] Sex Assigned At Female [facility] Tobacco smoking status Never [facility] Functional Status Date Assessment Result Facility 05-18-2024 Functional Status N/A [facility] 05-01-2023 Functional Status N/A [facility] 06-04-2022 Functional Status N/A [facility] Hospital Discharge instructions 05-18-2024 Note Date & Type Note Facility 05-18-2024 Hospital Discharg e instructions Patient Education 05/18/2024 13:09:11 Dietary Guidelines to Help Prevent Kidney Stones Dietary Guidelines to Help Prevent Kidney Stones Kidney stones are deposits of minerals and salts that form inside your kidneys. Your risk of developing kidney stones may be greater depending on your diet, your lifestyle, the medicines you take, and whether you have certain medical conditions. Most people can lower their risks of developing kidney stones by following these dietary guidelines. Your dietitian may give you more specific [...] include: ?8 oz (237 mL) of milk, ojzjcrr-iypbxwaqcvpv-bnais milk, and calcium-fortifiedfruit juice. Calcium-fortified means that [...] table and allow each person to add their own salt to taste. Use vegetable protein, [...] fish, or seafood. ?When you prepare animal proteins, cut pieces into small portion sizes. For [...] ?Have two kinds of vegetables at dinner. You may be told to limit foods that are high in a substance called oxalate. These include: ?Spinach (cooked), rhubarb, beets, sweet potatoes, and [place]orese chard. ?Peanuts. ?Potato chips, salvadorean fries, and baked potatoes with skin on. ?Nuts and nut products. ?Chocolate. If you regularly take a diuretic medicine, make sure to eat at least 1 or 2 servings of fruits or vegetables that are high in potassium each day. These include: ?Avocado. ?Banana. ?[place], prune, carrot, or tomato juice. ?Baked potato. ?Cabbage. ?Beans and split peas. Lifestyle Drink enough fluid to keep your urine pale yellow. This is the most important thing you can do. Spread your fluid intake throughout the day. If you drink alcohol: ?Limit how much you have to: ?0 1 drink a day for women who are not . ?0 2 drinks a day for men. ?Know how much alcohol is in your drink. [...] provider and dietitian about taking daily supplements. Depending on your health and the cause of your kidney stones, you may be told: ?Do not take high-dose supplements of vitamin C (1,000 mg a day or more). ?To take a calcium supplement. ?To take a daily probiotic supplement. ?To take other supplements such as magnesium, fish oil, or vitamin B6. Take lwpy-vod-trexypi and prescription medicines only as told by [...] sausages, meat loaves, and hot dogs. Dairy Cheeses. Beverages Regular soft drinks. Regular vegetable juice. Seasonings and condiments Seasoning blends with salt. Salad dressings. Soy sauce. Ketchup. Barbecue sauce. Other foods Canned soups. Canned pasta sauce. Casseroles. Pizza. Lasagna. Frozen meals. Potato chips. Bahraini fries. The items listed above may not [...] with your health care provider. Document Revised: 11/28/2022 Document Reviewed: 11/28/2022 [employer] Patient Education 2023 [employer] Follow Up Care 05/01/2023 13:32:00 With:ANDRA RIVERA, Carlos Mae, URL Address: [address] [place] [id number]- When: Unknown Comments:1.5 yrs w/ MILTON [facility] Clinical Note 05-18-2024 Note Date & Type Note Facility 05-18-2024 Note Patient Education Nephrology Dietary Guidelines to Help Prevent Kidney Stones Kidney stones are deposits of minerals and salts that form inside your kidneys. Your risk of developing kidney stones may be greater depending on your diet, your lifestyle, the medicines you take, and whether you have certain medical conditions. Most people can lower their risks of developing kidney stones by following these dietary guidelines. Your dietitian may give you more specific [...] ? 8 oz (237 mL) of milk, pvcieoo-yporysmotvhi-smfsc milk, and calcium-fortifiedfruit juice. Calcium-fortified means that [...] table and allow each person to add their own salt to taste. ? Use vegetable [...] or seafood. ? When you prepare animal proteins, cut pieces into small portion sizes. For [...] two kinds of vegetables at dinner. ? You may be told to limit foods that are high in a substance called oxalate. These include: ? Spinach (cooked), rhubarb, beets, sweet potatoes, and [place]orese chard. ? Peanuts. ? Potato chips, salvadorean fries, and baked potatoes with skin on. ? Nuts and nut products. ? Chocolate. ? If you regularly take a diuretic medicine, make sure to eat at least 1 or 2 servings of fruits or vegetables that are high in potassium each day. These include: ? Avocado. ? Banana. ? [place], prune, carrot, or tomato juice. ? Baked potato. ? Cabbage. ? Beans and split peas. Lifestyle ? Drink enough fluid to keep your urine pale yellow. This is the most important thing you can do. Spread your fluid intake throughout the day. ? If you drink alcohol: ? Limit how much you have to: ? 0?1 drink a day for women who are not . ? 0?2 drinks a day for men. ? Know how much alcohol is in your drink. [...] provider and dietitian about taking daily supplements. Depending on your health and the cause of your kidney stones, you may be told: ? Do not take high-dose supplements of vitamin C (1,000 mg a day or more). ? To take a calcium supplement. ? To take a daily probiotic supplement. ? To take other supplements such as magnesium, fish oil, or vitamin B6. ? Take ctcz-jzj-cncazcm and prescription medicines only as told by your health care provider. These include suppleme (more content not included)... [facility] Discharge instructions 05-01-2023 Note Date & [...] include: ?8 oz (237 mL) of milk, axtfvda-sjyxmzskmcwf-ezkzh milk, and calcium-fortifiedfruit juice. Calcium-fortified means that [...] ?Spinach (cooked), rhubarb, beets, sweet potatoes, and [place]orese chard. ?Peanuts. ?Potato chips, salvadorean fries, and baked potatoes with skin on. ?Nuts and nut products. ?Chocolate. If you regularly take a diuretic medicine, make sure to eat at least 1 or 2 servings of fruits or vegetables that are high in potassium each day. These include: ?Avocado. ?Banana. ?[place], prune, carrot, or tomato juice. ?Baked potato. [...] magnesium, fish oil, or vitamin B6. Take rauh-inz-qdvgset and prescription medicines only as told by [...] Casseroles. Pizza. Lasagna. Frozen meals. Potato chips. Bahraini fries. The items listed above may not [...] provider. Document Revised: 04/29/2022 Document Reviewed: 04/29/2022 [employer] Patient Education 2022 [employer]. Follow Up Care 06/04/2022 12:04:12 With:VICKIE SPARROW PA-C, URL Address: [address] [address] When: Unknown [facility] Hospital Discharge instructions 06-04-2022 Note Date & Type Note Facility 06-04-2022 Hospital Discharg e instructions Patient Education 06/04/2022 11:49:33 Kidney Stones, Tdun-rq-Mlss Kidney Stones Kidney stones are rock-like masses [...] Follow these instructions at home: Medicines Take glre-vbg-fjvsout and prescription medicines only as told by [...] 02/03/2009 Document Revised: 01/04/2020 Document Reviewed: 01/04/2020 [employer] Patient Education 2019 [employer]. Follow Up Care 2021 09:56:33 With:ANDRA RIVERA, Carlos Mae, URL Address: [address] [place] [address] [place] [address]- When:12/03/2022 Comments:KUB [facility] Clinical Note 09-21-2021 Note Date & Type [...] appropriately. I attempted to pass the #22 Bahraini scope without success. She required urethral dilatation to 28 Bahraini. She has a significant rectocele and a [...] removed. 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 [facility] Clinical Note 09-21-2021 Note Date & [...] Regan Silverman M.D. COMPLICATIONS: None. ANESTHESIA: General SUSANA, Dr. Murphy INDICATIONS: Ms. Srinivasan is a [...] appropriately. I attempted to pass the #22 Bahraini scope without success. She required urethral dilatation to 28 Bahraini. She has a significant rectocele and a [...] removed. 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 [facility] Evaluation + Plan note Laboratory Note Date & Type Note Facility Evaluation + Plan note Future Appointments Appointment Date:12/06/2022 10:30:00 AM Scheduled Provider:Carlos SILVERMAN MD Location:[facility] Appointment Type:URO Office Visit Future Scheduled TestsBasic Metabolic Panel 11/15/21 [facility] Evaluation + Plan note Note Date & Type Note Facility Evaluation + Plan note Future Appointments Appointment Date:05/04/2024 01:00:00 PM Scheduled Provider:Carlos SILVERMAN MD Location:[facility] Appointment Type:URO Office Visit [facility] [place] Hospital course Narrative Note Date & Type Note Facility Hospital course Narrative No data available for this section [facility] Progress note Note Date & Type Note Facility Progress note No data available for this section [facility] Summary Purpose Family History No Family History Records FoundNo Family History Records FoundNo Family History Records Found No data available for this section Advance Directives No Advanced Directives Records FoundNo Advanced Directives Records FoundNo Advanced Directives Records Found Additional Source Comments INFORMATION SOURCE (unrecogn ized section and content) DATE CREATED AUTHOR 02/27/2022 [facility] DATE CREATED AUTHOR AUTHOR'S ORGANIZ ATION 10/05/2022 [facility] DATE CREATED AUTHOR AUTHOR'S ORGANIZ ATION 05/20/2024 [facility] Patient Care team informatio n (unrecognized section and content) Personnel Name: Markie Smith MD Address: Address: [address] [place] [address] Personnel Name: Markie Smith MD Address: Address: [address] [place] [address] Personnel Name: Markie Smith MD Address: Address: [address] [place] [address] FOR RECORDS PERTAINING TO PATIENTS WHO ARE [...] BE BASED ON THE PRIMARY CLINICAL RECORDS. [employer] provides no warranty or guarantee of the accuracy or completeness of information in this document.
[2024-11-25 09:58] LABS: Basophils Absolute Auto 0.1 10^3/uL (0.0-0.1); Basophils Percent Auto 0.8 % (0.2-2.0); Eosinophils Absolute Auto 0.2 10^3/uL (0.0-0.7); Eosinophils Percent Auto 2.2 % (0.9-7.0); Hematocrit 31.7 % (36.0-48.0); Immature Granulocytes Abs Auto 0.03 10^3/uL (0.00-0.03); Immature Granulocytes Pct Auto 0.3 % (0.0-0.5); Lymphocytes Absolute Auto 2.1 10^3/uL (1.2-3.8); Lymphocytes Percent Auto 23.9 % (20.5-60.0); Mean Corpuscular HGB Conc 31.5 g/dL (29.9-35.2); Mean Corpuscular Hemoglobin 24.8 pg (26.7-34.0); Mean Corpuscular Volume 78.7 fL (81.0-99.0); Mean Platelet Volume 10.7 fL (9.5-13.5); Monocytes Absolute Auto 0.6 10^3/uL (0.3-0.8); Monocytes Percent Auto 6.6 % (1.7-12.0); Neutrophils Absolute Auto 5.9 10^3/uL (1.4-6.5); Neutrophils Percent Auto 66.2 % (43.0-75.0); Platelet Count 302 10^3/uL (150-450); Red Blood Count 4.03 10^6/uL (4.20-5.40); Red Cell Distribution Width 16.2 % (11.0-15.0); White Blood Count 8.9 10^3/uL (4.0-11.0)
[2024-11-25 11:21] LABS: Alanine Aminotransferase 22 U/L (14-59); Albumin Globulin Ratio 0.9; Albumin Level 3.4 g/dL (3.4-5.0); Alkaline Phosphatase 70 U/L (46-116); Anion Gap 14.4; Aspartate Amino Transferase 18 U/L (15-37); BUN Creatinine Ratio 18.1; Bilirubin Total 0.2 mg/dL (0.2-1.0); Calcium 8.9 mg/dL (8.5-10.1); Carbon Dioxide 25.9 mmol/L (21.0-32.0); Chloride 104 mmol/L (98-107); Chol HDL Ratio 2.4; Cholesterol 186 mg/dL (<=200); Estimated GFR (African America >60 (>=60 mL/min/1.73m^2); Estimated GFR (Non-African Ame 50 (>=60 mL/min/1.73m^2); Globulin 3.6 g/dL; Glucose 119 mg/dL (74-106); HDL Cholesterol 79 mg/dL (40-60); Potassium 4.3 mmol/L (3.5-5.1); Sodium 140 mmol/L (136-145); Thyroid Stimulating Hormone 2.523 uIU/mL (0.358-3.740); Triglycerides 59 mg/dL (<=150); VLDL CHOLESTEROL 11.8 mg/dL
[2024-11-25 11:51] LABS: Estimated Average Glucose 128 mg/dL; Glycohemoglobin A1C 6.1 % (4.5-6.2)
== END 2024-11-25 09:10 | disposition home or self-care (01) ==
LOC: LAB 09:12
PROVIDERS: Family Provider Family Medicine; PCP Family Medicine; Visit Provider Family Medicine
DX: I11.0 Hypertensive heart disease with heart failure (principal); I50.32 Chronic diastolic (congestive) heart failure; G47.00 Insomnia, unspecified; D50.9 Iron deficiency anemia, unspecified; I50.30 Unspecified diastolic (congestive) heart failure; E78.5 Hyperlipidemia, unspecified; R73.09 Other abnormal glucose; D64.9 Anemia, unspecified; E03.9 Hypothyroidism, unspecified; R53.83 Other fatigue
CPT/HCPCS: 36415; 80053; 80061; 83036; 83540; 83880; 84436; 84443; 84481; 85025

== ENCOUNTER 2024-12-14 08:32 | Outpatient (OUT) | payer MEDICARE, SELFPAY ==
--- OUTSIDE RECORDS SUMMARY | 2024-12-14 08:35 | XMS_ITS | CCD ---
Author Organization [facility]ini[facility]ga Care Team Providers Care Sql Ssrs Ssis Developer Name Role Phone ANDRA, DR CARLOS Mae [...] Ciprofloxacin; Translations: [ciprofloxacin] Drug Allergy 7 [facility] Repository (2 sources) Codeine; Translations: [codeine] Drug Allergy 1 [facility] Rep[facility] (2 sources) Ibuprofen; Translations: [ibuprofen] Drug Allergy 7 [facility] Repository (5 sources) Penicillin; Translations: [penicillin] Drug Allergy 3 Eruption of skin (disorder) [facility] Repository (1 source) [place] nut Drug allergy (disorder) 2 [facility] Rep[facility] (3 sources) Ciprofloxacin; Translations: [ciprofloxacin] Drug Allergy 7 Unknown [facility] (3 sources) Codeine; Translations: [codeine] Drug Allergy 1 Unknown [facility] (3 sources) Ibuprofen; Translations: [ibuprofen] Drug Allergy 7 Unknown [facility] (4 sources) Sulfamethoxazole / Trimethoprim; Translations: [sulfamethoxazole-tr imethoprim] Drug Allergy Tremor (finding) [facility] Medications Current Medications Medication Drug Class(es) Dates [...] Start Date: 10/09/21 Status: Ordered lactobacillus acidophilus [id number] unt oral capsule (3 sources) Start: 03-18-2019 [...] 09-21-2021 Episodic Other aftercare (1 source) Other half-way (current) drug therapy; Translations: [OTH USP CURRENT DRUG THERAPY] Onset: 09-27-2021 Episodic Other [...] for choosing us for your care. Normal [facility] Reminderson 05-18-2024 Reminders Reminders From: Kinza Walker To: EU - Administrative; Sent: 05/18/2024 13:18:11 EDT Show up: 09/05/2025 13:17:00 EST Subject: Ambulatory Reminder Due Date/Time: 11/07/2025 13:17:00 EDT Reminder/Recall SCHEDULE ROBYN SRINIVASAN IN [address] MO [address] SILVERMAN [facility] Reminders Reminders From: Griselda Church To: EU - Recalls Andra; Sent: 05/18/2024 13:12:21 EDT Show up: 10/18/2025 12:12:00 EST Subject: KUB prior to appt Reminder Message Pt needs KUB done prior to f/u in 18 mos. Will need order (dx: history of kidney stones). Typically goes to [facility]. Normal [facility] Urology Office/Clinic Noteon 05-18-2024 Urology Office/Clinic Note [...] Information ANDRA RIVERA, Carlos P, URL [address] [facility] [address] [place] [id number]- Additional Instructions: 1.5 yrs w/ KUB Patient [...] with voice recognition artificial intelligence software, specifically [employer] and or [employer]. Substitutions may have occurred due to the [...] Social History (more content not included)... Normal [facility] Comment on above: Result Comment: Elec tronically Signed By: ANDRA RIVERA, Carlos Mae\.br\Date and Time Signed: 05/18/24 13:16 EDT\.br\Electronically Co-Signed By: Griselda Church\.amy\Date and Time Co-Signed: 05/18/24 13:14 EDT MG MAMM SCREEN 3D ZAN CADon 02-21-2022 MG MAMM SCREEN 3D ZAN CAD Patient: ROBYN SRINIVASAN Exam Date: 02/21/2022 : 1940 Gender:F Ordering : DR MARKIE SMITH . Admission #: [id number] Family : Order #: [id number] CLICK HERE TO VIEW EXAM RADIOLOGY REPORT [...] breast cancer at age 49. LOCATION: [facility] BREAST COMPOSITION: Scattered areas fibroglandular density. FINDINGS: [...] M.D. on 02/22/2022 at 13:35 Normal [facility] T4 LABCORPon 02-07-2022 T4 [Mass/Vol] 6.2 ug/dL Normal 4.5-12.0 [facility] Comment on above: Performed By: #### T 4LC #### [facility] [address] [place] [address] Dr. Reg Kerns CITRATE URINE 24HRon 022 Citric Acid, U, 24hr 191 mg/24 hr Critically low 320-1240 [facility] Comment on above: Result Comment: This test was developed and its performance characteristics determined by [employer]. It has not been cleared or approved by the Food and Drug Administration. Performed By: #### C ITRATU #### [facility] [address] [address] [address] Reg Kerns Citric Acid, Urine 283 mg/L Normal Undefined [facility] Comment on above: Performed By: #### C ITRATU #### [facility] [address] [address] [address] Reg Kerns OXALATE 24HR URINEon 02-05-2 022 Oxalates, Urine 24hr 5 mg/24 hr Normal 4-31 [facility] Comment on above: Performed By: #### O X24HR #### [facility] [address] [place] [address] Dr. Reg Kerns Oxalates, Urine 8 mg/L Normal Undefined [facility] Comment on above: Performed By: #### O X24HR #### [facility] [address] [address] [address] Reg Kerns MAGNESIUM 24HR URINEon 02-03 Magnesium 24hr Urine 43.2 mg/24 hr Normal 12.0-293.0 [facility] Comment on above: Performed By: #### P THINT #### [facility] [address] [place] [address] Dr. Reg Kerns Magnesium UR 6.4 mg/dL Normal Not Estab. [facility] Comment on above: Performed By: #### P THINT #### [facility] [address] [address] [address] Reg Kerns PHOSPHORUS 24HR URINEon Phosphorus, Urine 47.7 mg/dL Normal Not Estab. [facility] Comment on above: Performed By: #### P THINT #### [facility] [address] [place] [address] Dr. Reg Kerns Phosphorus, Urine 24hr 322 mg/24 hr Normal 261-1078 [facility] Comment on above: Performed By: #### P THINT #### [facility] [address] [place] [address] Dr. Reg Kerns URIC ACID 24 HR URINEon Uric Acid, Urine 28.4 mg/dL Normal Not Estab. [facility] Comment on above: Performed By: #### U NICHELLE 24 #### [facility] [address] [place] [address] Dr. Reg Kerns Uric Acid, Urine 24hr 191.7 mg/24 hr Normal 88.9-568.5 [facility] Comment on above: Performed By: #### U NICHELLE 24 #### [facility] [address] [place] [address] Dr. Reg Kerns CALCIUM 24 HR URINEon 2021 CALC, 24 HR UR 58.7 mg/24 hr Critically low 100.0-300.0 [facility] Comment on above: Performed By: #### P THINT #### [facility] [address] [place] [address] Dr. Reg Kerns UR CALCIUM 8.7 mg/dL Normal 5.1-21.0 [facility] Comment on above: Performed By: #### P THINT #### [facility] [address] [place] [address] Dr. Reg Kerns CREA 24 HR URINEon 2 CREA, 24 HR UR 455.96 mg/24 hr Critically low 800.00-1 ,800. 00 [facility] Comment on above: Performed By: #### C ITRATU #### [facility] [address] [place] [address] Dr. Reg Kerns URINE CREAT 67.55 mg/dL Normal 20.00-300.00 [facility] Comment on above: Performed By: #### C ITRATU #### [facility] [address] [place] [address] Dr. Reg Kerns SODIUM 24 HR URINEon 022 NA, 24 HR UR 76 mmol/24 hr Normal 40-220 [facility] Comment on above: Performed By: #### C ITRATU #### [facility] [address] [place] [address] Dr. Reg Kerns Sodium (U) [Moles/Vol] 112 mmol/L Critically high 30-90 [facility] Comment on above: Performed By: #### C ITRATU #### [facility] [address] [place] [address] Dr. Reg Kerns UR TOT VOL 675 ml/24 HR Normal [facility] Comment on above: Performed By: #### C ITRATU #### [facility] [address] [place] [address] Dr. Reg Kerns Performed By: #### P THINT #### [facility] [address] [place] [address] Dr. Reg Kerns INSULINon 02-01-2022 Insulin 27.7 uIU/mL Critically high 2.6-24.9 [facility] Comment on above: Performed By: #### U NICHELLE 24 #### [facility] [address] [place] [address] Dr. Reg Kerns PTH INTACTon 02-01-2022 PTH, Intact 46 pg/mL Normal 15-65 [facility] Comment on above: Performed By: #### P THINT #### [facility] [address] [place] [address] Dr. Reg Kerns BNPon 01-31-2022 Natriuretic peptide B (Bld) [Mass/Vol] 154.0 pg/mL Normal <=1,800.0 [facility] Comment on above: Performed By: #### P THINT #### [facility] [address] [place] [address] Dr. Reg Kerns CBC AUTO DIFFon 01-31-2022 BASO # 0.1 103/ul Normal 0.0-0.1 [facility] Comment on above: Performed By: #### U NICHELLE 24 #### [facility] [address] [place] [address] Dr. Reg Kerns Basophils/100 WBC (Bld) 0.8 % Normal 0.2-2.0 [facility] Comment on above: Performed By: #### U NICHELLE 24 #### [facility] [address] [place] [address] Dr. Reg Kerns EO # 0.3 103/ul Normal 0.0-0.7 [facility] Comment on above: Performed By: #### U NICHELLE 24 #### [facility] [address] [place] [address] Dr. Reg Kerns Eosinophils/100 WBC (Bld) 4.4 % Normal 0.9-7.0 [facility] Comment on above: Performed By: #### U NICHELLE 24 #### [facility] [address] [place] [address] Dr. Reg Kerns Erythrocyte distribution width (RBC) [Ratio] 15.7 % Critically high 11.0-15.0 [facility] Comment on above: Performed By: #### U NICHELLE 24 #### [facility] [address] [place] [address] Dr. Reg Kerns Hematocrit (Bld) [Volume fraction] 37.4 % Normal 36.0-48.0 [facility] Comment on above: Performed By: #### U NICHELLE 24 #### [facility] [address] [place] [address] Dr. Reg Kerns Hemoglobin (Bld) [Mass/Vol] 11.6 g/dL Critically low 12.0-16.0 [facility] Comment on above: Performed By: #### U NICHELLE 24 #### [facility] [address] [place] [address] Dr. Reg Kerns IG # 0.03 10e3/ul Normal 0.00-0.03 [facility] Comment on above: Performed By: #### U NICHELLE 24 #### [facility] [address] [place] [address] Dr. Reg Kerns IG % 0.5 % Normal 0.0-0.5 [facility] Comment on above: Performed By: #### U NICHELLE 24 #### [facility] [address] [place] [address] Dr. Reg Kerns LYMPH # 1.9 103/ul Normal 1.2-3.8 [facility] Comment on above: Performed By: #### U NICHELLE 24 #### [facility] [address] [place] [address] Dr. Reg Kerns Lymphocytes/100 WBC (Bld) 30.3 % Normal 20.5-60.0 [facility] Comment on above: Performed By: #### U NICHELLE 24 #### [facility] [address] [place] [address] Dr. Reg Kerns MANUAL DIFF REQ NO Normal [facility] Comment on above: Performed By: #### U NICHELLE 24 #### [facility] [address] [place] [address] Dr. Reg Kerns MCH (RBC) [Entitic mass] 26.9 pg Normal 26.7-34.0 [facility] Comment on above: Performed By: #### U NICHELLE 24 #### [facility] [address] [place] [address] Dr. Reg Kerns MCHC (RBC) [Mass/Vol] 31.0 g/dL Normal 29.9-35.2 [facility] Comment on above: Performed By: #### U NICHELLE 24 #### [facility] [address] [place] [address] Dr. Reg Kerns MCV (RBC) [Entitic vol] 86.6 fL Normal 81.0-99.0 [facility] Comment on above: Performed By: #### U NICHELLE 24 #### [facility] [address] [place] [address] Dr. Reg Kerns MONO # 0.6 103/ul Normal 0.3-0.8 [facility] Comment on above: Performed By: #### U NICHELLE 24 #### [facility] [address] [place] [address] Dr. Reg Kerns Monocytes/100 WBC (Bld) 8.9 % Normal 1.7-12.0 [facility] Comment on above: Performed By: #### U NICHELLE 24 #### [facility] [address] [place] [address] Dr. Reg Krens NEUT # 3.5 103/ul Normal 1.4-6.5 [facility] Comment on above: Performed By: #### U NICHELLE 24 #### [facility] [address] [address] [address] Reg Kerns Neutrophils/100 WBC (Bld) 55.1 % Normal 43.0-75.0 [facility] Comment on above: Performed By: #### U NICHELLE 24 #### [facility] [address] [address] [address] Reg Kerns Platelet mean volume (Bld) [Entitic vol] 10.6 fL Normal 9.5-13.5 [facility] Comment on above: Performed By: #### U NICHELLE 24 #### [facility] [address] [address] [address] Reg Kerns PLT 250 103/ul Normal 150-450 [facility] Comment on above: Performed By: #### U NICHELLE 24 #### [facility] [address] [place] [address] Dr. Reg Kerns RBC 4.32 106/ul Normal 4.20-5.40 [facility] Comment on above: Performed By: #### U NICHELLE 24 #### [facility] [address] [place] [address] Dr. Reg Kerns WBC 6.4 103/ul Normal 4.0-11.0 [facility] Comment on above: Performed By: #### U NICHELLE 24 #### [facility] [address] [place] [address] Dr. Reg Kerns FREE THYROXINE INDEX T7on FTI 2.17 Normal 1.30-4.50 [facility] Comment on above: Performed By: #### P THINT #### [facility] [address] [place] [address] Dr. Reg Kerns T3U 35.0 % Normal 30.0-39.0 [facility] Comment on above: Performed By: #### P THINT #### [facility] [address] [place] [address] Dr. Reg Kerns T4 [Mass/Vol] 6.20 ug/dL Normal 4.80-13.90 [facility] Comment on above: Result Comment: T4 t esting performed by [facility] Performed By: #### P THINT #### [facility] [address] [address] [address] Reg Kerns GLYCOHEMOGLOBIN A1Con 2021 ADA RECOMMENDATION SEE BELOW Normal [facility] Comment on above: Result Comment: ADA RECOMMENDED LIMIT 4.0 - 6.0 ADA THERAPEUTIC TARGET < 7.0 ACTION SUGGESTED > 7.0 Performed By: #### P THINT #### [facility] [address] [address] [address] Reg Kerns Glucose [Mass/Vol] 117 mg/dL Normal [facility] Comment on above: Performed By: #### P THINT #### [facility] [address] [address] [address] Reg Kerns HbA1c (Bld) [Mass fraction] 5.7 % Normal 4.5-6.2 [facility] Comment on above: Performed By: #### P THINT #### [facility] [address] [place] [address] Dr. Reg Kerns IRONon 01-31-2022 Iron [Mass/Vol] 143.0 ug/dL Normal 50.0-170.[address] [facility] Comment on above: Performed By: #### I JORGE #### [facility] [address] [place] [address] Dr. Reg Kerns LIPID PROFILEon 01-31-2022 CHOL-HDL RATIO NORM SEE BELOW Normal [facility] Comment on above: Result Comment: 3.3 - 4.4 LOW RISK 4.4 - 7.1 AVERAGE RISK 7.1 - 11.0 MODERATE RISK >11.0 HIGH RISK Performed By: #### P THINT #### [facility] [address] [place] [address] Dr. Reg Kerns Cholesterol [Mass/Vol] 210 mg/dL Critically high <=200 [facility] Comment on above: Performed By: #### P THINT #### [facility] [address] [place] [address] Dr. Reg Kerns Cholesterol in HDL [Mass/Vol] 56 mg/dL Normal 40-60 [facility] Comment on above: Performed By: #### P THINT #### [facility] [address] [address] [address] Reg Kerns Cholesterol in LDL [Mass/Vol] 110.6 mg/dL Normal [facility] Comment on above: Performed By: #### P THINT #### [facility] [address] [address] [address] Reg Kerns Cholesterol.total/Ch olesterol in HDL [Mass ratio] 3.8 {ratio} Normal [facility] Comment on above: Performed By: #### P THINT #### [facility] [address] [address] [address] Reg Kerns HDL NORMAL > or = 60 mg/dl - LO W CARDIOVASCULAR RISK <40 mg/dl - HIGH CARDIOVASCULAR RISK Normal [facility] Comment on above: Performed By: #### P THINT #### [facility] [address] [place] [address] Dr. Reg Kerns LDL CALC NORMAL SEE BELOW Normal [facility] Comment on above: Result Comment: <100 mg/dl OPTIMAL 100 - 129 mg/dl NEAR OR ABOVE OPTIMAL 130 - 159 mg/dl BORDERLINE HIGH 160 - 189 mg/dl HIGH >190 mg/dl VERY HIGH Performed By: #### P THINT #### [facility] [address] [place] [address] Dr. Reg Kerns Triglyceride [Mass/Vol] 217 mg/dL Critically high <=150 [facility] Comment on above: Performed By: #### P THINT #### [facility] [address] [place] [address] Dr. Reg Kerns VLDL CALC 43.4 mg/dL Normal [facility] Comment on above: Performed By: #### P THINT #### [facility] [address] [address] [address] Reg Kerns PROF 14(COMP METB)on 022 Albumin [Mass/Vol] 3.6 g/dL Normal 3.4-5.0 [facility] Comment on above: Performed By: #### P THINT #### [facility] [address] [place] [address] Dr. Reg Kerns Albumin/Globulin [Mass ratio] 1.0 {ratio} Normal [facility] Comment on above: Performed By: #### P THINT #### [facility] [address] [address] [address] Reg Kerns ALP [Catalytic activity/Vol] 74 U/L Normal 46-116 [facility] Comment on above: Performed By: #### P THINT #### [facility] [address] [address] [address] Reg Kerns ALT [Catalytic activity/Vol] 26 U/L Normal 14-59 [facility] Comment on above: Performed By: #### P THINT #### [facility] [address] [address] [address] Reg Kerns Anion gap [Moles/Vol] 13.3 mmol/L Normal [facility] Comment on above: Performed By: #### P THINT #### [facility] [address] [place] [address] Dr. Reg Kerns AST [Catalytic activity/Vol] 18 U/L Normal 15-37 [facility] Comment on above: Performed By: #### P THINT #### [facility] [address] [address] [address] Reg Kerns Bilirubin [Mass/Vol] 0.3 mg/dL Normal 0.2-1.0 [facility] Comment on above: Performed By: #### P THINT #### [facility] [address] [address] [address] Reg Kerns Calcium [Mass/Vol] 9.1 mg/dL Normal 8.5-10.1 [facility] Comment on above: Performed By: #### P THINT #### [facility] [address] [address] [address] Reg Kerns Chloride [Moles/Vol] 103 mmol/L Normal 98-107 [facility] Comment on above: Performed By: #### P THINT #### [facility] [address] [address] [address] Reg Kerns CO2 [Moles/Vol] 26.4 mmol/L Normal 21.0-32.[address] [facility] Comment on above: Performed By: #### P THINT #### [facility] [address] [address] [address] Reg Kerns Creatinine [Mass/Vol] 0.88 mg/dL Normal 0.55-1.02 [facility] Comment on above: Performed By: #### P THINT #### [facility] [address] [address] [address] Reg Kerns EGFR-AF SWEDISH >60 Normal >=60 [facility] Comment on above: Performed By: #### P THINT #### [facility] [address] [address] [address] Reg Kerns EGFR-NON AF SWEDISH >60 Normal >=60 [facility] Comment on above: Performed By: #### P THINT #### [facility] [address] [place] [address] Dr. Reg Kerns Globulin (S) [Mass/Vol] 3.6 g/dL Normal [facility] Comment on above: Performed By: #### P THINT #### [facility] [address] [place] [address] Dr. Reg Kerns Glucose [Mass/Vol] 91 mg/dL Normal 74-106 [facility] Comment on above: Performed By: #### P THINT #### [facility] [address] [place] [address] Dr. Reg Kerns Potassium [Moles/Vol] 4.7 mmol/L Normal 3.5-5.1 [facility] Comment on above: Performed By: #### P THINT #### [facility] [address] [address] [address] Reg Kerns Protein [Mass/Vol] 7.2 g/dL Normal 6.4-8.2 [facility] Comment on above: Performed By: #### P THINT #### [facility] [address] [address] [address] Reg Kerns Sodium [Moles/Vol] 138 mmol/L Normal 136-145 [facility] Comment on above: Performed By: #### P THINT #### [facility] [address] [place] [address] Dr. Reg Kerns Urea nitrogen [Mass/Vol] 15.0 mg/dL Normal 7.0-18.0 [facility] Comment on above: Performed By: #### P THINT #### [facility] [address] [place] [address] Dr. Reg Kerns Urea nitrogen/Creatinine [Mass ratio] 17.0 mg/mg Normal [facility] Comment on above: Performed By: #### P THINT #### [facility] [address] [place] [address] Dr. Reg Kerns TSHon 01-31-2022 TSH 2.021 uIU/mL Normal 0.358-3.740 [facility] Comment on above: Performed By: #### P THINT #### [facility] [address] [place] [address] Dr. Reg Kerns TSH RANGE SEE BELOW Normal [facility] Comment on above: Result Comment: <0.3 4 UIU/ml HYPERTHYROID 0.34-5.60 UIU/ml EUTHYROID >5.60 UIU/ml HYPOTHYROID Performed By: #### P THINT #### [facility] [address] [place] [address] Dr. Reg Kerns URIC ACID SERUMon 01-31-2022 Urate [Mass/Vol] 6.1 mg/dL Critically high 2.6-6.0 [facility] Comment on above: Performed By: #### U NICHELLE #### [facility] [address] [place] [address] Dr. Reg Kerns Calculi, Urinaryon 2 Ca Oxalate Dihydrate 30 % Normal . [facility] Comment on above: Performed By: #### C ALCULI #### [facility] , Ca Oxalate Monohydrate 70 % Normal . [facility] Comment on above: Performed By: #### C ALCULI #### [facility] , Color (U) Brown Normal . [facility] Comment on above: Performed By: #### C ALCULI #### [facility] , Comment2 Normal . [facility] Comment on above: Result Comment: Calc ulus received in liquid. Wet calculi must be dried before analysis, which delays reporting of results. Leaving calculi in liquid (such as water, saline, blood, urine) may lead to changes in composition. Performed By: #### C ALCULI #### [facility] , Comment: Normal . [facility] Comment on above: Result Comment: Gaston jacobsen questions regarding Calculi Analysis [facility] at: [phone]. Performed By: #### C ALCULI #### [facility] , Composition Normal . [facility] Comment on above: Result Comment: Perc entage (Represents the % composition) Performed By: #### C ALCULI #### [facility] , Disclaimer: Normal . [facility] Comment on above: Result Comment: This test was developed and its performance characteristics determined by [facility]. It has not been cleared or approved by the Food and Drug Administration. Performed at: [facility] [employer] [address] [place] [address] Dr De La Garza, [place], [place] [id number] Media Planner / Buyer: Beck Wynne MD, Phone: [phone] Performed By: #### C ALCULI #### [facility] , Note Normal . [facility] Comment on above: Result Comment: Calc perlita report will follow via computer, mail or paint coating machine operator delivery. PERFORMED BY: [facility] [address] [place] [address] PATHOLOGIST FLORAL DESIGN TEACHER KENAN BAIRD M.D. Performed By: #### C ALCULI #### [facility] , Photo Normal . [facility] Comment on above: Result Comment: Phot ograph will follow under a separate cover Performed By: #### C ALCULI #### [facility] , Size 3x3 Normal . [facility] Comment on above: Result Comment: Mult iple pieces received. Dimensions of the largest piece reported. Performed By: #### C ALCULI #### [facility] , Source Kidney Normal . [facility] Comment on above: Performed By: #### C ALCULI #### [facility] , Weight 126 Normal . [facility] Comment on above: Performed By: #### C ALCULI #### [facility] , [place] 10-25-2021 L - -------- Specimen: [id number] Received: 10/26/21 Status: CATHERINE Presley Num: [id number] Spec Type: Surgical Subm Dr: Carlos Silverman MD Tissues: A Urinary Calculus (BILATERAL RENAL CALCULI) Procedures: Level 1 Gross -------- Patient Age/Sex Location Account Attending Physician -------- Robyn Srinivasan 80/F [place] [id number] Carlos Silverman MD -------- SPEC NUM: [id number] RECD: 10/26/21 STATUS: CATHERINE DELUCASorin NUM: [id number] SIL: 10/25/21- SUBM DR: Carlos Silverman MD ENTERED: 10/26/[address] [facility] [address]: SPEC TYPE: Surgical DEPT: S ORDERED: [...] only. (GONZALES/NIKKI) Microscopic Description Gross examination only. [address] -------- -------- Specimen: [id number] Received: 10/26/21 Status: CATHERINE Presley Num: [id number] Spec Type: Surgical Subm Dr: Carlos Silverman MD Tissues: A Urinary Calculus (BILATERAL RENAL CALCULI) Procedures: Level 1 Gross -------- Patient: Robyn Srinivasan [id number] (Continued) -------- Signed (signature on file) Kenan Baird MD 10/26/21 1633 Normal [facility] XR KUBon 10-25-2021 XR KUB [facility] [place] [address] XRay Report Signed Patient: Robyn Srinivasan MR#: [id number] : 1940 Acct:[id number] Age/Sex: 80 / F ADM Date: 10/25/21 Loc: [place] Room: Type: [facility] Attending Dr: Carlos Silverman MD Ordering [...] 1:48 PM Dictation Location: RADIO-PC-03 Transcribed By: [facility] 10/25/21 1348 Dictated By: Eriberto Jordan DO 10/25/21 1345 Signed By: 10/25/21 1348 [facility] XR abdomen 1Von 10-25-2021 XR abdomen 1V [facility] Main [address] [address] XRay Report Signed Patient: Robyn Srinivasan MR#: [id number] : 1940 Acct:[id number] Age/Sex: 80 / F ADM Date: 10/25/21 Loc: [place] Room: Type: [facility] Attending Dr: Carlos Silverman MD Ordering [...] King II, MD 10/25/211649 Signed By: 10/25/211651 [facility] Basic Metabolic Panelon 10-02 Calcium [Mass/Vol] 9.4 mg/dL Normal 8.2-10.[address] [facility] Comment on above: Result Comment: PERF ORMED BY: [address] [address] PATHOLOGIST FLORAL DESIGN TEACHER KENAN BAIRD M.D. Performed By: #### C BC, PT, PTT, BMP #### [place] [address] [place] Chloride [Moles/Vol] 103 mmol/L Normal 95-114 [facility] Comment on above: Performed By: #### C BC, PT, PTT, BMP #### [address] CO2 [Moles/Vol] 22.8 mmol/L Normal 22.0-30.0 [facility] Comment on above: Performed By: #### C BC, PT, PTT, BMP #### [address] Creatinine [Mass/Vol] 0.85 mg/dL Normal 0.44-1.03 [facility] Comment on above: Performed By: #### C BC, PT, PTT, BMP #### [address] Estimated GFR ( Faina > 60 [facility] Comment on above: Result Comment: GFR estimated reference range: According to KDOQI guidelines, <60 ml/min/1.73m2 is sufficient to diagnose a patient with chronic kidney disease. Performed By: #### C BC, PT, PTT, BMP #### [address] Estimated GFR (Non- Am > 60 [facility] Comment on above: Performed By: #### C BC, PT, PTT, BMP #### [place] [address] [place] Glucose [Mass/Vol] 95 mg/dL Normal 70-[address] [facility] Comment on above: Result Comment: [place] Glucose Reference Range is dependent on time and content of last meal. Glucose of more than 200 mg/dL in a nonstressed, ambulatory subject supports the diagnosis of Diabetes Mellitus. ADA recommended reference range Performed By: #### C BC, PT, PTT, BMP #### [place] [address] [place] Potassium [Moles/Vol] 4.3 mmol/L Normal 3.5-5.1 [facility] Comment on above: Performed By: #### C BC, PT, PTT, BMP #### [address] Sodium [Moles/Vol] 137 mmol/L Normal 136-[address] [facility] Comment on above: Performed By: #### C BC, PT, PTT, BMP #### [address] Urea nitrogen [Mass/Vol] 12 mg/dL Normal 9-23 [facility] Comment on above: Performed By: #### C BC, PT, PTT, BMP #### [address] Complete Blood Count Auto Di ffon 10-12-2021 Basophils (Bld) [#/Vol] 0.1 10*3/uL Normal 0.0-0.2 [facility] Comment on above: Result Comment: PERF ORMED BY: [place] [address] PATHOLOGIST FLORAL DESIGN TEACHER KENAN BAIRD M.D. Performed By: #### C BC, PT, PTT, BMP #### [address] Basophils/100 WBC (Bld) 1.3 % Normal . [facility] Comment on above: Performed By: #### C BC, PT, PTT, BMP #### [facility] [address] [place] [address] Eosinophils (Bld) [#/Vol] 0.5 10*3/uL High 0.0-0.45 [facility] Comment on above: Performed By: #### C BC, PT, PTT, BMP #### [address] Eosinophils/100 WBC (Bld) 6.6 % Normal . [facility] Comment on above: Performed By: #### C BC, PT, PTT, BMP #### [address] Erythrocyte distribution width (RBC) [Ratio] 14.5 % Normal 11.9-15.3 [facility] Comment on above: Performed By: #### C BC, PT, PTT, BMP #### [address] Hematocrit (Bld) [Volume fraction] 38.5 % Normal 34.0-46.4 [facility] Comment on above: Performed By: #### C BC, PT, PTT, BMP #### [address] Hemoglobin (Bld) [Mass/Vol] 12.6 g/dL Normal 11.8-15.4 [facility] Comment on above: Performed By: #### C BC, PT, PTT, BMP #### [address] Lymphocytes (Bld) [#/Vol] 1.6 10*3/uL Normal 1.00-4.8 [facility] Comment on above: Performed By: #### C BC, PT, PTT, BMP #### [address] Lymphocytes/100 WBC (Bld) 22.1 % Normal . [facility] Comment on above: Performed By: #### C BC, PT, PTT, BMP #### [address] MCH (RBC) [Entitic mass] 28.0 pg Normal 24.7-34.3 [facility] Comment on above: Performed By: #### C BC, PT, PTT, BMP #### [address] MCV (RBC) [Entitic vol] 85.7 fL Normal 80-100 [facility] Comment on above: Performed By: #### C BC, PT, PTT, BMP #### [address] Mean Corpuscular HGB Conc 32.7 g/dL Normal 32.0-35.0 [facility] Comment on above: Performed By: #### C BC, PT, PTT, BMP #### [facility] [address] [place] [address] [place] Monocytes (Bld) [#/Vol] 0.5 10*3/uL Normal 0.0-0.8 [facility] Comment on above: Performed By: #### C BC, PT, PTT, BMP #### [facility] [address] Monocytes/100 WBC (Bld) 6.2 % Normal . [facility] Comment on above: Performed By: #### C BC, PT, PTT, BMP #### [facility] [address] Neutrophils (Bld) [#/Vol] 4.8 10*3/uL Normal 1.8-7.7 [facility] Comment on above: Performed By: #### C BC, PT, PTT, BMP #### [facility] [address] [place] [address] Neutrophils/100 WBC (Bld) 63.8 % Normal . [facility] Comment on above: Performed By: #### C BC, PT, PTT, BMP #### [facility] [address] [place] [address] [place] Nucleated RBC/100 WBC (Bld) [Ratio] 0.0 % Normal 0-0.5 [facility] Comment on above: Performed By: #### C BC, PT, PTT, BMP #### [facility] [address] [place] [address] [place] Platelet mean volume (Bld) [Entitic vol] 8.5 fL Normal 6.3-10.7 [facility] Comment on above: Performed By: #### C BC, PT, PTT, BMP #### [facility] [address] [place] [address] [place] Platelets (Bld) [#/Vol] 244 10*3/uL Normal 150-450 [facility] Comment on above: Performed By: #### C BC, PT, PTT, BMP #### [facility] [address] [place] [address] [place] RBC (Bld) [#/Vol] 4.49 10*6/uL Normal 3.60-5.00 [facility] Comment on above: Performed By: #### C BC, PT, PTT, BMP #### [facility] [address] [place] [address] WBC (Bld) [#/Vol] 7.5 10*3/uL Normal 4.5-11.[address] [facility] Comment on above: Performed By: #### C BC, PT, PTT, BMP #### [facility] [address] [place] [address] ECG 12 lead ECGon 10-12-2021 ECG 12 lead ECG [facility] Main [place] [address] [place] [address] Electrocardiograph Report Signed Patient: Robyn Srinivasan MR#: [id number] : 1940 Acct:[id number] Age/Sex: 80 / F ADM Date: 10/12/21 Loc: Room: Type: [facility] Attending Dr: Carlos Silverman MD Ordering [...] previous ECGs available Confirmed by MALACHI RIVERA [facility], JESICA ([id number]) on 10/12/2021 7:05:53 PM Referred By: ANDRA Electronically Signed By:JESICA BRAXTON MD [facility] Transcribed By: MUS Signed By Jesica Braxton MD, FACC 10/12/211904 Normal [facility] Partial Thromboplastin Timeo n 10-12-2021 aPTT Coag (Bld) [Time] 27.0 s Normal 25.1-36.5 [facility] Comment on above: Result Comment: PERF ORMED BY: [place] [address] PATHOLOGIST FLORAL DESIGN TEACHER KENAN BAIRD M.D. Performed By: #### C BC, PT, PTT, BMP #### [facility] [address] Prothrombin Time INRon 10-12 INR Coag (PPP) [Relative time] 1.0 {INR} Normal [facility] Comment on above: Result Comment: [...] BC, PT, PTT, BMP #### [facility] [address] [place] [address] PT Coag (PPP) [Time] 11.0 s Normal 9.0-12.9 [facility] Comment on above: Performed By: #### C BC, PT, PTT, BMP #### [facility] [address] [place] [address] XR chest 2V*on 10-12-2021 XR chest 2V* [facility] Main [place] [address] [place] [address] XRay Report Signed Patient: Robyn Srinivasan MR#: [id number] : 1940 Acct:[id number] Age/Sex: 80 / F ADM Date: 10/12/21 [...] Li Jr., D.ODominik10/12/2021 11:55 AM Dictation Location: [place] [address] Transcribed By: [facility] 10/12/21 1155 Dictated By: Tj Li Jr, DO 10/12/21 1155 Signed By: 10/12/21 1155 Normal [facility] XR KUB 1 VIEWon 10-08-2021 [...] by: JEREMIAH HOBBS Date: 2021-10-08 09:18 Normal [facility] XR RETROGRADE PYELOGRAMon XR RETROGRADE PYELOGRAM [...] by: EDGAR PADRON Date: 2021-09-23 09:36 Normal [facility] CBC AUTO DIFFon 09-22-2021 BASO # 0.0 103/ul Normal 0.0-0.1 [facility] Comment on above: Performed By: #### P THINT #### [facility] [address] [address] [address] Reg Kerns Basophils/100 WBC (Bld) 0.5 % Normal 0.2-2.0 [facility] Comment on above: Performed By: #### P THINT #### [facility] [address] [place] [address] Dr. Reg Kerns EO # 0.2 103/ul Normal 0.0-0.7 [facility] Comment on above: Performed By: #### P THINT #### [facility] [address] [place] [address] Dr. Reg Kerns Eosinophils/100 WBC (Bld) 3.9 % Normal 0.9-7.0 [facility] Comment on above: Performed By: #### P THINT #### [facility] [address] [place] [address] Dr. Reg Kerns Erythrocyte distribution width (RBC) [Ratio] 13.4 % Normal 11.0-15.0 [facility] Comment on above: Performed By: #### P THINT #### [facility] [address] [place] [address] Dr. Reg Kerns Hematocrit (Bld) [Volume fraction] 32.9 % Critically low 36.0-48.0 [facility] Comment on above: Performed By: #### P THINT #### [facility] [address] [place] [address] Dr. Reg Kerns Hemoglobin (Bld) [Mass/Vol] 10.3 g/dL Critically low 12.0-16.0 [facility] Comment on above: Performed By: #### P THINT #### [facility] [address] [place] [address] Dr. Reg Kerns IG # 0.02 10e3/ul Normal 0.00-0.03 [facility] Comment on above: Performed By: #### P THINT #### [facility] [address] [place] [address] Dr. Reg Kerns IG % 0.3 % Normal 0.0-0.5 [facility] Comment on above: Performed By: #### P THINT #### [facility] [address] [address] [address] Reg Kerns LYMPH # 2.2 103/ul Normal 1.2-3.8 [facility] Comment on above: Performed By: #### P THINT #### [facility] [address] [address] [address] Reg Kerns Lymphocytes/100 WBC (Bld) 37.3 % Normal 20.5-60.0 [facility] Comment on above: Performed By: #### P THINT #### [facility] [address] [place] [address] Dr. Reg Kerns MANUAL DIFF REQ NO Normal [facility] Comment on above: Performed By: #### P THINT #### [facility] [address] [place] [address] Dr. Reg Kerns MCH (RBC) [Entitic mass] 27.8 pg Normal 26.7-34.0 [facility] Comment on above: Performed By: #### P THINT #### [facility] [address] [place] [address] Dr. Reg Kerns MCHC (RBC) [Mass/Vol] 31.3 g/dL Normal 29.9-35.2 [facility] Comment on above: Performed By: #### P THINT #### [facility] [address] [place] [address] Dr. Reg Kerns MCV (RBC) [Entitic vol] 88.7 fL Normal 81.0-99.0 [facility] Comment on above: Performed By: #### P THINT #### [facility] [address] [place] [address] Dr. Reg Kerns MONO # 0.6 103/ul Normal 0.3-0.8 [facility] Comment on above: Performed By: #### P THINT #### [facility] [address] [place] [address] Dr. Reg Kerns Monocytes/100 WBC (Bld) 10.6 % Normal 1.7-12.0 [facility] Comment on above: Performed By: #### P THINT #### [facility] [address] [address] [address] Reg Kerns NEUT # 2.8 103/ul Normal 1.4-6.5 [facility] Comment on above: Performed By: #### P THINT #### [facility] [address] [address] [address] Reg Kerns Neutrophils/100 WBC (Bld) 47.4 % Normal 43.0-75.0 [facility] Comment on above: Performed By: #### P THINT #### [facility] [address] [place] [address] Dr. Reg Kerns Platelet mean volume (Bld) [Entitic vol] 10.2 fL Normal 9.5-13.5 [facility] Comment on above: Performed By: #### P THINT #### [facility] [address] [place] [address] Dr. Reg Kerns PLT 210 103/ul Normal 150-450 [facility] Comment on above: Performed By: #### P THINT #### [facility] [address] [place] [address] Dr. Reg Kerns RBC 3.71 106/ul Critically low 4.20-5.40 [facility] Comment on above: Performed By: #### P THINT #### [facility] [address] [place] [address] Dr. Reg Kerns WBC 5.9 103/ul Normal 4.0-11.0 [facility] Comment on above: Performed By: #### P THINT #### [facility] [address] [place] [address] Dr. Reg Kerns CULTURE URINEon 09-22-2021 CULTURE URINE Culture Observations : No growth Normal [facility] Comment on above: Performed By: #### C ITRATU #### [facility] [address] [place] [address] Dr. Reg Kerns PROF 14(COMP METB)on 022 Albumin [Mass/Vol] 3.0 g/dL Critically low 3.5-5.0 Th e [facility] Comment on above: Performed By: #### C MP #### [facility] [address] [place] [address] Dr. Reg Kerns Albumin/Globulin [Mass ratio] 1.0 {ratio} Normal [facility] Comment on above: Performed By: #### C MP #### [facility] [address] [address] [address] Reg Kerns ALP [Catalytic activity/Vol] 55 U/L Normal 38-126 [facility] Comment on above: Performed By: #### C MP #### [facility] [address] [address] [address] Reg Kerns ALT [Catalytic activity/Vol] 16 U/L Normal 9-52 [facility] Comment on above: Performed By: #### C MP #### [facility] [address] [place] [address] Dr. Reg Kerns Anion gap [Moles/Vol] 12.6 mmol/L Normal [facility] Comment on above: Performed By: #### C MP #### [facility] [address] [place] [address] Dr. Reg Kerns AST [Catalytic activity/Vol] 17 U/L Normal 14-36 [facility] Comment on above: Performed By: #### C MP #### [facility] [address] [place] [address] Dr. Reg Kerns Bilirubin [Mass/Vol] 0.1 mg/dL Critically low 0.2-1.3 [facility] Comment on above: Performed By: #### C MP #### [facility] [address] [place] [address] Dr. Reg Kerns Calcium [Mass/Vol] 8.7 mg/dL Normal 8.4-10.2 [facility] Comment on above: Performed By: #### C MP #### [facility] [address] [address] [address] Reg Kerns Chloride [Moles/Vol] 106 mmol/L Normal 98-107 [facility] Comment on above: Performed By: #### C MP #### [facility] [address] [address] [address] Reg Kerns CO2 [Moles/Vol] 25.8 mmol/L Normal 22.0-30.[address] [facility] Comment on above: Performed By: #### C MP #### [facility] [address] [address] [address] Reg Kerns Creatinine [Mass/Vol] 0.83 mg/dL Normal 0.52-1.04 [facility] Comment on above: Performed By: #### C MP #### [facility] [address] [place] [address] Dr. Reg Kerns EGFR-AF SWEDISH >60 Normal >=[address] [facility] Comment on above: Performed By: #### C MP #### [facility] [address] [place] [address] Dr. Reg Kerns EGFR-NON AF SWEDISH >60 Normal >=60 [facility] Comment on above: Performed By: #### C MP #### [facility] [address] [place] [address] Dr. Reg Kerns Globulin (S) [Mass/Vol] 2.9 g/dL Normal [facility] Comment on above: Performed By: #### C MP #### [facility] [address] [place] [address] Dr. Reg Kerns Glucose [Mass/Vol] 99 mg/dL Normal 74-106 [facility] Comment on above: Performed By: #### C MP #### [facility] [address] [address] [address] Reg Kerns Potassium [Moles/Vol] 4.4 mmol/L Normal 3.4-5.0 [facility] Comment on above: Performed By: #### C MP #### [facility] [address] [place] [address] Dr. Reg Kerns Protein [Mass/Vol] 5.9 g/dL Critically low 6.1-8.2 Th [facility] Comment on above: Performed By: #### C MP #### [facility] [address] [place] [address] Dr. Reg Kerns Sodium [Moles/Vol] 140 mmol/L Normal 137-145 [facility] Comment on above: Performed By: #### C MP #### [facility] [address] [place] [address] Dr. Reg Kerns Urea nitrogen [Mass/Vol] 11.0 mg/dL Normal 7.0-17.0 [facility] Comment on above: Performed By: #### C MP #### [facility] [address] [place] [address] Dr. Reg Kerns Urea nitrogen/Creatinine [Mass ratio] 13.3 mg/mg Normal [facility] Comment on above: Performed By: #### C MP #### [facility] [address] [place] [address] Dr. Reg Kerns CBC AUTO DIFFon 09-21-2021 BASO # 0.0 103/ul Normal 0.0-0.1 [facility] Comment on above: Performed By: #### C ITRATU #### [facility] [address] [place] [address] Dr. Reg Kerns Basophils/100 WBC (Bld) 0.6 % Normal 0.2-2.0 [facility] Comment on above: Performed By: #### C ITRATU #### [facility] [address] [place] [address] Dr. Reg Kerns EO # 0.3 103/ul Normal 0.0-0.7 [facility] Comment on above: Performed By: #### C ITRATU #### [facility] [address] [place] [address] Dr. Reg Kerns Eosinophils/100 WBC (Bld) 3.5 % Normal 0.9-7.0 [facility] Comment on above: Performed By: #### C ITRATU #### [facility] [address] [place] [address] Dr. Reg Kerns Erythrocyte distribution width (RBC) [Ratio] 13.4 % Normal 11.0-15.0 [facility] Comment on above: Performed By: #### C ITRATU #### [facility] [address] [place] [address] Dr. Reg Kerns Hematocrit (Bld) [Volume fraction] 37.8 % Normal 36.0-48.0 [facility] Comment on above: Performed By: #### C ITRATU #### [facility] [address] [place] [address] Dr. Reg Kerns Hemoglobin (Bld) [Mass/Vol] 12.3 g/dL Normal 12.0-16.0 [facility] Comment on above: Performed By: #### C ITRATU #### [facility] [address] [place] [address] Dr. Reg Kerns IG # 0.03 10e3/ul Normal 0.00-0.03 [facility] Comment on above: Performed By: #### C ITRATU #### [facility] [address] [place] [address] Dr. Reg Kerns IG % 0.4 % Normal 0.0-0.5 [facility] Comment on above: Performed By: #### C ITRATU #### [facility] [address] [place] [address] Dr. Reg Kerns LYMPH # 1.6 103/ul Normal 1.2-3.8 [facility] Comment on above: Performed By: #### C ITRATU #### [facility] [address] [place] [address] Dr. Reg Kerns Lymphocytes/100 WBC (Bld) 22.9 % Normal 20.5-60.0 [facility] Comment on above: Performed By: #### C ITRATU #### [facility] [address] [place] [address] Dr. Reg Kerns MANUAL DIFF REQ NO Normal [facility] Comment on above: Performed By: #### C ITRATU #### [facility] [address] [place] [address] Dr. Reg Kerns MCH (RBC) [Entitic mass] 28.5 pg Normal 26.7-34.0 [facility] Comment on above: Performed By: #### C ITRATU #### [facility] [address] [place] [address] Dr. Reg Kerns MCHC (RBC) [Mass/Vol] 32.5 g/dL Normal 29.9-35.2 [facility] Comment on above: Performed By: #### C ITRATU #### [facility] [address] [place] [address] Dr. Reg Kerns MCV (RBC) [Entitic vol] 87.7 fL Normal 81.0-99.0 [facility] Comment on above: Performed By: #### C ITRATU #### [facility] [address] [place] [address] Dr. Reg Kerns MONO # 0.6 103/ul Normal 0.3-0.8 [facility] Comment on above: Performed By: #### C ITRATU #### [facility] [address] [place] [address] Dr. Reg Kerns Monocytes/100 WBC (Bld) 8.2 % Normal 1.7-12.0 [facility] Comment on above: Performed By: #### C ITRATU #### [facility] [address] [place] [address] Dr. Reg Kerns NEUT # 4.6 103/ul Normal 1.4-6.5 [facility] Comment on above: Performed By: #### C ITRATU #### [facility] [address] [place] [address] Dr. Reg Kerns Neutrophils/100 WBC (Bld) 64.4 % Normal 43.0-75.0 [facility] Comment on above: Performed By: #### C ITRATU #### [facility] [address] [place] [address] Dr. Reg Kerns Platelet mean volume (Bld) [Entitic vol] 10.8 fL Normal 9.5-13.5 [facility] Comment on above: Performed By: #### C ITRATU #### [facility] [address] [place] [address] Dr. Reg Kerns PLT 256 103/ul Normal 150-450 [facility] Comment on above: Performed By: #### C ITRATU #### [facility] [address], [place] [address] Dr. Reg Kerns RBC 4.31 106/ul Normal 4.20-5.40 [facility] Comment on above: Performed By: #### C ITRATU #### [facility] [address] [place], [place] [address] Dr. Reg Kerns WBC 7.1 103/ul Normal 4.0-11.0 [facility] Comment on above: Performed By: #### C ITRATU #### [facility] [address] [place], [place] [address] ABD/PELVIS WO CONon [...] ABA OTF Date: 2021-09-21 19:43 Normal [facility] Covid-19 PCR (CVDTBH)on 09-02 SARS-CoV-2 (COVID-19) RNA BYRON+probe Ql (Unsp spec) Detected Critically abnormal NOT DETECTED [facility] Comment on above: Result Comment: This test is not yet approved or cleared by the [place] FDA. When there are no FDA-approved or cleared tests available, and other criteria are met, FDA can make tests available under an emergency access mechanism called an Emergency Use Authorization (EUA). The EUA for this test is supported by the Fly Setter of Health and Human Service's declaration that [...] used). Performed By: #### C VDTBH #### [facility] [address] [place] [address] Dr. Reg Kerns ER URINE PROFILEon 2 Bilirubin Ql (U) Negative Normal NEGATIVE [facility] Comment on above: Performed By: #### U NICHELLE 24 #### [facility] [address] [place] [address] Dr. Reg Kerns Clarity (U) SL CLOUDY Abnormal CLEAR [facility] Comment on above: Performed By: #### U NICHELLE 24 #### [facility] [address] [place] [address] Dr. Reg Kerns Color (U) YELLOW Normal YELLOW [facility] Comment on above: Performed By: #### U NICHELLE 24 #### [facility] [address] [place] [address] Dr. Reg WEAVER A micrscopic examination will be performed if indicated. Normal [facility] Comment on above: Performed By: #### U NICHELLE 24 #### [facility] [address] [place] [address] Dr. Reg Kerns Glucose Ql (U) Negative Normal NEGATIVE [facility] Comment on above: Performed By: #### U NICHELLE 24 #### [facility] [address] [place] [address] Dr. Reg Kerns Hemoglobin Ql (U) LARGE Abnormal NEGATIVE [facility] Comment on above: Performed By: #### U NICHELLE 24 #### [facility] [address] [place] [address] Dr. Reg Kerns Ketones Ql (U) Negative Normal NEGATIVE [facility] Comment on above: Performed By: #### U NICHELLE 24 #### [facility] [address] [place] [address] Dr. Reg Kerns LEUKOCYTES Negative Normal NEGATIVE [facility] Comment on above: Performed By: #### U NICHELLE 24 #### [facility] [address] [place] [address] Dr. Reg Kerns Nitrite Ql (U) Negative Normal NEGATIVE [facility] Comment on above: Performed By: #### U NICHELLE 24 #### [facility] [address] [place] [address] Dr. Reg Kerns pH (U) 5.0 [pH] Normal 5-9 [facility] Comment on above: Performed By: #### U NICHELLE 24 #### [facility] [address] [place] [address] Dr. Reg Kerns SPEC GRAVITY >=1.030 Abnormal 1.005-<=1.025 [facility] Comment on above: Performed By: #### U NICHELLE 24 #### [facility] [address] [place] [address] Dr. Reg Kerns UA PROTEIN TRACE Normal NEGATIVE/ TRACE [facility] Comment on above: Performed By: #### U NICHELLE 24 #### [facility] [address] [place] [address] Dr. Reg Kerns UR MICRO IND INDICATED Normal [facility] Comment on above: Performed By: #### U NICHELLE 24 #### [facility] [address] [place] [address] Dr. Reg Kerns Urobilinogen Qn (U) 0.2 {Tiffani'U}/dL Normal 0.2 - 1. 0 [facility] Comment on above: Performed By: #### U NICHELLE 24 #### [facility] [address] [place] [address] Dr. Reg Kerns PROF CHEM 8 (BAS METB)on Anion gap [Moles/Vol] 14.0 mmol/L Normal [facility] Comment on above: Performed By: #### B MP #### [facility] [address] [place] [address] Dr. Reg Kerns Calcium [Mass/Vol] 9.2 mg/dL Normal 8.4-10.2 [facility] Comment on above: Performed By: #### B MP #### [facility] [address] [place] [address] [address] Reg Kerns Chloride [Moles/Vol] 101 mmol/L Normal 98-107 [facility] Comment on above: Performed By: #### B MP #### [facility] [address] [place] [address] [address] Reg Kerns CO2 [Moles/Vol] 25.9 mmol/L Normal 22.0-30.[address] [facility] Comment on above: Performed By: #### B MP #### [facility] [address] [place] [address] [address] Reg Kerns Creatinine [Mass/Vol] 1.13 mg/dL Critically high 0.52-1.04 [facility] Comment on above: Performed By: #### B MP #### [facility] [address] [place] [address] [address] Reg Kerns EGFR-AF SWEDISH 56 mL/min/1.73m2 Critically low >=60 [facility] Comment on above: Performed By: #### B MP #### [facility] [address] [place] [address] [address] Reg Kerns EGFR-NON AF SWEDISH 47 mL/min/1.73m2 Critically low >=60 [facility] Comment on above: Performed By: #### B MP #### [facility] [address] [place] [address] [address] Reg Kerns Glucose [Mass/Vol] 145 mg/dL Critically high 74-106 T [facility] Comment on above: Performed By: #### B MP #### [facility] [address] [place] [address] [address] Reg Kerns Potassium [Moles/Vol] 3.9 mmol/L Normal 3.4-5.0 [facility] Comment on above: Performed By: #### B MP #### [facility] [address] [address] [address] Reg Kerns Sodium [Moles/Vol] 137 mmol/L Normal 137-145 [facility] Comment on above: Performed By: #### B MP #### [facility] [address] [place] [address] Dr. Reg Kerns Urea nitrogen [Mass/Vol] 13.0 mg/dL Normal 7.0-17.0 [facility] Comment on above: Performed By: #### B MP #### [facility] [address] [place] [address] Dr. Reg Kerns Urea nitrogen/Creatinine [Mass ratio] 11.5 mg/mg Normal [facility] Comment on above: Performed By: #### B MP #### [facility] [address] [place] [address] Dr. Reg Kerns URINE MICROSCOPIC ONLYon BACTERIA TRACE Abnormal NONE SEEN [facility] Comment on above: Performed By: #### U NICHELLE 24 #### [facility] [address] [place] [address] Dr. Reg Kerns Bacteria identified Cx Nom (U) NOT INDICATED Normal [facility] Comment on above: Performed By: #### U NICHELLE 24 #### [facility] [address] [place] [address] Dr. Reg Kerns CAST NONE SEEN Normal NONE SEEN [facility] Comment on above: Performed By: #### U NICHELLE 24 #### [facility] [address] [place] [address] Dr. Reg Kerns Crystals LM Nom (Urine sed) NONE SEEN Normal NONE SEEN [facility] Comment on above: Performed By: #### U NICHELLE 24 #### [facility] [address] [place] [address] Dr. Reg Kerns Epithelial cells LM Ql (Urine sed) FEW Abnormal NONE SEEN /RARE [facility] Comment on above: Performed By: #### U NICHELLE 24 #### [facility] [address] [place] [address] Dr. Reg Kerns MUCOUS TRACE Abnormal NONE SEEN [facility] Comment on above: Performed By: #### U NICHELLE 24 #### [facility] [address] [place] [address] Dr. Reg Kerns RBC 5-10 Abnormal 0-2 [facility] Comment on above: Performed By: #### U NICHELLE 24 #### [facility] [address] [place] [address] [address] Reg Kerns WBC 0-2 Abnormal NONE SEEN [facility] Comment on above: Performed By: #### U NICHELLE 24 #### [facility] [address] [id number] [address] Reg Kerns Vital Signs Date Time Vital Sign Value Performing Clinician Facility 05-18-2024 12:54-0400 Blood Pressure Location [employer] [facility] 05-18-2024 12:54-0400 Diastolic blood pressure 50 mm[Hg] [employer] [facility] 05-18-2024 12:54-0400 Heart rate 58 /min [employer] [facility] 05-18-2024 12:54-0400 Respiratory rate 16 /min [employer] [facility] 05-18-2024 12:54-0400 Systolic blood pressure 132 mm[Hg] [employer] [facility] 05-01-2023 12:51-0400 Blood Pressure Location VICKIE SPARROW [facility] 05-01-2023 12:51-0400 Body temperature 97.34 [degF] VICKIE SPARROW [facility] 05-01-2023 12:51-0400 Diastolic blood pressure 81 mm[Hg] VICKIE SPARROW [facility] 05-01-2023 12:51-0400 Heart rate 78 /min VICKIE SPARROW [facility] 05-01-2023 12:51-0400 Systolic blood pressure 158 mm[Hg] VICKIE SPARROW [facility] 06-04-2022 11:49-0400 Blood Pressure Location Carlos ANDRA [facility] 06-04-2022 11:49-0400 Diastolic blood pressure 86 mm[Hg] Carlos SILVERMAN [facility] 06-04-2022 11:49-0400 Heart rate 85 /min Carlos SILVERMAN [facility] 06-04-2022 11:49-0400 Systolic blood pressure 132 mm[Hg] Carlos ANDRA [facility] Encounters Encounter Date Encounter Type Care Provider Facility Start: 05-18-2024 End: 05-18-2024 ambulatory Carlos SILVERMAN Facility:[facility] Start: 05-18-2024 End: 05-18-2024 Patient encounter procedure Carlos SILVERMAN [facility] Start: 05-01-2023 End: 05-01-2023 Patient encounter procedure VICKIE SPARROW [facility] Start: 06-04-2022 End: 06-04-2022 Patient encounter procedure Carlos SILVERMAN [facility] Start: 02-21-2022 End: 02-22-[address] MARKIE SMITH Facility:[facility] Start: 02-02-2022 End: 02-02-[address] CARLOS SILVERMAN Facility:[facility] Start: 01-31-2022 End: 02-01-[address] CARLOS SILVERMAN Facility:[facility] Start: 10-25-2021 End: 10-25-2021 ambulatory Markie Smith Facility:[facility] Start: 10-12-2021 End: 10-12-2021 ambulatory Markie Smith Facility:[facility] Start: 10-08-2021 End: 10-09-[address] CARLOS SILVERMAN Facility:[facility] Start: 09-21-2021 End: 09-22-[address] MARKIE SMITH Facility:[facility] Procedures Date Procedure Procedure Detail Performing Clinician Start: 09-22-2021 Cystoscopy Carlos TORO Appendectomy Carlos SILVERMAN Extraction of cataract Leonardo ilsa ANDRA H/O: hysterectomy Carlos TORO Immunizations Immunization Date Immunization Notes Care Provider [facility] 08-07-2023 zoster vaccine recombinant Carlos SILVERMAN [facility] 05-14-2023 zoster vaccine recombinant Carlos SILVERMAN [facility] 01-19-2021 SARS-CoV-2 (COVID-19 ) mRNA-1273 vaccine Carlos SILVERMAN [facility] 12-22-2020 SARS-CoV-2 (COVID-19 ) mRNA-1273 vaccine Carlos SILVERMAN [facility] Payers Date Payer Category Payer Self-pay 1957 Unknown [id number] 1940 Unknown [id number] 2.16.84 [id number] 1940 Unknown [id number] 2.16.84 [id number] 1940 Unknown [id number] 2.16.84 [id number] 1940 Unknown [id number] 2.16.84 [id number] 1942 Unknown [id number] 2.16.84 [id number] 1940 Unknown [id number] 2.16.84 [id number] 1940 Unknown [id number] 2.16.8 [id number] Unknown [id number] 2.16.8 [id number] Social History Date Type Detail Facility Start: 10-09-2021 End: 05-18-2024 Tobacco smoking status Ex-smoker (finding) [facility] Sex Assigned At Female [facility] Tobacco smoking status Never [facility] Functional Status Date Assessment Result Facility 05-18-2024 Functional Status N/A [facility] 05-01-2023 Functional Status N/A [facility] 06-04-2022 Functional Status N/A [facility] Hospital Discharge instructions 05-18-2024 Note Date & [...] include: ?8 oz (237 mL) of milk, yswadkj-srzlefmwocek-pthsk milk, and calcium-fortifiedfruit juice. Calcium-fortified means that [...] potatoes, and Ukrainian chard. ?Peanuts. ?Potato chips, citizen of [place] fries, and baked potatoes with skin on. ?Nuts and nut products. ?Chocolate. If you regularly take a diuretic medicine, make sure to eat at least 1 or 2 servings of fruits or vegetables that are high in potassium each day. These include: ?Avocado. ?Banana. ?[place], prune, carrot, or tomato juice. ?Baked potato. [...] magnesium, fish oil, or vitamin B6. Take xumc-tgo-nzfjdhp and prescription medicines only as told by [...] Casseroles. Pizza. Lasagna. Frozen meals. Potato chips. Romanian fries. The items listed above may not [...] provider. Document Revised: 11/28/2022 Document Reviewed: 11/28/2022 [employer] Patient Education 2023 [employer] Follow Up Care 05/01/2023 13:32:00 With:ANDRA RIVERA, Carlos Mae, URL Address: [address] [place] [id number]- When: Unknown Comments:1.5 yrs w/ MILTON [facility] Clinical Note 05-18-2024 Note Date & [...] ? 8 oz (237 mL) of milk, gbvjlki-vkqrmvafcghp-dxfnu milk, and calcium-fortifiedfruit juice. Calcium-fortified means that [...] Ukrainian chard. ? Peanuts. ? Potato chips, citizen of [place] fries, and baked potatoes with skin on. ? Nuts and nut products. ? Chocolate. ? If you regularly take a diuretic medicine, make sure to eat at least 1 or 2 servings of fruits or vegetables that are high in potassium each day. These include: ? Avocado. ? Banana. ? [place], prune, carrot, or tomato juice. ? Baked [...] fish oil, or vitamin B6. ? Take aewx-sry-cqfhrib and prescription medicines only as told by your health care provider. These include suppleme (more content not included)... [facility] Hospital Discharge instructions 05-01-2023 Note Date [...] include: ?8 oz (237 mL) of milk, oorxoks-dphkbrmunkxs-xyuxm milk, and calcium-fortifiedfruit juice. Calcium-fortified means that [...] potatoes, and Ukrainian chard. ?Peanuts. ?Potato chips, citizen of [place] fries, and baked potatoes with skin on. ?Nuts and nut products. ?Chocolate. If you regularly take a diuretic medicine, make sure to eat at least 1 or 2 servings of fruits or vegetables that are high in potassium each day. These include: ?Avocado. ?Banana. ?[place], prune, carrot, or tomato juice. ?Baked potato. [...] magnesium, fish oil, or vitamin B6. Take cobc-cub-pfesdae and prescription medicines only as told by [...] Casseroles. Pizza. Lasagna. Frozen meals. Potato chips. Romanian fries. The items listed above may not [...] provider. Document Revised: 04/29/2022 Document Reviewed: 04/29/2022 [employer] Patient Education 2022 [employer]. Follow Up Care 06/04/2022 12:04:12 With:VICKIE SPARROW PA-C, URL Address: [address] [place] [address] When: Unknown [facility] Hospital Discharge instructions 06-04-2022 Note Date & Type Note Facility 06-04-2022 Hospital Discharg e instructions Patient Education 06/04/2022 11:49:33 Kidney Stones, Znbj-gq-Rhit Kidney Stones Kidney stones are rock-like masses [...] Follow these instructions at home: Medicines Take nnka-nha-ggkazaz and prescription medicines only as told by [...] 02/03/2009 Document Revised: 01/04/2020 Document Reviewed: 01/04/2020 [employer] Patient Education 2019 [employer]. Follow Up Care 2021 09:56:33 With:ANDRA RIVERA, Carlos Mae, URL Address: [address] [place] [address] [place] [id number]- When:12/03/2022 Comments:KUB [facility] Clinical Note 09-21-2021 Note Date & [...] appropriately. I attempted to pass the #22 Romanian scope without success. She required urethral dilatation to 28 Romanian. She has a significant rectocele and a [...] removed. Over the wire then a 4.8 Romanian 22 to 30 cm microvasive double J [...] with her in the outpatient setting. [facility] Clinical Note 09-21-2021 Note Date [...] appropriately. I attempted to pass the #22 Romanian scope without success. She required urethral dilatation to 28 Romanian. She has a significant rectocele and a [...] removed. Over the wire then a 4.8 Romanian 22 to 30 cm microvasive double J [...] with her in the outpatient setting. [facility] Evaluation + Plan note Laboratory Note Date & Type Note Facility Evaluation + Plan note Future Appointments Appointment Date:12/06/2022 10:30:00 AM Scheduled Provider:Carlos SILVERMAN MD Location:[facility] Appointment Type:URO Office Visit Future Scheduled TestsBasic Metabolic Panel 11/15/21 [facility] Evaluation + Plan note Note Date & Type Note Facility Evaluation + Plan note Future Appointments Appointment Date:05/04/2024 01:00:00 PM Scheduled Provider:Carlos SILVERMAN MD Location:[facility] Appointment Type:URO Office Visit [facility] [place] Hospital course Narrative Note Date & Type Note Facility Hospital course Narrative No data available for this section [facility] Progress note Note Date & Type Note Facility Progress note No data available for this section [facility] Summary Purpose Family History No Family History Records FoundNo Family History Records FoundNo Family History Records Found No data available for this section Advance Directives No Advanced Directives Records FoundNo Advanced Directives Records FoundNo Advanced Directives Records Found Additional Source Comments INFORMATION SOURCE (unrecogn ized section and content) DATE CREATED AUTHOR 02/27/2022 [facility] DATE CREATED AUTHOR AUTHOR'S ORGANIZ ATION 10/05/2022 [facility] DATE CREATED AUTHOR AUTHOR'S ORGANIZ ATION 05/20/2024 [facility] Patient Care team informatio n (unrecognized section and content) Personnel Name: Markie Smith MD Address: Address: [address] [place] [address] Personnel Name: Markie Smith MD Address: Address: [address] [place] [address] Personnel Name: Markie Smith MD Address: Address: [address] [place] [address] FOR RECORDS PERTAINING TO PATIENTS WHO ARE [...] BE BASED ON THE PRIMARY CLINICAL RECORDS. [employer] provides no warranty or guarantee of the accuracy or completeness of information in this document.
--- NOTE | 2024-12-14 09:00 | CA_ITS ---
Patient Name: ROBYN SRINIVASAN MR#: [id number] : 1940 Exam Date: 12/14/2024 Ordering Doctor: DR Haroon Smith . ECHOCARDIOGRAM REPORT PROCEDURE: CA ECHO DOPPLER COMPLETE INDICATIONS: Chronic diastolic heart failure, hypertension COMPARISON: None. DESCRIPTION: COMPLETE ECHOCARDIOGRAM Real-time transthoracic echocardiography with 2D, M-mode, spectral and color flow Doppler performed. QUALITY: Technical quality was good. LEFT VENTRICLE: Normal chamber size. Mild concentric left ventricular hypertrophy. LV EF: Normal left ventricular ejection fraction, (60-65%). DIASTOLIC: Diastolic function is indeterminate. ATRIAL SEPTUM: Visually appears intact. LEFT ATRIUM: Mild dilatation. RIGHT ATRIUM: Normal chamber size. RIGHT VENTRICLE: Normal chamber size. Normal right ventricular systolic function. TRICUSPID VALVE: Normal mobility and thickness. No stenosis with trivial regurgitation. No evidence of pulmonary hypertension. RVSP 34 mmHg MITRAL VALVE: Normal mobility and thickness. No evidence of mitral valve stenosis. Mild mitral annular calcification. Trivial mitral regurgitation. AORTIC VALVE: Normal trileaflet appearance. No visible sclerosis. Normal leaflet mobility. No evidence of aortic valve stenosis. Trivial aortic regurgitation. AORTIC ROOT: Normal diameter and appearance, measuring 3.2 cm. Ascending aorta is normal in size, measuring 3.0 cm. PULMONIC VALVE: Normal thickness and mobility. No stenosis. Mild regurgitation. PERICARDIUM: No evidence of pericardial effusion. IVC: Collapses with inspirations. IVC is normal in size. PLEURA: CONCLUSION: 1. Mild concentric left ventricular hypertrophy with normal systolic function. LVEF is estimated at 60 to 65%. 2. Normal right ventricular size and systolic function. 3. Mild left atrial dilatation. 4. No significant valvular dysfunction. 5. Normal right-sided pressures. Adult Echocardiography Procedure Report Left Ventricle LVEDD (3.7 - 5.6 cm): 3.33 cm LVESD (2.2 - 4.0 cm): 2.89 cm LVIVS thickness (0.6 - 1.2 cm): 1.25 cm LVPW thickness (0.5 - 1.0 cm): 1.08 cm e': 0.08 m/s E - e': 8.68 LVOT Max Gradient: 2.06 mm[Hg] LVOT Area (cm2): 0.72 m/s Peak Velocity (LVOT): 0.72 m/s Mean Velocity (LVOT): 0.52 m/s LVOT Diameter 1.99 cm Left Atrium LA Volume Index (2D A2C): 30.59 ml/m2 Left Atrium Systolic Dimension: 3.33 cm Mitral Valve MV E to A Ratio: 0.76 Mitral Valve A-Wave Peak Velocity: 0.97 m/s Mitral Valve E-Wave Peak Velocity: 0.74 m/s Right Ventricle Aorta AO Root Diam: 3.18 cm Ascending Ao Diam: 3.03 cm Aortic Valve AoV Area (Peak Norman): 2.10 cm2, 2.10 cm2 AoV Area (VTI): 2.25 cm2, 2.25 cm2 Peak Velocity(Antegrade Flow): 1.07 m/s Peak Gradient(Antegrade Flow): 4.55 mm[Hg] Mean Velocity(Antegrade Flow): 0.76 m/s Mean Gradient(Antegrade Flow): 2.59 mm[Hg] Velocity Time Integral: 26.56 cm Tricuspid Valve Peak Velocity (Regurgitant Flow): 2.78 m/s, 2.61 m/s Pulmonic Valve Mean Gradient: 2.15 mm[Hg] Mean Velocity: 0.67 m/s Peak Velocity: 1.09 m/s, 1.02 m/s Peak Gradient: 4.19 mm[Hg], 4.77 mm[Hg] Right Atrium Right Atrium Systolic Pressure: 26.65 ml, 26.65 ml Dictated by: Max Reich M.D. on 12/14/2024 at 19:06 Approved by: Max Reich M.D. on 12/14/2024 at 19:08
== END 2024-12-14 08:33 | disposition home or self-care (01) ==
LOC: CARD 08:32
PROVIDERS: Family Provider Family Medicine; PCP Family Medicine; Visit Provider Family Medicine
DX: I50.32 Chronic diastolic (congestive) heart failure (principal)
CPT/HCPCS: 93306

== ENCOUNTER 2025-05-05 10:04 | Emergency (ER) | payer MEDICARE, SELFPAY ==
[2025-05-05 10:07] VITALS: BP 156/83; PULSE 71; TEMP 36.5; O2SAT 99; BMI 27.5
--- OUTSIDE RECORDS SUMMARY | 2025-05-05 10:15 | XMS_ITS | CCD ---
Author Organization [facility] Care Team Providers Care Manager Benefit Name Role Phone ANDRA, DR CARLOS Mae [...] Care Unavailable MEKA, DR ADEN Consulting Unavailable ZIEBER, DR JEREMIAH Norton Consulting Unavailable HOAce, DR ADEN Primary Care Unavailable MEKA, DR ADEN Admitting Unavailable MEKA, DR ADEN Attending Unavailable HOAce, DR ADEN [...] Unavailable ANDRA, DR CARLOS Mae Consulting Unavailable ZIEBER, DR JEREMIAH Norton Consulting Unavailable MEKA, DR ADEN Admitting Unavailable MEKA, DR ADEN Attending Unavailable MEKA, DR ADEN Primary Care Unavailable MEKA, DR ADEN Consulting Unavailable Markie Smith Primary Care Physician Markie Smith Primary Care Unavailable Carlos Sliverman Attending Unavailable Carlos Silverman Admitting Unavailable Markie Smith Primary Care Unavailable Carlos Silverman Attending Unavailable Carlos Silverman Admitting Unavailable Carlos SILVERMAN Attending Unavailable Markie Smith MD Primary Care Provider [phone] GINA FLETCHER Attending Unavailable GINA FLETCHER Referring Unavailable Allergies Allergy Classification Reported Allergen(s) Allergy Type Date of Onset Reaction(s) Facility (2 sources) Ciprofloxacin; Translations: [ciprofloxacin] Drug Allergy 12-06-19 [facility] (2 sources) Codeine; Translations: [codeine] Drug Allergy 08-31-20 [facility] (2 sources) Ibuprofen; Translations: [ibuprofen] Drug Allergy 12-06-19 [facility] (5 sources) Penicillin; Translations: [penicillin] Drug Allergy 09-01-18 63 Eruption of skin (disorder) [facility] (1 source) Leon nut Drug allergy (disorder) 09-21-19 22 [facility] (5 sources) Ciprofloxacin; Translations: [ciprofloxacin] Drug Allergy 12-06-19 Unknown [facility] (5 sources) Codeine; Translations: [codeine] Drug Allergy 08-31-20 Unknown [facility] (5 sources) Ibuprofen; Translations: [ibuprofen] Drug Allergy 12-06-19 Unknown [facility] (6 sources) Sulfamethoxazole / Trimethoprim; Translations: [sulfamethoxazole-tr imethoprim] Drug Allergy 01-19-20 Tremor (finding) [facility] (2 sources) Honey bee venom Allergy to substance 01-19-20 [facility] (2 sources) Penicillin G Drug Allergy 01-19-20 Rash [facility] Medications Current Medications Medication Drug Class(es) Dates Sig (Normalized) Sig (Original) acetaminophen 250 mg / aspirin 250 mg / caffeine 65 mg oral tablet (2 sources) Platelet Aggregation Inhibitor, Nonsteroidal Anti-inflammatory Drug, Central Nervous System Stimulant, Methylxanthine take 1 tablet by mouth every six hours as needed for headache aspirin-acetamin ophen-caffeine (Excedrin Migraine) 250-250-65 MG tablet Take 1 tablet by mouth every 6 (six) hours if needed for headaches Active ALPRAZolam 0.25 mg oral tablet (5 sources) Benzodiazepine Start: 10-09-2021 take 4 tablets by mouth three times daily Xanax 0.25 mg Tab mg tab(s), Oral, TID, Refills(s) 0 Start Date: 10/09/21 Status: Ordered take 1 tablet by mouth in the mo rning ALPRAZolam (Xanax) 0.25 MG tablet Take 0.25 mg by mouth in the morning and 0.25 mg before bedtime. Active amLODIPine 5 mg oral tablet (2 sources) Dihydropyridine Calcium Channel Rubens Start: 12-17-2024 take 1 tablet by mouth once daily amLODIPine (Norvasc) 5 MG tablet Take 5 mg by mouth Daily 12/17/2024 Active calcium carbonate 500 mg chewable tablet (3 [...] Refill(s) 0 Start Date: 10/09/21 Status: Ordered ferrous sulfate 325 mg oral tablet (2 sources) take 1 tablet by mouth in the morning Ferrous Sulfate (iron) 325 (65 Fe) MG tablet Take 1 tablet by mouth in the morning and 1 tablet before bedtime. Active gabapentin 100 mg oral capsule (3 sources) Anti-epileptic Agent Start: 05-18-2024 gabapentin 100 mg Cap 100 mg = 1 cap(s), Oral Start Date: 05/18/24 Status: Ordered Iron Chews (3 sources) Start: 10-09-2021 take 1 mg by mouth once daily Iron Chews mg, Oral, Daily, Refills(s) 0 Start Date: 10/09/21 Status: Ordered lactobacillus acidophilus [id number] unt oral capsule (3 sources) Start: 03-18-2019 take 1 capsule by mouth once daily lactobacillus acidophilus oral capsule 1 cap(s), Oral, Daily, Refill(s) 0 Start Date: 03/18/19 Status: Ordered meclizine hydrochloride 25 mg chewable tablet (5 sources) Antiemetic Start: 10-09-2021 take 1 mg by mouth three times daily meclizine 25 mg oral tablet, chewable mg tab(s), Chewed, TID, Refills(s) 0 Start Date: 10/09/21 Status: Ordered take 1-2 tablets by mouth every twelve hours Meclizine HCl 25 MG chewable tablet CHEW 1-2 TABLETS BY MOUTH EVERY 12 HOURS Active pantoprazole 40 mg delayed release oral tablet (4 sources) Proton Pump Inhibitor Start: 09-10-2024 take 1 tablet by mouth in the evening pantoprazole (ProtoNix) 40 MG EC tablet Take 40 mg by mouth in the evening 09/10/2024 Active Start: 05-01-2023 take 1 mg by mouth [...] Da te Episodic/Chronic Calculus of urinary tract (15 sources) Calculus of kidney; Translations: [Personal history of urinary calculi] Onset: 09-27-2021 Episodic Chronic kidney disease (5 sources) Chronic kidney disease stage 3; Translations: [Stage 3 chronic kidney disease (HCC)] Onset: 01-18-2025 06-06-2019 Chronic Conditions associated with dizziness or vertigo (2 sources) Meniere's disease of right inner ear; Translations: [Meniere's disease, right ear] Onset: 01-18-2025 01-18-2025 Chronic Congestive heart failure; nonhypertensive (1 source) [...] disease 06-06-2019 Chronic Diabetes mellitus without complication (5 sources) Type 2 diabetes mellitus; Translations: [Type 2 diabetes mellitus without complications] Onset: 01-18-2025 06-06-2019 Chronic Diabetes mellitus without complication (1 source) Other abnormal glucose; Translations: [OTHER ABNORMAL GLUCOSE] Onset: 02-01-2022 Episodic Disorders of lipid metabolism (2 sources) Pure hypercholesterolemia , unspecified; Translations: [Hyperlipidemia, unspecified] Onset: 02-01-2022 Chronic Esophageal disorders (6 sources) Gastro-esophageal reflux disease without esophagitis; Translations: [Gastroesophageal reflux disease] Onset: 02-01-2022 04-14-2019 Chronic Hypertension with complications and secondary hypertension (1 source) Hypertensive heart disease with heart failure; Translations: [HTN HEART DISEASE W/HEART FAIL] Onset: 02-01-2022 Chronic Mood disorders (5 sources) Mixed bipolar affective disorder, mild; Translations: [Bipolar disorder, current episode mixed, mild] Onset: 01-18-2025 06-06-2019 Chronic Osteoarthritis (2 sources) Idiopathic osteoarthritis; Translations: [Primary osteoarthritis, unspecified site] Onset: 01-18-2025 01-18-2025 Chronic Other acquired deformities (2 sources) Equinus contracture of the ankle; Translations: [Contracture, right ankle] 01-18-2025 Chronic Other connective tissue disease (2 sources) Plantar fasciitis; Translations: [Plantar fascial fibromatosis] 01-18-2025 Episodic Other connective tissue disease (2 sources) Pain in right foot; Translations: [Pain in right foot] 01-18-2025 Episodic Other diseases of kidney and ureters [...] UNSPECIFIED] Onset: 02-01-2022 Episodic Residual codes; unclassified (5 sources) History of craniotomy; Translations: [Other specified postprocedural states] Onset: 01-18-2025 03-18-2019 Episodic Viral infection (1 source) COVID-19; Translations: [COVID-19] Onset: 09-27-2021 Past or Other Problems Problem Classification Problem Date Documented Date Episodic/Chronic Abdominal pain (4 sources) Unspecified abdominal pain; Translations: [UNSPECIFIED ABDOMINAL PAIN] Onset: 09-21-2021 Episodic Other aftercare (1 source) Other [facility] (current) drug therapy; Translations: [[facility] CURRENT DRUG THERAPY] Onset: 09-27-2021 Episodic Other [...] Test Name Value Interpretation Reference Range Facility XR Calcaneus - right 2 Views on 01-18-2025 Imaging Result: Lateral, calcaneal axial views are weight-bearing. Decreased calcaneal inclination, increased talar declination. First ray elevation. Enthesophyte at the insertion of the Achilles tendon and plantar fascia. Degenerative changes noted at the tarsometatarsal joint, naviculocuneiform joints. There is also degenerative changes of the 1st MTP. All these regions exhibit joint space narrowing, subchondral sclerosis, periarticular osteophytes, questionable subchondral cystic changes. No fractures or dislocations noted. [facility] Radiology Study observation (narrative) [facility] Ambulatory Visit Summaryon 0 05-18-2024 Ambulatory Visit Summary Ambulatory Visit Summary ROBYN SRINIVASAN :1940 Visit Date:09/24/2021 Ambulatory Visit Instructions Your Diagnosis Kidney stone Ureteral stone with hydronephrosis Chronic kidney disease, stage 3 Your Care Team Primary Care Physician - Markie Smith MD This Is Your Medications List APAP/ASA/caffeine (Excedrin [...] you for choosing us for your care. [facility] Reminderson 05-18-2024 Reminders Reminders From: Kinza Walker To: EU - Administrative; Sent: 05/18/2024 13:18:11 EDT Show up: 09/05/2025 13:17:00 EST Subject: Ambulatory Reminder Due Date/Time: 11/07/2025 13:17:00 EDT Reminder/Recall SCHEDULE ROBYN SRINIVASAN IN [address] MO [address] SILVERMAN [facility] Reminders Reminders From: Griselda Church To: EU - Deyaniras Andra; Sent: 05/18/2024 13:12:21 EDT Show up: 10/18/2025 12:12:00 EST Subject: KUB prior to appt Reminder Message Pt needs KUB done prior to f/u in 18 mos. Will need order (dx: history of kidney stones). Typically goes to [facility]. [facility] Urology Office/Clinic Noteon 05-18-2024 Urology Office/Clinic Note Urology Office/Clinic Note Chief Complaint 1 year follow up HPI Staff 1 yr w/ KUB 05/14/24 Previous Dx: kidney stone, ureteral stone w/hydronephrosis CT AP w con 04/28/24 TB (ordered due to abdominal pain while in [...] Contact Information ANDRA RIVERA, Carlos Mae, URL [address] [place], [place] [id number]- Additional Instructions: 1.5 yrs w/ KUB Patient Education Dietary Guidelines to Help Prevent Kidney Stones Griselda German, personally scribed for Dr. Silverman on 05/18/2024 13:14:03. . Documentation recorded by the Griselda rick acurately reflects the services(s) I performed and decisions made by me. Authenticated by Dr. Silverman on 05/18/2024 13:14:55. Portions of this record may have been created with voice recognition artificial intelligence software, specifically [employer], [employer] and or [employer]. Substitutions may have occurred due to the [...] Social History (more content not included)... Normal [facility] Comment on above: Result Comment: Elec tronically Signed By: Carlos SILVERMAN MD\.br\Date and Time Signed: 05/18/24 13:16 EDT\.br\Electronically Co-Signed By: Griselda Church\.br\Date and Time Co-Signed: 05/18/24 13:14 EDT MG MAMM SCREEN 3D ZAN CADon 02-21-2022 MG MAMM SCREEN 3D ZAN CAD Patient: ROBYN SRINIVASAN. Exam Date: 02/21/2022 : 1940 Gender:F Ordering : DR MARKIE SMITH . Admission #: [id number] Family : Order #: [id number] CLICK HERE TO VIEW EXAM RADIOLOGY REPORT [...] breast cancer at age 49. LOCATION: [facility] BREAST COMPOSITION: Scattered areas fibroglandular density. [...] Hobbs M.D. on 02/22/2022 at 13:35 Normal [facility] T4 LABCORPon 02-07-2022 T4 [Mass/Vol] 6.2 ug/dL Normal 4.5-12.0 [facility] Comment on above: Performed By: #### T 4LC #### [facility] [address] [place] [address] Dr. Reg Kerns CITRATE URINE 24HRon 022 Citric Acid, U, 24hr 191 mg/24 hr Critically low 320-1240 [facility] Comment on above: Result Comment: This test was developed and its performance characteristics determined by [facility]. It has not been cleared or approved by the Food and Drug Administration. Performed By: #### C ITRATU #### [facility] [address] [place] [address] Dr. Reg Kerns Citric Acid, Urine 283 mg/L Normal Undefined The [facility] Comment on above: Performed By: #### C ITRATU #### [facility] [address] [place] [address] Dr. Reg Kerns OXALATE 24HR URINEon 022 Oxalates, Urine 24hr 5 mg/24 hr Normal 4-31 [facility] Comment on above: Performed By: #### O X24HR #### [facility] [address] [place] [address] Dr. Reg Kerns Oxalates, Urine 8 mg/L Normal Undefined [facility] Comment on above: Performed By: #### O X24HR #### [facility] [address] [place] [address] Dr. Reg Kerns MAGNESIUM 24HR URINEon 02-03 Magnesium 24hr Urine 43.2 mg/24 hr Normal 12.0-293.0 [facility] Comment on above: Performed By: #### P THINT #### [facility] [address] [place] [address] Dr. Reg Kerns Magnesium UR 6.4 mg/dL Normal Not Estab. [facility] Comment on above: Performed By: #### P THINT #### [facility] [address] [place] [address] Dr. Reg Kerns PHOSPHORUS 24HR URINEon Phosphorus, Urine 47.7 mg/dL Normal Not Estab. The [facility] Comment on above: Performed By: #### P THINT #### [facility] [address] [place] [address] Dr. Reg Kerns Phosphorus, Urine 24hr 322 mg/24 hr Normal 261-1078 [facility] Comment on above: Performed By: #### P THINT #### [facility] [address] [place] [address] Dr. Reg Kerns URIC ACID 24 HR URINEon Uric Acid, Urine 28.4 mg/dL Normal Not Estab. The [facility] Comment on above: Performed By: #### U NICHELLE 24 #### [facility] [address] [place] [address] Dr. Reg Kerns Uric Acid, Urine 24hr 191.7 mg/24 hr Normal 88.9-568.5 [facility] Comment on above: Performed By: #### U NICHELLE 24 #### [facility] [address] [place] [address] Dr. Reg Kerns CALCIUM 24 HR URINEon 2021 CALC, 24 HR UR 58.7 mg/24 hr Critically low 100.0-300.0 [facility] Comment on above: Performed By: #### P THINT #### [facility] [address] [place] [address] Dr. Reg Kerns UR CALCIUM 8.7 mg/dL Normal 5.1-21.0 [facility] Comment on above: Performed By: #### P THINT #### [facility] [address] [place] [address] Dr. Reg Kerns CREA 24 HR URINEon 2 CREA, 24 HR UR 455.96 mg/24 hr Critically low 800.00-1 ,800. 00 [facility] Comment on above: Performed By: #### C ITRATU #### [facility] [address] [place] [address] Dr. Reg Kerns URINE CREAT 67.55 mg/dL Normal 20.00-300.[address] [facility] Comment on above: Performed By: #### C ITRATU #### [facility] [address] [place] [address] Dr. Reg Kerns SODIUM 24 HR URINEon 022 NA, 24 HR UR 76 mmol/24 hr Normal 40-220 [facility] Comment on above: Performed By: #### C ITRATU #### [facility] [address] [place] [address] Dr. Reg Kerns Sodium (U) [Moles/Vol] 112 mmol/L Critically high 30-90 [facility] Comment on above: Performed By: #### C ITRATU #### [facility] [address] [place] [address] Dr. Reg Kerns UR TOT VOL 675 ml/24 HR Normal [facility] Comment on above: Performed By: #### C ITRATU #### [facility] [address] [place] [address] Dr. Reg Kerns Performed By: #### P THINT #### [facility] [address] [place] [address] Dr. Reg Kerns INSULINon 02-01-2022 Insulin 27.7 uIU/mL Critically high 2.6-24.9 [facility] Comment on above: Performed By: #### U NICHELLE 24 #### [facility] [address] [place] [address] Dr. Reg Kerns PTH INTACTon 02-01-2022 PTH, Intact 46 pg/mL Normal 15-65 [facility] Comment on above: Performed By: #### P THINT #### [facility] [address] [place] [address] Dr. Reg Kerns BNPon 01-31-2022 Natriuretic peptide B (Bld) [Mass/Vol] 154.0 pg/mL Normal <=1,800.0 [facility] Comment on above: Performed By: #### P THINT #### [facility] [address] [place] [address] Dr. Reg Kerns CBC AUTO DIFFon 01-31-2022 BASO # 0.1 103/ul Normal 0.0-0.1 [facility] Comment on above: Performed By: #### U NICHELLE 24 #### [facility] [address] [place] [address] Dr. Reg Kerns Basophils/100 WBC (Bld) 0.8 % Normal 0.2-2.0 [facility] Comment on above: Performed By: #### U NICHELLE 24 #### [facility] [address] [place] [address] Dr. Reg Kerns EO # 0.3 103/ul Normal 0.0-0.7 [facility] Comment on above: Performed By: #### U NICHELLE 24 #### [facility] [address] [place] [address] Dr. Reg Kerns Eosinophils/100 WBC (Bld) 4.4 % Normal 0.9-7.0 [facility] Comment on above: Performed By: #### U NICHELLE 24 #### [facility] [address] [place] [address] Dr. Reg Kerns Erythrocyte distribution width (RBC) [Ratio] 15.7 % Critically high 11.0-15.0 [facility] Comment on above: Performed By: #### U NICHELLE 24 #### [facility] [address] [place] [address] Dr. Reg Kerns Hematocrit (Bld) [Volume fraction] 37.4 % Normal 36.0-48.0 [facility] Comment on above: Performed By: #### U NICHELLE 24 #### [facility] [address] [place] [address] Dr. Reg Kersn Hemoglobin (Bld) [Mass/Vol] 11.6 g/dL Critically low 12.0-16.0 [facility] Comment on above: Performed By: #### U NICHELLE 24 #### [facility] [address] [place] [address] Dr. Reg Kerns IG # 0.03 10e3/ul Normal 0.00-0.03 [facility] Comment on above: Performed By: #### U NICHELLE 24 #### [facility] [address] [place] [address] Dr. Reg Kerns IG % 0.5 % Normal 0.0-0.5 [facility] Comment on above: Performed By: #### U NICHELLE 24 #### [facility] [address] [place] [address] Dr. Reg Kerns LYMPH # 1.9 103/ul Normal 1.2-3.8 [facility] Comment on above: Performed By: #### U NICHELLE 24 #### [facility] [address] [place] [address] Dr. Reg Kerns Lymphocytes/100 WBC (Bld) 30.3 % Normal 20.5-60.0 [facility] Comment on above: Performed By: #### U NICHELLE 24 #### [facility] [address] [place] [address] Dr. Reg Kerns MANUAL DIFF REQ NO Normal [facility] Comment on above: Performed By: #### U NICHELLE 24 #### [facility] [address] [place] [address] Dr. Reg Kerns MCH (RBC) [Entitic mass] 26.9 pg Normal 26.7-34.0 [facility] Comment on above: Performed By: #### U NICHELLE 24 #### [facility] [address] [place] [address] Dr. Reg Kerns MCHC (RBC) [Mass/Vol] 31.0 g/dL Normal 29.9-35.2 [facility] Comment on above: Performed By: #### U NICHELLE 24 #### [facility] [address] [place] [address] Dr. Reg Kerns MCV (RBC) [Entitic vol] 86.6 fL Normal 81.0-99.0 [facility] Comment on above: Performed By: #### U NICHELLE 24 #### [facility] [address] [place] [address] Dr. Reg Kerns MONO # 0.6 103/ul Normal 0.3-0.8 [facility] Comment on above: Performed By: #### U NICHELLE 24 #### [facility] [address] [place] [address] Dr. Reg Kerns Monocytes/100 WBC (Bld) 8.9 % Normal 1.7-12.0 [facility] Comment on above: Performed By: #### U NICHELLE 24 #### [facility] [address] [place] [address] Dr. Reg Kerns NEUT # 3.5 103/ul Normal 1.4-6.5 [facility] Comment on above: Performed By: #### U NICHELLE 24 #### [facility] [address] [place] [address] Dr. Reg Kerns Neutrophils/100 WBC (Bld) 55.1 % Normal 43.0-75.0 [facility] Comment on above: Performed By: #### U NICHELLE 24 #### [facility] [address] [place] [address] Dr. Reg Kerns Platelet mean volume (Bld) [Entitic vol] 10.6 fL Normal 9.5-13.5 [facility] Comment on above: Performed By: #### U NICHELLE 24 #### [facility] [address] [place] [address] Dr. Reg Kerns PLT 250 103/ul Normal 150-450 [facility] Comment on above: Performed By: #### U NICHELLE 24 #### [facility] [address] [place] [address] Dr. Reg Kerns RBC 4.32 106/ul Normal 4.20-5.40 [facility] Comment on above: Performed By: #### U NICHELLE 24 #### [facility] [address] [address] [address] Reg Kerns WBC 6.4 103/ul Normal 4.0-11.0 [facility] Comment on above: Performed By: #### U NICHELLE 24 #### [facility] [address] [place] [address] Dr. Reg Kerns FREE THYROXINE INDEX T7on FTI 2.17 Normal 1.30-4.50 [facility] Comment on above: Performed By: #### P THINT #### [facility] [address] [place] [address] Dr. Reg Kerns T3U 35.0 % Normal 30.0-39.0 [facility] Comment on above: Performed By: #### P THINT #### [facility] [address] [place] [address] Dr. Reg Kerns T4 [Mass/Vol] 6.20 ug/dL Normal 4.80-13.90 [facility] Comment on above: Result Comment: T4 t esting performed by [facility] Performed By: #### P THINT #### [facility] [address] [place] [address] Dr. Reg Kerns GLYCOHEMOGLOBIN A1Con 2021 ADA RECOMMENDATION SEE BELOW Normal [facility] Comment on above: Result Comment: ADA RECOMMENDED LIMIT 4.0 - 6.0 ADA THERAPEUTIC TARGET < 7.0 ACTION SUGGESTED > 7.0 Performed By: #### P THINT #### [facility] [address] [place] [address] Dr. Reg Kerns Glucose [Mass/Vol] 117 mg/dL Normal [facility] Comment on above: Performed By: #### P THINT #### [facility] [address] [place] [address] Dr. Reg Kerns HbA1c (Bld) [Mass fraction] 5.7 % Normal 4.5-6.2 [facility] Comment on above: Performed By: #### P THINT #### [facility] [address] [address] [address] Reg Kerns IRONon 01-31-2022 Iron [Mass/Vol] 143.0 ug/dL Normal 50.0-170.0 [facility] Comment on above: Performed By: #### I JORGE #### [facility] [address] [address] [address] Reg Kerns LIPID PROFILEon 01-31-2022 CHOL-HDL RATIO NORM SEE BELOW Normal [facility] Comment on above: Result Comment: 3.3 - 4.4 LOW RISK 4.4 - 7.1 AVERAGE RISK 7.1 - 11.0 MODERATE RISK >11.0 HIGH RISK Performed By: #### P THINT #### [facility] [address] [place] [address] Dr. Reg Kerns Cholesterol [Mass/Vol] 210 mg/dL Critically high <=200 [facility] Comment on above: Performed By: #### P THINT #### [facility] [address] [place] [address] Dr. Reg Kerns Cholesterol in HDL [Mass/Vol] 56 mg/dL Normal 40-60 [facility] Comment on above: Performed By: #### P THINT #### [facility] [address] [place] [address] Dr. Reg Kerns Cholesterol in LDL [Mass/Vol] 110.6 mg/dL Normal [facility] Comment on above: Performed By: #### P THINT #### [facility] [address] [place] [address] Dr. Reg Kerns Cholesterol.total/C holesterol in HDL [Mass ratio] 3.8 {ratio} Normal [facility] Comment on above: Performed By: #### P THINT #### [facility] [address] [place] [address] Dr. Reg Kerns HDL NORMAL > or = 60 mg/dl - LO W CARDIOVASCULAR RISK <40 mg/dl - HIGH CARDIOVASCULAR RISK Normal [facility] Comment on above: Performed By: #### P THINT #### [facility] [address] [place] [address] Dr. Reg Kerns LDL CALC NORMAL SEE BELOW Normal [facility] Comment on above: Result Comment: <100 mg/dl OPTIMAL 100 - 129 mg/dl NEAR OR ABOVE OPTIMAL 130 - 159 mg/dl BORDERLINE HIGH 160 - 189 mg/dl HIGH >190 mg/dl VERY HIGH Performed By: #### P THINT #### [facility] [address] [address] [address] Reg Kerns Triglyceride [Mass/Vol] 217 mg/dL Critically high <=150 [facility] Comment on above: Performed By: #### P THINT #### [facility] [address] [address] [address] Reg Kerns VLDL CALC 43.4 mg/dL Normal [facility] Comment on above: Performed By: #### P THINT #### [facility] [address] [address] [address] Reg Kerns PROF 14(COMP METB)on 022 Albumin [Mass/Vol] 3.6 g/dL Normal 3.4-5.0 [facility] Comment on above: Performed By: #### P THINT #### [facility] [address] [address] [address] Reg Kerns Albumin/Globulin [Mass ratio] 1.0 {ratio} Normal [facility] Comment on above: Performed By: #### P THINT #### [facility] [address] [address] [address] Reg Kerns ALP [Catalytic activity/Vol] 74 U/L Normal 46-116 [facility] Comment on above: Performed By: #### P THINT #### [facility] [address] [address] [address] Reg Kerns ALT [Catalytic activity/Vol] 26 U/L Normal 14-59 [facility] Comment on above: Performed By: #### P THINT #### [facility] [address] [address] [address] Reg Kerns Anion gap [Moles/Vol] 13.3 mmol/L Normal [facility] Comment on above: Performed By: #### P THINT #### [facility] [address] [address] [address] Reg Kerns AST [Catalytic activity/Vol] 18 U/L Normal 15-37 [facility] Comment on above: Performed By: #### P THINT #### [facility] [address] [place] [address] Dr. Reg Kerns Bilirubin [Mass/Vol] 0.3 mg/dL Normal 0.2-1.0 [facility] Comment on above: Performed By: #### P THINT #### [facility] [address] [place] [address] Dr. Reg Kerns Calcium [Mass/Vol] 9.1 mg/dL Normal 8.5-10.1 [facility] Comment on above: Performed By: #### P THINT #### [facility] [address] [place] [address] Dr. Reg Kerns Chloride [Moles/Vol] 103 mmol/L Normal 98-107 [facility] Comment on above: Performed By: #### P THINT #### [facility] [address] [place] [address] Dr. Reg Kerns CO2 [Moles/Vol] 26.4 mmol/L Normal 21.0-32.0 The [facility] Comment on above: Performed By: #### P THINT #### [facility] [address] [place] [address] Dr. Reg Kerns Creatinine [Mass/Vol] 0.88 mg/dL Normal 0.55-1.02 [facility] Comment on above: Performed By: #### P THINT #### [facility] [address] [place] [address] Dr. Reg Kerns EGFR-AF [facility] LUCIAN >60 Normal >=60 The [facility] Comment on above: Performed By: #### P THINT #### [facility] [address] [place] [address] Dr. Reg Kerns EGFR-NON AF [facility] LUCI[facility] >60 Normal >=60 [facility] Comment on above: Performed By: #### P THINT #### [facility] [address] [place] [address] Dr. Reg Kerns Globulin (S) [Mass/Vol] 3.6 g/dL Normal [facility] Comment on above: Performed By: #### P THINT #### [facility] [address] [place] [address] Dr. Reg Kerns Glucose [Mass/Vol] 91 mg/dL Normal 74-106 [facility] Comment on above: Performed By: #### P THINT #### [facility] [address] [address] [address] Reg Kerns Potassium [Moles/Vol] 4.7 mmol/L Normal 3.5-5.1 [facility] Comment on above: Performed By: #### P THINT #### [facility] [address] [place] [address] Dr. Reg Kerns Protein [Mass/Vol] 7.2 g/dL Normal 6.4-8.2 The [facility] Comment on above: Performed By: #### P THINT #### [facility] [address] [place] [address] Dr. Reg Kerns Sodium [Moles/Vol] 138 mmol/L Normal 136-145 [facility] Comment on above: Performed By: #### P THINT #### [facility] [address] [place] [address] Dr. Reg Kerns Urea nitrogen [Mass/Vol] 15.0 mg/dL Normal 7.0-18.0 [facility] Comment on above: Performed By: #### P THINT #### [facility] [address] [place] [address] Dr. Reg Kerns Urea nitrogen/Creatinine [Mass ratio] 17.0 mg/mg Normal [facility] Comment on above: Performed By: #### P THINT #### [facility] [address] [place] [address] Dr. Reg Kerns TSHon 01-31-2022 TSH 2.021 uIU/mL Normal 0.358-3.740 [facility] Comment on above: Performed By: #### P THINT #### [facility] [address] [place] [address] Dr. Reg Kerns TSH RANGE SEE BELOW Normal [facility] Comment on above: Result Comment: <0.3 4 UIU/ml HYPERTHYROID 0.34-5.60 UIU/ml EUTHYROID >5.60 UIU/ml HYPOTHYROID Performed By: #### P THINT #### [facility] [address] [address] [address] Reg Kerns URIC ACID SERUMon 01-31-2022 Urate [Mass/Vol] 6.1 mg/dL Critically high 2.6-6.0 [facility] Comment on above: Performed By: #### U NICHELLE #### [facility] [address] [address] [address] Reg Kerns Calculi, Urinaryon 2 Ca Oxalate Dihydrate 30 % Normal . [facility] Comment on above: Performed By: #### C ALCULI #### [facility] , Ca Oxalate Monohydrate 70 % Normal . [facility] Comment on above: Performed By: #### C ALCULI #### [facility] , Color (U) Brown Normal . [facility] Comment on above: Performed By: #### C ALCULI #### [facility] , Comment2 Normal . [facility] Comment on above: Result Comment: Calc ulus received in liquid. Wet calculi must be dried before analysis, which delays reporting of results. Leaving calculi in liquid (such as water, saline, blood, urine) may lead to changes in composition. Performed By: #### C ALCULI #### [facility] , Comment: Normal . [facility] Comment on above: Result Comment: Phys ician questions regarding Calculi Analysis contact [facility] at: [phone]. Performed By: #### C ALCULI #### [facility] , Composition Normal . [facility] Comment on above: Result Comment: Perc entage (Represents the % composition) Performed By: #### C ALCULI #### [facility] , Disclaimer: Normal . [facility] Comment on above: Result Comment: This test was developed and its performance characteristics determined by [employer]. It has not been cleared or approved by the Food and Drug Administration. Performed at: [facility] [address] [place] [address] Dr De La Garza [place], [place] [id number] Pharmacy Intake Coordinator: Beck Wynne MD, Phone: [phone] Performed By: #### C ALCULI #### [facility] , Note Normal . [facility] Comment on above: Result Comment: Calc perlita report will follow via computer, mail or shellfish checker delivery. PERFORMED BY: [facility] [address] [place] [address] PATHOLOGIST NUTRITION INTERN KENAN BAIRD M.D. Performed By: #### C ALCULI #### [facility] , Photo Normal . [facility] Comment on above: Result Comment: Phot ograph will follow under a separate cover Performed By: #### C ALCULI #### [facility] , Size 3x3 Normal . [facility] Comment on above: Result Comment: Mult iple pieces received. Dimensions of the largest piece reported. Performed By: #### C ALCULI #### [facility] , Source Kidney Normal . [facility] Comment on above: Performed By: #### C ALCULI #### [facility] , Weight 126 Normal . [facility] Comment on above: Performed By: #### C ALCULI #### [facility] , [place] 10-25-2021 L - -------- Specimen: [id number] Received: 10/26/21 Status: CATHERINE Presley Num: [id number] Spec Type: Surgical Subm Dr: Carlos Silverman MD Tissues: A Urinary Calculus (BILATERAL RENAL CALCULI) Procedures: Level 1 Gross -------- Patient Age/Sex Location Account Attending Physician -------- Robyn Srinivasan 80/F [place] [id number] Carlos Silverman MD -------- SPEC NUM: [id number] RECD: 10/26/21 STATUS: CATHERINE PRESLEY NUM: [id number] SIL: 10/25/21- [facility] DR: Carlos Silverman MD ENTERED: 10/26/21 [facility] DR: SPEC TYPE: Surgical DEPT: S [...] only. (GONZALES/NIKKI) Microscopic Description Gross examination only. [id number] -------- -------- Specimen: [id number] Received: 10/26/21 Status: CATHERINE Presley Num: [id number] Spec Type: Surgical Subm Dr: Carlos Silverman MD Tissues: A Urinary Calculus (BILATERAL RENAL CALCULI) Procedures: Level 1 Gross -------- Patient: Robyn Srinivasan [id number] (Continued) -------- Signed (signature on file) Kenan Baird MD 10/26/21 1633 [facility] XR KUBon 10-25-2021 XR KUB [facility] Main [address] [address] XRay Report Signed Patient: Robyn Srinivasan MR#: [id number] : 1940 Acct:[id number] Age/Sex: 80 / F ADM Date: 10/25/21 Loc: [place] Room: Type: [employer] Attending Dr: Carlos Silverman MD Ordering Provider: [...] Eriberto Jordan M.D.10/25/2021 1:48 PM Dictation Location: [address] [address] Transcribed By: [facility] 10/25/21 1348 Dictated By: Eriberto Jordan DO 10/25/21 1345 Signed By: 10/25/21 1348 [facility] XR abdomen 1Von 10-25-2021 XR abdomen 1V [facility] Main [address] [address] XRay Report Signed Patient: Robyn Srinivasan MR#: [id number] : 1940 Acct:[id number] Age/Sex: 80 / F ADM Date: 10/25/21 Loc: [place] Room: Type: [employer] Attending Dr: Carlos Silverman MD Ordering Provider: [...] Pako King M.D.10/25/2021 4:52 PM Dictation Location: [place] [address] Transcribed By: [facility] 10/25/211651 Dictated By: Pako King II, MD 10/25/211649 Signed By: 10/25/211651 Normal [facility] Basic Metabolic Panelon 10-02 Calcium [Mass/Vol] 9.4 mg/dL Normal 8.2-10.2 [facility] Comment on above: Result Comment: PERF ORMED BY: [place] [address] PATHOLOGIST NUTRITION INTERN KENAN BAIRD M.D. Performed By: #### C BC, PT, PTT, BMP #### [facility] [address] [place] [address] [place] Chloride [Moles/Vol] 103 mmol/L Normal 95-114 [facility] Comment on above: Performed By: #### C BC, PT, PTT, BMP #### [facility] [address] [place] [address] [place] CO2 [Moles/Vol] 22.8 mmol/L Normal 22.0-30.0 [facility] Comment on above: Performed By: #### C BC, PT, PTT, BMP #### [facility] [address] [place] [address] [place] Creatinine [Mass/Vol] 0.85 mg/dL Normal 0.44-1.03 [facility] Comment on above: Performed By: #### C BC, PT, PTT, BMP #### [facility] [address] Estimated GFR ( Faina > 60 Normal [facility] Comment on above: Result Comment: GFR estimated reference range: According to KDOQI guidelines, <60 ml/min/1.73m2 is sufficient to diagnose a patient with chronic kidney disease. Performed By: #### C BC, PT, PTT, BMP #### [address] Estimated GFR (Non- Am > 60 Normal [facility] Comment on above: Performed By: #### C BC, PT, PTT, BMP #### [address] Glucose [Mass/Vol] 95 mg/dL Normal 70-100 [facility] Comment on above: Result Comment: [place] om Glucose Reference Range is dependent on time and content of last meal. Glucose of more than 200 mg/dL in a nonstressed, ambulatory subject supports the diagnosis of Diabetes Mellitus. ADA recommended reference range Performed By: #### C BC, PT, PTT, BMP #### [address] Potassium [Moles/Vol] 4.3 mmol/L Normal 3.5-5.1 [facility] Comment on above: Performed By: #### C BC, PT, PTT, BMP #### [address] Sodium [Moles/Vol] 137 mmol/L Normal 136-146 [facility] Comment on above: Performed By: #### C BC, PT, PTT, BMP #### [address] Urea nitrogen [Mass/Vol] 12 mg/dL Normal 9-23 [facility] Comment on above: Performed By: #### C BC, PT, PTT, BMP #### [address] Complete Blood Count Auto Di ffon 10-12-2021 Basophils (Bld) [#/Vol] 0.1 10*3/uL Normal 0.0-0.2 [facility] Comment on above: Result Comment: PERF ORMED BY: [place] [id number] PATHOLOGIST NUTRITION INTERN KENAN BAIRD M.D. Performed By: #### C BC, PT, PTT, BMP #### [address] Basophils/100 WBC (Bld) 1.3 % Normal . [facility] Comment on above: Performed By: #### C BC, PT, PTT, BMP #### [address] Eosinophils (Bld) [#/Vol] 0.5 10*3/uL High 0.0-0.45 [facility] Comment on above: Performed By: #### C BC, PT, PTT, BMP #### [address] Eosinophils/100 WBC (Bld) 6.6 % Normal . [facility] Comment on above: Performed By: #### C BC, PT, PTT, BMP #### [address] Erythrocyte distribution width (RBC) [Ratio] 14.5 % Normal 11.9-15.3 [facility] Comment on above: Performed By: #### C BC, PT, PTT, BMP #### [facility] [address] [place] [address] Hematocrit (Bld) [Volume fraction] 38.5 % Normal 34.0-46.4 [facility] Comment on above: Performed By: #### C BC, PT, PTT, BMP #### [address] Hemoglobin (Bld) [Mass/Vol] 12.6 g/dL Normal 11.8-15.4 [facility] Comment on above: Performed By: #### C BC, PT, PTT, BMP #### [facility] [address] [place] [address] [place] Lymphocytes (Bld) [#/Vol] 1.6 10*3/uL Normal 1.00-4.8 [facility] Comment on above: Performed By: #### C BC, PT, PTT, BMP #### [address] Lymphocytes/100 WBC (Bld) 22.1 % Normal . [facility] Comment on above: Performed By: #### C BC, PT, PTT, BMP #### [address] MCH (RBC) [Entitic mass] 28.0 pg Normal 24.7-34.3 [facility] Comment on above: Performed By: #### C BC, PT, PTT, BMP #### [address] MCV (RBC) [Entitic vol] 85.7 fL Normal 80-100 [facility] Comment on above: Performed By: #### C BC, PT, PTT, BMP #### [address] Mean Corpuscular HGB Conc 32.7 g/dL Normal 32.0-35.0 [facility] Comment on above: Performed By: #### C BC, PT, PTT, BMP #### [address] Monocytes (Bld) [#/Vol] 0.5 10*3/uL Normal 0.0-0.8 [facility] Comment on above: Performed By: #### C BC, PT, PTT, BMP #### [address] Monocytes/100 WBC (Bld) 6.2 % Normal . [facility] Comment on above: Performed By: #### C BC, PT, PTT, BMP #### [address] Neutrophils (Bld) [#/Vol] 4.8 10*3/uL Normal 1.8-7.7 [facility] Comment on above: Performed By: #### C BC, PT, PTT, BMP #### [address] [place] [address] [place] Neutrophils/100 WBC (Bld) 63.8 % Normal . [facility] Comment on above: Performed By: #### C BC, PT, PTT, BMP #### [facility] [address] [place] [address] [place] Nucleated RBC/100 WBC (Bld) [Ratio] 0.0 % Normal 0-0.5 [facility] Comment on above: Performed By: #### C BC, PT, PTT, BMP #### [facility] [address] Platelet mean volume (Bld) [Entitic vol] 8.5 fL Normal 6.3-10.7 [facility] Comment on above: Performed By: #### C BC, PT, PTT, BMP #### [address] Platelets (Bld) [#/Vol] 244 10*3/uL Normal 150-450 [facility] Comment on above: Performed By: #### C BC, PT, PTT, BMP #### [place] [address] [place] RBC (Bld) [#/Vol] 4.49 10*6/uL Normal 3.60-5.00 [facility] Comment on above: Performed By: #### C BC, PT, PTT, BMP #### [place] [address] [place] WBC (Bld) [#/Vol] 7.5 10*3/uL Normal 4.5-11.0 [facility] Comment on above: Performed By: #### C BC, PT, PTT, BMP #### [address] ECG 12 lead ECGon 10-12-2021 ECG 12 lead ECG [facility] [place] [address] [place] [address] Electrocardiograph Report Signed Patient: Robyn Srinivasan MR#: [id number] : 1940 Acct:[id number] Age/Sex: 80 / F ADM Date: 10/12/21 Loc: PS Room: Type: [facility] Attending Dr: Carlos Silverman MD Ordering [...] ECGs available Confirmed by MALACHI RIVERA [facility], JESICA ([id number]) on 10/12/2021 7:05:53 PM Referred By: ANDRA Electronically Signed By:JESICA BRAXTON MD [facility] Transcribed By: ASIYA Signed By Jesica Braxton MD, FACC 10/12/21 190 Normal [facility] Partial Thromboplastin Timeo n 10-12-2021 aPTT Coag (Bld) [Time] 27.0 s Normal 25.1-36.5 [facility] Comment on above: Result Comment: PERF ORMED BY: [place] [id number] PATHOLOGIST NUTRITION INTERN KENAN BAIRD M.D. Performed By: #### C BC, PT, PTT, BMP #### [facility] [address] [place] [address] Prothrombin Time INRon 10-12 INR Coag (PPP) [Relative time] 1.0 {INR} Normal [facility] Comment on above: Result Comment: INR [...] #### C BC, PT, PTT, BMP #### [facility] [address] [place] [address] [place] PT Coag (PPP) [Time] 11.0 s Normal 9.0-12.9 [facility] Comment on above: Performed By: #### C BC, PT, PTT, BMP #### [address] XR chest 2V*on 10-12-2021 XR chest 2V* [facility] [place] [address] [place] [address] XRay Report Signed Patient: Robyn Srinivasan MR#: [id number] : 1940 Acct:[id number] Age/Sex: 80 / F ADM Date: 10/12/21 Loc: PS Room: Type: [facility] Attending Dr: Carlos Silverman MD Ordering Provider: Carlos Silverman MD Date of Service: 10/12/21 XR/XR chest 2V*: PST Copies to: Carlos Silverman MD PA AND LATERAL CHEST: CLINICAL HISTORY: Preop chest. COMPARISON: None FINDINGS: Heart is normal in size. Lungs are clear. No free air. XR/XR chest 2V* IMPRESSION: NO ACUTE CARDIOPULMONARY ABNORMALITY. Impression dictated by: Tj Li Jr., D.O.10/12/2021 11:55 AM Dictation Location: [place] [address] Transcribed By: [facility] 10/12/21 1155 Dictated By: Tj Li Jr, DO 10/12/21 1155 Signed By: 10/12/21 1155 Normal [facility] XR KUB 1 VIEWon 10-08-2021 XR [...] JEREMIAH HOBBS Date: 2021-10-08 09:18 Normal [facility] XR RETROGRADE PYELOGRAMon XR RETROGRADE PYELOGRAM [...] EDGAR PADRON Date: 2021-09-23 09:36 Normal [facility] CBC AUTO DIFFon 09-22-2021 BASO # 0.0 103/ul Normal 0.0-0.1 [facility] Comment on above: Performed By: #### P THINT #### [facility] [address] [place] [address] Dr. Reg Kerns Basophils/100 WBC (Bld) 0.5 % Normal 0.2-2.0 [facility] Comment on above: Performed By: #### P THINT #### [facility] [address] [place] [address] Dr. Reg Kerns EO # 0.2 103/ul Normal 0.0-0.7 [facility] Comment on above: Performed By: #### P THINT #### [facility] [address] [place] [address] Dr. Reg Kerns Eosinophils/100 WBC (Bld) 3.9 % Normal 0.9-7.0 [facility] Comment on above: Performed By: #### P THINT #### [facility] [address] [place] [address] Dr. Reg Kerns Erythrocyte distribution width (RBC) [Ratio] 13.4 % Normal 11.0-15.0 [facility] Comment on above: Performed By: #### P THINT #### [facility] [address] [place] [address] Dr. Reg Kerns Hematocrit (Bld) [Volume fraction] 32.9 % Critically low 36.0-48.0 [facility] Comment on above: Performed By: #### P THINT #### [facility] [address] [place] [address] Dr. Reg Kerns Hemoglobin (Bld) [Mass/Vol] 10.3 g/dL Critically low 12.0-16.0 [facility] Comment on above: Performed By: #### P THINT #### [facility] [address] [place] [address] Dr. Reg Kerns IG # 0.02 10e3/ul Normal 0.00-0.03 [facility] Comment on above: Performed By: #### P THINT #### [facility] [address] [place] [address] Dr. Reg Kerns IG % 0.3 % Normal 0.0-0.5 [facility] Comment on above: Performed By: #### P THINT #### [facility] [address] [place] [address] Dr. Reg Kerns LYMPH # 2.2 103/ul Normal 1.2-3.8 [facility] Comment on above: Performed By: #### P THINT #### [facility] [address] [place] [address] Dr. Reg Kerns Lymphocytes/100 WBC (Bld) 37.3 % Normal 20.5-60.0 [facility] Comment on above: Performed By: #### P THINT #### [facility] Laboratory [address] [place] [address] Dr. Reg Kerns MANUAL DIFF REQ NO Normal [facility] Comment on above: Performed By: #### P THINT #### [facility] [address] [place] [address] Dr. Reg Kerns MCH (RBC) [Entitic mass] 27.8 pg Normal 26.7-34.0 [facility] Comment on above: Performed By: #### P THINT #### [facility] [address] [place] [address] Dr. Reg Kerns MCHC (RBC) [Mass/Vol] 31.3 g/dL Normal 29.9-35.2 [facility] Comment on above: Performed By: #### P THINT #### [facility] [address] [address] [address] Reg Kerns MCV (RBC) [Entitic vol] 88.7 fL Normal 81.0-99.0 [facility] Comment on above: Performed By: #### P THINT #### [facility] [address] [place] [address] Dr. Reg Kerns MONO # 0.6 103/ul Normal 0.3-0.8 [facility] Comment on above: Performed By: #### P THINT #### [facility] [address] [place] [address] Dr. Reg Kerns Monocytes/100 WBC (Bld) 10.6 % Normal 1.7-12.0 [facility] Comment on above: Performed By: #### P THINT #### [facility] [address] [place] [address] Dr. Reg Kerns NEUT # 2.8 103/ul Normal 1.4-6.5 [facility] Comment on above: Performed By: #### P THINT #### [facility] [address] [place] [address] Dr. Reg Kerns Neutrophils/100 WBC (Bld) 47.4 % Normal 43.0-75.0 [facility] Comment on above: Performed By: #### P THINT #### [facility] [address] [place] [address] Dr. Reg Kerns Platelet mean volume (Bld) [Entitic vol] 10.2 fL Normal 9.5-13.5 [facility] Comment on above: Performed By: #### P THINT #### [facility] [address] [address] [address] Reg Kerns PLT 210 103/ul Normal 150-450 [facility] Comment on above: Performed By: #### P THINT #### [facility] [address] [place] [address] Dr. Reg Kerns RBC 3.71 106/ul Critically low 4.20-5.40 [facility] Comment on above: Performed By: #### P THINT #### [facility] [address] [place] [address] Dr. Reg Kerns WBC 5.9 103/ul Normal 4.0-11.0 [facility] Comment on above: Performed By: #### P THINT #### [facility] [address] [place] [address] Dr. Reg Kerns CULTURE URINEon 09-22-2021 CULTURE URINE Culture Observations : No growth Normal [facility] Comment on above: Performed By: #### C ITRATU #### [facility] [address] [place] [address] Dr. Reg Kerns PROF 14(COMP METB)on 022 Albumin [Mass/Vol] 3.0 g/dL Critically low 3.5-5.0 [facility] Comment on above: Performed By: #### C MP #### [facility] [address] [place] [address] Dr. Reg Kerns Albumin/Globulin [Mass ratio] 1.0 {ratio} Normal [facility] Comment on above: Performed By: #### C MP #### [facility] [address] [place] [address] Dr. Reg Kerns ALP [Catalytic activity/Vol] 55 U/L Normal 38-126 [facility] Comment on above: Performed By: #### C MP #### [facility] [address] [place] [address] Dr. Reg Kerns ALT [Catalytic activity/Vol] 16 U/L Normal 9-52 [facility] Comment on above: Performed By: #### C MP #### [facility] [address] [place], [place] [id number] Dr. Reg Kerns Anion gap [Moles/Vol] 12.6 mmol/L Normal [facility] Comment on above: Performed By: #### C MP #### [facility] [address] [address] [address] Reg Kerns AST [Catalytic activity/Vol] 17 U/L Normal 14-36 [facility] Comment on above: Performed By: #### C MP #### [facility] [address] [address] [address] Reg Kerns Bilirubin [Mass/Vol] 0.1 mg/dL Critically low 0.2-1.3 [facility] Comment on above: Performed By: #### C MP #### [facility] [address] [address] [address] Reg Kerns Calcium [Mass/Vol] 8.7 mg/dL Normal 8.4-10.2 [facility] Comment on above: Performed By: #### C MP #### [facility] [address] [place] [address] Dr. Reg Kerns Chloride [Moles/Vol] 106 mmol/L Normal 98-107 [facility] Comment on above: Performed By: #### C MP #### [facility] [address] [address] [address] Reg Kerns CO2 [Moles/Vol] 25.8 mmol/L Normal 22.0-30.0 The [facility] Comment on above: Performed By: #### C MP #### [facility] [address] [address] [address] Reg Kerns Creatinine [Mass/Vol] 0.83 mg/dL Normal 0.52-1.04 [facility] Comment on above: Performed By: #### C MP #### [facility] [address] [place] [address] Dr. Reg Kerns EGFR-AF [facility] >60 Normal >=60 The [facility] Comment on above: Performed By: #### C MP #### [facility] [address] [place] [address] Dr. Reg Kerns EGFR-NON AF [facility] >60 Normal >=60 [facility] Comment on above: Performed By: #### C MP #### [facility] [address] [address] [address] Reg Kerns Globulin (S) [Mass/Vol] 2.9 g/dL Normal [facility] Comment on above: Performed By: #### C MP #### [facility] [address] [address] [address] Reg Kerns Glucose [Mass/Vol] 99 mg/dL Normal 74-106 [facility] Comment on above: Performed By: #### C MP #### [facility] [address] [address] [address] Reg Kerns Potassium [Moles/Vol] 4.4 mmol/L Normal 3.4-5.0 [facility] Comment on above: Performed By: #### C MP #### [facility] [address] [address] [address] Reg Kerns Protein [Mass/Vol] 5.9 g/dL Critically low 6.1-8.2 [facility] Comment on above: Performed By: #### C MP #### [facility] [address] [address] [address] Reg Kerns Sodium [Moles/Vol] 140 mmol/L Normal 137-145 [facility] Comment on above: Performed By: #### C MP #### [facility] [address] [address] [address] Reg Kerns Urea nitrogen [Mass/Vol] 11.0 mg/dL Normal 7.0-17.0 [facility] Comment on above: Performed By: #### C MP #### [facility] [address] [address] [address] Reg Kerns Urea nitrogen/Creatinine [Mass ratio] 13.3 mg/mg Normal [facility] Comment on above: Performed By: #### C MP #### [facility] [address] [address] [address] Reg Kerns CBC AUTO DIFFon 09-21-2021 BASO # 0.0 103/ul Normal 0.0-0.1 [facility] Comment on above: Performed By: #### C ITRATU #### [facility] [address] [place] [address] Dr. Reg Kerns Basophils/100 WBC (Bld) 0.6 % Normal 0.2-2.0 [facility] Comment on above: Performed By: #### C ITRATU #### [facility] [address] [place] [address] Dr. Reg Kerns EO # 0.3 103/ul Normal 0.0-0.7 [facility] Comment on above: Performed By: #### C ITRATU #### [facility] [address] [place] [address] Dr. Reg Kerns Eosinophils/100 WBC (Bld) 3.5 % Normal 0.9-7.0 [facility] Comment on above: Performed By: #### C ITRATU #### [facility] [address] [place] [address] Dr. Reg Kerns Erythrocyte distribution width (RBC) [Ratio] 13.4 % Normal 11.0-15.0 [facility] Comment on above: Performed By: #### C ITRATU #### [facility] [address] [place] [address] Dr. Reg Kerns Hematocrit (Bld) [Volume fraction] 37.8 % Normal 36.0-48.0 [facility] Comment on above: Performed By: #### C ITRATU #### [facility] [address] [place] [address] Dr. Reg Kerns Hemoglobin (Bld) [Mass/Vol] 12.3 g/dL Normal 12.0-16.0 [facility] Comment on above: Performed By: #### C ITRATU #### [facility] [address] [place] [address] Dr. Reg Kerns IG # 0.03 10e3/ul Normal 0.00-0.03 [facility] Comment on above: Performed By: #### C ITRATU #### [facility] [address] [place] [address] Dr. Reg Kerns IG % 0.4 % Normal 0.0-0.5 [facility] Comment on above: Performed By: #### C ITRATU #### [facility] [address] [place] [address] Dr. Reg Kerns LYMPH # 1.6 103/ul Normal 1.2-3.8 [facility] Comment on above: Performed By: #### C ITRATU #### [facility] [address] [place] [address] Dr. Reg Kerns Lymphocytes/100 WBC (Bld) 22.9 % Normal 20.5-60.0 [facility] Comment on above: Performed By: #### C ITRATU #### [facility] [address] [place] [address] Dr. Reg Kerns MANUAL DIFF REQ NO Normal [facility] Comment on above: Performed By: #### C ITRATU #### [facility] [address] [place] [address] Dr. Reg Kerns MCH (RBC) [Entitic mass] 28.5 pg Normal 26.7-34.0 [facility] Comment on above: Performed By: #### C ITRATU #### [facility] [address] [place] [address] Dr. Reg Kerns MCHC (RBC) [Mass/Vol] 32.5 g/dL Normal 29.9-35.2 [facility] Comment on above: Performed By: #### C ITRATU #### [facility] [address] [place] [address] Dr. Reg Kerns MCV (RBC) [Entitic vol] 87.7 fL Normal 81.0-99.0 [facility] Comment on above: Performed By: #### C ITRATU #### [facility] [address] [place] [address] Dr. Reg Kerns MONO # 0.6 103/ul Normal 0.3-0.8 [facility] Comment on above: Performed By: #### C ITRATU #### [facility] [address] [place] [address] Dr. Reg Kerns Monocytes/100 WBC (Bld) 8.2 % Normal 1.7-12.0 [facility] Comment on above: Performed By: #### C ITRATU #### [facility] [address] [place] [address] Dr. Reg Kerns NEUT # 4.6 103/ul Normal 1.4-6.5 [facility] Comment on above: Performed By: #### C ITRATU #### [facility] [address] [place] [address] Dr. Reg Kerns Neutrophils/100 WBC (Bld) 64.4 % Normal 43.0-75.0 [facility] Comment on above: Performed By: #### C ITRATU #### [facility] [address] [place] [address] Dr. Reg Kerns Platelet mean volume (Bld) [Entitic vol] 10.8 fL Normal 9.5-13.5 [facility] Comment on above: Performed By: #### C ITRATU #### [facility] [address] [place] [address] Dr. Reg Kerns PLT 256 103/ul Normal 150-450 [facility] Comment on above: Performed By: #### C ITRATU #### [facility] [address] [place] [address] Dr. Reg Kerns RBC 4.31 106/ul Normal 4.20-5.40 [facility] Comment on above: Performed By: #### C ITRATU #### [facility] [address] [place] [address] Dr. Reg Kerns WBC 7.1 103/ul Normal 4.0-11.0 [facility] Comment on above: Performed By: #### C ITRATU #### [facility] [address] [place] [address] ABD/PELVIS WO CONon [...] deep venous thrombosis. Electronically authenticated by: ABA LONGORIAH Date: 2021-09-21 19:43 Normal [facility] Covid-19 PCR (CVDTBH)on 09-02 SARS-CoV-2 (COVID-19) RNA BYRON+probe Ql (Unsp spec) Detected Critically abnormal NOT DETECTED [facility] Comment on above: Result Comment: This test is not yet approved or cleared by the [place] FDA. When there are no FDA-approved or cleared tests available, and other criteria are met, FDA can make tests available under an emergency access mechanism called an Emergency Use Authorization (EUA). The EUA for this test is supported by the [employer] of Health and Human Service's declaration that [...] used). Performed By: #### C VDTBH #### [facility] [address] [place] [address] Dr. Reg Kerns ER URINE PROFILEon 2 Bilirubin Ql (U) Negative Normal NEGATIVE The [facility] Comment on above: Performed By: #### U NICHELLE 24 #### [facility] [address] [place] [address] Dr. Reg Kerns Clarity (U) SL CLOUDY Abnormal CLEAR [facility] Comment on above: Performed By: #### U NICHELLE 24 #### [facility] [address] [place] [address] Dr. Reg Kerns Color (U) YELLOW Normal YELLOW [facility] Comment on above: Performed By: #### U NICHELLE 24 #### [facility] [address] [place] [address] Dr. Reg WEAVER A micrscopic examination will be performed if indicated. Normal [facility] Comment on above: Performed By: #### U NICHELLE 24 #### [facility] [address] [place] [address] Dr. Reg Kerns Glucose Ql (U) Negative Normal NEGATIVE [facility] Comment on above: Performed By: #### U NICHELLE 24 #### [facility] [address] [place] [address] Dr. Reg Kerns Hemoglobin Ql (U) LARGE Abnormal NEGATIVE The [facility] Comment on above: Performed By: #### U NICHELLE 24 #### [facility] [address] [place] [address] Dr. Reg Kerns Ketones Ql (U) Negative Normal NEGATIVE [facility] Comment on above: Performed By: #### U NICHELLE 24 #### [facility] [address] [place] [address] Dr. Reg Kerns LEUKOCYTES Negative Normal NEGATIVE [facility] Comment on above: Performed By: #### U NICHELLE 24 #### [facility] [address] [place] [address] Dr. Reg Kerns Nitrite Ql (U) Negative Normal NEGATIVE [facility] Comment on above: Performed By: #### U NICHELLE 24 #### [facility] [address] [place] [address] Dr. Reg Kerns pH (U) 5.0 [pH] Normal 5-9 [facility] Comment on above: Performed By: #### U NICHELLE 24 #### [facility] [address] [place] [address] Dr. Reg Kerns SPEC GRAVITY >=1.030 Abnormal 1.005-<=1.025 [facility] Comment on above: Performed By: #### U NICHELLE 24 #### [facility] [address] [place] [address] Dr. Reg Kerns UA PROTEIN TRACE Normal NEGATIVE/ TRACE [facility] Comment on above: Performed By: #### U NICHELLE 24 #### [facility] [address] [address] [address] Reg Kerns UR MICRO IND INDICATED Normal [facility] Comment on above: Performed By: #### U NICHELLE 24 #### [facility] [address] [place] [address] Dr. Reg Kerns Urobilinogen Qn (U) 0.2 {Tiffani'U}/dL Normal 0.2 - 1. 0 [facility] Comment on above: Performed By: #### U NICHELLE 24 #### [facility] [address] [place] [address] Dr. Reg Kerns PROF CHEM 8 (BAS METB)on Anion gap [Moles/Vol] 14.0 mmol/L Normal [facility] Comment on above: Performed By: #### B MP #### [facility] [address] [place] [address] Dr. Reg Kerns Calcium [Mass/Vol] 9.2 mg/dL Normal 8.4-10.2 [facility] Comment on above: Performed By: #### B MP #### [facility] [address] [place] [address] Dr. Reg Kerns Chloride [Moles/Vol] 101 mmol/L Normal 98-107 [facility] Comment on above: Performed By: #### B MP #### [facility] [address] [place] [address] Dr. Reg Kerns CO2 [Moles/Vol] 25.9 mmol/L Normal 22.0-30.0 The [facility] Comment on above: Performed By: #### B MP #### [facility] [address] [place] [address] Dr. Reg Kerns Creatinine [Mass/Vol] 1.13 mg/dL Critically high 0.52-1.04 [facility] Comment on above: Performed By: #### B MP #### [facility] [address] [place] [address] Dr. Reg Kerns EGFR-AF [facility] 56 mL/min/1.73m2 Critically low >=60 [facility] Comment on above: Performed By: #### B MP #### [facility] [address] [place] [address] Dr. Reg Kerns EGFR-NON AF [facility] 47 mL/min/1.73m2 Critically low >=60 [facility] Comment on above: Performed By: #### B MP #### [facility] [address] [address] [address] Reg Kerns Glucose [Mass/Vol] 145 mg/dL Critically high 74-106 [facility] Comment on above: Performed By: #### B MP #### [facility] [address] [place] [address] Dr. Reg Kerns Potassium [Moles/Vol] 3.9 mmol/L Normal 3.4-5.0 [facility] Comment on above: Performed By: #### B MP #### [facility] [address] [place] [address] Dr. Reg Kerns Sodium [Moles/Vol] 137 mmol/L Normal 137-145 [facility] Comment on above: Performed By: #### B MP #### [facility] [address] [place] [address] Dr. Reg Kerns Urea nitrogen [Mass/Vol] 13.0 mg/dL Normal 7.0-17.0 [facility] Comment on above: Performed By: #### B MP #### [facility] [address] [place] [address] Dr. Reg Kerns Urea nitrogen/Creatinine [Mass ratio] 11.5 mg/mg Normal [facility] Comment on above: Performed By: #### B MP #### [facility] [address] [id number] [address] Reg Kerns URINE MICROSCOPIC ONLYon BACTERIA TRACE Abnormal NONE SEEN [facility] Comment on above: Performed By: #### U NICHELLE 24 #### [facility] [address] [place] [address] Dr. Reg Kerns Bacteria identified Cx Nom (U) NOT INDICATED Normal [facility] Comment on above: Performed By: #### U NICHELLE 24 #### [facility] [address] [place] [address] Dr. Reg Kerns CAST NONE SEEN Normal NONE SEEN [facility] Comment on above: Performed By: #### U NICHELLE 24 #### [facility] [address] [place] [address] Dr. Reg Kerns Crystals LM Nom (Urine sed) NONE SEEN Normal NONE SEEN [facility] Comment on above: Performed By: #### U NICHELLE 24 #### [facility] [address] [place] [address] Dr. Reg Kerns Epithelial cells LM Ql (Urine sed) FEW Abnormal NONE SEEN /RARE [facility] Comment on above: Performed By: #### U NICHELLE 24 #### [facility] [address] [place] [address] Dr. Reg Kerns MUCOUS TRACE Abnormal NONE SEEN [facility] Comment on above: Performed By: #### U NICHELLE 24 #### [facility] [address] [place] [address] Dr. Reg Kerns RBC 5-10 Abnormal 0-2 [facility] Comment on above: Performed By: #### U NICHELLE 24 #### [facility] [address] [place] [address] Dr. Reg Kerns WBC 0-2 Abnormal NONE SEEN [facility] Comment on above: Performed By: #### U NICHELLE 24 #### [facility] [address] [place] [address] Dr. Reg Kerns Vital Signs Date Time Vital Sign Value Performing Clinician Facility 01-18-2025 10:55-0400 Body height 163.8 cm Gina GARCIAM Work Phone: [facility] 01-18-2025 10:55-0400 Body mass index (BMI) [Ratio] 27.04 kg/m2 Gina Fletcher DPM Work Phone: [facility] 01-18-2025 10:55-0400 Body weight 72.58 kg Gina Fletcher DPM Work Phone: [facility] 05-18-2024 12:54-0400 Blood Pressure Location Carlos SILVERMAN [facility] 05-18-2024 12:54-0400 Diastolic blood pressure 50 mm[Hg] Carlos SILVERMAN [facility] 05-18-2024 12:54-0400 Heart rate 58 /min Carlos Filao [facility] 05-18-2024 12:54-0400 Respiratory rate 16 /min Carlos Filao [facility] 05-18-2024 12:54-0400 Systolic blood pressure 132 mm[Hg] Carlos Filao [facility] 05-01-2023 12:51-0400 Blood Pressure Location VICKIE MOORERY [facility] 05-01-2023 12:51-0400 Body temperature 97.34 [degF] VICKIE ANDREWS [facility] 05-01-2023 12:51-0400 Diastolic blood pressure 81 mm[Hg] VICKIE ANDREWS [facility] 05-01-2023 12:51-0400 Heart rate 78 /min VICKIE ANDREWS [facility] 05-01-2023 12:51-0400 Systolic blood pressure 158 mm[Hg] VICKIE ANDREWS [facility] 06-04-2022 11:49-0400 Blood Pressure Location Carlos Filao [facility] 06-04-2022 11:49-0400 Diastolic blood pressure 86 mm[Hg] Carlos ANDRA [facility] 06-04-2022 11:49-0400 Heart rate 85 /min Carlos SILVERMAN [facility] 06-04-2022 11:49-0400 Systolic blood pressure 132 mm[Hg] Carlos SILVERMAN [facility] Encounters Encounter Date Encounter Type Care Provider Facility Start: 01-18-2025 End: 01-18-2025 Bamboo flowsheet Gina Fletcher DPM Work Phone: [facility] Start: 01-18-2025 End: 01-18-2025 Bamboo flowsheet Gina Fletcher DPM Work Phone: [facility] Start: 01-18-2025 End: 01-18-2025 Office outpatient new 30 minutes Gina Fletcher DPM Work Phone: [facility] Comment on above: Plantar fasciitis (P rimary Dx); Right foot pain; Equinus contracture of right ankle Start: 01-18-2025 End: 01-18-2025 ambulatory GINA FLETCHER Not Available Start: 05-18-2024 End: 05-18-2024 ambulatory Carlos SILVERMAN Facility:[facility] Start: 05-18-2024 End: 05-18-2024 Patient encounter procedure Carlos SILVERMAN [facility] Start: 05-01-2023 End: 05-01-2023 Patient encounter procedure VICKIE SPARROW [facility] Start: 06-04-2022 End: 06-04-2022 Patient encounter procedure Carlos SILVERMAN [facility] Start: 02-21-2022 End: 02-22-[address] MARKIE SMITH Facility:[facility] Start: 02-02-2022 End: 02-02-[address] CARLOS SILVERMAN Facility:[facility] Start: 01-31-2022 End: 02-01-[address] CARLOS SILVERMAN Facility:[facility] Start: 10-25-2021 End: 10-25-2021 ambulatory Markie Smith Facility:[facility] Start: 10-12-2021 End: 10-12-2021 ambulatory Markie Smith Facility:[facility] Start: 10-08-2021 End: 10-09-[address] CARLOS SILVERMAN Facility:[facility] Start: 09-21-2021 End: 09-22-[address] MARKIE SMITH Facility:[facility] Procedures Date Procedure Procedure Detail Performing Clinician Start: 01-18-2025 Radex calcaneus mini mum 2 views Gina Fletcher DPM Work Phone: Start: 09-22-2021 Cystoscopy Carlos VETO CORTEZ Appendectomy Carlos ANDRA Extraction of cataract Leonardo SILVERMAN H/O: hysterectomy Carlos TORO Plan of Treatment Date Care Activity Detail Author Start: 05-02-2025 Influenza vaccination Influenz a Vaccine (Season Ended) [facility] Start: 01-18-2025 End: 01-18-2025 Patient encounter procedure 01/18/2025 10:45 AM EDT Office Visit [facility] [address] [place] [address] Gina Fletcher DPM [address] [place] [address] Arrived [facility] Comment on above: Arrived Start: 1992 Pneumococcal Vaccine : 65+ Years (1 of 1 - PCV) Pneumococcal Vaccine: 65+ Years (1 of 1 - PCV) [facility] Immunizations Immunization Date Immunization Notes Care Provider Rasheeda quijano 08-07-2023 zoster vaccine recombinant Carlos SILVERMAN [facility] 05-14-2023 zoster vaccine recombinant Carlos SILVERMAN [facility] 01-19-2021 SARS-CoV-2 (COVID-19 ) mRNA-1273 vaccine Carlos SILVERMAN [facility] 12-22-2020 SARS-CoV-2 (COVID-19 ) mRNA-1273 vaccine Carlos SILVERMAN [facility] Payers Date Payer Category Payer Self-pay 2021 Medicare (Managed Care) PERICO BAZAN [facility] [id number] 1959 Unknown [id number] 1942 Unknown [id number] [id number]. 2.593 1942 Unknown [id number] [id number]. 2.59 1942 Unknown [id number] 2.16.840.1.264570.3.579. 2.59 1942 Unknown [id number] 2.16.840.1.276379.3.579. 2.593 1942 Unknown [id number] 2.16.840.1.931632.3.579. 2.593 1942 Unknown [id number] 2.16.840.1.633881.3.579. 2.593 1942 Unknown [id number] 2.16.840.1.277444.3.579. 2.727 1942 Unknown [id number] 2.16.840.1.109997.3.579. 2.1259 1942 Unknown [id number] [id number]. 2.1259 Unknown [id number] [id number]. 2.531 Social History Date Type Detail Facility Start: 10-09-2021 End: 01-18-2025 Tobacco smoking status Ex-smoker (finding) [facility] Sex Assigned At Female [facility] Tobacco smoking status Never [facility] Start: 1940 Sex assigned at Not on file [facility] History of tobacco use Current smoker [facility] History of tobacco use Cigarette Smoker [facility] Start: 01-18-2025 Alcoholic beverage intake Current drinker of alcohol (finding) [facility] Start: 01-18-2025 Alcoholic beverage intake [facility] Start: 01-18-2025 Tobacco Comment Patient quit 05/18/20 24 [facility] Start: 01-18-2025 Alcohol Comment 1-2x yearly [facility] Functional Status Date Assessment Result Facility 05-18-2024 Functional Status N/A [facility] 05-01-2023 Functional Status N/A [facility] 06-04-2022 Functional Status N/A [facility] Clinical Notes 09-21-2021 to 01-18-2025 Gina Fletcher SYLVIE - 01/18/2025 10:45 AM EDTLaboratory Note Date & Type Note Facility 01-18-2025 History of Present illness Narrative Images from the original note were not included. Subjective Patient ID: Robyn Srinivasan is a 84 y.o. female who presents for Foot Pain (Robyn Srinivasan 84yo New Patient presents with Right Foot pain, NKI, started 10 days ago, patient has been using Voltaren. Patient has recently purchased a new pair of skechers. Patient relates she is not diabetic. SS 7. ). HPI This is a new patient who presents to clinic with concern of right heel pain. This has been going on for about 10 days. She notes that when she walks or stands for long periods of time she gets a lot of tenderness on the plantar aspect of the foot and heel. She did get new Skechers recently in states that these seem to have helped. She has been using a salve and that seems to be helping as well. Review of Systems Constitutional: Positive for activity change. Negative for appetite change. Respiratory: Negative for chest tightness and shortness of breath. Cardiovascular: Negative for chest pain. Musculoskeletal: Positive for arthralgias and gait problem. Skin: Negative for color change and wound. Neurological: Negative for weakness and numbness. Psychiatric/Behavioral: Negative for agitation and behavioral problems. Hematological: Does not bruise/bleed easily. Endocrine: Negative for cold intolerance and heat intolerance. Allergic/Immunologic: Negative for immunocompromised state. 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) ([facility]) Family history of kidney stone GERD (gastroesophageal reflux disease) Migraines (CMS/HCC) Mild dementia ([facility]/HCC) Status post craniectomy Medications Current Outpatient Medications: amLODIPine (Norvasc) 5 MG tablet, Take 5 mg by mouth Daily, Disp: , Rfl: bnieqdr-fonzsmcdygwrb-ceimogdt (Excedrin Migraine) 250-250-65 MG tablet, Take 1 tablet by mouth every 6 (six) hours if needed for headaches, Disp: , Rfl: pantoprazole (ProtoNix) 40 MG EC tablet, Take 40 mg by mouth in the evening, Disp: , Rfl: ALPRAZolam (Xanax) 0.25 MG tablet, Take 0.25 mg by mouth in the morning and 0.25 mg before bedtime., Disp: , Rfl: Ferrous Sulfate (iron) 325 (65 Fe) MG tablet, Take 1 tablet by mouth in the morning and 1 tablet before bedtime., Disp: , Rfl: gabapentin (Neurontin) 100 MG capsule, Take 100 mg by mouth Daily, Disp: , Rfl: Meclizine HCl 25 MG chewable tablet, CHEW 1-2 TABLETS BY MOUTH EVERY 12 HOURS, Disp: , Rfl: Allergies Bee venom, Ciprofloxacin, Codeine, Ibuprofen, Penicillin g, and Sulfamethoxazole-trimethoprim Past Surgical History Past Surgical History: Procedure Laterality Date APPENDECTOMY CATARACT EXTRACTION Bilateral HYSTERECTOMY Family History No family history on file. Objective Physical Exam Constitutional: Appearance: She is obese. Comments: Presents to clinic ambulating with cane assistance. HENT: Head: Normocephalic and atraumatic. Cardiovascular: Pulses: Normal pulses. Pulmonary: Effort: Pulmonary effort is normal. No respiratory distress. Abdominal: Palpations: There is no mass. Musculoskeletal: Cervical back: No rigidity. Comments: Weightbearing examination reveals pes planus morphology. Unable to perform a double heel rise test. Right foot: Isolated and maximal tenderness at the medial calcaneal tubercle. Negative heel squeeze test. Muscle strength 4/5 for all quadrants. Ankle dorsiflexion 0 degrees with the knee extended, flexed. Mild tenderness to the 5th metatarsal base. Mild tenderness to the Achilles tendon region. Skin: Capillary Refill: Capillary refill takes less than 2 seconds. Findings: No lesion or rash. Neurological: Mental Status: She is alert. Comments: No loss of protective sensation, gross sensation intact. Psychiatric: Mood and Affect: Mood normal. Behavior: Behavior normal. XR calcaneus 2 views right Imaging Result: Lateral, calcaneal axial views are weight-bearing. Decreased calcaneal inclination, increased talar declination. First ray elevation. Enthesophyte at the insertion of the Achilles tendon and plantar fascia. Degenerative changes noted at the tarsometatarsal joint, naviculocuneiform joints. There is also degenerative changes of the 1st MTP. All these regions exhibit joint space narrowing, subchondral sclerosis, periarticular osteophytes, questionable subchondral cystic changes. No fractures or dislocations noted. Assessment/Plan ICD-10-CM 1. Plantar fasciitis M72.2 XR calcaneus 2 views right 2. Right foot pain M79.671 XR calcaneus 2 views right 3. Equinus contracture of right ankle M24.571 Patient was examined and evaluated. 2 views of the affected foot were taken in office today and I discussed my findings. Subjective symptomatology consistent with plantar fasciitis. Causes and treatment options for plantar fasciitis were covered in detail. I discussed and stressed the importance of stretching exercises. I recommended a home exercise program focusing on Stretching the Achilles complex as well as anti-inflammatory modalities. Home stretching program was printed off and given to the patient today. I have instructed that this program be performed at least 3 times daily for the next month. Recommended steroid pack to help address inflammation. Patient declines today and wishes to continue to use her salve. I have also recommended nightly ice water bottle massage with contrast bathing. I have discussed the importance of supportive shoe gear and recommended orthotic therapy. Patient was dispensed power step orthotics today. Follow up as needed. This note was created with the assistance of a speech recognition program. While intending to generate a timely document that accurately reflects the content of the visit, no guarantee can be provided that every grammatical or spelling mistake has been or will be identified or corrected. Thank you for your understanding. Gina Fletcher DPM documented in this encounter [facility] 05-18-2024 Hospital Discharge instructions Patient Education 05/18/2024 13:09:11 Dietary Guidelines [...] include: ?8 oz (237 mL) of milk, erfsmau-uavbuyzmjukr-rpwuf milk, and calcium-fortifiedfruit juice. Calcium-fortified means that [...] ?Spinach (cooked), rhubarb, beets, sweet potatoes, and Salvadorean chard. ?Peanuts. ?Potato chips, hungarian fries, and baked potatoes with skin on. ?Nuts and nut products. ?Chocolate. If you regularly take a diuretic medicine, make sure to eat at least 1 or 2 servings of fruits or vegetables that are high in potassium each day. These include: ?Avocado. ?Banana. ?Park, prune, carrot, or tomato juice. ?Baked potato. [...] magnesium, fish oil, or vitamin B6. Take xice-ibn-yagaicg and prescription medicines only as told by [...] Casseroles. Pizza. Lasagna. Frozen meals. Potato chips. [place]ican fries. The items listed above may not [...] provider. Document Revised: 11/28/2022 Document Reviewed: 11/28/2022 [employer] Patient Education 2023 [employer] Follow Up Care 05/01/2023 13:32:00 With:ANDRA RIVERA, Carlos Mae, URL Address: [place] [address] [address]- When: Unknown Comments:1.5 yrs w/ KUB [facility] 05-18-2024 Note Patient Education Nephrology Dietary Guidelines [...] ? 8 oz (237 mL) of milk, xuirzix-rmcjvwbrhzey-afznc milk, and calcium-fortifiedfruit juice. Calcium-fortified means that [...] Spinach (cooked), rhubarb, beets, sweet potatoes, and Salvadorean chard. ? Peanuts. ? Potato chips, hungarian fries, and baked potatoes with skin on. ? Nuts and nut products. ? Chocolate. ? If you regularly take a diuretic medicine, make sure to eat at least 1 or 2 servings of fruits or vegetables that are high in potassium each day. These include: ? Avocado. ? Banana. ? Park, prune, carrot, or tomato juice. ? Baked [...] fish oil, or vitamin B6. ? Take jwyv-gia-eofkron and prescription medicines only as told by your health care provider. These include suppleme (more content not included)... [facility] 05-01-2023 Hospital Discharge instructions Patient Education 05/01/2023 13:24:03 Dietary Guidelines [...] include: ?8 oz (237 mL) of milk, rioarcn-searnoqrutmp-axmoo milk, and calcium-fortifiedfruit juice. Calcium-fortified means that [...] ?Spinach (cooked), rhubarb, beets, sweet potatoes, and Salvadorean chard. ?Peanuts. ?Potato chips, hungarian fries, and baked potatoes with skin on. ?Nuts and nut products. ?Chocolate. If you regularly take a diuretic medicine, make sure to eat at least 1 or 2 servings of fruits or vegetables that are high in potassium each day. These include: ?Avocado. ?Banana. ?Park, prune, carrot, or tomato juice. ?Baked potato. [...] magnesium, fish oil, or vitamin B6. Take kvlt-qzl-juralyx and prescription medicines only as told by [...] Casseroles. Pizza. Lasagna. Frozen meals. Potato chips. [place]ican fries. The items listed above may not [...] provider. Document Revised: 04/29/2022 Document Reviewed: 04/29/2022 [employer] Patient Education 2022 [employer]. Follow Up Care 06/04/2022 12:04:12 With:VICKIE SPARROW PA-C, URL Address: [address] [place] [address] When: Unknown [facility] [place] 06-04-2022 Hospital Discharge instructions Patient Education 06/04/2022 11:49:33 Kidney Stones, Xplx-dh-Yoac Kidney Stones Kidney stones are rock-like masses [...] Follow these instructions at home: Medicines Take agcd-igg-rkokssk and prescription medicines only as told by [...] 02/03/2009 Document Revised: 01/04/2020 Document Reviewed: 01/04/2020 [employer] Patient Education 2020 [employer] Follow Up Care 2021 09:56:33 With:ANDRA RIVERA, Carlos Mae, URL Address: [address] [place], [place] [id number]- When:12/03/2022 Comments:KUB [facility] [place] 09-21-2021 Note OPERATIVE NOTE PREOPERATIVE DIAGNOSIS: 1. [...] appropriately. I attempted to pass the #22 [place]ican scope without success. She required urethral dilatation to 28 [place]. She has a significant rectocele and a [...] removed. Over the wire then a 4.8 [place] 22 to 30 cm microvasive double J [...] with her in the outpatient setting. [facility] 09-21-2021 Note OPERATIVE NOTE PREOPERATIVE DIAGNOSIS: 1. [...] appropriately. I attempted to pass the #22 [place] scope without success. She required urethral dilatation to 28 [place]. She has a significant rectocele and a [...] removed. Over the wire then a 4.8 [place] 22 to 30 cm microvasive double J [...] with her in the outpatient setting. [facility] Evaluation + Plan note Future Appointments Appointment Date:12/06/2022 10:30:00 AM Scheduled Provider:Carlos SILVERMAN MD Location:[facility] Appointment Type:URO Office Visit Future Scheduled TestsBasic Metabolic Panel 11/15/21 [facility] [place] Evaluation + Plan note Future Appointments Appointment Date:05/04/2024 01:00:00 PM Scheduled Provider:Carlos SILVERMAN MD Location:[facility] Appointment Type:URO Office Visit [facility] [employer] Evaluation note Diagnosis Plantar fasciitis- Primary Plantar fascial fibromatosis Right foot pain Pain in soft tissues of limb Equinus contracture of right ankle [facility] Narrative No data available for this section [facility] [employer] Progress note No data available for this section [facility] [employer] Summary Purpose Family History No Family History Records FoundNo Family History Records FoundNo Family History Records Found No data available for this section No Family History Records Found Advance Directives No Advanced Directives Records FoundNo Advanced Directives Records FoundNo Advanced Directives Records FoundNo Advanced Directives Records Found Additional Source Comments INFORMATION SOURCE (unrecogn ized section and content) DATE CREATED AUTHOR 02/27/2022 [facility] DATE CREATED AUTHOR AUTHOR'S ORGANIZ ATION 10/05/2022 [facility] DATE CREATED AUTHOR AUTHOR'S ORGANIZ ATION 05/20/2024 [facility] DATE CREATED AUTHOR AUTHOR'S ORGANIZ ATION 01/19/2025 [facility] EPIC Patient Care team informatio n (unrecognized section and content) Manager Benefit Relationship Specialty Start Date End Date Markie Smith MD [address] [place] [address] PCP - General Family Medicine 01/05/25 Manager Benefit Relationship Specialty Start Date End Date Markie Smith MD [address] [facility] [place] [phone] PCP - General Family Medicine 01/05/25 Reason for Visit (unrecogniz ed section and content) Reason Comments Foot Pain Robyn Srinivasan 84yo New P atient presents with Right Foot pain, NKI, started 10 days ago, patient has been using Voltaren. Patient has recently purchased a new pair of skechers. Patient relates she is not diabetic. SS 7. FOR RECORDS PERTAINING TO PATIENTS WHO ARE [...] BE BASED ON THE PRIMARY CLINICAL RECORDS. [employer] provides no warranty or guarantee of the accuracy or completeness of information in this document.
--- NOTE | 2025-05-05 10:37 | ED.GENADUL1 ---
HPI HPI - General Adult General Chief complaint: Fall Stated complaint: FALL Time Seen by Provider: 05/05/25 10:11 Source: patient Mode of arrival: ambulance Limitations: no limitations History of Present Illness HPI narrative: Patient is an 84-year-old female presenting to the emergency department for evaluation of injury sustained from a fall yesterday. Patient states that she tripped, fell in her garage, and landed on her right side. She states she had a toolbox during this fall. She states she ended her right middle finger, right side of her ribs, and thinks she may have hit her head. She denies being on blood thinners. She states that since the fall, she has had worsening pain in these areas. 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 She denies any abdominal pain or vomiting. No chest pain or shortness of breath. Related Data Home Medications ?Medication ?Instructions ?Recorded ?Confirmed alprazolam 0.25 mg tablet 0.25 mg PO BID PRN anxiety 04/28/24 05/05/25 cetirizine 10 mg tablet (24Hour 10 mg PO DAILY 04/28/24 04/28/24 Allergy) ferrous sulfate 325 mg (65 mg 325 mg PO .3 times a wk 04/28/24 04/28/24 iron) tablet (FeroSul) gabapentin 100 mg capsule 100 mg PO DAILY 04/28/24 04/28/24 meclizine 25 mg tablet 25 mg PO BID PRN dizziness 04/28/24 05/05/25 pantoprazole 40 mg tablet,delayed 40 mg PO DAILY 04/28/24 04/28/24 release amlodipine 5 mg tablet 5 mg PO DAILY 05/05/25 05/05/25 ferrous sulfate 325 mg (65 mg 325 mg PO DAILY 05/05/25 05/05/25 iron) tablet (Feosol) Previous Rx's ?Medication ?Instructions ?Recorded ondansetron 4 mg disintegrating 4 mg PO Q6H PRN nausea and 04/28/24 tablet vomiting #12 tabs Allergies Allergy/AdvReac Type Severity Reaction Status Date / Time ciprofloxacin Allergy Severe Rash Verified 05/05/25 10:16 codeine Allergy Severe itching Verified 05/05/25 10:16 ibuprofen Allergy Severe itching Verified 09/04/25 10:16 Penicillins Allergy Severe Rash Verified 05/05/25 10:16 sulfamethoxazole (From Allergy Severe Rash Verified 05/05/25 10:16 Bactrim) trimethoprim (From Bactrim) Allergy Severe Rash Verified 05/05/25 10:16 Opioid HPI Opioid Management Most Recent Opioid Data: Last Pain Scale 5 Today, 10:51 Last ED Pain Assessment Today, 10:27 Review of Systems ROS Status of ROS 10 or more systems reviewed and unremarkable except as noted in history and below PFSH PFS Medical History (Updated 05/05/25 @ 12:22 by Carter Armstrong DO) Vertigo ?R42 - Dizziness and giddiness (ICD-10) Osteoarthritis ?M19.90 - Unspecified osteoarthritis, unspecified site (ICD-10) Cataract (lens) fragments in eye following cataract surgery, bilateral ?H59.023 - Cataract (lens) fragments in eye following cataract surgery, bilateral (ICD-10) Meniere disease ?H81.09 - Meniere's disease, unspecified ear (ICD-10) Surgical History (Updated 04/28/24 @ 16:16 by Damaris Hector) H/O left knee surgery ?Z98.890 - Other specified postprocedural states (ICD-10) H/O: hysterectomy ?Z90.710 - Acquired absence of both cervix and uterus (ICD-10) Social History Little interest or pleasure in doing things: not at all Feeling down, depressed, or hopeless: not at all Exam Narrative Exam Narrative: CONSTITUTIONAL: Well-appearing, answering questions and following commands appropriately SKIN: Was warm and dry. EYES: PERRLA. EOMI. No periorbital ecchymosis. EARS, NOSE, THROAT: Neck supple. No Chua sign RESPIRATORY: Clear to auscultation bilaterally, no wheezes, crackles, or stridor, no use of accessory muscles CARDIOVASCULAR: Normal rate and regular rhythm. There is no S3, S4, murmur, rub. Radial and dorsalis pedis pulses are 2+ and symmetrical. GASTROINTESTINAL: Abdomen was soft, non-tender, and non-distended. There is no guarding or rebound tenderness MUSCULOSKELETAL: There is bruising and soft tissue swelling of the right middle finger with limited range of motion secondary to pain. There is ecchymosis and tenderness throughout the lateral right ribs at the mid axillary line. There is no underlying crepitus. Her head is atraumatic and normocephalic without C/T/L-spine tenderness. No tenderness at the bilateral hips or throughout the lower extremities. Negative logroll. Equal leg lengths. NEUROLOGIC: Patient is awake and alert. Equal strength in all extremities. Sensation tact to light touch in all 4 extremities. Facies were symmetrical. Constitutional Vital Signs, click to edit/add: Last Vital Signs Temp 97.7 F 05/05/25 10:07 Pulse 74 05/05/25 12:07 Resp 16 05/05/25 12:07 BP 159/82 H 05/05/25 12:07 Pulse Ox 94 L 05/05/25 12:07 O2 Del Method Room Air 05/05/25 12:07 Course Vital Signs Vital signs: Vital Signs Temperature 97.7 F 05/05/25 10:07 Pulse Rate 71 05/05/25 10:07 Respiratory Rate 16 05/05/25 10:07 Blood Pressure 156/83 H 05/05/25 10:07 Pulse Oximetry 99 05/05/25 10:07 Oxygen Delivery Method Room Air 05/05/25 10:07 Temperature 97.7 F 05/05/25 10:07 Pulse Rate 74 05/05/25 12:07 Respiratory Rate 16 05/05/25 12:07 Blood Pressure 159/82 H 05/05/25 12:07 Pulse Oximetry 94 L 05/05/25 12:07 Oxygen Delivery Method Room Air 05/05/25 12:07 Medical Decision Making MDM Narrative Medical decision making narrative: Patient is an 84-year-old female presenting to the emergency room with right middle finger pain, right sided rib pain, and possibly a head injury after mechanical fall from a standing height yesterday. Her vital signs are within normal limits. She is afebrile and hemodynamically stable. Her injuries are described above. Differential diagnose includes right-sided rib fractures, intracranial hemorrhage, right middle finger fracture/sprain, and less likely liver/renal injuries. IV was established and laboratory studies were obtained. CT head/C-spine/abdomen/pelvis were ordered. X-rays of the right middle finger and CXR were ordered as well. Laboratory studies were unremarkable. No significant electrolyte or metabolic derangement. No evidence of acute kidney injury. No significant anemia, leukocytosis, or thrombocytopenia. No transaminitis or hyperbilirubinemia. Urinalysis unremarkable. Troponin nonelevated. 12 Lead EKG: Normal sinus rhythm at a rate of 80. Normal axis. No ST segment elevations. QRS, VA, and QTc interval within normal limits. Final impression: normal sinus rhythm without evidence of acute myocardial ischemia CT head independently reviewed/interpreted by myself demonstrated no acute intracranial pathology or hemorrhage. CT C-spine demonstrated no acute osseous had mildly CT abdomen/pelvis demonstrated no acute intra-abdominal injuries or fractures. X-rays of the right hand independently reviewed and interpreted by myself and radiology demonstrated possible distal phalanx fracture of the third digit. Chest x-ray independently reviewed/interpreted by myself demonstrated no acute cardiopulmonary process. I do believe the patient is stable for discharge at this time. Patient's presentation is most likely consistent with contusions and possible right third digit fracture. The affected finger was placed in a splint. They were instructed to follow up with her PCP for further. Return precautions were given including any new or worsening symptoms. Patient understands and agrees to the plan. FINAL IMPRESSION: #Acute right third digit distal phalanx fracture #Acute rib contusions #Acute mild closed head injury DISPOSITION: Discharged home CONDITION: Good Medical Records Medical records reviewed: Yes I reviewed the patient's medical records Lab Data Lab results reviewed: Yes I reviewed the patient's lab results Labs: Lab Results 05/05/25 05/05/25 Range/Units 10:28 10:50 WBC 8.0 (4.0-11.0) 10^3/uL RBC 4.06 L (4.20-5.40) 10^6/uL Hgb 10.4 L (12.0-16.0) g/dL Hct 32.5 L (36.0-48.0) % MCV 80.0 L (81.0-99.0) fL MCH 25.6 L (26.7-34.0) pg MCHC 32.0 (29.9-35.2) g/dL RDW 16.9 H (11.0-15.0) % Plt Count 250 (150-450) 10^3/uL MPV 11.2 (9.5-13.5) fL Neut % (Auto) 67.7 (43.0-75.0) % Lymph % (Auto) 20.5 (20.5-60.0) % Brooke % (Auto) 5.9 (1.7-12.0) % Eos % (Auto) 4.5 (0.9-7.0) % Baso % (Auto) 0.8 (0.2-2.0) % Neut # (Auto) 5.4 (1.4-6.5) 10^3/uL Lymph # (Auto) 1.6 (1.2-3.8) 10^3/uL Brooke # (Auto) 0.5 (0.3-0.8) 10^3/uL Eos # (Auto) 0.4 (0.0-0.7) 10^3/uL Baso # (Auto) 0.1 (0.0-0.1) 10^3/uL Abs Immat Gran (auto) 0.05 H (0.00-0.03) 10^3/uL Imm/Tot Granulo (auto) 0.6 H (0.0-0.5) % Sodium 141 (136-145) mmol/L Potassium 3.6 (3.5-5.1) mmol/L Chloride 106 (98-107) mmol/L Carbon Dioxide 24.7 (21.0-32.0) mmol/L Anion Gap 13.9 BUN 16.0 (7.0-18.0) mg/dL Creatinine 0.92 (0.55-1.02) mg/dL Est GFR ( Amer) >60 (>=60 mL/min/1.73m^2) Est GFR (Non-Af Amer) 58 L (>=60 mL/min/1.73m^2) BUN/Creatinine Ratio 17.4 Glucose 140 H (74-106) mg/dL Calcium 8.9 (8.5-10.1) mg/dL Total Bilirubin 0.3 (0.2-1.0) mg/dL AST 19 (15-37) U/L ALT 25 (14-59) U/L Alkaline Phosphatase 70 (46-116) U/L Troponin I High Sens 5.5 (4.0-51.3) pg/mL Total Protein 7.0 (6.4-8.2) g/dL Albumin 3.3 L (3.4-5.0) g/dL Globulin 3.7 g/dL Albumin/Globulin Ratio 0.9 Urine Color Lt. yellow (YELLOW) Urine Clarity Clear (CLEAR) Urine pH 6.0 (5.0-9.0) Ur Specific [place] 1.015 (1.005-1.025) Urine Protein Negative (NEG/TRACE) mg/dL Urine Glucose (UA) Negative (NEGATIVE) mg/dL Urine Ketones Negative (NEGATIVE) mg/dL Urine Occult Blood Negative (NEGATIVE) Urine Nitrite Negative (NEGATIVE) Urine Bilirubin Negative (NEGATIVE) Urine Urobilinogen 0.2 (0.2-1.0) EU/dL Ur Leukocyte Esterase Trace A (NEGATIVE) Urine RBC 0-2 (0-2) #/HPF Urine WBC 0-2 A (NONE SEEN) #/HPF Ur Squamous Epith Cells Few A (NONE/RARE) #/LPF Urine Crystals None seen (None Seen) #/HPF Urine Bacteria Trace A (NONE SEEN) #/HPF Urine Casts None seen (NONE SEEN) #/LPF Urine Mucus None seen (NONE SEEN) Ur Culture Indicated? No Imaging Data CT scan - abdomen: Attestation: I personally reviewed and interpreted this imaging study as follows: Radiologist's impression: ITS Impressions Abdomen/Pelvis CT 05/05/25 11:20 IMPRESSION: LARGE HIATAL HERNIA. FATTY LIVER. NO VISCERAL INJURY. BILATERAL NEPHROLITHIASIS AND LEFT RENAL CYST. NO BOWEL OR URINARY TRACT OBSTRUCTION. DIVERTICULOSIS. NO ACUTE FRACTURES. Impression dictated by: Jeannine Armijo M.D. 05/05/2025 12:07 PM Dictation Location: [place] [address] Electronically authenticated by: [id number] Y Date: 05/05/2025 12:[address] 05/05/25 11:20 IMPRESSION: ATROPHY AND SMALL VESSEL ISCHEMIC CHANGES. NO ACUTE INTRACRANIAL TRAUMA. CT CERVICAL SPINE WITHOUT CONTRAST WITH 3D RECONSTRUCTIONS: COMPARISON: None TECHNIQUE: Spiral axial unenhanced images were obtained through the cervical spine. Sagittal, coronal and 3D volume-rendered reconstructions were also reviewed. This CT exam was performed using one or more following dose reduction techniques: Automated exposure control, adjustment of the mA and/or kV according to patient size, or use of iterative reconstruction technique. FINDINGS: There is cervicothoracic dextroscoliotic curvature. There is also slight reversal of the normal cervical lordosis. No acute compression fractures or significant displacement are seen. There is disc space narrowing at C4-5 down. There are small endplate spurs and mild bilateral facet disease. The atlantoaxial relationship is maintained an air is additional degenerative change at the odontoid and anterior C1 arch. No prevertebral soft tissue swelling is seen. Tonsillar calcifications are present. There is vertebral and carotid plaque. There are few small scattered cervical lymph nodes. The upper imaged lungs show no contributory findings. IMPRESSION: LOSS OF NORMAL CERVICAL CURVATURE. DEGENERATIVE CHANGES. NO ACUTE BONY INJURY. Impression dictated by: Jeannine Armijo M.D. 05/05/2025 11:53 AM Dictation Location: [facility] Electronically authenticated by: [id number] Y Date: 05/05/2025 11:[address] 05/05/25 11:20 IMPRESSION: ATROPHY AND SMALL VESSEL ISCHEMIC CHANGES. NO ACUTE INTRACRANIAL TRAUMA. CT CERVICAL SPINE WITHOUT CONTRAST WITH 3D RECONSTRUCTIONS: COMPARISON: None TECHNIQUE: Spiral axial unenhanced images were obtained through the cervical spine. Sagittal, coronal and 3D volume-rendered reconstructions were also reviewed. This CT exam was performed using one or more following dose reduction techniques: Automated exposure control, adjustment of the mA and/or kV according to patient size, or use of iterative reconstruction technique. FINDINGS: There is cervicothoracic dextroscoliotic curvature. There is also slight reversal of the normal cervical lordosis. No acute compression fractures or significant displacement are seen. There is disc space narrowing at C4-5 down. There are small endplate spurs and mild bilateral facet disease. The atlantoaxial relationship is maintained an air is additional degenerative change at the odontoid and anterior C1 arch. No prevertebral soft tissue swelling is seen. Tonsillar calcifications are present. There is vertebral and carotid plaque. There are few small scattered cervical lymph nodes. The upper imaged lungs show no contributory findings. IMPRESSION: LOSS OF NORMAL CERVICAL CURVATURE. DEGENERATIVE CHANGES. NO ACUTE BONY INJURY. Impression dictated by: Jeannine Armijo M.D. 05/05/2025 11:53 AM Dictation Location: [facility] Electronically authenticated by: [id number] Y Date: 05/05/2025 11:53 Chest X-Ray 05/05/25 11:33 IMPRESSION: OSTEOPENIA AND DEGENERATIVE CHANGES. QUESTION OF FRACTURE INVOLVING A SPUR AT THE DORSUM OF THE DISTAL PHALANX OF THE THIRD FINGER. CORRELATION IS RECOMMENDED WITH THE SITE OF PATIENT'S PAIN. AP AND LATERAL CHEST: CLINICAL HISTORY: Right rib pain following fall COMPARISON: CT 04/28/2023 There is minimal atelectasis or scarring. There is no focal parenchymal consolidation, effusion or pneumothorax. The heart is enlarged. There is also a large hiatal hernia.. There is no vascular congestion. The visualized bony structures are osteopenic. IMPRESSION: CARDIOMEGALY. LARGE HIATAL HERNIA. NO ACUTE PULMONARY FINDINGS. Impression dictated by: Jeannine Armijo M.D. 05/05/2025 12:16 PM Dictation Location: [facility] Electronically authenticated by: [id number] Y Date: 05/05/2025 12:16 Hand X-Ray 05/05/25 11:33 IMPRESSION: OSTEOPENIA AND DEGENERATIVE CHANGES. QUESTION OF FRACTURE INVOLVING A SPUR AT THE DORSUM OF THE DISTAL PHALANX OF THE THIRD FINGER. CORRELATION IS RECOMMENDED WITH THE SITE OF PATIENT'S PAIN. AP AND LATERAL CHEST: CLINICAL HISTORY: Right rib pain following fall COMPARISON: CT 04/28/2023 There is minimal atelectasis or scarring. There is no focal parenchymal consolidation, effusion or pneumothorax. The heart is enlarged. There is also a large hiatal hernia.. There is no vascular congestion. The visualized bony structures are osteopenic. IMPRESSION: CARDIOMEGALY. LARGE HIATAL HERNIA. NO ACUTE PULMONARY FINDINGS. Impression dictated by: Jeannine Armijo M.D. 05/05/2025 12:16 PM Dictation Location: [facility] Electronically authenticated by: [id number] Y Date: 05/05/2025 12:16 ECG Data Attestation: I personally reviewed and interpreted this ECG as follows: Discharge Plan Discharge Chief Complaint: Fall Clinical Impression: Contusion of rib Qualifiers: Encounter type: initial encounter Qualified Code(s): S29.8XXA - Other specified injuries of thorax, initial encounter Finger fracture, right Qualifiers: Encounter type: initial encounter Finger: middle finger Fracture type: closed Phalanx: distal Fracture alignment: nondisplaced Qualified Code(s): S62.662A - Nondisplaced fracture of distal phalanx of right middle finger, initial encounter for closed fracture Patient Disposition: Home, Self-Care Time of Disposition Decision: 12:21 Condition: Good Mode of Transportation: Private Vehicle Prescriptions / Home Meds: No Action alprazolam 0.25 mg tablet 0.25 mg PO BID PRN (Reason: anxiety) ferrous sulfate [FeroSul] 325 mg (65 mg iron) tablet 325 mg PO .3 times a wk gabapentin 100 mg capsule 100 mg PO DAILY meclizine 25 mg tablet 25 mg PO BID PRN (Reason: dizziness) pantoprazole 40 mg tablet,delayed release (DR/EC) 40 mg PO DAILY cetirizine [24Hour Allergy] 10 mg tablet 10 mg PO DAILY ondansetron 4 mg tablet,disintegrating 4 mg PO Q6H PRN (Reason: nausea and vomiting) Qty: 12 0RF ferrous sulfate [Feosol] 325 mg (65 mg iron) tablet 325 mg PO DAILY amlodipine 5 mg tablet 5 mg PO DAILY Print Language: Azeri Instructions: Finger Fracture (ED), Rib Contusion (ED) Additional Instructions: Follow up with your family Referrals: Haroon Smith MD [Primary Care Provider, Family Practice] - 1 week
[2025-05-05 10:52] LABS: Alanine Aminotransferase 25 U/L (14-59); Albumin Globulin Ratio 0.9; Albumin Level 3.3 g/dL (3.4-5.0); Alkaline Phosphatase 70 U/L (46-116); Anion Gap 13.9; Aspartate Amino Transferase 19 U/L (15-37); Blood Urea Nitrogen 16.0 mg/dL (7.0-18.0); Calcium 8.9 mg/dL (8.5-10.1); Carbon Dioxide 24.7 mmol/L (21.0-32.0); Chloride 106 mmol/L (98-107); Estimated GFR (African America >60 (>=60 mL/min/1.73m^2); Estimated GFR (Non-African Ame 58 (>=60 mL/min/1.73m^2); Globulin 3.7 g/dL; Glucose 140 mg/dL (74-106); Potassium 3.6 mmol/L (3.5-5.1); Sodium 141 mmol/L (136-145); Total Protein 7.0 g/dL (6.4-8.2)
[2025-05-05 10:55] LABS: Hematocrit 32.5 % (36.0-48.0); Hemoglobin 10.4 g/dL (12.0-16.0); Immature Granulocytes Abs Auto 0.05 10^3/uL (0.00-0.03); Immature Granulocytes Pct Auto 0.6 % (0.0-0.5); Lymphocytes Absolute Auto 1.6 10^3/uL (1.2-3.8); Mean Corpuscular HGB Conc 32.0 g/dL (29.9-35.2); Mean Corpuscular Hemoglobin 25.6 pg (26.7-34.0); Mean Corpuscular Volume 80.0 fL (81.0-99.0); Platelet Count 250 10^3/uL (150-450); Red Blood Count 4.06 10^6/uL (4.20-5.40); White Blood Count 8.0 10^3/uL (4.0-11.0)
[2025-05-05] MEDS: MECLIZINE HCL 12.5 MG TABLET 25 MG PO (10:55)
[2025-05-05 10:58] VITALS: BP 158/73; PULSE 67; O2SAT 97
[2025-05-05 11:08] LABS: Glucose Urine UA NEGATIVE (NEGATIVE)
[2025-05-05 11:15] LABS: Cast Seen? NONE SEEN #/LPF (NONE SEEN); Crystals Seen? None Seen #/HPF (None Seen); Urine Culture Indicated NO
--- NOTE | 2025-05-05 11:20 | CT_ITS ---
The [address] [address] Patient Name: ROBYN SRINIVASAN MRN: [id number] date: 1940 Sex: F Assigned Patient Location: ER Current Patient Location: ER Accession/Order Number: [id number] Exam Date: 05/05/2025 11:05 Report Date: 05/05/2025 11:53 At the request of: FREDDIE MCCORD DO Procedure: CT cervical spine wo con CLINICAL DATA: Patient tripped and fell yesterday and hit right side of head. Unsteady and nausea. CT BRAIN WITHOUT CONTRAST: COMPARISON: None TECHNIQUE: Contiguous axial unenhanced images were obtained through the brain. This CT exam was performed using one or more following dose reduction techniques: Automated exposure control, adjustment of the mA and/or kV according to patient size, or use of iterative reconstruction technique. FINDINGS: There is mild atrophy. The ventricles are within normal limits for size and position. Microvascular changes are noted. There are no additional areas of abnormal attenuation. There is no hemorrhage, mass effect or extra-axial collections. The calvarium is intact. The imaged paranasal sinuses and mastoid air cells are clear. There is vertebral artery and carotid siphon plaque. CT/CT cervical spine wo con IMPRESSION: ATROPHY AND SMALL VESSEL ISCHEMIC CHANGES. NO ACUTE INTRACRANIAL TRAUMA. CT CERVICAL SPINE WITHOUT CONTRAST WITH 3D RECONSTRUCTIONS: COMPARISON: None TECHNIQUE: Spiral axial unenhanced images were obtained through the cervical spine. Sagittal, coronal and 3D volume-rendered reconstructions were also reviewed. This CT exam was performed using one or more following dose reduction techniques: Automated exposure control, adjustment of the mA and/or kV according to patient size, or use of iterative reconstruction technique. FINDINGS: There is cervicothoracic dextroscoliotic curvature. There is also slight reversal of the normal cervical lordosis. No acute compression fractures or significant displacement are seen. There is disc space narrowing at C4-5 down. There are small endplate spurs and mild bilateral facet disease. The atlantoaxial relationship is maintained an air is additional degenerative change at the odontoid and anterior C1 arch. No prevertebral soft tissue swelling is seen. Tonsillar calcifications are present. There is vertebral and carotid plaque. There are few small scattered cervical lymph nodes. The upper imaged lungs show no contributory findings. IMPRESSION: LOSS OF NORMAL CERVICAL CURVATURE. DEGENERATIVE CHANGES. NO ACUTE BONY INJURY. Impression dictated by: Jeannine Armijo M.D. 05/05/2025 11:53 AM Dictation Location: [employer] Electronically authenticated by: [id number] Y Date: 05/05/2025 11:53
--- NOTE | 2025-05-05 11:20 | CT_ITS ---
The [address] [address] Patient Name: ROBYN SRINIVASAN MRN: [id number] date: 1940 Sex: F Assigned Patient Location: ER Current Patient Location: ER Accession/Order Number: [id number] Exam Date: 05/05/2025 11:05 Report Date: 05/05/2025 11:53 At the request of: FREDDIE MCCORD DO Procedure: CT cervical spine wo con CLINICAL DATA: Patient tripped and fell yesterday and hit right side of head. Unsteady and nausea. CT BRAIN WITHOUT CONTRAST: COMPARISON: None TECHNIQUE: Contiguous axial unenhanced images were obtained through the brain. This CT exam was performed using one or more following dose reduction techniques: Automated exposure control, adjustment of the mA and/or kV according to patient size, or use of iterative reconstruction technique. FINDINGS: There is mild atrophy. The ventricles are within normal limits for size and position. Microvascular changes are noted. There are no additional areas of abnormal attenuation. There is no hemorrhage, mass effect or extra-axial collections. The calvarium is intact. The imaged paranasal sinuses and mastoid air cells are clear. There is vertebral artery and carotid siphon plaque. CT/CT head/brain wo con IMPRESSION: ATROPHY AND SMALL VESSEL ISCHEMIC CHANGES. NO ACUTE INTRACRANIAL TRAUMA. CT CERVICAL SPINE WITHOUT CONTRAST WITH 3D RECONSTRUCTIONS: COMPARISON: None TECHNIQUE: Spiral axial unenhanced images were obtained through the cervical spine. Sagittal, coronal and 3D volume-rendered reconstructions were also reviewed. This CT exam was performed using one or more following dose reduction techniques: Automated exposure control, adjustment of the mA and/or kV according to patient size, or use of iterative reconstruction technique. FINDINGS: There is cervicothoracic dextroscoliotic curvature. There is also slight reversal of the normal cervical lordosis. No acute compression fractures or significant displacement are seen. There is disc space narrowing at C4-5 down. There are small endplate spurs and mild bilateral facet disease. The atlantoaxial relationship is maintained an air is additional degenerative change at the odontoid and anterior C1 arch. No prevertebral soft tissue swelling is seen. Tonsillar calcifications are present. There is vertebral and carotid plaque. There are few small scattered cervical lymph nodes. The upper imaged lungs show no contributory findings. IMPRESSION: LOSS OF NORMAL CERVICAL CURVATURE. DEGENERATIVE CHANGES. NO ACUTE BONY INJURY. Impression dictated by: Jeannine Armijo M.D. 05/05/2025 11:53 AM Dictation Location: [employer] Electronically authenticated by: [id number] Y Date: 05/05/2025 11:53
--- NOTE | 2025-05-05 11:20 | CT_ITS ---
The [address] [address] Patient Name: ROBYN SRINIVASAN MRN: [id number] date: 1940 Sex: F Assigned Patient Location: ER Current Patient Location: ER Accession/Order Number: [id number] Exam Date: 05/05/2025 11:05 Report Date: 05/05/2025 12:07 At the request of: FREDDIE MCCORD DO Procedure: CT abdomen pelvis w con CT ABDOMEN AND PELVIS WITH CONTRAST COMPARISON: 04/28/2024 CLINICAL DATA: Patient fell yesterday. Right flank and rib pain. Spiral images were obtained through the abdomen pelvis following [address] exam was performed using one or more following dose reduction techniques: Automated exposure control, adjustment of the mA and/or kV according to patient size, or use of iterative reconstruction technique. Limited cuts through the lung bases show large hiatal hernia. There is minor atelectasis or scarring. The image ribs in the field of view show no acute displaced fractures. There is fatty infiltration liver. No hepatic or splenic laceration is identified. There are no definite gallstones. The pancreas is atrophic. No adrenal nodularity is seen. There are symmetric renal nephrograms, without hydronephrosis. There are multiple tiny bilateral renal calculi. There are left parapelvic renal cysts. There is moderate atherosclerotic plaque involving the aorta, iliac and some of the visceral arteries. There are few tiny lymph nodes. No ascites is seen. There are small lymph nodes. There is stool at the cecum and distal transverse colon. The remainder of the ascending and proximal transverse and descending colon are decompressed. Minor degenerative changes are seen at the spine. There are no acute compression fractures. Images through the pelvis show normal caliber small bowel loops. The appendix is not definitely seen. There is mild rectosigmoid stool. There are sigmoid diverticula, without associated active inflammation. The uterus is surgically absent. The urinary bladder is poorly distended for evaluation. There is no ascites. Calcification is again noted at the left distal external iliac common femoral veins. The bony pelvis is intact. CT/CT abdomen pelvis w con IMPRESSION: LARGE HIATAL HERNIA. FATTY LIVER. NO VISCERAL INJURY. BILATERAL NEPHROLITHIASIS AND LEFT RENAL CYST. NO BOWEL OR URINARY TRACT OBSTRUCTION. DIVERTICULOSIS. NO ACUTE FRACTURES. Impression dictated by: Jeannine Armijo M.D. 05/05/2025 12:07 PM Dictation Location: [place] [address] Electronically authenticated by: [id number] Y Date: 05/05/2025 12:07
--- NOTE | 2025-05-05 11:33 | XR_ITS ---
The [address] [address] Patient Name: ROBYN SRINIVASAN MRN: [id number] date: 1940 Sex: F Assigned Patient Location: ED.MAIN Current Patient Location: Accession/Order Number: [id number] Exam Date: 05/05/2025 11:20 Report Date: 05/05/2025 12:16 At the request of: FREDDIE MCCORD DO Procedure: XR chest 2V RIGHT HAND- 3 views CLINICAL DATA: Patient fell and has pain at the right middle finger COMPARISON: None AP, lateral and oblique views were obtained. There is osteopenia. There is no dislocation though there is mild subluxation at the proximal interphalangeal joint of the third finger. There is narrowing of the interphalangeal joint spaces along with hypertrophy. On the lateral view, there is question of fracture involving dorsal spurring at the base of the distal phalanx of the third finger. Focal clinical correlation is recommended with the site of patient's pain. No other fractures are seen. There is additional joint space narrowing and hypertrophy at the first carpal metacarpal joint. There are no significant soft tissue abnormalities. Minor endplate spurring is noted. No obvious acute displaced rib fractures are seen. XR/XR hand RT min 3V IMPRESSION: OSTEOPENIA AND DEGENERATIVE CHANGES. QUESTION OF FRACTURE INVOLVING A SPUR AT THE DORSUM OF THE DISTAL PHALANX OF THE THIRD FINGER. CORRELATION IS RECOMMENDED WITH THE SITE OF PATIENT'S PAIN. AP AND LATERAL CHEST: CLINICAL HISTORY: Right rib pain following fall COMPARISON: CT 04/28/2023 There is minimal atelectasis or scarring. There is no focal parenchymal consolidation, effusion or pneumothorax. The heart is enlarged. There is also a large hiatal hernia.. There is no vascular congestion. The visualized bony structures are osteopenic. IMPRESSION: CARDIOMEGALY. LARGE HIATAL HERNIA. NO ACUTE PULMONARY FINDINGS. Impression dictated by: Jeannine Armijo M.D. 05/05/2025 12:16 PM Dictation Location[facility] Electron[facility] authenticated by: [id number] Y Date: 05/05/2025 12:16
--- NOTE | 2025-05-05 11:33 | XR_ITS ---
The [address] [address] Patient Name: ROBYN SRINIVASAN MRN: [id number] date: 1940 Sex: F Assigned Patient Location: ER Current Patient Location: ER Accession/Order Number: [id number] Exam Date: 05/05/2025 11:20 Report Date: 05/05/2025 12:16 At the request of: FREDDIE MCCORD DO Procedure: XR chest 2V RIGHT HAND- 3 views CLINICAL DATA: Patient fell and has pain at the right middle finger COMPARISON: None AP, lateral and oblique views were obtained. There is osteopenia. There is no dislocation though there is mild subluxation at the proximal interphalangeal joint of the third finger. There is narrowing of the interphalangeal joint spaces along with hypertrophy. On the lateral view, there is question of fracture involving dorsal spurring at the base of the distal phalanx of the third finger. Focal clinical correlation is recommended with the site of patient's pain. No other fractures are seen. There is additional joint space narrowing and hypertrophy at the first carpal metacarpal joint. There are no significant soft tissue abnormalities. Minor endplate spurring is noted. No obvious acute displaced rib fractures are seen. XR/XR chest 2V IMPRESSION: OSTEOPENIA AND DEGENERATIVE CHANGES. QUESTION OF FRACTURE INVOLVING A SPUR AT THE DORSUM OF THE DISTAL PHALANX OF THE THIRD FINGER. CORRELATION IS RECOMMENDED WITH THE SITE OF PATIENT'S PAIN. AP AND LATERAL CHEST: CLINICAL HISTORY: Right rib pain following fall COMPARISON: CT 04/28/2023 There is minimal atelectasis or scarring. There is no focal parenchymal consolidation, effusion or pneumothorax. The heart is enlarged. There is also a large hiatal hernia.. There is no vascular congestion. The visualized bony structures are osteopenic. IMPRESSION: CARDIOMEGALY. LARGE HIATAL HERNIA. NO ACUTE PULMONARY FINDINGS. Impression dictated by: Jeannine Armijo M.D. 05/05/2025 12:16 PM Dictation Location: [facility] Electronically authenticated by: [id number] Y Date: 05/05/2025 12:16
[2025-05-05 12:07] VITALS: BP 159/82; PULSE 74; O2SAT 94
== END 2025-05-05 12:45 | disposition home or self-care (01) ==
PROVIDERS: Emergency Provider Student in an Organized Health Care Education/Training Program; Family Provider Family Medicine; PCP Family Medicine
DX: S20.211A Contusion of right front wall of thorax, initial encounter (principal); S62.662A Nondisplaced fracture of distal phalanx of right middle finger, initial encounter for closed fracture; W18.39XA Other fall on same level, initial encounter; Y92.015 Private garage of single-family (private) house as the place of occurrence of the external cause; Z90.710 Acquired absence of both cervix and uterus
CPT/HCPCS: 36415; 70450; 71046; 72125; 73130; 74177; 76376; 80053; 81001; 84484; 85025; 99285; Q9967

== ENCOUNTER 2025-05-27 13:32 | Outpatient (OUT) | payer MEDICARE, SELFPAY ==
--- OUTSIDE RECORDS SUMMARY | 2025-05-27 13:37 | XMS_ITS | Clinical Summary ---
Author Organization [employer] [facility] Address [id number] [address] [place] [address] Care Team Providers Care Flamer After Lasting Name Role Phone Unavailable Primary Care Provider Unavailabl e Social History Tobacco Use Types Packs/Day Years Used Date Smoking Tobacco: Never Assessed Childcare Answer Date Recorded Childcare Unknown 02/10/2019 Employment Answer Date Recorded Employment Unknown 02/10/2019 Comments Unknown Sex and Gender Information Value Date Recorded Sex Assigned at Not on file Legal Sex Female 11:38 AM EDT Gender Identity Not on file Sexual Orientation Not on file Plan of Treatment Not on file Medical Devices Not on file
--- OUTSIDE RECORDS SUMMARY | 2025-05-27 13:37 | XMS_ITS | Clinical Summary ---
Author Organization [facility] Address [address] [facility] [place] [address] Care Team Providers Care Doctor Osteopathic Name Role Phone Haroon Smith MD Primary Care Provider [phone] Allergies Active Allergy Reactions Criticality Noted Date Comments Bee Venom 01/18/2025 Other Reaction(s): Unknown Ciprofloxacin 12/05/2016 Other Reaction(s): Unknown Codeine 08/31/2001 Other Reaction(s): Unknown Ibuprofen 12/05/2016 Other Reaction(s): Unknown Penicillin G Rash Low 01/18/2025 Sulfamethoxazole-Trimethoprim Low 2024 Other Reaction(s): Shaking Medications ALPRAZolam (Xanax) 0.25 MG tablet Take 0.25 mg by mouth in the morning and 0.25 mg before bedtime. Active amLODIPine (Norvasc) 5 MG tablet Take 5 mg by mouth Daily 5 Active Ferrous Sulfate (iron) 325 (65 Fe) MG tablet Take 1 tablet by mouth in the morning and 1 tablet before bedtime. Active gabapentin (Neurontin) 100 MG capsule Take 100 mg by mouth Daily Active Meclizine HCl 25 MG chewable tablet CHEW 1-2 TABLETS BY MOUTH EVERY 12 HOURS Active pantoprazole (ProtoNix) 40 MG EC tablet Take 40 mg by mouth in the evening 5 Active aspirin-acetami nophen-caffeine (Excedrin Migraine) 250-250-65 MG tablet Take 1 tablet by mouth every 6 (six) hours if needed for headaches Active Active Problems Problem Noted Date Diagnosed Date Bipolar disorder, current episode mixed, mild Chronic GERD 01/18/2025 History of kidney stones 01/18/2025 Meniere's disease, right ear 01/18/2025 Primary osteoarthritis 01/18/2025 Stage 3 chronic kidney disease 01/18/2025 Status post craniectomy 01/18/2025 Type 2 diabetes mellitus 01/18/2025 Family History Relation Name Status Comments Father Mother Social History Tobacco Use Types Packs/Day Years Used Date Smoking Tobacco: Former Cigarettes Tobacco Cessation:Counseling Given: Not Answered Comments:Patient quit 05/18/2024 Alcohol Use Standard Drinks/Week Comments Yes 2 (1 standard drink = 0.6 oz pur e alcohol) 1-2x yearly Comments Unknown Sex and Gender Information Value Date Recorded Sex Assigned at Not on file Legal Sex Female 6:35 PM EDT Gender Identity Not on file Sexual Orientation Not on file Last Filed Vital Signs Vital Sign Reading Time Taken Comments Blood Pressure 146/65 11/04/2018 12:00 PM EST Pulse - - Temperature - - Respiratory Rate - - Oxygen Saturation - - Inhaled Oxygen Concentration - - Weight 72.6 kg (160 lb) 01/18/2025 10:55 AM EDT Height 163.8 cm (5' 4.5 ) 01/18/2025 10:55 AM ED T Body Mass Index 27.04 01/18/2025 10:55 AM EDT Plan of Treatment Health Maintenance Due Date Last Done Comments Pneumococcal Vaccine: 65+ Years (1 of 1 - PCV) 993 Influenza Vaccine (#1) 2025 Insurance [facility] [employer] Care Teams Doctor Osteopathic Relationship Specialty Start Date End Date Haroon Smith MD [address] [place] [id number] PCP - General Family Medicine 01/05/25
--- OUTSIDE RECORDS SUMMARY | 2025-05-27 13:41 | XMS_ITS | CCD ---
Author Organization [facility] CliniSywv Care Team Providers Care Hot Packer Name Role Phone ANDRA, DR CARLOS Mae Admitting Unavailable COOK, DR CARLOS Mae Attending Unavailable MEAK, DR ADEN Primary Care Unavailable COOK, DR [...] Unavailable Markie Smith MD Primary Care Provider GINA FLETCHER Attending Unavailable GINA FLETCHER Referring Unavailable Allergies Allergy Classification Reported Allergen(s) Allergy Type Date of Onset Reaction(s) Facility (2 sources) Ciprofloxacin; Translations: [ciprofloxacin] Drug Allergy 12-06-19 [facility] (2 sources) Codeine; Translations: [codeine] Drug Allergy 08-31-20 [facility] (2 sources) Ibuprofen; Translations: [ibuprofen] Drug Allergy 12-06-19 [facility] (5 sources) Penicillin; Translations: [penicillin] Drug Allergy 09-01-18 63 Eruption of skin (disorder) [facility] (1 source) Hutto nut Drug allergy (disorder) 09-21-19 22 [facility] (5 sources) Ciprofloxacin; Translations: [ciprofloxacin] Drug Allergy 12-06-19 Unknown [facility] (5 sources) Codeine; Translations: [codeine] Drug Allergy 08-31-20 Unknown [facility] (5 sources) Ibuprofen; Translations: [ibuprofen] Drug Allergy 12-06-19 Unknown [facility] (6 sources) Sulfamethoxazole / Trimethoprim; Translations: [sulfamethoxazole-tr imethoprim] Drug Allergy 01-19-20 Tremor (finding) [facility] (2 sources) Honey bee venom Allergy to substance 01-19-20 [facility] Healthcare (2 sources) Penicillin G Drug Allergy 01-19-20 Rash [facility] Healthcare Medications Current Medications Medication Drug Class(es) [...] Start Date: 10/09/21 Status: Ordered lactobacillus acidophilus [id number] unt oral capsule (3 sources) Start: 03-18-2019 [...] 09-21-2021 Episodic Other aftercare (1 source) 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 No fractures or dislocations noted. [facility] Study observation (narrative) [facility] Ambulatory Visit Summaryon 0 05-18-2024 Ambulatory Visit [...] you for choosing us for your care. [facility] Reminderson 05-18-2024 Reminders Reminders From: Kinza Walker To: EU - Administrative; Sent: 05/18/2024 13:18:11 EDT Show up: 09/05/2025 13:17:00 EST Subject: Ambulatory Reminder Due Date/Time: 11/07/2025 13:17:00 EDT Reminder/Recall SCHEDULE ROBYN SRINIVASAN IN 18 MO [address] SILVERMAN [facility] Reminders Reminders From: Griselda Church To: EU - Deyaniras Andra; Sent: 05/18/2024 13:12:21 EDT Show up: 10/18/2025 12:12:00 EST Subject: KUB prior to appt Reminder Message Pt needs KUB done prior to f/u in 18 mos. Will need order (dx: history of kidney stones). Typically goes to [facility]. [facility] Urology Office/Clinic Noteon 05-18-2024 Urology Office/Clinic [...] Information ANDRA RIVERA, Carlos Mae, URL [address] [place], [place] [id number]- Additional Instructions: 1.5 yrs w/ KUB Patient [...] with voice recognition artificial intelligence software, specifically [employer], [employer] and or [employer]. Substitutions may have occurred due to the [...] Social History (more content not included)... [facility] Comment on above: Result Comment: Elec tronically Signed By: Carlos SILVERMAN MD\.br\Date and Time Signed: 05/18/24 13:16 EDT\.br\Electronically Co-Signed By: Griselda Church\.br\Date and Time Co-Signed: 05/18/24 13:14 EDT MG MAMM SCREEN 3D ZAN CADon 02-21-2022 MG MAMM SCREEN 3D ZAN CAD Patient: ROBYN SRINIVASAN. Exam Date: 02/21/2022 : 1940 Gender:F Ordering : DR MARKIE SMITH . Admission #: [id number] Family : Order #: [id number] CLICK HERE TO VIEW EXAM RADIOLOGY REPORT PROCEDURE: MAMMOGRAM SCREENING 3D BILATERAL CAD COMPARISON: MG MAMM SCREEN ZAN W CAD, 05/19/2018. MG MAMM ZAN SCRN W CAD DIG, 03/14/2015. DIGITIZED_MAMMO, 07/13/2009. MG MAMM SCREEN ZNA W CAD, 11/08/2019. INDICATIONS: Screening mammography Calculator Name NCI Breast Cancer Risk Assessment Tool 5 Year Breast Cancer Risk 2.90% Lifetime Breast Cancer Risk 4.80% Personal Breast Cancer No Personal Ovarian Cancer No Treatments None Family Cancers Brother with prostate cancer at age 50; Brother with prostate cancer at age 50; Daughter with breast cancer at age 47. LOCATION: [facility] BREAST COMPOSITION: Scattered areas fibroglandular density. [...] Hobbs M.D. on 02/22/2022 at 13:35 Normal [facility] T4 LABCORPon 02-07-2022 T4 [Mass/Vol] 6.2 ug/dL Normal 4.5-12.0 [facility] Comment on above: Performed By: #### T 4LC #### [facility] [address] [place] [address] Dr. Reg Kerns CITRATE URINE 24HRon 022 Citric Acid, U, 24hr 191 mg/24 hr Critically low 320-1240 [facility] Comment on above: Result Comment: This test was developed and its performance characteristics determined by [facility]. It has not been cleared or approved by the Food and Drug Administration. Performed By: #### C ITRATU #### [facility] [address] [place] [address] Dr. eRg Kerns Citric Acid, Urine 283 mg/L Normal Undefined [facility] Comment on above: Performed By: #### C ITRATU #### [facility] [address] [place] [address] Dr. Reg Kerns OXALATE 24HR URINEon 022 Oxalates, Urine 24hr 5 mg/24 hr Normal 4-31 [facility] Comment on above: Performed By: #### O X24HR #### [facility] [address] [place] [address] Dr. Reg Kerns Oxalates, Urine 8 mg/L Normal Undefined [facility] Comment on above: Performed By: #### O X24HR #### [facility] [address] [place] [address] Dr. Reg Kerns MAGNESIUM 24HR URINEon 02-03 Magnesium 24hr Urine 43.2 mg/24 hr Normal 12.0-293.0 [facility] Comment on above: Performed By: #### P THINT #### [facility] [address] [place] [address] Dr. Reg Kerns Magnesium UR 6.4 mg/dL Normal Not Estab. [facility] Comment on above: Performed By: #### P THINT #### [facility] [address] [place] [address] Dr. Reg Kerns PHOSPHORUS 24HR URINEon Phosphorus, Urine 47.7 mg/dL Normal Not Estab. [facility] Comment on above: Performed By: #### P THINT #### [facility] [address] [place] [address] Dr. Reg Kerns Phosphorus, Urine 24hr 322 mg/24 hr Normal 261-1078 [facility] Comment on above: Performed By: #### P THINT #### [facility] [address] [place] [address] Dr. Reg Kerns URIC ACID 24 HR URINEon Uric Acid, Urine 28.4 mg/dL Normal Not Estab. [facility] Comment on above: Performed By: #### U NICHELLE 24 #### [facility] [address] [place] [address] Dr. Reg Kerns Uric Acid, Urine 24hr 191.7 mg/24 hr Normal 88.9-568.5 [facility] Comment on above: Performed By: #### U NICHELLE 24 #### [facility] [address] [place] [address] Dr. Reg Kerns CALCIUM 24 HR URINEon 2021 CALC, 24 HR UR 58.7 mg/24 hr Critically low 100.0-300.0 [facility] Comment on above: Performed By: #### P THINT #### [facility] [address] [place] [address] Dr. Reg Kerns UR CALCIUM 8.7 mg/dL Normal 5.1-21.0 [facility] Comment on above: Performed By: #### P THINT #### [facility] [address] [place] [address] Dr. Reg Kerns CREA 24 HR URINEon 2 CREA, 24 HR UR 455.96 mg/24 hr Critically low 800.00-1 ,800. 00 [facility] Comment on above: Performed By: #### C ITRATU #### [facility] [address] [place] [address] Dr. Reg Kerns URINE CREAT 67.55 mg/dL Normal 20.00-300.00 [facility] Comment on above: Performed By: #### C ITRATU #### [facility] [address] [place] [address] Dr. Reg Kerns SODIUM 24 HR URINEon 022 NA, 24 HR UR 76 mmol/24 hr Normal 40-220 [facility] Comment on above: Performed By: #### C ITRATU #### [facility] [address] [place] [address] Dr. Reg Kerns Sodium (U) [Moles/Vol] 112 mmol/L Critically high 30-90 [facility] Comment on above: Performed By: #### C ITRATU #### [facility] [address] [place] [address] Dr. Reg Kerns UR TOT VOL 675 ml/24 HR Normal [facility] Comment on above: Performed By: #### C ITRATU #### [facility] [address] [place] [address] Dr. Reg Kerns Performed By: #### P THINT #### [facility] [address] [place] [address] Dr. Reg Kerns INSULINon 02-01-2022 Insulin 27.7 uIU/mL Critically high 2.6-24.9 [facility] Comment on above: Performed By: #### U NICHELLE 24 #### [facility] [address] [place] [address] Dr. Reg Kerns PTH INTACTon 02-01-2022 PTH, Intact 46 pg/mL Normal 15-65 [facility] Comment on above: Performed By: #### P THINT #### [facility] [address] [place] [address] Dr. Reg Kerns BNPon 01-31-2022 Natriuretic peptide B (Bld) [Mass/Vol] 154.0 pg/mL Normal <=1,800.0 [facility] Comment on above: Performed By: #### P THINT #### [facility] [address] [place] [address] Dr. Reg Kerns CBC AUTO DIFFon 01-31-2022 BASO # 0.1 103/ul Normal 0.0-0.1 [facility] Comment on above: Performed By: #### U NICHELLE 24 #### [facility] [address] [place] [address] Dr. Reg Kerns Basophils/100 WBC (Bld) 0.8 % Normal 0.2-2.0 [facility] Comment on above: Performed By: #### U NICHELLE 24 #### [facility] [address] [place] [address] Dr. Reg Kerns EO # 0.3 103/ul Normal 0.0-0.7 [facility] Comment on above: Performed By: #### U NICHELLE 24 #### [facility] [address] [place] [address] Dr. Reg Kerns Eosinophils/100 WBC (Bld) 4.4 % Normal 0.9-7.0 [facility] Comment on above: Performed By: #### U NICHELLE 24 #### [facility] [address] [place] [address] Dr. Reg Kerns Erythrocyte distribution width (RBC) [Ratio] 15.7 % Critically high 11.0-15.0 [facility] Comment on above: Performed By: #### U NICHELLE 24 #### [facility] [address] [place] [address] Dr. Reg Kerns Hematocrit (Bld) [Volume fraction] 37.4 % Normal 36.0-48.0 [facility] Comment on above: Performed By: #### U NICHELLE 24 #### [facility] [address] [place] [address] Dr. Reg Kerns Hemoglobin (Bld) [Mass/Vol] 11.6 g/dL Critically low 12.0-16.0 [facility] Comment on above: Performed By: #### U NICHELLE 24 #### [facility] [address] [place] [address] Dr. Reg Kerns IG # 0.03 10e3/ul Normal 0.00-0.03 [facility] Comment on above: Performed By: #### U NICHELLE 24 #### [facility] [address] [place] [address] Dr. Reg Kerns IG % 0.5 % Normal 0.0-0.5 [facility] Comment on above: Performed By: #### U NICHELLE 24 #### [facility] [address] [place] [address] Dr. Reg Kerns LYMPH # 1.9 103/ul Normal 1.2-3.8 [facility] Comment on above: Performed By: #### U NICHELLE 24 #### [facility] [address] [place] [address] Dr. Reg Kerns Lymphocytes/100 WBC (Bld) 30.3 % Normal 20.5-60.0 [facility] Comment on above: Performed By: #### U NICHELLE 24 #### [facility] [address] [place] [address] Dr. Reg Kerns MANUAL DIFF REQ NO Normal [facility] Comment on above: Performed By: #### U NICHELLE 24 #### [facility] [address] [place] [address] Dr. Reg Kerns MCH (RBC) [Entitic mass] 26.9 pg Normal 26.7-34.0 [facility] Comment on above: Performed By: #### U NICHELLE 24 #### [facility] [address] [place] [address] Dr. Reg Kerns MCHC (RBC) [Mass/Vol] 31.0 g/dL Normal 29.9-35.2 [facility] Comment on above: Performed By: #### U NICHELLE 24 #### [facility] [address] [place] [address] Dr. Reg Kerns MCV (RBC) [Entitic vol] 86.6 fL Normal 81.0-99.0 [facility] Comment on above: Performed By: #### U NICHELLE 24 #### [facility] [address] [place] [address] Dr. Reg Kerns MONO # 0.6 103/ul Normal 0.3-0.8 [facility] Comment on above: Performed By: #### U NICHELLE 24 #### [facility] [address] [place] [address] Dr. Reg Kerns Monocytes/100 WBC (Bld) 8.9 % Normal 1.7-12.0 [facility] Comment on above: Performed By: #### U NICHELLE 24 #### [facility] [address] [place] [address] Dr. Reg Kerns NEUT # 3.5 103/ul Normal 1.4-6.5 [facility] Comment on above: Performed By: #### U NICHELLE 24 #### [facility] [address] [place] [address] Dr. Reg Kerns Neutrophils/100 WBC (Bld) 55.1 % Normal 43.0-75.0 [facility] Comment on above: Performed By: #### U NICHELLE 24 #### [facility] [address] [place] [address] Dr. Reg Kerns Platelet mean volume (Bld) [Entitic vol] 10.6 fL Normal 9.5-13.5 [facility] Comment on above: Performed By: #### U NICHELLE 24 #### [facility] [address] [place] [address] Dr. Reg Kerns PLT 250 103/ul Normal 150-450 [facility] Comment on above: Performed By: #### U NICHELLE 24 #### [facility] [address] [place] [address] Dr. Reg Kerns RBC 4.32 106/ul Normal 4.20-5.40 [facility] Comment on above: Performed By: #### U NICHELLE 24 #### [facility] [address] [address] [address] Reg Kerns WBC 6.4 103/ul Normal 4.0-11.0 [facility] Comment on above: Performed By: #### U NICHELLE 24 #### [facility] [address] [place] [address] Dr. Reg Kerns FREE THYROXINE INDEX T7on FTI 2.17 Normal 1.30-4.50 [facility] Comment on above: Performed By: #### P THINT #### [facility] [address] [place] [address] Dr. Reg Kerns T3U 35.0 % Normal 30.0-39.0 [facility] Comment on above: Performed By: #### P THINT #### [facility] [address] [place] [address] Dr. Reg Kerns T4 [Mass/Vol] 6.20 ug/dL Normal 4.80-13.90 [facility] Comment on above: Result Comment: T4 t esting performed by [facility] Performed By: #### P THINT #### [facility] [address] [place] [address] Dr. Reg Kerns GLYCOHEMOGLOBIN A1Con 2021 ADA RECOMMENDATION SEE BELOW Normal [facility] Comment on above: Result Comment: ADA RECOMMENDED LIMIT 4.0 - 6.0 ADA THERAPEUTIC TARGET < 7.0 ACTION SUGGESTED > 7.0 Performed By: #### P THINT #### [facility] [address] [place] [address] Dr. Reg Kerns Glucose [Mass/Vol] 117 mg/dL Normal [facility] Comment on above: Performed By: #### P THINT #### [facility] [address] [place] [address] Dr. Reg Kenrs HbA1c (Bld) [Mass fraction] 5.7 % Normal 4.5-6.2 [facility] Comment on above: Performed By: #### P THINT #### [facility] [address] [address] [address] Reg Kerns IRONon 01-31-2022 Iron [Mass/Vol] 143.0 ug/dL Normal 50.0-170.0 [facility] Comment on above: Performed By: #### I JORGE #### [facility] [address] [address] [address] Reg Kerns LIPID PROFILEon 01-31-2022 CHOL-HDL RATIO NORM SEE BELOW Normal [facility] Comment on above: Result Comment: 3.3 - 4.4 LOW RISK 4.4 - 7.1 AVERAGE RISK 7.1 - 11.0 MODERATE RISK >11.0 HIGH RISK Performed By: #### P THINT #### [facility] [address] [place] [address] Dr. Reg Kerns Cholesterol [Mass/Vol] 210 mg/dL Critically high <=200 [facility] Comment on above: Performed By: #### P THINT #### [facility] [address] [place] [address] Dr. Reg Kerns Cholesterol in HDL [Mass/Vol] 56 mg/dL Normal 40-60 [facility] Comment on above: Performed By: #### P THINT #### [facility] [address] [place] [address] Dr. Reg Kerns Cholesterol in LDL [Mass/Vol] 110.6 mg/dL Normal [facility] Comment on above: Performed By: #### P THINT #### [facility] [address] [place] [address] Dr. Reg Kerns Cholesterol.total/C holesterol in HDL [Mass ratio] 3.8 {ratio} Normal [facility] Comment on above: Performed By: #### P THINT #### [facility] [address] [place] [address] Dr. Reg Kerns HDL NORMAL > or = 60 mg/dl - LO W CARDIOVASCULAR RISK <40 mg/dl - HIGH CARDIOVASCULAR RISK Normal [facility] Comment on above: Performed By: #### P THINT #### [facility] [address] [place] [address] Dr. Reg Kerns LDL CALC NORMAL SEE BELOW Normal [facility] Comment on above: Result Comment: <100 mg/dl OPTIMAL 100 - 129 mg/dl NEAR OR ABOVE OPTIMAL 130 - 159 mg/dl BORDERLINE HIGH 160 - 189 mg/dl HIGH >190 mg/dl VERY HIGH Performed By: #### P THINT #### [facility] [address] [address] [address] Reg Kerns Triglyceride [Mass/Vol] 217 mg/dL Critically high <=150 [facility] Comment on above: Performed By: #### P THINT #### [facility] [address] [address] [address] Reg Kerns VLDL CALC 43.4 mg/dL Normal [facility] Comment on above: Performed By: #### P THINT #### [facility] [address] [address] [address] Reg Kerns PROF 14(COMP METB)on 022 Albumin [Mass/Vol] 3.6 g/dL Normal 3.4-5.0 [facility] Comment on above: Performed By: #### P THINT #### [facility] [address] [address] [address] Reg Kerns Albumin/Globulin [Mass ratio] 1.0 {ratio} Normal [facility] Comment on above: Performed By: #### P THINT #### [facility] [address] [address] [address] Reg Kerns ALP [Catalytic activity/Vol] 74 U/L Normal 46-116 [facility] Comment on above: Performed By: #### P THINT #### [facility] [address] [address] [address] Reg Kerns ALT [Catalytic activity/Vol] 26 U/L Normal 14-59 [facility] Comment on above: Performed By: #### P THINT #### [facility] [address] [address] [address] Reg Kerns Anion gap [Moles/Vol] 13.3 mmol/L Normal [facility] Comment on above: Performed By: #### P THINT #### [facility] [address] [address] [address] Reg Kerns AST [Catalytic activity/Vol] 18 U/L Normal 15-37 [facility] Comment on above: Performed By: #### P THINT #### [facility] [address] [place] [address] Dr. Reg Kerns Bilirubin [Mass/Vol] 0.3 mg/dL Normal 0.2-1.0 [facility] Comment on above: Performed By: #### P THINT #### [facility] [address] [place] [address] Dr. Reg Kerns Calcium [Mass/Vol] 9.1 mg/dL Normal 8.5-10.1 [facility] Comment on above: Performed By: #### P THINT #### [facility] [address] [place] [address] Dr. Reg Kerns Chloride [Moles/Vol] 103 mmol/L Normal 98-107 [facility] Comment on above: Performed By: #### P THINT #### [facility] [address] [place] [address] Dr. Reg Kerns CO2 [Moles/Vol] 26.4 mmol/L Normal 21.0-32.0 [facility] Comment on above: Performed By: #### P THINT #### [facility] [address] [place] [address] Dr. Reg Kerns Creatinine [Mass/Vol] 0.88 mg/dL Normal 0.55-1.02 [facility] Comment on above: Performed By: #### P THINT #### [facility] [address] [place] [address] Dr. Reg Kerns EGFR-AF BURKINAN >60 Normal >=60 [facility] Comment on above: Performed By: #### P THINT #### [facility] [address] [place] [address] Dr. Reg Kerns EGFR-NON AF BURKINAN >60 Normal >=60 [facility] Comment on above: Performed By: #### P THINT #### [facility] [address] [place] [address] Dr. Reg Kerns Globulin (S) [Mass/Vol] 3.6 g/dL Normal [facility] Comment on above: Performed By: #### P THINT #### [facility] [address] [place] [address] Dr. Reg Kerns Glucose [Mass/Vol] 91 mg/dL Normal 74-106 [facility] Comment on above: Performed By: #### P THINT #### [facility] [address] [address] [address] Reg Kerns Potassium [Moles/Vol] 4.7 mmol/L Normal 3.5-5.1 [facility] Comment on above: Performed By: #### P THINT #### [facility] [address] [place] [address] Dr. Reg Kerns Protein [Mass/Vol] 7.2 g/dL Normal 6.4-8.[address] [facility] Comment on above: Performed By: #### P THINT #### [facility] [address] [place] [address] Dr. Reg Kerns Sodium [Moles/Vol] 138 mmol/L Normal 136-145 [facility] Comment on above: Performed By: #### P THINT #### [facility] [address] [place] [address] Dr. Reg Kerns Urea nitrogen [Mass/Vol] 15.0 mg/dL Normal 7.0-18.0 [facility] Comment on above: Performed By: #### P THINT #### [facility] [address] [place] [address] Dr. Reg Kerns Urea nitrogen/Creatinine [Mass ratio] 17.0 mg/mg Normal [facility] Comment on above: Performed By: #### P THINT #### [facility] [address] [place] [address] Dr. Reg Kerns TSHon 01-31-2022 TSH 2.021 uIU/mL Normal 0.358-3.740 [facility] Comment on above: Performed By: #### P THINT #### [facility] [address] [place] [address] Dr. Reg Kerns TSH RANGE SEE BELOW Normal [facility] Comment on above: Result Comment: <0.3 4 UIU/ml HYPERTHYROID 0.34-5.60 UIU/ml EUTHYROID >5.60 UIU/ml HYPOTHYROID Performed By: #### P THINT #### [facility] [address] [address] [address] Reg Kerns URIC ACID SERUMon 01-31-2022 Urate [Mass/Vol] 6.1 mg/dL Critically high 2.6-6.0 [facility] Comment on above: Performed By: #### U NICHELLE #### [facility] [address] [address] [address] Reg Kerns Calculi, Urinaryon 2 Ca Oxalate Dihydrate 30 % Normal . [facility] Comment on above: Performed By: #### C ALCULI #### [facility] , Ca Oxalate Monohydrate 70 % Normal . [facility] Comment on above: Performed By: #### C ALCULI #### [facility] , Color (U) Brown Normal . [facility] Comment on above: Performed By: #### C ALCULI #### [facility] , Comment2 Normal . [facility] Comment on above: Result Comment: Calc ulus received in liquid. Wet calculi must be dried before analysis, which delays reporting of results. Leaving calculi in liquid (such as water, saline, blood, urine) may lead to changes in composition. Performed By: #### C ALCULI #### [facility] , Comment: Normal . [facility] Comment on above: Result Comment: Phys ician questions regarding Calculi Analysis contact [facility] at: [phone]. Performed By: #### C ALCULI #### [facility] , Composition Normal . [facility] [facility] Comment on above: Result Comment: Perc entage (Represents the % composition) Performed By: #### C ALCULI #### [facility] , Disclaimer: Normal . [facility] Comment on above: Result Comment: This test was developed and its performance characteristics determined by [employer]. It has not been cleared or approved by the Food and Drug Administration. Performed at: [facility] [employer] [address] [place] [address] Dr De La Garza [place], [place] [id number] Typo Machine Operator: Beck Wynne MD, Phone: [phone] Performed By: #### C ALCULI #### [facility] , Note Normal . [facility] Comment on above: Result Comment: Calc perlita report will follow via computer, mail or software sales representative delivery. PERFORMED BY: [facility] [address] [place] [address] PATHOLOGIST BILINGUAL INTERPRETER KENAN BAIRD M.D. Performed By: #### C ALCULI #### [facility] , Photo Normal . [facility] Comment on above: Result Comment: Phot ograph will follow under a separate cover Performed By: #### C ALCULI #### [facility] , Size 3x3 Normal . [facility] Comment on above: Result Comment: Mult iple pieces received. Dimensions of the largest piece reported. Performed By: #### C ALCULI #### [facility] , Source Kidney Normal . [facility] Comment on above: Performed By: #### C ALCULI #### [facility] , Weight 126 Normal . [facility] Comment on above: Performed By: #### C ALCULI #### [facility] , [place] 10-25-2021 L - -------- Specimen: [id number] Received: 10/26/21 Status: CATHERINE Presley Num: [id number] Spec Type: Surgical Subm Dr: Carlos Silverman MD Tissues: A Urinary Calculus (BILATERAL RENAL CALCULI) Procedures: Level 1 Gross -------- Patient Age/Sex Location Account Attending Physician -------- Robyn Srinivasan 80/F [place] [id number] Carlos Silverman MD -------- SPEC NUM: [id number] RECD: 10/26/21 STATUS: CATHERINE PRESLEY NUM: [id number] SIL: 10/25/21- [facility] DR: Carlos Silverman MD ENTERED: 10/26/21 [facility] DR: SPEC TYPE: Surgical DEPT: S ORDERED: [...] only. (GONZALES/NIKKI) Microscopic Description Gross examination only. [id number] -------- -------- Specimen: [id number] Received: 10/26/21 Status: CATHERINE Presley Num: [id number] Spec Type: Surgical Subm Dr: Carlos Silverman MD Tissues: A Urinary Calculus (BILATERAL RENAL CALCULI) Procedures: Level 1 Gross -------- Patient: Robyn Srinivasan [id number] (Continued) -------- Signed (signature on file) Kenan Baird MD 10/26/21 1633 [facility] XR KUBon 10-25-2021 XR KUB [facility] Main [address] [address] XRay Report Signed Patient: Robyn Srinivasan MR#: [id number] : 1940 Acct:[id number] Age/Sex: 80 / F ADM Date: 10/25/21 Loc: [place] Room: Type: [facility] Attending Dr: Carlos Silverman MD Ordering Provider: [...] Eriberto Jordan M.D.10/25/2021 1:48 PM Dictation Location: [place] [address] Transcribed By: [facility] 10/25/21 1348 Dictated By: Eriberto Jordan DO 10/25/21 1345 Signed By: 10/25/21 1348 [facility] XR abdomen 1Von 10-25-2021 XR abdomen 1V [facility] Main [address] [address] XRay Report Signed Patient: Rboyn Srinivasan MR#: [id number] : 1940 Acct:[id number] Age/Sex: 80 / F ADM Date: 10/25/21 Loc: [place] Room: Type: [facility] Attending Dr: Carlos Silverman MD Ordering Provider: [...] Pako King M.D.10/25/2021 4:52 PM Dictation Location: [place] [address] Transcribed By: [facility] 10/25/211651 Dictated By: Pako King II, MD 10/25/211649 Signed By: 10/25/211651 Normal [facility] Basic Metabolic Panelon 10-02 Calcium [Mass/Vol] 9.4 mg/dL Normal 8.2-10.2 [facility] Comment on above: Result Comment: PERF ORMED BY: [place] [address] PATHOLOGIST BILINGUAL INTERPRETER KENAN BAIRD M.D. Performed By: #### C BC, PT, PTT, BMP #### [facility] [address] [place] [address] [place] Chloride [Moles/Vol] 103 mmol/L Normal 95-114 [facility] Comment on above: Performed By: #### C BC, PT, PTT, BMP #### [facility] [address] [place] [address] [place] CO2 [Moles/Vol] 22.8 mmol/L Normal 22.0-30.0 [facility] Comment on above: Performed By: #### C BC, PT, PTT, BMP #### [facility] [address] [place] [address] [place] Creatinine [Mass/Vol] 0.85 mg/dL Normal 0.44-1.03 [facility] Comment on above: Performed By: #### C BC, PT, PTT, BMP #### [facility] [address] Estimated GFR ( Faina > 60 Normal [facility] Comment on above: Result Comment: GFR estimated reference range: According to KDOQI guidelines, <60 ml/min/1.73m2 is sufficient to diagnose a patient with chronic kidney disease. Performed By: #### C BC, PT, PTT, BMP #### [address] Estimated GFR (Non- Am > 60 Normal [facility] Comment on above: Performed By: #### C BC, PT, PTT, BMP #### [address] Glucose [Mass/Vol] 95 mg/dL Normal 70-100 [facility] Comment on above: Result Comment: [place] om Glucose Reference Range is dependent on time and content of last meal. Glucose of more than 200 mg/dL in a nonstressed, ambulatory subject supports the diagnosis of Diabetes Mellitus. ADA recommended reference range Performed By: #### C BC, PT, PTT, BMP #### [address] Potassium [Moles/Vol] 4.3 mmol/L Normal 3.5-5.1 [facility] Comment on above: Performed By: #### C BC, PT, PTT, BMP #### [address] Sodium [Moles/Vol] 137 mmol/L Normal 136-146 [facility] Comment on above: Performed By: #### C BC, PT, PTT, BMP #### [address] Urea nitrogen [Mass/Vol] 12 mg/dL Normal 9-23 [facility] Comment on above: Performed By: #### C BC, PT, PTT, BMP #### [address] Complete Blood Count Auto Di ffon 10-12-2021 Basophils (Bld) [#/Vol] 0.1 10*3/uL Normal 0.0-0.2 [facility] Comment on above: Result Comment: PERF ORMED BY: [place] [address] PATHOLOGIST BILINGUAL INTERPRETER KENAN BAIRD M.D. Performed By: #### C BC, PT, PTT, BMP #### [address] Basophils/100 WBC (Bld) 1.3 % Normal . [facility] Comment on above: Performed By: #### C BC, PT, PTT, BMP #### [address] Eosinophils (Bld) [#/Vol] 0.5 10*3/uL High 0.0-0.45 [facility] Comment on above: Performed By: #### C BC, PT, PTT, BMP #### [address] Eosinophils/100 WBC (Bld) 6.6 % Normal . [facility] Comment on above: Performed By: #### C BC, PT, PTT, BMP #### [address] Erythrocyte distribution width (RBC) [Ratio] 14.5 % Normal 11.9-15.3 [facility] Comment on above: Performed By: #### C BC, PT, PTT, BMP #### [facility] [address] [place] [address] Hematocrit (Bld) [Volume fraction] 38.5 % Normal 34.0-46.4 [facility] Comment on above: Performed By: #### C BC, PT, PTT, BMP #### [address] Hemoglobin (Bld) [Mass/Vol] 12.6 g/dL Normal 11.8-15.4 [facility] Comment on above: Performed By: #### C BC, PT, PTT, BMP #### [facility] [address] [place] [address] [place] Lymphocytes (Bld) [#/Vol] 1.6 10*3/uL Normal 1.00-4.8 [facility] Comment on above: Performed By: #### C BC, PT, PTT, BMP #### [address] Lymphocytes/100 WBC (Bld) 22.1 % Normal . [facility] Comment on above: Performed By: #### C BC, PT, PTT, BMP #### [address] MCH (RBC) [Entitic mass] 28.0 pg Normal 24.7-34.3 [facility] Comment on above: Performed By: #### C BC, PT, PTT, BMP #### [address] MCV (RBC) [Entitic vol] 85.7 fL Normal 80-100 [facility] Comment on above: Performed By: #### C BC, PT, PTT, BMP #### [address] Mean Corpuscular HGB Conc 32.7 g/dL Normal 32.0-35.0 [facility] Comment on above: Performed By: #### C BC, PT, PTT, BMP #### [address] Monocytes (Bld) [#/Vol] 0.5 10*3/uL Normal 0.0-0.8 [facility] Comment on above: Performed By: #### C BC, PT, PTT, BMP #### [address] Monocytes/100 WBC (Bld) 6.2 % Normal . [facility] Comment on above: Performed By: #### C BC, PT, PTT, BMP #### [address] Neutrophils (Bld) [#/Vol] 4.8 10*3/uL Normal 1.8-7.7 [facility] Comment on above: Performed By: #### C BC, PT, PTT, BMP #### [address] [place] [address] [place] Neutrophils/100 WBC (Bld) 63.8 % Normal . [facility] Comment on above: Performed By: #### C BC, PT, PTT, BMP #### [facility] [address] [place] [address] [place] Nucleated RBC/100 WBC (Bld) [Ratio] 0.0 % Normal 0-0.5 [facility] Comment on above: Performed By: #### C BC, PT, PTT, BMP #### [facility] [address] Platelet mean volume (Bld) [Entitic vol] 8.5 fL Normal 6.3-10.7 [facility] Comment on above: Performed By: #### C BC, PT, PTT, BMP #### [address] Platelets (Bld) [#/Vol] 244 10*3/uL Normal 150-450 [facility] Comment on above: Performed By: #### C BC, PT, PTT, BMP #### [place] [address] [place] RBC (Bld) [#/Vol] 4.49 10*6/uL Normal 3.60-5.00 [facility] Comment on above: Performed By: #### C BC, PT, PTT, BMP #### [place] [address] [place] WBC (Bld) [#/Vol] 7.5 10*3/uL Normal 4.5-11.0 [facility] Comment on above: Performed By: #### C BC, PT, PTT, BMP #### [address] ECG 12 lead ECGon 10-12-2021 ECG 12 lead ECG [facility] Main [place] [address] [place] [address] Electrocardiograph Report Signed Patient: Robyn Srinivasan MR#: [id number] : 1940 Acct:[id number] Age/Sex: 80 / F ADM Date: 10/12/21 Loc: PS Room: Type: [facility] Attending Dr: Carlos Silverman MD [...] previous ECGs available Confirmed by MALACHI RIVERA [facility], JESICA ([id number]) on 10/12/2021 7:05:53 PM Referred By: ANDRA Electronically Signed By:JESICA BRAXTON MD [facility] Transcribed By: ASIYA Signed By Jesica Braxton MD, FACC 10/12/21 190 Normal [facility] Partial Thromboplastin Timeo n 10-12-2021 aPTT Coag (Bld) [Time] 27.0 s Normal 25.1-36.5 [facility] Comment on above: Result Comment: PERF ORMED BY: [place] [address] PATHOLOGIST BILINGUAL INTERPRETER KENAN BAIRD M.D. Performed By: #### C BC, PT, PTT, BMP #### [facility] [address] [place] [address] Prothrombin Time INRon 10-12 INR Coag (PPP) [Relative time] 1.0 {INR} Normal [facility] Comment on above: Result Comment: INR Therapeutic [...] [facility] [address] [place] [address] [place] PT Coag (PPP) [Time] 11.0 s Normal 9.0-12.9 [facility] Comment on above: Performed By: #### C BC, PT, PTT, BMP #### [address] XR chest 2V*on 10-12-2021 XR chest 2V* [facility] Main [place] [address] [place] [address] XRay Report Signed Patient: Robyn Srinivasan MR#: [id number] : 1940 Acct:[id number] Age/Sex: 80 / F ADM Date: 10/12/21 Loc: PS Room: Type: [facility] Attending Dr: Carlos Silverman MD Ordering [...] Li Jr., D.O.10/12/2021 11:55 AM Dictation Location: [place] [address] Transcribed By: [facility] 10/12/21 1155 Dictated By: Tj Li Jr, DO 10/12/21 1155 Signed By: 10/12/21 1155 Normal [facility] XR KUB 1 VIEWon 10-08-2021 XR KUB [...] JEREMIAH HOBBS Date: 2021-10-08 09:18 Normal [facility] XR RETROGRADE PYELOGRAMon XR RETROGRADE PYELOGRAM [...] EDGAR PADRON Date: 2021-09-23 09:36 Normal [facility] CBC AUTO DIFFon 09-22-2021 BASO # 0.0 103/ul Normal 0.0-0.1 [facility] Comment on above: Performed By: #### P THINT #### [facility] [address] [place] [address] Dr. Reg Kerns Basophils/100 WBC (Bld) 0.5 % Normal 0.2-2.0 [facility] Comment on above: Performed By: #### P THINT #### [facility] [address] [place] [address] Dr. Reg Kerns EO # 0.2 103/ul Normal 0.0-0.7 [facility] Comment on above: Performed By: #### P THINT #### [facility] [address] [place] [address] Dr. Reg Kerns Eosinophils/100 WBC (Bld) 3.9 % Normal 0.9-7.0 [facility] Comment on above: Performed By: #### P THINT #### [facility] [address] [place] [address] Dr. Reg Kerns Erythrocyte distribution width (RBC) [Ratio] 13.4 % Normal 11.0-15.0 [facility] Comment on above: Performed By: #### P THINT #### [facility] [address] [place] [address] Dr. Reg Kerns Hematocrit (Bld) [Volume fraction] 32.9 % Critically low 36.0-48.0 [facility] Comment on above: Performed By: #### P THINT #### [facility] [address] [place] [address] Dr. Reg Kerns Hemoglobin (Bld) [Mass/Vol] 10.3 g/dL Critically low 12.0-16.0 [facility] Comment on above: Performed By: #### P THINT #### [facility] [address] [place] [address] Dr. Reg Kerns IG # 0.02 10e3/ul Normal 0.00-0.03 [facility] Comment on above: Performed By: #### P THINT #### [facility] [address] [place] [address] Dr. Reg Kerns IG % 0.3 % Normal 0.0-0.5 [facility] Comment on above: Performed By: #### P THINT #### [facility] [address] [place] [address] Dr. Reg Kerns LYMPH # 2.2 103/ul Normal 1.2-3.8 [facility] Comment on above: Performed By: #### P THINT #### [facility] [address] [place] [address] Dr. Reg Kerns Lymphocytes/100 WBC (Bld) 37.3 % Normal 20.5-60.0 [facility] Comment on above: Performed By: #### P THINT #### [facility] [address] [place] [address] Dr. Reg Kerns MANUAL DIFF REQ NO Normal [facility] Comment on above: Performed By: #### P THINT #### [facility] [address] [place] [address] Dr. Reg Kerns MCH (RBC) [Entitic mass] 27.8 pg Normal 26.7-34.0 [facility] Comment on above: Performed By: #### P THINT #### [facility] [address] [place] [address] Dr. Reg Kerns MCHC (RBC) [Mass/Vol] 31.3 g/dL Normal 29.9-35.2 [facility] Comment on above: Performed By: #### P THINT #### [facility] [address] [place] [address] [address] Reg Kerns MCV (RBC) [Entitic vol] 88.7 fL Normal 81.0-99.0 [facility] Comment on above: Performed By: #### P THINT #### [facility] [address] [place] [address] Dr. Reg Kerns MONO # 0.6 103/ul Normal 0.3-0.8 [facility] Comment on above: Performed By: #### P THINT #### [facility] [address] [place] [address] Dr. Reg Kerns Monocytes/100 WBC (Bld) 10.6 % Normal 1.7-12.0 [facility] Comment on above: Performed By: #### P THINT #### [facility] [address] [place] [address] Dr. Reg Kerns NEUT # 2.8 103/ul Normal 1.4-6.5 [facility] Comment on above: Performed By: #### P THINT #### [facility] [address] [place] [address] Dr. Reg Kerns Neutrophils/100 WBC (Bld) 47.4 % Normal 43.0-75.0 [facility] Comment on above: Performed By: #### P THINT #### [facility] [address] [place] [address] Dr. Reg Kerns Platelet mean volume (Bld) [Entitic vol] 10.2 fL Normal 9.5-13.5 [facility] Comment on above: Performed By: #### P THINT #### [facility] [address] [place] [address] [address] Reg Kerns PLT 210 103/ul Normal 150-450 [facility] Comment on above: Performed By: #### P THINT #### [facility] [address] [place] [address] Dr. Reg Kerns RBC 3.71 106/ul Critically low 4.20-5.40 [facility] Comment on above: Performed By: #### P THINT #### [facility] [address] [place] [address] Dr. Reg Kerns WBC 5.9 103/ul Normal 4.0-11.0 [facility] Comment on above: Performed By: #### P THINT #### [facility] [address] [place] [address] Dr. Reg Kerns CULTURE URINEon 09-22-2021 CULTURE URINE Culture Observations : No growth Normal [facility] Comment on above: Performed By: #### C ITRATU #### [facility] [address] [place] [address] Dr. Reg Kerns PROF 14(COMP METB)on 022 Albumin [Mass/Vol] 3.0 g/dL Critically low 3.5-5.0 [facility] Comment on above: Performed By: #### C MP #### [facility] [address] [place] [address] Dr. Reg Kerns Albumin/Globulin [Mass ratio] 1.0 {ratio} Normal [facility] Comment on above: Performed By: #### C MP #### [facility] [address] [place] [address] Dr. Reg Kerns ALP [Catalytic activity/Vol] 55 U/L Normal 38-126 [facility] Comment on above: Performed By: #### C MP #### [facility] [address] [place] [address] Dr. Reg Kerns ALT [Catalytic activity/Vol] 16 U/L Normal 9-52 [facility] Comment on above: Performed By: #### C MP #### [facility] [address] [place], [place] [id number] Dr. Reg Kerns Anion gap [Moles/Vol] 12.6 mmol/L Normal [facility] Comment on above: Performed By: #### C MP #### [facility] [address] [place] [address] [address] Reg Kerns AST [Catalytic activity/Vol] 17 U/L Normal 14-36 [facility] Comment on above: Performed By: #### C MP #### [facility] [address] [place] [address] [address] Reg Kerns Bilirubin [Mass/Vol] 0.1 mg/dL Critically low 0.2-1.3 [facility] Comment on above: Performed By: #### C MP #### [facility] [address] [place] [address] [address] Reg Kerns Calcium [Mass/Vol] 8.7 mg/dL Normal 8.4-10.2 [facility] Comment on above: Performed By: #### C MP #### [facility] [address] [place] [address] Dr. Reg Kerns Chloride [Moles/Vol] 106 mmol/L Normal 98-107 [facility] Comment on above: Performed By: #### C MP #### [facility] [address] [place] [address] [address] Reg Kerns CO2 [Moles/Vol] 25.8 mmol/L Normal 22.0-30.0 [facility] Comment on above: Performed By: #### C MP #### [facility] [address] [address] [address] Reg Kerns Creatinine [Mass/Vol] 0.83 mg/dL Normal 0.52-1.04 [facility] Comment on above: Performed By: #### C MP #### [facility] [address] [place] [address] Dr. Reg Kerns EGFR-AF BURKINAN >60 Normal >=60 [facility] Comment on above: Performed By: #### C MP #### [facility] [address] [place] [address] Dr. Reg Kerns EGFR-NON AF BURKINAN >60 Normal >=60 [facility] Comment on above: Performed By: #### C MP #### [facility] [address] [address] [address] Reg Kerns Globulin (S) [Mass/Vol] 2.9 g/dL Normal [facility] Comment on above: Performed By: #### C MP #### [facility] [address] [address] [address] Reg Kerns Glucose [Mass/Vol] 99 mg/dL Normal 74-106 [facility] Comment on above: Performed By: #### C MP #### [facility] [address] [address] [address] Reg Kerns Potassium [Moles/Vol] 4.4 mmol/L Normal 3.4-5.0 [facility] Comment on above: Performed By: #### C MP #### [facility] [address] [address] [address] Reg Kerns Protein [Mass/Vol] 5.9 g/dL Critically low 6.1-8.2 [facility] Comment on above: Performed By: #### C MP #### [facility] [address] [address] [address] Reg Kerns Sodium [Moles/Vol] 140 mmol/L Normal 137-145 [facility] Comment on above: Performed By: #### C MP #### [facility] [address] [address] [address] Reg Kerns Urea nitrogen [Mass/Vol] 11.0 mg/dL Normal 7.0-17.0 [facility] Comment on above: Performed By: #### C MP #### [facility] [address] [address] [address] Reg Kerns Urea nitrogen/Creatinine [Mass ratio] 13.3 mg/mg Normal [facility] Comment on above: Performed By: #### C MP #### [facility] [address] [place] [address] [address] Reg Kerns CBC AUTO DIFFon 09-21-2021 BASO # 0.0 103/ul Normal 0.0-0.1 [facility] Comment on above: Performed By: #### C ITRATU #### [facility] [address] [place] [address] Dr. Reg Kerns Basophils/100 WBC (Bld) 0.6 % Normal 0.2-2.0 [facility] Comment on above: Performed By: #### C ITRATU #### [facility] [address] [place] [address] Dr. Reg Kerns EO # 0.3 103/ul Normal 0.0-0.7 [facility] Comment on above: Performed By: #### C ITRATU #### [facility] [address] [place] [address] Dr. Reg Kerns Eosinophils/100 WBC (Bld) 3.5 % Normal 0.9-7.0 [facility] Comment on above: Performed By: #### C ITRATU #### [facility] [address] [place] [address] Dr. Reg Kerns Erythrocyte distribution width (RBC) [Ratio] 13.4 % Normal 11.0-15.0 [facility] Comment on above: Performed By: #### C ITRATU #### [facility] [address] [place] [address] Dr. Reg Kerns Hematocrit (Bld) [Volume fraction] 37.8 % Normal 36.0-48.0 [facility] Comment on above: Performed By: #### C ITRATU #### [facility] [address] [place] [address] Dr. Reg Kerns Hemoglobin (Bld) [Mass/Vol] 12.3 g/dL Normal 12.0-16.0 [facility] Comment on above: Performed By: #### C ITRATU #### [facility] [address] [place] [address] Dr. Reg Kerns IG # 0.03 10e3/ul Normal 0.00-0.03 [facility] Comment on above: Performed By: #### C ITRATU #### [facility] [address] [place] [address] Dr. Reg Kerns IG % 0.4 % Normal 0.0-0.5 [facility] Comment on above: Performed By: #### C ITRATU #### [facility] [address] [place] [address] Dr. Reg Kerns LYMPH # 1.6 103/ul Normal 1.2-3.8 [facility] Comment on above: Performed By: #### C ITRATU #### [facility] [address] [place] [address] Dr. Reg Kerns Lymphocytes/100 WBC (Bld) 22.9 % Normal 20.5-60.0 [facility] Comment on above: Performed By: #### C ITRATU #### [facility] [address] [place] [address] Dr. Reg Kerns MANUAL DIFF REQ NO Normal [facility] Comment on above: Performed By: #### C ITRATU #### [facility] [address] [place] [address] Dr. Reg Kerns MCH (RBC) [Entitic mass] 28.5 pg Normal 26.7-34.0 [facility] Comment on above: Performed By: #### C ITRATU #### [facility] [address] [place] [address] Dr. Reg Kerns MCHC (RBC) [Mass/Vol] 32.5 g/dL Normal 29.9-35.2 [facility] Comment on above: Performed By: #### C ITRATU #### [facility] [address] [place] [address] Dr. Reg Kerns MCV (RBC) [Entitic vol] 87.7 fL Normal 81.0-99.0 [facility] Comment on above: Performed By: #### C ITRATU #### [facility] [address] [place] [address] Dr. Reg Kerns MONO # 0.6 103/ul Normal 0.3-0.8 [facility] Comment on above: Performed By: #### C ITRATU #### [facility] [address] [place] [address] Dr. Reg Kerns Monocytes/100 WBC (Bld) 8.2 % Normal 1.7-12.0 [facility] Comment on above: Performed By: #### C ITRATU #### [facility] [address] [place] [address] Dr. Reg Kerns NEUT # 4.6 103/ul Normal 1.4-6.5 [facility] Comment on above: Performed By: #### C ITRATU #### [facility] [address] [place] [address] Dr. Reg Kerns Neutrophils/100 WBC (Bld) 64.4 % Normal 43.0-75.0 [facility] Comment on above: Performed By: #### C ITRATU #### [facility] [address] [place] [address] Dr. Reg Kerns Platelet mean volume (Bld) [Entitic vol] 10.8 fL Normal 9.5-13.5 [facility] Comment on above: Performed By: #### C ITRATU #### [facility] [address] [place] [address] Dr. Reg Kerns PLT 256 103/ul Normal 150-450 [facility] Comment on above: Performed By: #### C ITRATU #### [facility] [address] [place] [address] Dr. Reg Kersn RBC 4.31 106/ul Normal 4.20-5.40 [facility] Comment on above: Performed By: #### C ITRATU #### [facility] [address] [place] [address] Dr. Reg Kerns WBC 7.1 103/ul Normal 4.0-11.0 [facility] Comment on above: Performed By: #### C ITRATU #### [facility] [address] [place] [address] ABD/PELVIS WO CONon [...] ABA LONGORIAH Date: 2021-09-21 19:43 Normal [facility] Covid-19 PCR (CVDTBH)on 09-02 SARS-CoV-2 (COVID-19) RNA BYRON+probe Ql (Unsp spec) Detected Critically abnormal NOT DETECTED [facility] Comment on above: Result Comment: This test is not yet approved or cleared by the [place] FDA. When there are no FDA-approved or cleared tests available, and other criteria are met, FDA can make tests available under an emergency access mechanism called an Emergency Use Authorization (EUA). The EUA for this test is supported by the Box Attacher of Health and Human Service's declaration that [...] used). Performed By: #### C VDTBH #### [facility] [address] [place] [address] Dr. Reg Kerns ER URINE PROFILEon 2 Bilirubin Ql (U) Negative Normal NEGATIVE [facility] Comment on above: Performed By: #### U NICHELLE 24 #### [facility] [address] [place] [address] Dr. Reg Kerns Clarity (U) SL CLOUDY Abnormal CLEAR [facility] Comment on above: Performed By: #### U NICHELLE 24 #### [facility] [address] [place] [address] Dr. Reg Kerns Color (U) YELLOW Normal YELLOW [facility] Comment on above: Performed By: #### U NICHELLE 24 #### [facility] [address] [place] [address] Dr. Reg WEAVER A micrscopic examination will be performed if indicated. Normal [facility] Comment on above: Performed By: #### U NICHELLE 24 #### [facility] [address] [place] [address] Dr. Reg Kerns Glucose Ql (U) Negative Normal NEGATIVE The [facility] Comment on above: Performed By: #### U NICHELLE 24 #### [facility] [address] [place] [address] Dr. Reg Kerns Hemoglobin Ql (U) LARGE Abnormal NEGATIVE [facility] Comment on above: Performed By: #### U NICHELLE 24 #### [facility] [address] [place] [address] Dr. Reg Kerns Ketones Ql (U) Negative Normal NEGATIVE The [facility] Comment on above: Performed By: #### U NICHELLE 24 #### [facility] [address] [place] [address] Dr. Reg Kerns LEUKOCYTES Negative Normal NEGATIVE [facility] Comment on above: Performed By: #### U NICHELLE 24 #### [facility] [address] [place] [address] Dr. Reg Kerns Nitrite Ql (U) Negative Normal NEGATIVE The [facility] Comment on above: Performed By: #### U NICHELLE 24 #### [facility] [address] [place] [address] Dr. Reg Kerns pH (U) 5.0 [pH] Normal 5-9 [facility] Comment on above: Performed By: #### U NICHELLE 24 #### [facility] [address] [place] [address] Dr. Reg Kerns SPEC GRAVITY >=1.030 Abnormal 1.005-<=1.025 [facility] Comment on above: Performed By: #### U NICHELLE 24 #### [facility] [address] [place] [address] Dr. Reg Kerns UA PROTEIN TRACE Normal NEGATIVE/ TRACE [facility] Comment on above: Performed By: #### U NICHELLE 24 #### [facility] [address] [address] [address] Reg Kerns UR MICRO IND INDICATED Normal [facility] Comment on above: Performed By: #### U NICHELLE 24 #### [facility] [address] [place] [address] Dr. Reg Kerns Urobilinogen Qn (U) 0.2 {Tiffani'U}/dL Normal 0.2 - 1. 0 [facility] Comment on above: Performed By: #### U NICHELLE 24 #### [facility] [address] [place] [address] Dr. Reg Kerns PROF CHEM 8 (BAS METB)on Anion gap [Moles/Vol] 14.0 mmol/L Normal [facility] Comment on above: Performed By: #### B MP #### [facility] [address] [place] [address] Dr. Reg Kerns Calcium [Mass/Vol] 9.2 mg/dL Normal 8.4-10.2 [facility] Comment on above: Performed By: #### B MP #### [facility] [address] [place] [address] Dr. Reg Kerns Chloride [Moles/Vol] 101 mmol/L Normal 98-107 [facility] Comment on above: Performed By: #### B MP #### [facility] [address] [place] [address] Dr. Reg Kerns CO2 [Moles/Vol] 25.9 mmol/L Normal 22.0-30.0 [facility] Comment on above: Performed By: #### B MP #### [facility] [address] [place] [address] Dr. Reg Kerns Creatinine [Mass/Vol] 1.13 mg/dL Critically high 0.52-1.04 [facility] Comment on above: Performed By: #### B MP #### [facility] [address] [place] [address] Dr. Reg Kerns EGFR-AF BURKINAN 56 mL/min/1.73m2 Critically low >=60 [facility] Comment on above: Performed By: #### B MP #### [facility] [address] [place] [address] Dr. Reg Kerns EGFR-NON AF BURKINAN 47 mL/min/1.73m2 Critically low >=60 [facility] Comment on above: Performed By: #### B MP #### [facility] [address] [address] [address] Reg Kerns Glucose [Mass/Vol] 145 mg/dL Critically high 74-106 [facility] Comment on above: Performed By: #### B MP #### [facility] [address] [place] [address] Dr. Reg Kerns Potassium [Moles/Vol] 3.9 mmol/L Normal 3.4-5.0 [facility] Comment on above: Performed By: #### B MP #### [facility] [address] [place] [address] Dr. Reg Kerns Sodium [Moles/Vol] 137 mmol/L Normal 137-145 [facility] Comment on above: Performed By: #### B MP #### [facility] [address] [place] [address] Dr. Reg Kerns Urea nitrogen [Mass/Vol] 13.0 mg/dL Normal 7.0-17.0 [facility] Comment on above: Performed By: #### B MP #### [facility] [address] [place] [address] Dr. Reg Kerns Urea nitrogen/Creatinine [Mass ratio] 11.5 mg/mg Normal [facility] Comment on above: Performed By: #### B MP #### [facility] [address] [id number] [address] Reg Kerns URINE MICROSCOPIC ONLYon BACTERIA TRACE Abnormal NONE SEEN [facility] Comment on above: Performed By: #### U NICHELLE 24 #### [facility] [address] [place] [address] Dr. Reg Kerns Bacteria identified Cx Nom (U) NOT INDICATED Normal [facility] Comment on above: Performed By: #### U NICHELLE 24 #### [facility] [address] [place] [address] Dr. Reg Kerns CAST NONE SEEN Normal NONE SEEN [facility] Comment on above: Performed By: #### U NICHELLE 24 #### [facility] [address] [place] [address] Dr. Reg Kerns Crystals LM Nom (Urine sed) NONE SEEN Normal NONE SEEN [facility] Comment on above: Performed By: #### U NICHELLE 24 #### [facility] [address] [place] [address] Dr. Reg Kerns Epithelial cells LM Ql (Urine sed) FEW Abnormal NONE SEEN /RARE [facility] Comment on above: Performed By: #### U NICHELLE 24 #### [facility] [address] [place] [address] Dr. Reg Kerns MUCOUS TRACE Abnormal NONE SEEN [facility] Comment on above: Performed By: #### U NICHELLE 24 #### [facility] [address] [place] [address] Dr. Reg Kerns RBC 5-10 Abnormal 0-2 [facility] Comment on above: Performed By: #### U NICHELLE 24 #### [facility] [address] [place] [address] Dr. Reg Kerns WBC 0-2 Abnormal NONE SEEN [facility] Comment on above: Performed By: #### U NICHELLE 24 #### [facility] [address] [place] [address] Dr. Reg Kerns Vital Signs Date Time Vital Sign Value Performing Clinician Facility 01-18-2025 10:55-0400 Body height 163.8 cm Gina GARCIAM Work Phone: [facility] 01-18-2025 10:55-0400 Body mass index (BMI) [Ratio] 27.04 kg/m2 Gina Fletcher DPM Work Phone: [facility] 01-18-2025 10:55-0400 Body weight 72.58 kg Gina Fletcher DPM Work Phone: [facility] 05-18-2024 12:54-0400 Blood Pressure Location Carlos SILVERMAN [facility] 05-18-2024 12:54-0400 Diastolic blood pressure 50 mm[Hg] Carlos SILVERMAN [facility] 05-18-2024 12:54-0400 Heart rate 58 /min Carlos [employer] [facility] 05-18-2024 12:54-0400 Respiratory rate 16 /min Carlos [employer] [facility] 05-18-2024 12:54-0400 Systolic blood pressure 132 mm[Hg] Carlos [employer] [facility] 05-01-2023 12:51-0400 Blood Pressure Location VICKIE MOORERY [facility] 05-01-2023 12:51-0400 Body temperature 97.34 [degF] VICKIE ANDREWS [facility] 05-01-2023 12:51-0400 Diastolic blood pressure 81 mm[Hg] VICKIE ANDREWS [facility] 05-01-2023 12:51-0400 Heart rate 78 /min VICKIE ANDREWS [facility] 05-01-2023 12:51-0400 Systolic blood pressure 158 mm[Hg] VICKIE ANDREWS [facility] 06-04-2022 11:49-0400 Blood Pressure Location Carlos [employer] [facility] 06-04-2022 11:49-0400 Diastolic blood pressure 86 mm[Hg] Carlos ANDRA [facility] 06-04-2022 11:49-0400 Heart rate 85 /min Carlos SILVERMAN [facility] 06-04-2022 11:49-0400 Systolic blood pressure 132 mm[Hg] Carlos SILVERMAN [facility] Encounters Encounter Date Encounter Type Care Provider Facility Start: 01-18-2025 End: 01-18-2025 Bamboo flowsheet Gina Fletcher DPM Work Phone: [facility] Start: 01-18-2025 End: 01-18-2025 Bamboo flowsheet Gina Fletcher DPM Work Phone: [facility] Start: 01-18-2025 End: 01-18-2025 Office outpatient new 30 minutes Gina Fletcher DPM Work Phone: [facility] Comment on above: Plantar fasciitis (P rimary Dx); Right foot pain; Equinus contracture of right ankle Start: 01-18-2025 End: 01-18-2025 ambulatory GINA FLETCHER Not Available Start: 05-18-2024 End: 05-18-2024 ambulatory Carlos SILVERMAN Facility:[facility] Start: 05-18-2024 End: 05-18-2024 Patient encounter procedure Carlos SILVERMAN [facility] Start: 05-01-2023 End: 05-01-2023 Patient encounter procedure VICKIE SPARROW [facility] Start: 06-04-2022 End: 06-04-2022 Patient encounter procedure Carlos SILVERMAN [facility] Start: 02-21-2022 End: 02-22-[address] MARKIE SMITH Facility:[facility] Start: 02-02-2022 End: 02-02-[address] CARLOS SILVERMAN Facility:[facility] Start: 01-31-2022 End: 02-01-[address] CARLOS SILVERMAN Facility:[facility] Start: 10-25-2021 End: 10-25-2021 ambulatory Markie Smith Facility:[facility] Start: 10-12-2021 End: 10-12-2021 ambulatory Markie Smith Facility:[facility] Start: 10-08-2021 End: 10-09-[address] CARLOS [...] Influenza vaccination Influenz a Vaccine (Season Ended) [facility] Start: 01-18-2025 End: 01-18-2025 Patient encounter procedure 01/18/2025 10:45 AM EDT Office Visit [facility] [address] [place] [address] Gina Fletcher DPM [address] [place] [address] [facility] Comment on above: Arrived Start: 1992 Pneumococcal Vaccine : 65+ Years (1 of 1 - PCV) Pneumococcal Vaccine: 65+ Years (1 of 1 - PCV) [facility] Immunizations Immunization Date Immunization Notes Care Provider Rasheeda quijano 08-07-2023 zoster vaccine recombinant Carlos SILVERMAN [facility] 05-14-2023 zoster vaccine recombinant Carlos SILVERMAN [facility] 01-19-2021 SARS-CoV-2 (COVID-19 ) mRNA-1273 vaccine Carlos SILVERMAN [facility] 12-22-2020 SARS-CoV-2 (COVID-19 ) mRNA-1273 vaccine Carlos SILVERMAN [facility] Payers Date Payer Category Payer Self-pay 2021 Medicare (Managed Care) [facility] [id number] 1959 Unknown [id number] 1942 Unknown [id number] [id number]. [id number] 1942 Unknown [id number] [id number]. 2.59 1942 Unknown [id number] [id number]. 2.59 1942 Unknown [id number] [id number]. 2.593 1942 Unknown [id number] [id number]. 2.593 1942 Unknown [id number] [id number]. 2.593 1942 Unknown [id number] [id number]. 2.727 1942 Unknown [id number] [id number]. 2.1259 1942 Unknown [id number] [id number]. 2.1259 Unknown [id number]. 2.531 Social History Date Type Detail Facility Start: 10-09-2021 End: 01-18-2025 Tobacco smoking status Ex-smoker (finding) [facility] Sex Assigned At Female [facility] Tobacco smoking status Never [facility] Start: [...] Facility 05-18-2024 Functional Status N/A [facility] 05-01-2023 Functional Status N/A [facility] 06-04-2022 Functional Status N/A 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) ([facility]) Family history of kidney stone GERD (gastroesophageal reflux disease) Migraines (CMS/HCC) Mild dementia ([facility]/HCC) Status post craniectomy Medications Current Outpatient Medications: amLODIPine (Norvasc) 5 MG tablet, Take 5 mg by mouth Daily, Disp: , Rfl: ecaptea-dyporiabskxwl-dofucmmw (Excedrin Migraine) 250-250-65 MG tablet, Take 1 [...] Gina Fletcher DPM documented in this encounter [facility] 05-18-2024 Hospital Discharge instructions Patient Education 05/18/2024 [...] include: ?8 oz (237 mL) of milk, dhffkbf-dhjfaixsnwrn-kohni milk, and calcium-fortifiedfruit juice. Calcium-fortified means that [...] ?Spinach (cooked), rhubarb, beets, sweet potatoes, and Algerian chard. ?Peanuts. ?Potato chips, irish fries, and baked potatoes with skin on. ?Nuts and nut products. ?Chocolate. If you regularly take a diuretic medicine, make sure to eat at least 1 or 2 servings of fruits or vegetables that are high in potassium each day. These include: ?Avocado. ?Banana. ?Barnum, prune, carrot, or tomato juice. ?Baked potato. [...] magnesium, fish oil, or vitamin B6. Take mvlj-fid-mfkitbe and prescription medicines only as told by [...] Casseroles. Pizza. Lasagna. Frozen meals. Potato chips. St Lucian fries. The items listed above may not [...] provider. Document Revised: 11/28/2022 Document Reviewed: 11/28/2022 [employer] Patient Education 2023 [employer] Follow Up Care 05/01/2023 13:32:00 With:ANDRA RIVERA, Carlos Mae, URL Address: [place] [address] [address]- When: Unknown Comments:1.5 yrs w/ KUB [facility] 05-18-2024 Note Patient Education Nephrology Dietary Guidelines [...] ? 8 oz (237 mL) of milk, xcwoqem-eqsodiyurwij-gqbct milk, and calcium-fortifiedfruit juice. Calcium-fortified means that [...] Spinach (cooked), rhubarb, beets, sweet potatoes, and Algerian chard. ? Peanuts. ? Potato chips, irish fries, and baked potatoes with skin on. ? Nuts and nut products. ? Chocolate. ? If you regularly take a diuretic medicine, make sure to eat at least 1 or 2 servings of fruits or vegetables that are high in potassium each day. These include: ? Avocado. ? Banana. ? Barnum, prune, carrot, or tomato juice. ? Baked [...] fish oil, or vitamin B6. ? Take tchg-ovr-smedsbn and prescription medicines only as told by your health care provider. These include suppleme (more content not included)... [facility] 05-01-2023 Hospital Discharge instructions Patient Education 05/01/2023 [...] include: ?8 oz (237 mL) of milk, shbkomn-zfuvcoohbhsu-nqcfd milk, and calcium-fortifiedfruit juice. Calcium-fortified means that [...] ?Spinach (cooked), rhubarb, beets, sweet potatoes, and Algerian chard. ?Peanuts. ?Potato chips, irish fries, and baked potatoes with skin on. ?Nuts and nut products. ?Chocolate. If you regularly take a diuretic medicine, make sure to eat at least 1 or 2 servings of fruits or vegetables that are high in potassium each day. These include: ?Avocado. ?Banana. ?Barnum, prune, carrot, or tomato juice. ?Baked potato. [...] magnesium, fish oil, or vitamin B6. Take gbuq-ajk-yvldwhk and prescription medicines only as told by [...] Casseroles. Pizza. Lasagna. Frozen meals. Potato chips. [place] Lucian fries. The items listed above may not [...] provider. Document Revised: 04/29/2022 Document Reviewed: 04/29/2022 [employer] Patient Education 2022 [employer]. Follow Up Care 06/04/2022 12:04:12 With:VICKIE SPARROW PA-C, URL Address: [address] [place] [address] When: Unknown [facility] [place] 06-04-2022 Hospital Discharge instructions Patient Education 06/04/2022 11:49:33 Kidney Stones, Qlnl-sc-Yrnu Kidney Stones Kidney stones are rock-like masses [...] Follow these instructions at home: Medicines Take pyuc-yfw-zugxfpe and prescription medicines only as told by [...] 02/03/2009 Document Revised: 01/04/2020 Document Reviewed: 01/04/2020 [employer] Patient Education 2020 [employer] Follow Up Care 2021 09:56:33 With:ANDRA RIVERA, Carlos Mae, URL Address: [address] [place], [place] [address]- When:12/03/2022 Comments:KUB [facility] [place] 09-21-2021 Note OPERATIVE NOTE PREOPERATIVE [...] appropriately. I attempted to pass the #22 [place]ian scope without success. She required urethral dilatation to 28 [place]. She has a significant rectocele and a [...] removed. Over the wire then a 4.8 St Lucian 22 to 30 cm microvasive double J [...] with her in the outpatient setting. [facility] 09-21-2021 Note OPERATIVE NOTE PREOPERATIVE DIAGNOSIS: [...] appropriately. I attempted to pass the #22 [place]ian scope without success. She required urethral dilatation to 28 [place]. She has a significant rectocele and a [...] removed. Over the wire then a 4.8 St Lucian 22 to 30 cm microvasive double J [...] with her in the outpatient setting. [facility] Evaluation + Plan note Future Appointments Appointment Date:12/06/2022 10:30:00 AM Scheduled Provider:Carlos SILVERMAN MD Location:[facility] Appointment Type:URO Office Visit Future Scheduled TestsBasic Metabolic Panel 11/15/21 [facility] [place] Evaluation + Plan note Future Appointments Appointment Date:05/04/2024 01:00:00 PM Scheduled Provider:Carlos SILVERMAN MD Location:[facility] Appointment Type:URO Office Visit [facility] [employer] Evaluation note Diagnosis Plantar fasciitis- Primary Plantar fascial fibromatosis Right foot pain Pain in soft tissues of limb Equinus contracture of right ankle [facility] Narr[facility] No data available for this section [facility] [employer] Progress note No data available for this section [facility] [employer] Summary Purpose Family History No Family History Records FoundNo Family History Records FoundNo Family History Records Found No data available for this section No Family History Records Found Advance Directives No Advanced Directives Records FoundNo Advanced Directives Records FoundNo Advanced Directives Records FoundNo Advanced Directives Records Found Additional Source Comments INFORMATION SOURCE (unrecogn ized section and content) DATE CREATED AUTHOR 02/27/2022 [facility] DATE CREATED AUTHOR AUTHOR'S ORGANIZ ATION 10/05/2022 [facility] DATE CREATED AUTHOR AUTHOR'S ORGANIZ ATION 05/20/2024 [facility] DATE CREATED AUTHOR AUTHOR'S ORGANIZ ATION 01/19/2025 [facility] EPIC Patient Care team informatio n (unrecognized section and content) Hot Packer Relationship Specialty Start Date End Date Markie Smith MD [address] [place] [address] PCP - General Family Medicine 01/05/25 Hot Packer Relationship Specialty Start Date End Date Markie Smith MD [address] [facility] [place] [phone] [phone] PCP - General Family Medicine 01/05/25 Reason [...] BE BASED ON THE PRIMARY CLINICAL RECORDS. [employer] provides no warranty or guarantee of the accuracy or completeness of information in this document.
--- NOTE | 2025-05-27 13:44 | XR_ITS ---
[facility] [place] [id number] Patient Name: ROBYN SRINIVASAN MRN: [id number] date: 1940 Sex: F Assigned Patient Location: [facility] Current Patient Location: [facility] Accession/Order Number: [id number] Exam Date: 05/27/2025 13:55 Report Date: 05/27/2025 14:31 At the request of: MARKIE ACKERMAN MD Procedure: XR ribs BI min 4V w CXR1V PA CHEST WITH 3VIEWS BILATERAL RIBS: CLINICAL HISTORY: Rib Pain COMPARISON: Chest 05/05/2025 FINDINGS: Heart normal size. Lungs are clear. No free air. Bones are grossly demineralized. No displaced rib fracture. XR/XR ribs BI min 4V w CXR1V IMPRESSION: No acute findings. Impression dictated by: Tj Li Jr., D.O. 05/27/2025 2:31 PM Dictation Location: [place] [address] Electronically authenticated by: [id number] Y Date: 05/27/2025 14:31
--- NOTE | 2025-05-27 13:44 | XR_ITS ---
[facility] [place] [id number] Patient Name: ROBYN SRINIVASAN MRN: [id number] date: 1940 Sex: F Assigned Patient Location: [facility] Current Patient Location: [facility] Accession/Order Number: [id number] Exam Date: 05/27/2025 13:55 Report Date: 05/27/2025 14:32 At the request of: MARKIE ACKERMAN MD Procedure: XR wrist RT 2V RIGHT WRIST - 2 views CLINICAL HISTORY: Acute Right Wrist Pain COMPARISON: Right hand 05/05/2025 FINDINGS: Bones are grossly mineralized. No focal soft tissue abnormality. Calcification in region of the TFCC. Carpus configuration is grossly unchanged from the prior study with severe degenerative changes involving the scaphotrapezial joint and CMC joint of the thumb. No definite acute bony process. XR/XR wrist RT 2V IMPRESSION: DEGENERATIVE CHANGES INVOLVING THE CARPUS SIMILAR TO THE PRIOR STUDY WITHOUT DEFINITIVE ACUTE BONY PROCESS. Impression dictated by: Tj Li Jr., D.O. 05/27/2025 2:32 PM Dictation Location: [employer] Electronically authenticated by: [id number] Y Date: 05/27/2025 14:32
== END 2025-05-27 13:33 | disposition home or self-care (01) ==
LOC: RAD 13:34
PROVIDERS: Family Provider Family Medicine; PCP Family Medicine; Visit Provider Family Medicine
DX: R07.81 Pleurodynia (principal); M25.531 Pain in right wrist
CPT/HCPCS: 71111; 73100